=== PATIENT | male | born 1975 | race African-American/Black ===

== ENCOUNTER 2023-08-07 09:43 | Emergency (ER) | payer BC, SELFPAY ==
--- OUTSIDE RECORDS SUMMARY | 2023-08-07 10:00 | XMS REPORT | Continuity of Care Document ---
:1975 Author Organization [facility] t Address [address] [facility] [address]. [address] [place] [address] Support Name Relationship Address Phone Refused, Refused Refused [address] [facility] [address]available [address] [place] [address] UNK Unavailable Unavailable Unavailable Unavailable Unavailable Unavailable Unavailable [place] Parent Unavailable Legal Guardian O BILLING PURPOSES Healthcare Proxy O Created by the Eligibility Depa rtment Unavailable PLEASE DO NOT MODIFY Billing Purposes, Primary Caregiver O Created by the Eligibility Dep artment Unavailable PLEASE DO NOT MODIFY Billing Purposes, Jayne Ese Jonatan Unavailable Unavailable Ahmet Diez O [address] [place] [address] [address]nie Chatman [address] [id number] [place], [place] [id number] Healthcare Proxy O PLEASE DO NOT MODIFY!!!!!!! Raisa vailable DO NOT USE Billing Purposes, Primary Caregiver O PLEASE DO NOT MODIFY!!!!!!! (0 00) 000-0000 DO NOT USE Billing Purposes, Healthcare Proxy, PLEASE O PLEASE DO NOT MODIFY (0 00) 000-0000 STOP UPDATING!!!! PLEASE DO NOT MODIFY Billing Purposes, Primary Caregiver, PLEASE O PLEASE DO NOT MODIFY STOP UPDATING!!! PLEASE DO NOT MODIFY Billing Purposes, None1 O Unavailable Unavailable Donnell Chung O Unavailable Unavailable Cari Mehta [address] [facility] [id number] [address] [place] [address] Reinaldo (Legal Guardian), O [address] [facility] [place] [address] [place] Unavailable Unavailable Care Team Providers Name Role Phone DONTA MOORE Primary Care Physician Unavailable .vsnichelle Attending Clinician Unavailable STEWART CAMARA Attending Clinician Unavailable MORA LOMAS Attending Clinician Unavailable CHEYENNE GUTHRIE Attending Clinician Unavailable ROLA BERG Attending Clinician Unavailable MADELYN SLOAN Attending Clinician Unavailable Rola Wood Attending Clinician NERI WILLIS Attending Clinician Unavailable Neri Willis MD Attending Clinician Doctor Unassigned, Ackerman Attending Clinician Unavailable Mora Lomas MD Attending Clinician UNKNOWN, ATTENDING Attending Clinician Unavailable Cari Mehta MD Attending Clinician [phone] Linda Holbrook CMA Attending Clinician Unavailable Gloria Temple LVN Attending Clinician Unavailable Luis Angel Leyva Attending Clinician Leidy Landa MD Attending Clinician MINGO SENDIL K.H. Attending Clinician Unavailable Lab, Ang - Db Attending Clinician Unavailable JOSIAH HUFFMAN Attending Clinician Unavailable AZ MATHEW Attending Clinician Unavailable Gavi Abad Attending Clinician Emelia Alfonso DO Attending Clinician [phone] Clifton Sorto MD Attending Clinician THEODORE COLLINS Attending Clinician Unavailable Leidy Landa Attending Clinician Linda Holbrook Attending Clinician Unavailable Deirdre Aguirre Attending Clinician Unavailable Rob Osborne Attending Clinician GOGO HAZEL Attending Clinician Unavailable ROB BELCHER Attending Clinician Unavailable Jonathan Nieves Attending Clinician Unavailable Benita Bullock Attending Clinician Unavailable Larry Herrera Attending Clinician [phone] Kusum Spears Attending Clinician Unavailable KYLE BAER Attending Clinician Unavailable LIANG RICARDO Attending Clinician Unavailable Mingo CARNEY, Sendil K.H. Attending Clinician Pepe Moore DDS Attending Clinician [phone] Josiah Humphrey S Attending Clinician LEIDY LANDA Attending Clinician Unavailable Cheyenne Guthrie MD Attending Clinician BRANDY BEST Attending Clinician Unavailable Brandy Best MD Attending Clinician Only, [facility] Test Attending Clinician Unavailable Pob, [facility] Lab Main Attending Clinician Unavailable MEEK GRAF S Attending Clinician Unavailable Nel PAC, Meek S Attending Clinician PK GREGORIO Attending Clinician Unavailable JASON GARCIA Attending Clinician Unavailable Randall Tse DO Attending Clinician Lab, [facility] Fam Pob I Attending Clinician Unavailable Soni Almazan Attending Clinician DONTA MOORE Attending Clinician Unavailable Jason De Jesus Attending Clinician Cordelia Nance Attending Clinician [phone] Xavi MISTRY, Ba Grant Attending Clinician Unavailable Benita Bullock Attending Clinician Unavailable Lonnie Chatman Attending Clinician [phone] Rupa Spears Attending Clinician Unavailable Mya Li Attending Clinician Unavailable Corwin MISTRY, Tawana Cheung Attending Clinician Unavailable Natalee Willis LVN Attending Clinician Unavailable Kadeem Knight RN, Anjelica R Attending Clinician Unavailable MORA LOMAS Admitting Clinician Unavailable CHEYENNE GUTHRIE Admitting Clinician Unavailable Mora Lomas MD Admitting Clinician BRANDY BEST Admitting Clinician Unavailable Cheyenne Guthrie MD Admitting Clinician MEEK GRAF Admitting Clinician Unavailable Cari Mehta MD Unavailable [phone] Larry Herrera MD Unavailable [phone] Lurdes NGUYEN, Lonnie Unavailable [phone] Payers Payer Name Policy Type Policy Number Effective Date Expiration Date [id number] 2020 MEDICAL/MARKETP 00:00:00 LACE BCBS HMO S [id number] 2021 MEDICAL/MARKETP 00:00:00 [place]ACE HIM BCBS BLUE [id number] 2019 ADVANTAGE HMO 00:00:00 BCBS HMO O [id number] 2022 2023 MEDICAL/MARKETP 00:00:00 00:00:00 [place]ACE BCBS HMO S [id number] 2022 2023 MEDICAL/MARKETP 00:00:00 00:00:00 LACE BCBS HMO [id number] 2021 00:00:00 BCBS HMO 11 [id number] 2019 2019 [facility] MEDICAL/MARKETP 00:00:00 00:00:00 Community ANIA Health Problems Condition Condition Condition Status Onset Resolution Last Treating Co mments Source Name Details Category Date Date Treatment Clinician Date Onychomyco Condition Active 2023-02-19 ANGELA Mehta ses 5-17 19:40:26 Cari Adult 00:00: Medicin 00 e Encounter Encounter Disease Active Overview: Univers for for 3-15 Formattin ity of screening screening 00:00: [place] colonoscop colonoscop 00 note Me dical y y might be Branch different from the original. 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 Added automatic ally from request for surgery [id number] Internal Internal Disease Active Overview: Un rocky derangemen derangemen 2-11 Formattin ity of t of right t of right 00:00: g of this [place] knee knee 00 note Medical might be Branch different from the original. Added automatic ally from request for surgery [id number] Immunizati Condition Active 2021-10-29 ANGELA Mehta on update 10-29 16:31:01 Cari Adul t 00:00: Medicin 00 e Rheumatoid Rheumatoid Disease Active 2020-10 M ethodi factor factor 2- st positive positive 00:00: Hospit a 00 l Chronic Chronic Disease Active 2020-10 Methodi pain of pain of 2-13 st both knees both knees 00:00: Ho spita 00 l Lumbar Lumbar Disease Active 2020-10 Methodi spondylosi spondylosi 0-08 st s s 00:00: Hospita 00 l Seizure Seizure Disease Active Overview: Meth rachel 5-[address] 00:00: g of this Hospita 00 note l might be different from the original. Formattin g of this note might be different from the original. Saw a Neurologi st in [place], was not started on anticoagu lation, no further seizures Vitamin D Vitamin D Disease Active Met hodi deficiency deficiency 2-10 st 00:00: Hospita 00 l Chronic Chronic Disease Active Methodi midline midline 3-22 st low back low back 00:00: Hospit a pain with pain with 00 l right-side right-side d sciatica d sciatica HIV HIV Disease Active Univers disease disease 3-20 ity of 00:00: [address] Branch Diabetes Diabetes Disease Active Unive rs mellitus, mellitus, 3-20 ity of type 2 type 2 00:00: [place] 00 Medical Branch HIV Condition Active 2018-102019-08-30 KATHY Herrera C infection 10-30 11:43:23 Larry Wei Reynaldo lt 00:00: Medicin 00 e Encounter Condition Active 2018-102019-08-30 Javier KATHY for 10-30 11:43:23 Larry S Adult screening 00:00: Medicin for eye 00 e and ear disorders Diabetes Condition Active 2018-102019-08-30 Herrera KATHY mellitus, 10-30 11:43:23 Larry Wei Reynaldo lt type II 00:00: Medicin 00 e Open angle Condition Active 2018-102019-08-30 LurdesKATHY with 10-30 11:09:25 Lonnie Adult borderline 00:00: Medici n findings, 00 e low risk, bilateral Exotropia, Condition Active 2018-102019-08-30 Lurdes [facility] alternatin 10-30 11:09:25 Lonnie Adul t g 00:00: Medicin 00 e Presbyopia Condition Active 2018-102019-08-30 Lurdes [facility] - OU 10-30 11:09:25 Lonnie Adult 00:00: Medicin 00 e Myopia - Condition Active 2018-102019-08-30 Lurdes [facility] OU 10-30 11:09:25 Lonnie Adult 00:00: Medicin 00 e Regular Condition Active 2018-102019-08-30 Lurdes [facility] astigmatis 10-30 11:09:25 Lonnie Adul t m, 00:00: Medicin bilateral 00 e Benign Benign Disease Active Methodi essential essential 2-03 st hypertensi hypertensi 00:00: Ho spita on on 00 l Diabetes Diabetes Disease Active Metho di mellitus, mellitus, 2-03 st type 2 type 2 00:00: Hospita 00 l Dyslipidem Dyslipidem Disease Active M ethodi ia ia 8-18 st 00:00: Hospita 00 l HIV HIV Disease Active Methodi infection infection 3-20 st 00:00: Hospita 00 l Allergies, Adverse Reactions, Alerts Allergy Allergy Status Severity Reaction(s) Onset Inactive Treating Comm ents Source Name Type Date Date Clinician ASPIRIN Drug Active High [facility] allergy Criticali 8-24 Adult (disorde ty 00:00: Medicin r) 00 e No Known DA Active U [facility] Drug 5-23 Allergie 00:00: s 00 Sulfa Propensi Active Other - See Due to Uni vers (Sulfona ty to comments 3-20 G6PD ity of mide adverse 00:00: deficienc [place] Antibiot reaction 00 y Medica l ics) s Branch SULFA Drug Active Other-Cmnt Univer s (SULFONA Class 3-20 ity of MIDE 00:00: [place] ANTIBIOT 00 Medical ICS) Branch Sulfa Propensi Active Other (See Due to Meth rachel (Sulfona ty to Comments) 3-[address] mide adverse 00:00: deficienc Hospit a Antibiot reaction 00 y l ics) s to drug Tree Propensi Active Anaphylaxis Uni vers Nuts ty to 7-24 ity of adverse 00:00: [place] reaction 00 Medical s Branch Tree Propensi Active Anaphylaxis Uni vers Nuts ty to 04-28 ity of adverse 00:00: [place] reaction 00 Medical s Branch TREE Drug Active High Anaphylaxis Unive rs NUTS Class 7- ity of 00:00: [place] 00 Medical Branch TREE Food Active Anaphylaxis Unive rs NUTS 7- ity of 00:00: [place] 00 Medical Branch Tree Propensi Active Anaphylaxis Met hodi Nuts ty to 04-28 st adverse 00:00: Hospita reaction 00 l s to drug Peanut Drug Active Hives Univers Allergy - ity of 00:00: [place] 00 Medical Branch PEANUT DRUG Active High Anaphylaxis Unive rs INGREDI 7- ity of 00:00: [place] 00 Medical Branch Peanut Propensi Active Hives Methodi ty to 04-16 st adverse 00:00: Hospita reaction 00 l s to drug Aspirin Propensi Active Other - See bleedingb Univers (Bulk) ty to comments 3-20 leedingbl ity o f adverse 00:00: eeding [place] reaction 00 Medical s Branch ASPIRIN DRUG Active Med Other-Cmnt Unive rs (BULK) 3-20 ity of 00:00: [place] 00 Medical Branch Aspirin Propensi Active Other (See bleedingb Methodi (Bulk) ty to Comments) 3-[address] adverse 00:00: Hospita reaction 00 l s to drug Family History Family Member Diagnosis Comments Start Date Stop Date Source Natural mother Depression [facility] Social History Social Habit Start Date Stop Date Quantity Comments Source [facility] History of tobacco [facility]igarette [facility] Gender identity [facility] Exposure to 2023-02-17 2023-02-27 Not sure University of SARS-CoV-2 (event) 00:00:00 11:42:00 [facility]ly [facility] PHQ2 Questionairre 2023-02-19 2023-02-19 [facility] Score 19:03:06 19:03:06 Health sexual orientation 2023-02-19 2023-02-19 [facility] 19:03:06 19:03:06 Health is there any chance 2023-02-19 2023-02-19 No [facility] that you could be 19:03:06 19:03:06 Health ? drug use 2023-02-19 2023-02-19 no [facility] ty 19:03:06 19:03:06 Health social history 2023-02-19 2023-02-19 reviewed today [facility] reviewed E&M 19:03:06 19:03:06 Health if the patient is 2023-02-19 2023-02-19 No [facility] using/has used a 19:03:06 19:03:06 Health vaping item, Current, Former, Never Used, Not asked alcohol use 2023-02-19 2023-02-19 Currently [facility] 19:03:06 19:03:06 Health passive cigarette 2023-02-19 2023-02-19 LA32-8 [facility] smoke exposure 19:03:06 19:03:06 Health time of call 2023-02-17 2023-02-17 02/17/2023 10:35 [facility] 10:35:41 10:35:41 AM Health tobacco use 2022-10-05 2022-10-05 Currently [facility] (cigarettes, cigar, 09:45:23 09:45:23 Healt h chew, pipe) albumin, serum 2022-09-20 2022-09-20 3.4 g/dL [facility] 09:41:00 09:41:00 Health Cigarettes smoked 2022-06-19 2022-06-[address] current (pack per 00:00:00 00:00:00 Hospita l day) - Reported Tobacco use and 2022-06-19 2022-06-19 Smokeless tobacco [facility] exposure 00:00:00 00:00:00 non-user Hospital Alcohol intake 2022-06-19 2022-06-19 Current drinker [facility] dist 00:00:00 00:00:00 of alcohol Hospital (finding) History of Social 2022-06-19 2022-06-[address] function 00:00:00 00:00:00 Hospital Alcohol Comment 2022-05-31 2022-05-31 social [facility] 00:[facility] 00[facility]00 Hospital patient considered 2021-10-29 2021-10-29 LA32-8 [facility] to be homeless 15:42:04 15:42:04 Health 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 2021-10-29 2021-10-29 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 Clinician (SIG) Name Name atorvastati Yes [id number] 80mg Take 1 Univers n 80 mg 7-19 tablet by ity of tablet 00:00: mouth at [place] 00 bedtime. Medical Branch carvediloL Yes [id number] 6.25mg Take 1 Univers 6.25 mg 7-19 tablet by ity of tablet 00:00: mouth in [place] 00 the Medical morning Branch and 1 tablet in the evening. Take with meals. fenofibrate Yes [id number] 48mg Take 1 Univers 48 mg 7-19 tablet by ity of tablet 00:00: mouth in [place] the Medical morning. Branch atorvastati 2022-0 Yes [id number] 80mg Take 1 Univers n 80 mg 7-19 tablet by ity of tablet 00:00: mouth at [place] [address] bedtime. Medical Branch carvediloL 2022-0 Yes [id number] 6.25mg Take 1 Univers 6.25 mg 7-19 tablet by ity of tablet 00:00: mouth in [place] the Medical morning Branch and 1 tablet in the evening. Take with meals. fenofibrate 2022-0 Yes [id number] 48mg Take 1 Univers 48 mg 7-19 tablet by ity of tablet 00:00: mouth in [place] the Medical morning. Branch atorvastati 2022-0 Yes [id number] 80mg Take 1 Univers n 80 mg 7-19 tablet by ity of tablet 00:00: mouth at [place] [address] bedtime. Medical Branch carvediloL 2022-0 Yes [id number] 6.25mg Take 1 Univers 6.25 mg 7-19 tablet by ity of tablet 00:00: mouth in [place] the Medical morning Branch and 1 tablet in the evening. Take with meals. fenofibrate 2022-0 Yes [id number] 48mg Take 1 Univers 48 mg 7-19 tablet by ity of tablet 00:00: mouth in [place] the Medical morning. Branch atorvastati 2022-0 Yes [id number] 80mg Take 1 Univers n 80 mg 7-19 tablet by ity of tablet 00:00: mouth at [place] [address] bedtime. Medical Branch carvediloL 2022-0 Yes [id number] 6.25mg Take 1 Univers 6.25 mg 7-19 tablet by ity of tablet 00:00: mouth in [place] the Medical morning Branch and 1 tablet in the evening. Take with meals. fenofibrate 3-0 Yes [id number] 48mg Take 1 Univers 48 mg 7-19 tablet by ity of tablet 00:00: mouth in [place] 00 the Medical morning. Branch atorvastati 2022-0 Yes [id number] 80mg Take 1 Univers n 80 mg 7-19 tablet by ity of tablet 00:00: mouth at [place] [address] bedtime. Medical Branch carvediloL 2022-0 Yes [id number] 6.25mg Take 1 Univers 6.25 mg 7-19 tablet by ity of tablet 00:00: mouth in [place] the Medical morning Branch and 1 tablet in the evening. Take with meals. fenofibrate Yes [id number] 48mg Take 1 Univers 48 mg 7-19 tablet by ity of tablet 00:00: mouth in [place] 00 the morning. Branch atorvastati Yes [id number] 80mg Take 1 Univers n 80 mg 7-19 tablet by ity of tablet 00:00: mouth at [place] [address] bedtime. Medical Branch carvediloL Yes [id number] 6.25mg Take 1 Univers 6.25 mg 7-19 tablet by ity of tablet 00:00: mouth in [place] the morning Branch and 1 tablet in the evening. Take with meals. fenofibrate Yes [id number] 48mg Take 1 Univers 48 mg 7-19 tablet by ity of tablet 00:00: mouth in [place] the morning. Branch insulin NPH 2022- No inject Uni vers hum/reg 6-30 06-30 under the ity of insulin hm 14:15: 00:00 skin. [place] (NOVOLIN 03 :00 ADMINISTER Medic al 70-30 5 UNITS Branch FLEXPEN UNDER THE U-100 SC) SKIN THREE TIMES DAILY BEFORE A MEAL insulin NPH 2022- No inject Uni vers hum/reg 6-30 06-30 under the ity of insulin hm 14:15: 00:00 skin. [place] (NOVOLIN 03 :00 ADMINISTER Medic al 70-30 5 UNITS Branch FLEXPEN UNDER THE U-100 SC) SKIN THREE TIMES DAILY BEFORE A MEAL Insulin Yes [id number] Inject 22 U nivers Detemir 6-30 UNITS ity of (LEVEMIR 00:00: UNDER THE [facility] s FLEXTOUCH 00 SKIN TWICE Medi ammy U-100 DAILY Branch INSULN) 100 unit/mL (3 mL) injection insulin Yes [id number] 14U inject 14 U nivers regular 6-30 Units ity of human 00:00: under the [place] (NOVOLIN R 00 skin in Medica l REGULAR the Branch U-100 morning INSULN) 100 and 14 unit/mL Units at injection noon and 14 Units in the evening. inject before meals. semaglutide Yes [id number] 14mg Take 14 mg Univers (RYBELSUS) 6-30 by mouth ity o f 14 mg Tab 00:00: in the [place] 00 morning. Medical Branch dapaglifloz 2022-0 Yes [id number] 5mg Take 1 Univers in 6-30 tablet by ity of (FARXIGA) 5 00:00: mouth in [place] mg tablet 00 the morning. Branch Insulin 2022-0 Yes [id number] Inject 22 U nivers Detemir 6-30 UNITS ity of (LEVEMIR 00:00: UND[place] THE [place] FLEXTOUCH 00 SKIN TWICE Medi ammy U-100 DAILY Branch INSULN) 100 unit/mL (3 mL) injection insulin 2022-0 Yes [id number] 14U inject 14 U nivers regular 6-30 Units ity of human 00:00: under the [place] (NOVOLIN R 00 skin in Medica l REGULAR the Branch U-100 morning INSULN) 100 and 14 unit/mL Units at injection noon and 14 Units in the evening. inject before meals. semaglutide 2022-0 Yes [id number] 14mg Take 14 mg Univers (RYBELSUS) 6-30 by mouth ity o f 14 mg Tab 00:00: in the [place] morning. Medical Branch dapaglifloz 2022-0 Yes [id number] 5mg Take 1 Univers in 6-30 tablet by ity of (FARXIGA) 5 00:00: mouth in [place] mg tablet the morning. Branch Insulin 2022-0 Yes [id number] Inject 22 U nivers Detemir 6-30 UNITS ity of (LEVEMIR 00:00: UND[place] THE [place] FLEXTOUCH 00 SKIN TWICE Medi ammy U-100 DAILY Branch INSULN) 100 unit/mL (3 mL) injection insulin 2022-0 Yes [id number] 14U inject 14 U nivers regular 6-30 Units ity of human 00:00: under the [place] (NOVOLIN R 00 skin in Medica l REGULAR the Branch U-100 morning INSULN) 100 and 14 unit/mL Units at injection noon and 14 Units in the evening. inject before meals. semaglutide 2022-0 Yes [id number] 14mg Take 14 mg Univers (RYBELSUS) 6-30 by mouth ity o f 14 mg Tab 00:00: in the [place] 00 morning. Medical Branch dapaglifloz 2022-0 Yes [id number] 5mg Take 1 Univers in 6-30 tablet by ity of (FARXIGA) 5 00:00: mouth in [place] mg tablet 00 the Medical morning. Branch Insulin 2022-0 Yes [id number] Inject 22 U nivers Detemir 6-30 UNITS ity of (LEVEMIR 00:00: UND[place] THE [place] FLEXTOUCH 00 SKIN TWICE Medi ammy U-100 DAILY Branch INSULN) 100 unit/mL (3 mL) injection insulin 2022-0 Yes [id number] 14U inject 14 U nivers regular 6-30 Units ity of human 00:00: under the [place] (NOVOLIN R 00 skin in Medica l REGULAR the Branch U-100 morning INSULN) 100 and 14 unit/mL Units at injection noon and 14 Units in the evening. inject before meals. semaglutide 2022-0 Yes [id number] 14mg Take 14 mg Univers (RYBELSUS) 6-30 by mouth ity o f 14 mg Tab 00:00: in the [place] 00 morning. Medical Branch dapaglifloz 2022-0 Yes [id number] 5mg Take 1 Univers in 6-30 tablet by ity of (FARXIGA) 5 00:00: mouth in [place] mg tablet 00 the Medical morning. Branch Insulin 2022-0 Yes [id number] Inject 22 U nivers Detemir 6-30 UNITS ity of (LEVEMIR 00:00: [place] THE [place] FLEXTOUCH 00 SKIN TWICE Medi ammy U-100 DAILY Branch INSULN) 100 unit/mL (3 mL) injection insulin 2022-0 Yes [id number] 14U inject 14 U nivers regular 6-30 Units ity of human 00:00: under the [place] (NOVOLIN R 00 skin in Medica l REGULAR the Branch U-100 morning INSULN) 100 and 14 unit/mL Units at injection noon and 14 Units in the evening. inject before meals. semaglutide 2022-0 Yes [id number] 14mg Take 14 mg Univers (RYBELSUS) 6-30 by mouth ity o f 14 mg Tab 00:00: in the [place] 00 morning. Medical Branch dapaglifloz 2022-0 Yes [id number] 5mg Take 1 Univers in 6-30 tablet by ity of (FARXIGA) 5 00:00: mouth in [place] mg tablet 00 the Medical morning. Branch Insulin 0 Yes [id number] Inject 22 U nivers Detemir 6-30 UNITS ity of (LEVEMIR 00:00: UND[place] THE [place] FLEXTOUCH 00 SKIN TWICE Medi ammy U-100 DAILY Branch INSULN) 100 unit/mL (3 mL) injection insulin 0 Yes [id number] 14U inject 14 U nivers regular 6-30 Units ity of human 00:00: under the [place] (NOVOLIN R 00 skin in Medica l REGULAR the Branch U-100 morning INSULN) 100 and 14 unit/mL Units at injection noon and 14 Units in the evening. inject before meals. semaglutide 2022-0 Yes [id number] 14mg Take 14 mg Univers (RYBELSUS) 6-30 by mouth ity o f 14 mg Tab 00:00: in the [place] morning. Medical Branch dapaglifloz 2022-0 Yes [id number] 5mg Take 1 Univers in 6-30 tablet by ity of (FARXIGA) 5 00:00: mouth in [place] mg tablet 00 the morning. Branch Insulin 2022-0 Yes [id number] Inject 22 U nivers Detemir 6-30 UNITS ity of (LEVEMIR 00:00: [facility] SKIN TWICE Medi ammy U-100 DAILY Branch INSULN) 100 unit/mL (3 mL) injection insulin 0 Yes [id number] 14U inject 14 U nivers regular 6-30 Units ity of human 00:00: under the [place] (NOVOLIN R 00 skin in Medica l REGULAR the Branch U-100 morning INSULN) 100 and 14 unit/mL Units at injection noon and 14 Units in the evening. inject before meals. semaglutide 2022-0 Yes [id number] 14mg Take 14 mg Univers (RYBELSUS) 6-30 by mouth ity o f 14 mg Tab 00:00: in the [place] morning. Medical Branch dapaglifloz 2022-0 Yes [id number] 5mg Take 1 Univers in 6-30 tablet by ity of (FARXIGA) 5 00:00: mouth in [place] mg tablet 00 the Medical morning. Branch Insulin 2022-0 Yes [id number] Inject 22 U nivers Detemir 6-30 UNITS ity of (LEVEMIR 00:00: [place] THE [place] FLEXTOUCH 00 SKIN TWICE Medi ammy U-100 DAILY Branch INSULN) 100 unit/mL (3 mL) injection insulin 2022-0 Yes [id number] 14U inject 14 U nivers regular 6-30 Units ity of human 00:00: under the [place] (NOVOLIN R 00 skin in Medica l REGULAR the Branch U-100 morning INSULN) 100 and 14 unit/mL Units at injection noon and 14 Units in the evening. inject before meals. semaglutide 2022-0 Yes [id number] 14mg Take 14 mg Univers (RYBELSUS) 6-30 by mouth ity o f 14 mg Tab 00:00: in the [place] 00 morning. Medical Branch dapaglifloz 2022-0 Yes [id number] 5mg Take 1 Univers in 6-30 tablet by ity of (FARXIGA) 5 00:00: mouth in [place] mg tablet 00 the morning. Branch Insulin 2022-0 Yes [id number] Inject 22 U nivers Detemir 6-30 UNITS ity of (LEVEMIR 00:00: UNDER THE [facility] FLEXTOUCH 00 SKIN TWICE Medi ammy U-100 DAILY Branch INSULN) 100 unit/mL (3 mL) injection insulin 2022-0 Yes [id number] 14U inject 14 U nivers regular 6-30 Units ity of human 00:00: under the [place] (NOVOLIN R 00 skin in Medica l REGULAR the Branch U-100 morning INSULN) 100 and 14 unit/mL Units at injection noon and 14 Units in the evening. inject before meals. semaglutide 2022-0 Yes [id number] 14mg Take 14 mg Univers (RYBELSUS) 6-30 by mouth ity o f 14 mg Tab 00:00: in the [place] 00 morning. Medical Branch dapaglifloz 2022-0 Yes [id number] 5mg Take 1 Univers in 6-30 tablet by ity of (FARXIGA) 5 00:00: mouth in [place] mg tablet 00 the Medical morning. Branch ESCITALOPRA 3-0 Yes [id number] 5mg TAKE 1 Univers M OXALATE 5 6-28 TABLET BY ity of mg tablet 00:00: MOUTH [place] 00 EVERY Medical MORNING Branch ESCITALOPRA 3-0 Yes [id number] 5mg TAKE 1 Univers M OXALATE 5 6-28 TABLET BY ity of mg tablet 00:00: MOUTH [place] 00 EVERY Medical MORNING Branch ESCITALOPRA Yes [id number] 5mg TAKE 1 Univers M OXALATE 5 6-28 TABLET BY ity of mg tablet 00:00: MOUTH [place] 00 EVERY Medical MORNING Branch ESCITALOPRA Yes [id number] 5mg TAKE 1 Univers M OXALATE 5 6-28 TABLET BY ity of mg tablet 00:00: MOUTH [place] 00 EVERY Medical MORNING Branch ESCITALOPRA Yes [id number] 5mg TAKE 1 Univers M OXALATE 5 6-28 TABLET BY ity of mg tablet 00:00: MOUTH [place] 00 EVERY Medical MORNING Branch ESCITALOPRA Yes [id number] 5mg TAKE 1 Univers M OXALATE 5 6-28 TABLET BY ity of mg tablet 00:00: MOUTH 00 EVERY Medical MORNING Branch ESCITALOPRA Yes [id number] 5mg TAKE 1 Univers M OXALATE 5 6-28 TABLET BY ity of mg tablet 00:00: MOUTH 00 EVERY Medical MORNING Branch ESCITALOPRA 0 Yes [id number] 5mg TAKE 1 Univers M OXALATE 5 6-28 TABLET BY ity of mg tablet 00:00: MOUTH [place] 00 EVERY Medical MORNING Branch ESCITALOPRA 0 Yes [id number] 5mg TAKE 1 Univers M OXALATE 5 6-28 TABLET BY ity of mg tablet 00:00: MOUTH [place] 00 EVERY Medical MORNING Branch ESCITALOPRA 0 Yes [id number] 5mg TAKE 1 Univers M OXALATE 5 6-28 TABLET BY ity of mg tablet 00:00: MOUTH EVERY Medical MORNING Branch ESCITALOPRA 0 Yes [id number] 5mg TAKE 1 Univers M OXALATE 5 6-28 TABLET BY ity of mg tablet 00:00: MOUTH [place] 00 EVERY Medical MORNING Branch lactated 2022-0 Yes 1000mL at 100 Unive rs ringers IV 6-07 mL/hr, ity of infusion 17:30: 1,000 [place] 1,000 mL 00 IV Medical Infusion, Branch CONTINUOUS , Starting on Fri03/12/23 at 1230, Until Discontinu ed, Routine, PACU lactated 2022-0 2022- No 1000mL at 100 Univ ers ringers IV 607 06-07 mL/hr, ity of infusion 17:30: 19:53 1,000 mL, [place] 1,000 mL 00 :24 IV Medical Infusion, Branch CONTINUOUS , Starting on Fri03/12/23 at 1230, Until Fri03/12/23 at 1453, Routine, PACU ondansetron Yes 4mg 4 mg, Slow Univers (ZOFRAN 6-07 IV Push, ity of (PF)) 17:29: PRN, 1 [place] injection 4 06 dose, Medical mg Starting Branch on Fri03/12/23 at 1229, Until Discontinu ed, Routine, Nausea and Vomiting (N/V), PACU ondansetron 2022- No 4mg 4 mg, Slow Univers (ZOFRAN 03-12 06-07 IV Push, ity of (PF)) 17:29: 19:53 PRN, 1 [place] injection 4 06 :24 dose, Medical mg Starting Branch on Fri03/12/23 at 1229, Until Fri03/12/23 at 1453, Routine, Nausea and Vomiting (N/V), PACU water for 2022- No PRN, Univers irrigation 03-12 Starting ity of irrigation 16:37: 16:59 on [place] solution 00 :48 03/12/23 at Medica l 1137, Branch Until Fri03/12/23 at 1159, Routine, Intra-op simethicone 2022- No PRN, Unive rs (GAS RELIEF 03-12 Starting ity of (SIMETHICON 16:37: 16:59 on Fri [place] E)) 40 00 :48 03/12/23 at Medical mg/0.6 mL 1137, Branch drops Until Fri03/12/23 at 1159, Routine, Intra-op lactated 2022- [facility] 03[facility]12 06-07 mL/hr, ity of infusion 15:15: 15:18 1,000 mL, [place] 1,000 mL 00 :00 IV Medical Infusion, Branch ONCE, 1 dose, On Fri03/12/23 at 1015, Routine, DSU Pre-op lactated 2022- No 1000[facility] 03-12 06-07 mL/hr, ity of infusion 15:15: 15:18 1,000 mL, [place] 1,000 mL 00 :00 IV Medical Infusion, Branch ONCE, 1 dose, On Fri03/12/23 at 1015, Routine, DSU Pre-op tiZANidine 2023-0 Yes 2mg Take 1 Unive rs 2 mg tablet 6-07 tablet by ity of 12:53: mouth in [place] [address] the Medical morning. Branch HYDROcodone 3-0 Yes 1{tbl} Take 1 Un rocky -acetaminop 6-07 tablet by ity of hen 10-325 12:53: mouth in [place] mg tablet 21 the Medical morning Branch and 1 tablet at noon and 1 tablet in the evening. meloxicam 2023-0 Yes Take by Unive rs 7.5 mg TbDL 6-07 mouth ity of 12:53: daily. [address] insulin NPH 3-0 Yes inject Univ ers hum/reg 6-07 under the ity of insulin hm 12:53: skin. [place] (NOVOLIN ADMINISTER Medic al 70-30 5 UNITS Branch FLEXPEN UNDER THE U-100 SC) SKIN THREE TIMES DAILY BEFORE A MEAL tiZANidine 2023-0 Yes 2mg Take 1 Unive rs 2 mg tablet 6-07 tablet by ity of 12:53: mouth in [place] [address] the Medical morning. Branch HYDROcodone 3-0 Yes 1{tbl} Take 1 Un rocky -acetaminop 6-07 tablet by ity of hen 10-325 12:53: mouth in [place] mg tablet 21 the Medical morning Branch and 1 tablet at noon and 1 tablet in the evening. meloxicam 2023-0 Yes Take by Unive rs 7.5 mg TbDL 6-07 mouth ity of 12:53: daily. [address] insulin NPH 3-0 Yes inject Univ ers hum/reg 6-07 under the ity of insulin hm 12:53: skin. [place] (NOVOLIN 21 ADMINISTER Medic al 70-30 5 UNITS Branch FLEXPEN UNDER THE U-100 SC) SKIN THREE TIMES DAILY BEFORE A MEAL tiZANidine 2023-0 Yes 2mg Take 1 Unive rs 2 mg tablet 6-07 tablet by ity of 12:53: mouth in [place] [address] the Medical morning. Branch HYDROcodone 3-0 Yes 1{tbl} Take 1 Un rocky -acetaminop 6-07 tablet by ity of hen 10-325 12:53: mouth in [place] mg tablet 21 the Medical morning Branch and 1 tablet at noon and 1 tablet in the evening. meloxicam 3-0 Yes Take by Unive rs 7.5 mg TbDL 6-07 mouth ity of 12:53: daily. [place] [address] Medical Branch insulin NPH 2022-0 Yes inject Univ ers hum/reg 6-07 under the ity of insulin hm 12:53: skin. [place] (NOVOLIN 21 ADMINISTER Medic al 70-30 5 UNITS Branch FLEXPEN UNDER THE U-100 SC) SKIN THREE TIMES DAILY BEFORE A MEAL tiZANidine 3-0 Yes 2mg Take 1 Unive rs 2 mg tablet 6-07 tablet by ity of 12:53: mouth in [place] [address] the Medical morning. Branch HYDROcodone 2022-0 Yes 1{tbl} Take 1 Un rocky -acetaminop 6-07 tablet by ity of hen 10-325 12:53: mouth in [place] mg tablet 21 the Medical morning Branch and 1 tablet at noon and 1 tablet in the evening. meloxicam 3-0 Yes Take by Unive rs 7.5 mg TbDL 6-07 mouth ity of 12:53: daily. [place] [address] Medical Branch insulin NPH 2022-0 Yes inject Univ ers hum/reg 6-07 under the ity of insulin hm 12:53: skin. [place] (NOVOLIN 21 ADMINISTER Medic al 70-30 5 UNITS Branch FLEXPEN UNDER THE U-100 SC) SKIN THREE TIMES DAILY BEFORE A MEAL tiZANidine 3-0 Yes 2mg Take 1 Unive rs 2 mg tablet 6-07 tablet by ity of 12:53: mouth in [place] [address] the Medical morning. Branch HYDROcodone 2022-0 Yes 1{tbl} Take 1 Un rocky -acetaminop 6-07 tablet by ity of hen 10-325 12:53: mouth in [place] mg tablet 21 the Medical morning Branch and 1 tablet at noon and 1 tablet in the evening. meloxicam 3-0 Yes Take by Unive rs 7.5 mg TbDL 6-07 mouth ity of 12:53: daily. [place] [address] Medical Branch insulin NPH 2022-0 Yes inject Univ ers hum/reg 6-07 under the ity of insulin hm 12:53: skin. [place] (NOVOLIN 21 ADMINISTER Medic al 70-30 5 UNITS Branch FLEXPEN UNDER THE U-100 SC) SKIN THREE TIMES DAILY BEFORE A MEAL tiZANidine 2023-0 Yes 2mg Take 1 Unive rs 2 mg tablet 6-07 tablet by ity of 12:53: mouth in [place] [address] the Medical morning. Branch HYDROcodone 2023-0 Yes 1{tbl} Take 1 Un rocky -acetaminop 6-07 tablet by ity of hen 10-325 12:53: mouth in [place] mg tablet 21 the Medical morning Branch and 1 tablet at noon and 1 tablet in the evening. meloxicam 2023-0 Yes Take by Unive rs 7.5 mg TbDL 6-07 mouth ity of 12:53: daily. [place] [address] Medical Branch tiZANidine 2023-0 Yes 2mg Take 1 Unive rs 2 mg tablet 6-07 tablet by ity of 12:53: mouth in [place] [address] the Medical morning. Branch HYDROcodone 2023-0 Yes 1{tbl} Take 1 Un rocky -acetaminop 6-07 tablet by ity of hen 10-325 12:53: mouth in [place] mg tablet 21 the Medical morning Branch and 1 tablet at noon and 1 tablet in the evening. meloxicam 2023-0 Yes Take by Unive rs 7.5 mg TbDL 6-07 mouth ity of 12:53: daily. [place] [address] Medical Branch tiZANidine 2023-0 Yes 2mg Take 1 Unive rs 2 mg tablet 6-07 tablet by ity of 12:53: mouth in [place] [address] the Medical morning. Branch HYDROcodone 2023-0 Yes 1{tbl} Take 1 Un rocky -acetaminop 6-07 tablet by ity of hen 10-325 12:53: mouth in [place] mg tablet 21 the Medical morning Branch and 1 tablet at noon and 1 tablet in the evening. meloxicam 2023-0 Yes Take by Unive rs 7.5 mg TbDL 6-07 mouth ity of 12:53: daily. [place] [address] Medical Branch tiZANidine 2023-0 Yes 2mg Take 1 Unive rs 2 mg tablet 6-07 tablet by ity of 12:53: mouth in [place] [address] the Medical morning. Branch HYDROcodone 2023-0 Yes 1{tbl} Take 1 Un rocky -acetaminop 6-07 tablet by ity of hen 10-325 12:53: mouth in [place] mg tablet 21 the Medical morning Branch and 1 tablet at noon and 1 tablet in the evening. meloxicam 2023-0 Yes Take by Unive rs 7.5 mg TbDL 6-07 mouth ity of 12:53: daily. [place] [address] Medical Branch tiZANidine 2023-0 Yes 2mg Take 1 Unive rs 2 mg tablet 6-07 tablet by ity of 12:53: mouth in [place] [address] the Medical morning. Branch HYDROcodone 2023-0 Yes 1{tbl} Take 1 Un rocky -acetaminop 6-07 tablet by ity of hen 10-325 12:53: mouth in [place] mg tablet 21 the Medical morning Branch and 1 tablet at noon and 1 tablet in the evening. meloxicam 2023-0 Yes Take by Unive rs 7.5 mg TbDL 6-07 mouth ity of 12:53: daily. [place] [address] Medical Branch tiZANidine 2023-0 Yes 2mg Take 1 Unive rs 2 mg tablet 6-07 tablet by ity of 12:53: mouth in [place] [address] the Medical morning. Branch HYDROcodone 3-0 Yes 1{tbl} Take 1 Un rocky -acetaminop 6-07 tablet by ity of hen 10-325 12:53: mouth in [place] mg tablet 21 the Medical morning Branch and 1 tablet at noon and 1 tablet in the evening. meloxicam 2023-0 Yes Take by Unive rs 7.5 mg TbDL 6-07 mouth ity of 12:53: daily. [place] [address] Medical Branch tiZANidine 2023-0 Yes 2mg Take 1 Unive rs 2 mg tablet 6-07 tablet by ity of 12:53: mouth in [place] [address] the Medical morning. Branch HYDROcodone 2023-0 Yes 1{tbl} Take 1 Un rocky -acetaminop 6-07 tablet by ity of hen 10-325 12:53: mouth in [place] mg tablet 21 the Medical morning Branch and 1 tablet at noon and 1 tablet in the evening. meloxicam 2023-0 Yes Take by Unive rs 7.5 mg TbDL 6-07 mouth ity of 12:53: daily. [place] [address] Medical Branch tiZANidine 2023-0 Yes 2mg Take 1 Unive rs 2 mg tablet 6-07 tablet by ity of 12:53: mouth in [place] [address] the Medical morning. Branch HYDROcodone 3-0 Yes 1{tbl} Take 1 Un rocky -acetaminop 6-07 tablet by ity of hen 10-325 12:53: mouth in [place] mg tablet 21 the Medical morning Branch and 1 tablet at noon and 1 tablet in the evening. meloxicam 3-0 Yes Take by Unive rs 7.5 mg TbDL 6-07 mouth ity of 12:53: daily. [place] [address] Medical Branch tiZANidine 2023-0 Yes 2mg Take 1 Unive rs 2 mg tablet 6-07 tablet by ity of 12:53: mouth in [place] [address] the Medical morning. Branch HYDROcodone 3-0 Yes 1{tbl} Take 1 Un rocky -acetaminop 6-07 tablet by ity of hen 10-325 12:53: mouth in [place] mg tablet 21 the Medical morning Branch and 1 tablet at noon and 1 tablet in the evening. meloxicam 3-0 Yes Take by Unive rs 7.5 mg TbDL 6-07 mouth ity of 12:53: daily. [place] [address] Medical Branch tiZANidine 3-0 Yes 2mg Take 1 Unive rs 2 mg tablet 6-07 tablet by ity of 12:53: mouth in [place] [address] the Medical morning. Branch HYDROcodone 3-0 Yes 1{tbl} Take 1 Un rocky -acetaminop 6-07 tablet by ity of hen 10-325 12:53: mouth in [place] mg tablet 21 the Medical morning Branch and 1 tablet at noon and 1 tablet in the evening. meloxicam 3-0 Yes Take by Unive rs 7.5 mg TbDL 6-07 mouth ity of 12:53: daily. [place] [address] Medical Branch tiZANidine 2023-0 Yes 2mg Take 1 Unive rs 2 mg tablet 6-07 tablet by ity of 12:53: mouth in [place] [address] the Medical morning. Branch HYDROcodone 2023-0 Yes 1{tbl} Take 1 Un rocky -acetaminop 6-07 tablet by ity of hen 10-325 12:53: mouth in [place] mg tablet 21 the Medical morning Branch and 1 tablet at noon and 1 tablet in the evening. meloxicam Yes Take by Unive rs 7.5 mg TbDL 6-07 mouth ity of 12:53: daily. [place] 21 Medical Branch tiZANidine Yes 2mg Take 1 Unive rs 2 mg tablet 6-07 tablet by ity of 12:53: mouth in [place] 21 the Medical morning. Branch HYDROcodone Yes 1{tbl} Take 1 Un rocky -acetaminop 6-07 tablet by ity of hen 10-325 12:53: mouth in [facility] as mg tablet 21 the Medical morning Branch and 1 tablet at noon and 1 tablet in the evening. meloxicam Yes Take by Unive rs 7.5 mg TbDL 6-07 mouth ity of 12:53: daily. [place] [address] Medical Branch (FLUCONAZOL Yes Cari 1 Take 1 L MC E) 150 MG 5-17 Shrikanth tablet by Adult TABS 00:00: MD mouth once Medicin 00 a week e flash Yes [id number] 1{each} 1 Each Uni vers glucose 4-20 every 14 ity of sensor 00:00: (fourteen) [place] (FREESTYLE 00 days. Medical SOREN 14 ICD-10 Branch DAY SENSOR) code Kit E11.65 flash Yes [id number] 1{each} 1 Each Uni vers glucose 4-20 every 14 ity of sensor 00:00: (fourteen) [place] (FREESTYLE 00 days. Medical SOREN 14 ICD-10 Branch DAY SENSOR) code Kit E11.65 flash 2022- No [id number] 1{each} 1 Each Un rocky glucose 4-20 06-07 every 14 ity of sensor 00:00: 00:00 (fourteen) [place] (FREESTYLE 00 :00 days. Medical SOREN 14 ICD-10 Branch DAY SENSOR) code Kit E11.65 flash 0 202- No [id number] 1{each} 1 Each Un rocky glucose 4-20 06-07 every 14 ity of sensor 00:00: 00:00 (fourteen) [place] (FREESTYLE 00 :00 days. Medical SOREN 14 ICD-10 Branch DAY SENSOR) code Kit E11.65 gabapentin Yes TAKE 1 Unive rs 300 mg 3-23 CAPSULE BY ity of capsule 00:00: MOUTH [place] 00 EVERY 6 Medical HOURS Branch gabapentin 2023-0 Yes TAKE 1 Unive rs 300 mg 3-23 CAPSULE BY ity of capsule 00:00: MOUTH [place] 00 EVERY 6 Medical HOURS Branch gabapentin 2023-0 Yes TAKE 1 Unive rs 300 mg 3-23 CAPSULE BY ity of capsule 00:00: MOUTH [place] 00 EVERY 6 Medical HOURS Branch gabapentin 2023-0 Yes TAKE 1 Unive rs 300 mg 3-23 CAPSULE BY ity of capsule 00:00: MOUTH [place] 00 EVERY 6 Medical HOURS Branch gabapentin 2023-0 Yes TAKE 1 Unive rs 300 mg 3-23 CAPSULE BY ity of capsule 00:00: MOUTH [place] 00 EVERY 6 Medical HOURS Branch gabapentin 2023-0 Yes TAKE 1 Unive rs 300 mg 3-23 CAPSULE BY ity of capsule 00:00: MOUTH [place] 00 EVERY 6 Medical HOURS Branch gabapentin 2023-0 Yes TAKE 1 Unive rs 300 mg 3-23 CAPSULE BY ity of capsule 00:00: MOUTH [place] 00 EVERY 6 Medical HOURS Branch gabapentin 2023-0 Yes TAKE 1 Unive rs 300 mg 3-23 CAPSULE BY ity of capsule 00:00: MOUTH [place] 00 EVERY 6 Medical HOURS Branch gabapentin 2023-0 Yes TAKE 1 Unive rs 300 mg 3-23 CAPSULE BY ity of capsule 00:00: MOUTH [place] 00 EVERY 6 Medical HOURS Branch gabapentin 2023-0 Yes TAKE 1 Unive rs 300 mg 3-23 CAPSULE BY ity of capsule 00:00: MOUTH [place] 00 EVERY 6 Medical HOURS Branch gabapentin 2023-0 Yes TAKE 1 Unive rs 300 mg 3-23 CAPSULE BY ity of capsule 00:00: MOUTH [place] 00 EVERY 6 Medical HOURS Branch gabapentin 2023-0 Yes TAKE 1 Unive rs 300 mg 3-23 CAPSULE BY ity of capsule 00:00: MOUTH [place] 00 EVERY 6 Medical HOURS Branch gabapentin 2023-0 Yes TAKE 1 Unive rs 300 mg 3-23 CAPSULE BY ity of capsule 00:00: MOUTH [place] 00 EVERY 6 Medical HOURS Branch gabapentin 2023-0 Yes TAKE 1 Unive rs 300 mg 3-23 CAPSULE BY ity of capsule 00:00: MOUTH [place] 00 EVERY 6 Medical HOURS Branch gabapentin 2023-0 Yes TAKE 1 Unive rs 300 mg 3-23 CAPSULE BY ity of capsule 00:00: MOUTH [place] 00 EVERY 6 Medical HOURS Branch GAVILYTE-G 2023-0 Yes Univers 236-22.74-6 3-22 ity of .74 -5.86 00:00: [place] gram 00 Medical solution Branch GAVILYTE-G Yes Univers 236-22.74-6 3-22 ity of .74 -5.86 00:00: [place] gram 00 Medical solution Branch GAVILYTE-G Yes Univers 236-22.74-6 3-22 ity of .74 -5.86 00:00: [place] gram 00 Medical solution Branch peg-electro 2022- No [id number] 4000mL Take 4,000 Univers lyte soln 3-22 03-23 mL by ity of 236-22.74-6 00:00: 04:59 mouth once [place] .74 -5.86 00 :00 now for 1 Medic al gram dose. Branch solution peg-electro 2022- No 4000mL Take 4,000 Univers lyte soln 3-15 03-16 mL by ity of (GOLYTELY) 00:00: 04:59 mouth once [place] 236-22.74-6 00 :00 now for 1 Med ical .74 -5.86 dose. Branch gram solution Insulin Yes [id number] ADMINISTER Univers Detemir 3-02 35 UNITS ity of (LEVEMIR 00:00: UNDER THE [facility] FLEXTOUCH 00 SKIN TWICE Medi ammy U-100 DAILY Branch INSULN) 100 unit/mL (3 mL) injection NOVOLIN R Yes [id number] ADMINISTER Univers REGULAR 3-02 5 UNITS ity of U-100 00:00: UNDER THE [place] INSULN 100 00 SKIN THREE Med ical unit/mL TIMES Branch solution DAILY BEFORE A MEAL Insulin Yes [id number] ADMINISTER Univers Detemir 3-02 35 UNITS ity of (LEVEMIR 00:00: UNDER THE [facility] FLEXTOUCH 00 SKIN TWICE Medi ammy U-100 DAILY Branch INSULN) 100 unit/mL (3 mL) injection NOVOLIN R Yes [id number] ADMINISTER Univers REGULAR 3-02 5 UNITS ity of U-100 00:00: UNDER THE [place] INSULN 100 00 SKIN THREE Med ical unit/mL TIMES Branch solution DAILY BEFORE A MEAL Insulin Yes [id number] ADMINISTER Univers Detemir 3-02 35 UNITS ity of (LEVEMIR 00:00: UNDER THE [place] FLEXTOUCH 00 SKIN TWICE Medi ammy U-100 DAILY Branch INSULN) 100 unit/mL (3 mL) injection NOVOLIN R 2023-0 Yes [id number] ADMINISTER Univers REGULAR 3-02 5 UNITS ity of U-100 00:00: UNDER THE [place] INSULN 100 00 SKIN THREE Med ical unit/mL TIMES Branch solution DAILY BEFORE A MEAL Insulin 2022-0 Yes [id number] ADMINISTER Univers Detemir 3-02 35 UNITS ity of (LEVEMIR 00:00: UNDER THE [place] FLEXTOUCH 00 SKIN TWICE Medi ammy U-100 DAILY Branch INSULN) 100 unit/mL (3 mL) injection NOVOLIN R 2023-0 Yes [id number] ADMINISTER Univers REGULAR 3-02 5 UNITS ity of U-100 00:00: UNDER THE [place] INSULN 100 00 SKIN THREE Med ical unit/mL TIMES Branch solution DAILY BEFORE A MEAL Insulin 2022-0 Yes [id number] ADMINISTER Univers Detemir 3-02 35 UNITS ity of (LEVEMIR 00:00: UNDER THE [place] FLEXTOUCH 00 SKIN TWICE Medi ammy U-100 DAILY Branch INSULN) 100 unit/mL (3 mL) injection NOVOLIN R 2023-0 Yes [id number] ADMINISTER Univers REGULAR 3-02 5 UNITS ity of U-100 00:00: UNDER THE [place] INSULN 100 00 SKIN THREE Med ical unit/mL TIMES Branch solution DAILY BEFORE A MEAL Insulin 2022-0 Yes [id number] ADMINISTER Univers Detemir 3-02 35 UNITS ity of (LEVEMIR 00:00: UNDER THE [place] FLEXTOUCH 00 SKIN TWICE Medi ammy U-100 DAILY Branch INSULN) 100 unit/mL (3 mL) injection NOVOLIN R 2023-0 Yes [id number] ADMINISTER Univers REGULAR 3-02 5 UNITS ity of U-100 00:00: UNDER THE [place] INSULN 100 00 SKIN THREE Med ical unit/mL TIMES Branch solution DAILY BEFORE A MEAL Insulin 2022-0 Yes [id number] ADMINISTER Univers Detemir 3-02 35 UNITS ity of (LEVEMIR 00:00: UNDER THE [place] FLEXTOUCH 00 SKIN TWICE Medi ammy U-100 DAILY Branch INSULN) 100 unit/mL (3 mL) injection NOVOLIN R 2023-0 Yes [id number] ADMINISTER Univers REGULAR 3-02 5 UNITS ity of U-100 00:00: UNDER THE [place] INSULN 100 00 SKIN THREE Med ical unit/mL TIMES Branch solution DAILY BEFORE A MEAL Insulin 0 Yes [id number] ADMINISTER Univers Detemir 3-02 35 UNITS ity of (LEVEMIR 00:00: [facility] THE [facility] FLEXTOUCH 00 SKIN TWICE Medi ammy U-100 DAILY Branch INSULN) 100 unit/mL (3 mL) injection NOVOLIN R 2022-0 Yes [id number] ADMINISTER Univers REGULAR 3-02 5 UNITS ity of U-100 00:00: UNDER THE [place] INSULN 100 00 SKIN THREE Med ical unit/mL TIMES Branch solution DAILY BEFORE A MEAL Insulin 0 Yes [id number] ADMINISTER Univers Detemir 3-02 35 UNITS ity of (LEVEMIR 00:00: UNDER THE [facility] FLEXTOUCH 00 SKIN TWICE Medi ammy U-100 DAILY Branch INSULN) 100 unit/mL (3 mL) injection NOVOLIN R 2022-0 Yes [id number] ADMINISTER Univers REGULAR 3-02 5 UNITS ity of U-100 00:00: UNDER THE [place] INSULN 100 00 SKIN THREE Med ical unit/mL TIMES Branch solution DAILY BEFORE A MEAL Insulin 0 Yes [id number] ADMINISTER Univers Detemir 3-02 35 UNITS ity of (LEVEMIR 00:00: UNDER THE [facility] FLEXTOUCH 00 SKIN TWICE Medi ammy U-100 DAILY Branch INSULN) 100 unit/mL (3 mL) injection NOVOLIN R 2022-0 Yes [id number] ADMINISTER Univers REGULAR 3-02 5 UNITS ity of U-100 00:00: UNDER THE [place] INSULN 100 00 SKIN THREE Med ical unit/mL TIMES Branch solution DAILY BEFORE A MEAL Insulin 0 Yes [id number] ADMINISTER Univers Detemir 3-02 35 UNITS ity of (LEVEMIR 00:00: UNDER THE [facility] FLEXTOUCH 00 SKIN TWICE Medi ammy U-100 DAILY Branch INSULN) 100 unit/mL (3 mL) injection NOVOLIN R 2022-0 Yes [id number] ADMINISTER Univers REGULAR 3-02 5 UNITS ity of U-100 00:00: UNDER THE [place] INSULN 100 00 SKIN THREE Med ical unit/mL TIMES Branch solution DAILY BEFORE A MEAL Insulin 0 Yes [id number] ADMINISTER Univers Detemir 3-02 35 UNITS ity of (LEVEMIR 00:00: UNDER THE [facility] FLEXTOUCH 00 SKIN TWICE Medi ammy U-100 DAILY Branch INSULN) 100 unit/mL (3 mL) injection NOVOLIN R 2022-0 Yes [id number] ADMINISTER Univers REGULAR 3-02 5 UNITS ity of U-100 00:00: UNDER THE [place] INSULN 100 00 SKIN THREE Med ical unit/mL TIMES Branch solution DAILY BEFORE A MEAL Insulin 0 Yes [id number] ADMINISTER Univers Detemir 3-02 35 UNITS ity of (LEVEMIR 00:00: UNDER THE [facility] FLEXTOUCH 00 SKIN TWICE Medi ammy U-100 DAILY Branch INSULN) 100 unit/mL (3 mL) injection NOVOLIN R 2022-0 Yes [id number] ADMINISTER Univers REGULAR 3-02 5 UNITS ity of U-100 00:00: UNDER THE [place] INSULN 100 00 SKIN THREE Med ical unit/mL TIMES Branch solution DAILY BEFORE A MEAL Insulin 0 Yes [id number] ADMINISTER Univers Detemir 3-02 35 UNITS ity of (LEVEMIR 00:00: UNDER THE [facility] FLEXTOUCH 00 SKIN TWICE Medi ammy U-100 DAILY Branch INSULN) 100 unit/mL (3 mL) injection NOVOLIN R 2022-0 Yes [id number] ADMINISTER Univers REGULAR 3-02 5 UNITS ity of U-100 00:00: UNDER THE [place] INSULN 100 00 SKIN THREE Med ical unit/mL TIMES Branch solution DAILY BEFORE A MEAL Insulin 2022-0 2023- No [id number] ADMINISTER Univers Detemir 3-02 06-30 35 UNITS ity of (LEVEMIR 00:00: 00:00 UNDER THE [place] FLEXTOUCH 00 :00 SKIN TWICE Medi ammy U-100 DAILY Branch INSULN) 100 unit/mL (3 mL) injection NOVOLIN R 2022-0 2023- No [id number] ADMINISTER Univers REGULAR 3-02 06-30 5 UNITS ity of U-100 00:00: 00:00 UNDER THE [place] INSULN 100 00 :00 SKIN THREE Med ical unit/mL TIMES Branch solution DAILY BEFORE A MEAL Insulin 2022-0 2023- No [id number] ADMINISTER Univers Detemir 3-02 06-30 35 UNITS ity of (LEVEMIR 00:00: 00:00 UNDER THE [place] FLEXTOUCH 00 :00 SKIN TWICE Medi ammy U-100 DAILY Branch INSULN) 100 unit/mL (3 mL) injection NOVOLIN R 202-0 3- No [id number] ADMINISTER Univers REGULAR 3-02 06-30 5 UNITS ity of U-100 00:00: 00:00 UNDER THE [place] INSULN 100 00 :00 SKIN THREE Med ical unit/mL TIMES Branch solution DAILY BEFORE A MEAL NOVOLIN R 2023-0 Yes [id number] ADMINISTER Univers REGULAR 2-24 5 UNITS ity of U-100 00:00: UNDER THE [place] INSULN 100 00 SKIN THREE Med ical unit/mL TIMES Branch solution DAILY BEFORE A MEAL NOVOLIN R 2023-0 Yes [id number] ADMINISTER Univers REGULAR 2-24 5 UNITS ity of U-100 00:00: UNDER THE [place] INSULN 100 00 SKIN THREE Med ical unit/mL TIMES Branch solution DAILY BEFORE A MEAL NOVOLIN R 2023-0 Yes [id number] ADMINISTER Univers REGULAR 2-24 5 UNITS ity of U-100 00:00: UNDER THE [place] INSULN 100 00 SKIN THREE Med ical unit/mL TIMES Branch solution DAILY BEFORE A MEAL NOVOLIN R 2023-0 Yes [id number] ADMINISTER Univers REGULAR 2-24 5 UNITS ity of U-100 00:00: UNDER THE [place] INSULN 100 00 SKIN THREE Med ical unit/mL TIMES Branch solution DAILY BEFORE A MEAL NOVOLIN R 2023-0 Yes [id number] ADMINISTER [facility] REGULAR 2-24 5 UNITS ity of U-100 00:00: UNDER THE [place] INSULN 100 00 SKIN THREE Med ical unit/mL TIMES Branch solution DAILY BEFORE A MEAL NOVOLIN R 2023-0 Yes [id number] ADMINISTER [facility] REGULAR 2-24 5 UNITS ity of U-100 00:00: UNDER THE [place] INSULN 100 00 SKIN THREE Med ical unit/mL TIMES Branch solution DAILY BEFORE A MEAL NOVOLIN R 2023-0 Yes [id number] ADMINISTER [facility] REGULAR 2-24 5 UNITS ity of U-100 00:00: UNDER THE [place] INSULN 100 00 SKIN THREE Med ical unit/mL TIMES Branch solution DAILY BEFORE A MEAL NOVOLIN R 2023-0 Yes [id number] ADMINISTER [facility] REGULAR 2-24 5 UNITS ity of U-100 00:00: UNDER THE [place] INSULN 100 00 SKIN THREE Med ical unit/mL TIMES Branch solution DAILY BEFORE A MEAL NOVOLIN R 2023-0 Yes [id number] ADMINISTER [facility] REGULAR 2-24 5 UNITS ity of U-100 00:00: UNDER THE [place] INSULN 100 00 SKIN THREE Med ical unit/mL TIMES Branch solution DAILY BEFORE A MEAL NOVOLIN R 2023-0 Yes [id number] ADMINISTER [facility] REGULAR 2-24 5 UNITS ity of U-100 00:00: UNDER THE [place] INSULN 100 00 SKIN THREE Med ical unit/mL TIMES Branch solution DAILY BEFORE A MEAL NOVOLIN R 3-0 Yes [id number] ADMINISTER [facility] REGULAR 2-24 5 UNITS ity of U-100 00:00: UNDER THE [place] INSULN 100 00 SKIN THREE Med ical unit/mL TIMES Branch solution DAILY BEFORE A MEAL NOVOLIN R 3-0 Yes [id number] ADMINISTER [facility] REGULAR 2-24 5 UNITS ity of U-100 00:00: UNDER THE [place] INSULN 100 00 SKIN THREE Med ical unit/mL TIMES Branch solution DAILY BEFORE A MEAL NOVOLIN R 3-0 Yes [id number] ADMINISTER [facility] REGULAR 2-24 5 UNITS ity of U-100 00:00: UNDER THE [place] INSULN 100 00 SKIN THREE Med ical unit/mL TIMES Branch solution DAILY BEFORE A MEAL NOVOLIN R 3-0 Yes [id number] ADMINISTER [facility] REGULAR 2-24 5 UNITS ity of U-100 00:00: UNDER THE [place] INSULN 100 00 SKIN THREE Med ical unit/mL TIMES Branch solution DAILY BEFORE A MEAL NOVOLIN R 3-0 2023- No [id number] ADMINISTER [facility] REGULAR 2-24 06-30 5 UNITS ity of U-100 00:00: 00:00 UNDER THE [place] INSULN 100 00 :00 SKIN THREE Med ical unit/mL TIMES Branch solution DAILY BEFORE A MEAL NOVOLIN R 2023-0 2023- No [id number] ADMINISTER [facility] REGULAR 2-24 06-30 5 UNITS ity of U-100 00:00: 00:00 UNDER THE [place] INSULN 100 00 :00 SKIN THREE Med ical unit/mL TIMES Branch solution DAILY BEFORE A MEAL Blood-Gluco 2022-0 Yes [id number] Use as Univers se Sensor 1-26 directed ity of (DEXCOM G6 00:00: for [place] SENSOR) 00 glucose Medical Nataly monitoring Branch Blood-Gluco 2022-0 Yes [id number] Use as Univers se 1-26 directed ity of Transmitter 00:00: for [place] (DEXCOM G6 00 glucose Medica l TRANSMITTER monitoring Br anch ) Nataly Blood-Gluco 2022-0 Yes [id number] Use as Univers se Sensor 1-26 directed ity of (DEXCOM G6 00:00: for [place] SENSOR) 00 glucose Medical Nataly monitoring Branch Blood-Gluco 2022-0 Yes [id number] Use as Univers se 1-26 directed ity of Transmitter 00:00: for [place] (DEXCOM G6 00 glucose Medica l TRANSMITTER monitoring Br anch ) Nataly Blood-Gluco 2022-0 Yes [id number] Use as Univers se Sensor 1-26 directed ity of (DEXCOM G6 00:00: for [place] SENSOR) 00 glucose Medical Nataly monitoring Branch Blood-Gluco 2022-0 Yes [id number] Use as Univers se 1-26 directed ity of Transmitter 00:00: for [place] (DEXCOM G6 00 glucose Medica l TRANSMITTER monitoring Br anch ) Nataly Blood-Gluco 2022-0 Yes [id number] Use as Univers se Sensor 1-26 directed ity of (DEXCOM G6 00:00: for [place] SENSOR) 00 glucose Medical Nataly monitoring Branch Blood-Gluco 2022-0 Yes [id number] Use as Univers se 1-26 directed ity of Transmitter 00:00: for [place] (DEXCOM G6 00 glucose Medica l TRANSMITTER monitoring Br anch ) Nataly Blood-Gluco 2022-0 Yes [id number] Use as Univers se Sensor 1-26 directed ity of (DEXCOM G6 00:00: for [place] SENSOR) 00 glucose Medical Nataly monitoring Branch Blood-Gluco 3-0 Yes [id number] Use as Univers se 1-26 directed ity of Transmitter 00:00: for [place] (DEXCOM G6 00 glucose Medica l TRANSMITTER monitoring Br anch ) Nataly Blood-Gluco 2022-0 Yes [id number] Use as Univers se Sensor 1-26 directed ity of (DEXCOM G6 00:00: for [place] SENSOR) 00 glucose Medical Nataly monitoring Branch Blood-Gluco 3-0 Yes [id number] Use as Univers se 1-26 directed ity of Transmitter 00:00: for [place] (DEXCOM G6 00 glucose Medica l TRANSMITTER monitoring Br anch ) Nataly Blood-Gluco 202-0 Yes [id number] Use as Univers se Sensor 1-26 directed ity of (DEXCOM G6 00:00: for [place] SENSOR) 00 glucose Medical Nataly monitoring Branch Blood-Gluco 3-0 Yes [id number] Use as Univers se 1-26 directed ity of Transmitter 00:00: for [place] (DEXCOM G6 00 glucose Medica l TRANSMITTER monitoring Br anch ) Nataly Blood-Gluco 2022-0 Yes [id number] Use as Univers se Sensor 1-26 directed ity of (DEXCOM G6 00:00: for [place] SENSOR) 00 glucose Medical Nataly monitoring Branch Blood-Gluco 2022-0 Yes [id number] Use as Univers se 1-26 directed ity of Transmitter 00:00: for [place] (DEXCOM G6 00 glucose Medica l TRANSMITTER monitoring Br anch ) Nataly Blood-Gluco 2022-0 Yes [id number] Use as Univers se Sensor 1-26 directed ity of (DEXCOM G6 00:00: for [place] SENSOR) 00 glucose Medical Nataly monitoring Branch Blood-Gluco 2022-0 Yes [id number] Use as Univers se 1-26 directed ity of Transmitter 00:00: for [place] (DEXCOM G6 00 glucose Medica l TRANSMITTER monitoring Br anch ) Nataly Blood-Gluco 2022-0 Yes [id number] Use as Univers se Sensor 1-26 directed ity of (DEXCOM G6 00:00: for [place] SENSOR) 00 glucose Medical Nataly monitoring Branch Blood-Gluco 2022-0 Yes [id number] Use as Univers se 1-26 directed ity of Transmitter 00:00: for [place] (DEXCOM G6 00 glucose Medica l TRANSMITTER monitoring Br anch ) Nataly Blood-Gluco 2022-0 Yes [id number] Use as Univers se Sensor 1-26 directed ity of (DEXCOM G6 00:00: for [place] SENSOR) 00 glucose Medical Nataly monitoring Branch Blood-Gluco 2022-0 Yes [id number] Use as Univers se 1-26 directed ity of Transmitter 00:00: for [place] (DEXCOM G6 00 glucose Medica l TRANSMITTER monitoring Br anch ) Nataly Blood-Gluco 2022-0 Yes [id number] Use as Univers se Sensor 1-26 directed ity of (DEXCOM G6 00:00: for [place] SENSOR) 00 glucose Medical Nataly monitoring Branch Blood-Gluco 2022-0 Yes [id number] Use as Univers se 1-26 directed ity of Transmitter 00:00: for [place] (DEXCOM G6 00 glucose Medica l TRANSMITTER monitoring Br anch ) Nataly Blood-Gluco 2022-0 Yes [id number] Use as Univers se Sensor 1-26 directed ity of (DEXCOM G6 00:00: for [place] SENSOR) 00 glucose Medical Nataly monitoring Branch Blood-Gluco 2022-0 Yes [id number] Use as Univers se 1-26 directed ity of Transmitter 00:00: for [place] (DEXCOM G6 00 glucose Medica l TRANSMITTER monitoring Br anch ) Nataly Blood-Gluco 2022-0 Yes [id number] Use as Univers se Sensor 1-26 directed ity of (DEXCOM G6 00:00: for [place] SENSOR) 00 glucose Medical Nataly monitoring Branch Blood-Gluco 2022-0 Yes [id number] Use as Univers se 1-26 directed ity of Transmitter 00:00: for [place] (DEXCOM G6 00 glucose Medica l TRANSMITTER monitoring Br anch ) Nataly Blood-Gluco 2022-0 Yes [id number] Use as Univers se Sensor 1-26 directed ity of (DEXCOM G6 00:00: for [place] SENSOR) 00 glucose Medical Nataly monitoring Branch Blood-Gluco 2022-0 Yes [id number] Use as Univers se 1-26 directed ity of Transmitter 00:00: for [place] (DEXCOM G6 00 glucose Medica l TRANSMITTER monitoring Br anch ) Nataly Blood-Gluco 2022-0 Yes [id number] Use as Univers se Sensor 1-26 directed ity of (DEXCOM G6 00:00: for [place] SENSOR) 00 glucose Medical Nataly monitoring Branch Blood-Gluco 2022-0 Yes [id number] Use as Univers se 1-26 directed ity of Transmitter 00:00: for [place] (DEXCOM G6 00 glucose Medica l TRANSMITTER monitoring Br anch ) Nataly Blood-Gluco 2022-0 Yes [id number] Use as Univers se Sensor 1-26 directed ity of (DEXCOM G6 00:00: for [place] SENSOR) 00 glucose Medical Nataly monitoring Branch Blood-Gluco 2022-0 Yes [id number] Use as Univers se 1-26 directed ity of Transmitter 00:00: for [place] (DEXCOM G6 00 glucose Medica l TRANSMITTER monitoring Br anch ) Nataly Blood-Gluco 2022-0 Yes [id number] Use as Univers se Sensor 1-26 directed ity of (DEXCOM G6 00:00: for [place] SENSOR) 00 glucose Medical Nataly monitoring Branch Blood-Gluco 2023-0 Yes [id number] Use as Univers se 1-26 directed ity of Transmitter 00:00: for [place] (DEXCOM G6 00 glucose Medica l TRANSMITTER monitoring Br anch ) Nataly Blood-Gluco 2022-0 Yes [id number] Use as Univers se Sensor 1-26 directed ity of (DEXCOM G6 00:00: for [place] SENSOR) 00 glucose Medical Nataly monitoring Branch Blood-Gluco 2022-0 Yes [id number] Use as [facility] se 1-26 directed ity of Transmitter 00:00: for [place] (DEXCOM G6 00 glucose Medica l TRANSMITTER monitoring Br anch ) Nataly Blood-Gluco 2022-0 Yes [id number] Use as Univers se Sensor 1-26 directed ity of (DEXCOM G6 00:00: for [place] SENSOR) 00 glucose Medical Nataly monitoring Branch Blood-Gluco 2022-0 Yes [id number] Use as Univers se 1-26 directed ity of Transmitter 00:00: for [place] (DEXCOM G6 00 glucose Medica l TRANSMITTER monitoring Br anch ) Nataly Blood-Gluco 2022-0 Yes [id number] Use as Univers se Sensor 1-26 directed ity of (DEXCOM G6 00:00: for [place] SENSOR) 00 glucose Medical Nataly monitoring Branch Blood-Gluco 2022-0 Yes [id number] Use as Univers se 1-26 directed ity of Transmitter 00:00: for [place] (DEXCOM G6 00 glucose Medica l TRANSMITTER monitoring Br anch ) Nataly Blood-Gluco 2022-0 Yes [id number] Use as Univers se Sensor 1-26 directed ity of (DEXCOM G6 00:00: for [place] SENSOR) 00 glucose Medical Nataly monitoring Branch Blood-Gluco 3-0 Yes [id number] Use as Univers se 1-26 directed ity of Transmitter 00:00: for [place] (DEXCOM G6 00 glucose Medica l TRANSMITTER monitoring Br anch ) Nataly Blood-Gluco 2022-0 Yes [id number] Use as Univers se Sensor 1-26 directed ity of (DEXCOM G6 00:00: for [place] SENSOR) 00 glucose Medical Nataly monitoring Branch Blood-Gluco 3-0 Yes [id number] Use as Univers se 1-26 directed ity of Transmitter 00:00: for [place] (DEXCOM G6 00 glucose Medica l TRANSMITTER monitoring Br anch ) Nataly Blood-Gluco 2022-0 Yes [id number] Use as Univers se Sensor 1-26 directed ity of (DEXCOM G6 00:00: for [place] SENSOR) 00 glucose Medical Nataly monitoring Branch Blood-Gluco 2023-0 Yes [id number] Use as Univers se 1-26 directed ity of Transmitter 00:00: for [place] (DEXCOM G6 00 glucose Medica l TRANSMITTER monitoring Br anch ) Nataly Blood-Gluco 2022-0 Yes [id number] Use as Univers se Sensor 1-26 directed ity of (DEXCOM G6 00:00: for [place] SENSOR) 00 glucose Medical Nataly monitoring Branch Blood-Gluco 2022-0 Yes [id number] Use as Univers se 1-26 directed ity of Transmitter 00:00: for [place] (DEXCOM G6 00 glucose Medica l TRANSMITTER monitoring Br anch ) Nataly Blood-Gluco 2022-0 Yes [id number] Use as Univers se Sensor 1-26 directed ity of (DEXCOM G6 00:00: for [place] SENSOR) 00 glucose Medical Nataly monitoring Branch Blood-Gluco 2022-0 Yes [id number] Use as Univers se 1-26 directed ity of Transmitter 00:00: for [place] (DEXCOM G6 00 glucose Medica l TRANSMITTER monitoring Br anch ) Nataly Blood-Gluco 2022-0 Yes [id number] Use as Univers se Sensor 1-26 directed ity of (DEXCOM G6 00:00: for [place] SENSOR) 00 glucose Medical Nataly monitoring Branch Blood-Gluco 2022-0 Yes [id number] Use as Univers se 1-26 directed ity of Transmitter 00:00: for [place] (DEXCOM G6 00 glucose Medica l TRANSMITTER monitoring Br anch ) Nataly Blood-Gluco 2022-0 Yes [id number] Use as Univers se Sensor 1-26 directed ity of (DEXCOM G6 00:00: for [place] SENSOR) 00 glucose Medical Nataly monitoring Branch Blood-Gluco 3-0 Yes [id number] Use as Univers se 1-26 directed ity of Transmitter 00:00: for [place] (DEXCOM G6 00 glucose Medica l TRANSMITTER monitoring Br anch ) Nataly Blood-Gluco 2022-0 Yes [id number] Use as Univers se Sensor 1-26 directed ity of (DEXCOM G6 00:00: for [place] SENSOR) 00 glucose Medical Nataly monitoring Branch Blood-Gluco 3-0 Yes [id number] Use as Univers se 1-26 directed ity of Transmitter 00:00: for [place] (DEXCOM G6 00 glucose Medica l TRANSMITTER monitoring Br anch ) Nataly Blood-Gluco 2022-0 Yes [id number] Use as Univers se Sensor 1-26 directed ity of (DEXCOM G6 00:00: for [place] SENSOR) 00 glucose Medical Nataly monitoring Branch Blood-Gluco 2022-0 Yes [id number] Use as [facility] se 1-26 directed ity of Transmitter 00:00: for [place] (DEXCOM G6 00 glucose Medica l TRANSMITTER monitoring Br anch ) Nataly Blood-Gluco Yes [id number] Use as [facility] se Sensor - directed ity of (DEXCOM G6 00:00: for [place] SENSOR) 00 glucose Medical Nataly monitoring Branch Blood-Gluco Yes [id number] Use as Univers se - directed ity of Transmitter 00:00: for [place] (DEXCOM G6 00 glucose Medica l TRANSMITTER monitoring Br anch ) Nataly carvediloL 2021-10 Yes [id number] 6.25mg Take 1 [facility] 6.25 mg 2-22 tablet by ity of tablet 00:00: mouth in [place] 00 the Medical morning Branch and 1 tablet in the evening. Take with meals. dapaglifloz 2021-10 Yes [id number] 5mg Take 1 [facility] in 2-22 tablet by ity of (FARXIGA) 5 00:00: mouth in [place] mg tablet 00 the Medical morning. Branch escitalopra 2021-10 Yes [id number] 5mg Take 1 [facility] m oxalate 5 2-22 tablet by ity of mg tablet 00:00: mouth [place] 00 every Medical morning. Branch ergocalcife 2021-10 Yes [id number] Take 1 [facility] rol, 2-22 capsule by ity of vitamin d2, 00:00: mouth [place] 1,250 mcg 00 weekly. Medical (50,000 Branch unit) capsule fenofibrate 2021-10 Yes [id number] 48mg Take 1 [facility] 48 mg 2-22 tablet by ity of tablet 00:00: mouth in [place] 00 the Medical morning. Branch semaglutide 2021-10 Yes [id number] 1{tbl} Take 1 Univers (RYBELSUS) 2-22 tablet by ity of 7 mg Tab 00:00: mouth [place] 00 daily. Medical Branch insulin 2021-10 Yes [id number] ADMINISTER [facility] regular 2-22 5 UNITS ity of human 00:00: UNDER THE [place] (NOVOLIN R 00 SKIN THREE Med ical REGULAR TIMES Branch U-100 DAILY INSULN) 100 BEFORE A unit/mL MEAL injection Insulin 2021-10 Yes [id number] 35 units Un rocky Detemir 2-22 inj SC BID ity of (LEVEMIR 00:00: [place] FLEXTOUCH 00 Medical U-100 Branch INSULN) 100 unit/mL (3 mL) injection flash 2021-10 Yes [id number] 1{each} 1 Each Uni vers glucose 2-22 every 14 ity of sensor 00:00: (fourteen) [place] (FREESTYLE 00 days. Medical SOREN 14 ICD-10 Branch DAY SENSOR) code Kit E11.65 Insulin 2021-10 Yes USE [facility] [place], 2-22 DIRECTED ity of Disposable, 00:00: TWICE [place] (BD INSULIN 00 DAILY Medical PEN NEEDLE Branch UF) 31 gauge x 02/18" Ndle Insulin 2021-10 Yes USE 1 [facility] Syringe-Nee 2-22 SYRINGE ity o f dle U-100 1 00:00: FOR [place] TO [place] mL 31 gauge 00 5 TIMES A Med ical x 02/18 Syrg DAY Branch atorvastati 2021-10 Yes [id number] 80mg Take 1 [facility] n 80 mg 2-22 tablet by ity of tablet 00:00: mouth at [place] 00 bedtime. Medical Branch carvediloL 2021-10 Yes [id number] 6.25mg Take 1 [facility] 6.25 mg 2-22 tablet by ity of tablet 00:00: mouth in [place] 00 the Medical morning Branch and 1 tablet in the evening. Take with meals. dapaglifloz 2021-10 Yes [id number] 5mg Take 1 [facility] in 2-22 tablet by ity of (FARXIGA) 5 00:00: mouth in [place] mg tablet 00 the Medical morning. Branch escitalopra 2021-10 Yes [id number] 5mg Take 1 [facility] m oxalate 5 2-22 tablet by ity of mg tablet 00:00: mouth [place] 00 every Medical morning. Branch ergocalcife 2021-10 Yes [id number] Take 1 [facility] rol, 2-22 capsule by ity of vitamin d2, 00:00: mouth [place] 1,250 mcg 00 weekly. Medical (50,000 Branch unit) capsule fenofibrate 2021-10 Yes [id number] 48mg Take 1 [facility] 48 mg 2-22 tablet by ity of tablet 00:00: mouth in [place] 00 the Medical morning. Branch semaglutide 2021-10 Yes [id number] 1{tbl} Take 1 Univers (RYBELSUS) 2-22 tablet by ity of 7 mg Tab 00:00: mouth [place] 00 daily. Medical Branch insulin 2021-10 Yes [id number] ADMINISTER [facility] regular 2-22 5 UNITS ity of human 00:00: UNDER THE [place] (NOVOLIN R 00 SKIN THREE Med ical REGULAR TIMES Branch U-100 DAILY INSULN) 100 BEFORE A unit/mL MEAL injection Insulin 2021-10 Yes [id number] 35 units Un [place] Detemir 2-22 inj SC BID ity of (LEVEMIR 00:00: [place] FLEXTOUCH 00 Medical U-100 Branch INSULN) 100 unit/mL (3 mL) injection flash 2021-10 Yes [id number] 1{each} 1 Each Uni vers glucose 2-22 every 14 ity of sensor 00:00: (fourteen) [place] (FREESTYLE 00 days. Medical SOREN 14 ICD-10 Branch DAY SENSOR) code Kit E11.65 Insulin 2021-10 Yes USE [facility] [place], 2-22 DIRECTED ity of Disposable, 00:00: TWICE [place] (BD INSULIN 00 DAILY Medical PEN NEEDLE Branch UF) 31 gauge x /16" Ndle Insulin 2021-10 Yes USE 1 [facility] Syringe-Nee 2-22 SYRINGE ity o f dle U-100 1 00:00: FOR UP TO [place] mL 31 gauge 00 5 TIMES A Med ical x 5/16 Syrg DAY Branch atorvastati 2021-10 Yes [id number] 80mg Take 1 [facility] n 80 mg 2-22 tablet by ity of tablet 00:00: mouth at [place] 00 bedtime. Medical Branch carvediloL 2021-10 Yes [id number] 6.25mg Take 1 [facility] 6.25 mg 2-22 tablet by ity of tablet 00:00: mouth in [place] 00 the Medical morning Branch and 1 tablet in the evening. Take with meals. dapaglifloz 2021-10 Yes [id number] 5mg Take 1 [facility] in 2-22 tablet by ity of (FARXIGA) 5 00:00: mouth in [place] mg tablet 00 the Medical morning. Branch escitalopra 2021-10 Yes [id number] 5mg Take 1 [facility] m oxalate 5 2-22 tablet by ity of mg tablet 00:00: mouth [place] 00 every Medical morning. Branch ergocalcife 2021-10 Yes [id number] Take 1 [facility] rol, 2-22 capsule by ity of vitamin d2, 00:00: mouth [place] 1,250 mcg 00 weekly. Medical (50,000 Branch unit) capsule fenofibrate 2021-10 Yes [id number] 48mg Take 1 [facility] 48 mg 2-22 tablet by ity of tablet 00:00: mouth in [place] 00 the Medical morning. Branch semaglutide 2021-10 Yes [id number] 1{tbl} Take 1 [facility] (RYBELSUS) 2-22 tablet by ity of 7 mg Tab 00:00: mouth [place] 00 daily. Medical Branch insulin 2021-10 Yes [id number] ADMINISTER [facility] regular 2-22 5 UNITS ity of human 00:00: UNDER THE [place] (NOVOLIN R 00 SKIN THREE Med ical REGULAR TIMES Branch U-100 DAILY INSULN) 100 BEFORE A unit/mL MEAL injection Insulin 2021-10 Yes [id number] 35 units Un rocky Detemir 2-22 inj SC BID ity of (LEVEMIR 00:00: [place] FLEXTOUCH 00 Medical U-100 Branch INSULN) 100 unit/mL (3 mL) injection flash 2021-10 Yes [id number] 1{each} 1 Each Uni vers glucose 2-22 every 14 ity of sensor 00:00: (fourteen) [place] (FREESTYLE 00 days. Medical SOREN 14 ICD-10 Branch DAY SENSOR) code Kit E11.65 Insulin 2021-10 Yes USE [facility] [place], 2-22 DIRECTED ity of Disposable, 00:00: TWICE [place] (BD INSULIN 00 DAILY Medical PEN NEEDLE Branch UF) 31 gauge x 16" Ndle Insulin 2021-10 Yes USE 1 [facility] Syringe-Nee 2-22 SYRINGE ity o f dle U-100 1 00:00: FOR UP TO [place] mL 31 gauge 00 5 TIMES A Med ical x 5/16 Syrg DAY Branch atorvastati 2021-10 Yes [id number] 80mg Take 1 [facility] n 80 mg 2-22 tablet by ity of tablet 00:00: mouth at [place] 00 bedtime. Medical Branch carvediloL 2021-10 Yes [id number] 6.25mg Take 1 [facility] 6.25 mg 2-22 tablet by ity of tablet 00:00: mouth in [place] 00 the Medical morning Branch and 1 tablet in the evening. Take with meals. dapaglifloz 2021-10 Yes [id number] 5mg Take 1 [facility] in 2-22 tablet by ity of (FARXIGA) 5 00:00: mouth in [place] mg tablet 00 the Medical morning. Branch escitalopra 2021-10 Yes [id number] 5mg Take 1 [facility] m oxalate 5 2-22 tablet by ity of mg tablet 00:00: mouth [place] 00 every Medical morning. Branch ergocalcife 2021-10 Yes [id number] Take 1 [facility] rol, 2-22 capsule by ity of vitamin d2, 00:00: mouth [place] 1,250 mcg 00 weekly. Medical (50,000 Branch unit) capsule fenofibrate 2021-10 Yes [id number] 48mg Take 1 [facility] 48 mg 2-22 tablet by ity of tablet 00:00: mouth in [place] 00 the Medical morning. Branch semaglutide 2021-10 Yes [id number] 1{tbl} Take 1 [facility] (RYBELSUS) 2-22 tablet by ity of 7 mg Tab 00:00: mouth [place] 00 daily. Medical Branch insulin 2021-10 Yes [id number] ADMINISTER [facility] regular 2-22 5 UNITS ity of human 00:00: UNDER THE [place] (NOVOLIN R 00 SKIN THREE Med ical REGULAR TIMES Branch U-100 DAILY INSULN) 100 BEFORE A unit/mL MEAL injection Insulin 2021-10 Yes [id number] 35 units Un [place] Detemir 2-22 inj SC BID ity of (LEVEMIR 00:00: [place] FLEXTOUCH 00 Medical U-100 Branch INSULN) 100 unit/mL (3 mL) injection flash 2021-10 Yes [id number] 1{each} 1 Each Uni vers glucose 2-22 every 14 ity of sensor 00:00: (fourteen) [place] (FREESTYLE 00 days. Medical SOREN 14 ICD-10 Branch DAY SENSOR) code Kit E11.65 Insulin 2021-10 Yes USE [facility] [place], 2-22 DIRECTED ity of Disposable, 00:00: TWICE [place] (BD INSULIN 00 DAILY Medical PEN NEEDLE Branch UF) 31 gauge x 5/16" Ndle Insulin 2021-10 Yes USE 1 [facility] Syringe-Nee 2-22 SYRINGE ity o f dle U-100 1 00:00: FOR UP TO [place] mL 31 gauge 00 5 TIMES A Med ical x 5/16 Syrg DAY Branch atorvastati 2021-10 Yes [id number] 80mg Take 1 [facility] n 80 mg 2-22 tablet by ity of tablet 00:00: mouth at [place] 00 bedtime. Medical Branch carvediloL 2021-10 Yes [id number] 6.25mg Take 1 [facility] 6.25 mg 2-22 tablet by ity of tablet 00:00: mouth in [place] 00 the Medical morning Branch and 1 tablet in the evening. Take with meals. dapaglifloz 2021-10 Yes [id number] 5mg Take 1 [facility] in 2-22 tablet by ity of (FARXIGA) 5 00:00: mouth in [place] mg tablet 00 the Medical morning. Branch escitalopra 2021-10 Yes [id number] 5mg Take 1 [facility] m oxalate 5 2-22 tablet by ity of mg tablet 00:00: mouth [place] 00 every Medical morning. Branch ergocalcife 2021-10 Yes [id number] Take 1 [facility] rol, 2-22 capsule by ity of vitamin d2, 00:00: mouth [place] 1,250 mcg 00 weekly. Medical (50,000 Branch unit) capsule fenofibrate 2021-10 Yes [id number] 48mg Take 1 [facility] 48 mg 2-22 tablet by ity of tablet 00:00: mouth in [place] 00 the Medical morning. Branch semaglutide 2021-10 Yes [id number] 1{tbl} Take 1 [facility] (RYBELSUS) 2-22 tablet by ity of 7 mg Tab 00:00: mouth [place] 00 daily. Medical Branch insulin 2021-10 Yes [id number] ADMINISTER [facility] regular 2-22 5 UNITS ity of human 00:00: UNDER THE [place] (NOVOLIN R 00 SKIN THREE Med ical REGULAR TIMES Branch U-100 DAILY INSULN) 100 BEFORE A unit/mL MEAL injection Insulin 2021-10 Yes [id number] 35 units Un [place] Detemir 2-22 inj SC BID ity of (LEVEMIR 00:00: [place] FLEXTOUCH 00 Medical U-100 Branch INSULN) 100 unit/mL (3 mL) injection flash 2021-10 Yes [id number] 1{each} 1 Each Uni vers glucose 2-22 every 14 ity of sensor 00:00: (fourteen) [place] (FREESTYLE 00 days. Medical SOREN 14 ICD-10 Branch DAY SENSOR) code Kit E11.65 Insulin 2021-10 Yes USE [facility] [place], 2-22 DIRECTED ity of Disposable, 00:00: TWICE [place] (BD INSULIN 00 DAILY Medical PEN NEEDLE Branch UF) 31 gauge x 02/18" Ndle Insulin 2021-10 Yes USE 1 [facility] Syringe-Nee 2-22 SYRINGE ity o f dle U-100 1 00:00: FOR UP TO [place] mL 31 gauge 00 5 TIMES A Med ical x 02/18 Syrg DAY Branch atorvastati 2021-10 Yes [id number] 80mg Take 1 [facility] n 80 mg 2-22 tablet by ity of tablet 00:00: mouth at [place] 00 bedtime. Medical Branch carvediloL 2021-10 Yes [id number] 6.25mg Take 1 [facility] 6.25 mg 2-22 tablet by ity of tablet 00:00: mouth in [place] 00 the Medical morning Branch and 1 tablet in the evening. Take with meals. dapaglifloz 2021-10 Yes [id number] 5mg Take 1 [facility] in 2-22 tablet by ity of (FARXIGA) 5 00:00: mouth in [place] mg tablet 00 the Medical morning. Branch escitalopra 2021-10 Yes [id number] 5mg Take 1 [facility] m oxalate 5 2-22 tablet by ity of mg tablet 00:00: mouth [place] 00 every Medical morning. Branch ergocalcife 2021-10 Yes [id number] Take 1 [facility] rol, 2-22 capsule by ity of vitamin d2, 00:00: mouth [place] 1,250 mcg 00 weekly. Medical (50,000 Branch unit) capsule fenofibrate 2021-10 Yes [id number] 48mg Take 1 [facility] 48 mg 2-22 tablet by ity of tablet 00:00: mouth in [place] 00 the Medical morning. Branch semaglutide 2021-10 Yes [id number] 1{tbl} Take 1 [facility] (RYBELSUS) 2-22 tablet by ity of 7 mg Tab 00:00: mouth [place] 00 daily. Medical Branch insulin 2021-10 Yes [id number] ADMINISTER [facility] regular 2-22 5 UNITS ity of human 00:00: UNDER THE [place] (NOVOLIN R 00 SKIN THREE Med ical REGULAR TIMES Branch U-100 DAILY INSULN) 100 BEFORE A unit/mL MEAL injection Insulin 2021-10 Yes [id number] 35 units Un [place] Detemir 2-22 inj SC BID ity of (LEVEMIR 00:00: [place] FLEXTOUCH 00 Medical U-100 Branch INSULN) 100 unit/mL (3 mL) injection flash 2021-10 Yes [id number] 1{each} 1 Each Uni vers glucose 2-22 every 14 ity of sensor 00:00: (fourteen) [place] (FREESTYLE 00 days. Medical SOREN 14 ICD-10 Branch DAY SENSOR) code Kit E11.65 Insulin 2021-10 Yes USE [facility] [place], 2-22 DIRECTED ity of Disposable, 00:00: TWICE [place] (BD INSULIN 00 DAILY Medical PEN NEEDLE Branch UF) 31 gauge x 02/18" Ndle Insulin 2021-10 Yes USE 1 [facility] Syringe-Nee 2-22 SYRINGE ity o f dle U-100 1 00:00: FOR UP TO [place] mL 31 gauge 00 5 TIMES A Med ical x 02/18 Syrg DAY Branch atorvastati 2021-10 Yes [id number] 80mg Take 1 [facility] n 80 mg 2-22 tablet by ity of tablet 00:00: mouth at [place] 00 bedtime. Medical Branch carvediloL 2021-10 Yes [id number] 6.25mg Take 1 [facility] 6.25 mg 2-22 tablet by ity of tablet 00:00: mouth in [place] 00 the Medical morning Branch and 1 tablet in the evening. Take with meals. dapaglifloz 2021-10 Yes [id number] 5mg Take 1 [facility] in 2-22 tablet by ity of (FARXIGA) 5 00:00: mouth in [place] mg tablet 00 the Medical morning. Branch escitalopra 2021-10 Yes [id number] 5mg Take 1 [facility] m oxalate 5 2-22 tablet by ity of mg tablet 00:00: mouth [place] 00 every Medical morning. Branch ergocalcife 2021-10 Yes [id number] Take 1 [facility] rol, 2-22 capsule by ity of vitamin d2, 00:00: mouth [place] 1,250 mcg 00 weekly. Medical (50,000 Branch unit) capsule fenofibrate 2021-10 Yes [id number] 48mg Take 1 [facility] 48 mg 2-22 tablet by ity of tablet 00:00: mouth in [place] 00 the Medical morning. Branch semaglutide 2021-10 Yes [id number] 1{tbl} Take 1 [facility] (RYBELSUS) 2-22 tablet by ity of 7 mg Tab 00:00: mouth [place] 00 daily. Medical Branch insulin 2021-10 Yes [id number] ADMINISTER [facility] regular 2-22 5 UNITS ity of human 00:00: UNDER THE [place] (NOVOLIN R 00 SKIN THREE Med ical REGULAR TIMES Branch U-100 DAILY INSULN) 100 BEFORE A unit/mL MEAL injection Insulin 2021-10 Yes [id number] 35 units Un rocky Detemir 2-22 inj SC BID ity of (LEVEMIR 00:00: [place] FLEXTOUCH 00 Medical U-100 Branch INSULN) 100 unit/mL (3 mL) injection flash 2021-10 Yes [id number] 1{each} 1 Each [facility] vers glucose 2-22 every 14 ity of sensor 00:00: (fourteen) [place] (FREESTYLE 00 days. Medical SOREN 14 ICD-10 Branch DAY SENSOR) code Kit E11.65 Insulin 2021-10 Yes USE [facility] [place], 2-22 DIRECTED ity of Disposable, 00:00: TWICE [place] (BD INSULIN 00 DAILY Medical PEN NEEDLE Branch UF) 31 gauge x /16" Ndle Insulin 2021-10 Yes USE 1 [facility] Syringe-Nee 2-22 SYRINGE ity o f dle U-100 1 00:00: FOR UP TO [place] mL 31 gauge 00 5 TIMES A Med ical x 5/16 Syrg DAY Branch atorvastati 2021-10 Yes [id number] 80mg Take 1 [facility] n 80 mg 2-22 tablet by ity of tablet 00:00: mouth at [place] 00 bedtime. Medical Branch carvediloL 2021-10 Yes [id number] 6.25mg Take 1 [facility] 6.25 mg 2-22 tablet by ity of tablet 00:00: mouth in [place] 00 the Medical morning Branch and 1 tablet in the evening. Take with meals. dapaglifloz 2021-10 Yes [id number] 5mg Take 1 [facility] in 2-22 tablet by ity of (FARXIGA) 5 00:00: mouth in [place] mg tablet 00 the Medical morning. Branch escitalopra 2021-10 Yes [id number] 5mg Take 1 [facility] m oxalate 5 2-22 tablet by ity of mg tablet 00:00: mouth [place] 00 every Medical morning. Branch ergocalcife 2021-10 Yes [id number] Take 1 [facility] rol, 2-22 capsule by ity of vitamin d2, 00:00: mouth [place] 1,250 mcg 00 weekly. Medical (50,000 Branch unit) capsule fenofibrate 2021-10 Yes [id number] 48mg Take 1 [facility] 48 mg 2-22 tablet by ity of tablet 00:00: mouth in [place] 00 the Medical morning. Branch semaglutide 2021-10 Yes [id number] 1{tbl} Take 1 [facility] (RYBELSUS) 2-22 tablet by ity of 7 mg Tab 00:00: mouth [place] 00 daily. Medical Branch Insulin 2021-10 Yes [id number] 35 units Un rocky Detemir 2-22 inj SC BID ity of (LEVEMIR 00:00: [place] FLEXTOUCH 00 Medical U-100 Branch INSULN) 100 unit/mL (3 mL) injection flash 2021-10 Yes [id number] 1{each} 1 Each [facility] vers glucose 2-22 every 14 ity of sensor 00:00: (fourteen) [place] (FREESTYLE 00 days. Medical SOREN 14 ICD-10 Branch DAY SENSOR) code Kit E11.65 Insulin 2021-10 Yes USE [facility] [place], 2-22 DIRECTED ity of Disposable, 00:00: TWICE [place] (BD INSULIN 00 DAILY Medical PEN NEEDLE Branch UF) 31 gauge x 16" Ndle Insulin 2021-10 Yes USE 1 [facility] Syringe-Nee 2-22 SYRINGE ity o f dle U-100 1 00:00: FOR UP TO [place] mL 31 gauge 00 5 TIMES A Med ical x 5/16 Syrg DAY Branch atorvastati 2021-10 Yes [id number] 80mg Take 1 [facility] n 80 mg 2-22 tablet by ity of tablet 00:00: mouth at [place] 00 bedtime. Medical Branch carvediloL 2021-10 Yes [id number] 6.25mg Take 1 [facility] 6.25 mg 2-22 tablet by ity of tablet 00:00: mouth in [place] 00 the Medical morning Branch and 1 tablet in the evening. Take with meals. dapaglifloz 2021-10 Yes [id number] 5mg Take 1 [facility] in 2-22 tablet by ity of (FARXIGA) 5 00:00: mouth in [place] mg tablet 00 the Medical morning. Branch escitalopra 2021-10 Yes [id number] 5mg Take 1 [facility] m oxalate 5 2-22 tablet by ity of mg tablet 00:00: mouth [place] 00 every Medical morning. Branch ergocalcife 2021-10 Yes [id number] Take 1 [facility] rol, 2-22 capsule by ity of vitamin d2, 00:00: mouth [place] 1,250 mcg 00 weekly. Medical (50,000 Branch unit) capsule fenofibrate 2021-10 Yes [id number] 48mg Take 1 [facility] 48 mg 2-22 tablet by ity of tablet 00:00: mouth in [place] 00 the Medical morning. Branch semaglutide 2021-10 Yes [id number] 1{tbl} Take 1 [facility] (RYBELSUS) 2-22 tablet by ity of 7 mg Tab 00:00: mouth [place] 00 daily. Medical Branch flash 2021-10 Yes [id number] 1{each} 1 Each [facility] vers glucose 2-22 every 14 ity of sensor 00:00: (fourteen) [place] (FREESTYLE 00 days. Medical SOREN 14 ICD-10 Branch DAY SENSOR) code Kit E11.65 Insulin 2021-10 Yes USE [facility] [place], 2-22 DIRECTED ity of Disposable, 00:00: TWICE [place] (BD INSULIN 00 DAILY Medical PEN NEEDLE Branch UF) 31 gauge x 16" Ndle Insulin 2021-10 Yes USE 1 [facility] Syringe-Nee 2-22 SYRINGE ity o f dle U-100 1 00:00: FOR UP TO [place] mL 31 gauge 00 5 TIMES A Med ical x 5/16 Syrg DAY Branch atorvastati 2021-10 Yes [id number] 80mg Take 1 [facility] n 80 mg 2-22 tablet by ity of tablet 00:00: mouth at [place] 00 bedtime. Medical Branch carvediloL 2021-10 Yes [id number] 6.25mg Take 1 [facility] 6.25 mg 2-22 tablet by ity of tablet 00:00: mouth in [place] 00 the Medical morning Branch and 1 tablet in the evening. Take with meals. dapaglifloz 2021-10 Yes [id number] 5mg Take 1 [facility] in 2-22 tablet by ity of (FARXIGA) 5 00:00: mouth in [place] mg tablet 00 the Medical morning. Branch escitalopra 2021-10 Yes [id number] 5mg Take 1 [facility] m oxalate 5 2-22 tablet by ity of mg tablet 00:00: mouth [place] 00 every Medical morning. Branch ergocalcife 2021-10 Yes [id number] Take 1 [facility] rol, 2-22 capsule by ity of vitamin d2, 00:00: mouth [place] 1,250 mcg 00 weekly. Medical (50,000 Branch unit) capsule fenofibrate 2021-10 Yes [id number] 48mg Take 1 [facility] 48 mg 2-22 tablet by ity of tablet 00:00: mouth in [place] 00 the Medical morning. Branch semaglutide 2021-10 Yes [id number] 1{tbl} Take 1 [facility] (RYBELSUS) 2-22 tablet by ity of 7 mg Tab 00:00: mouth [place] 00 daily. Medical Branch flash 2021-10 Yes [id number] 1{each} 1 Each [facility] vers glucose 2-22 every 14 ity of sensor 00:00: (fourteen) [place] (FREESTYLE 00 days. Medical SOREN 14 ICD-10 Branch SENSOR) code Kit E11.65 Insulin 2021-10 Yes USE [facility] [place], 2-22 DIRECTED ity of Disposable, 00:00: TWICE [place] (BD INSULIN 00 DAILY Medical PEN NEEDLE Branch UF) 31 gauge x 16" Ndle Insulin 2021-10 Yes USE 1 [facility] Syringe-Nee 2-22 SYRINGE ity o f dle U-100 1 00:00: FOR UP TO [place] mL 31 gauge 00 5 TIMES A Med ical x 516 Syrg DAY Branch atorvastati 2021-10 Yes [id number] 80mg Take 1 [facility] n 80 mg 2-22 tablet by ity of tablet 00:00: mouth at [place] 00 bedtime. Medical Branch carvediloL 2021-10 Yes [id number] 6.25mg Take 1 [facility] 6.25 mg 2-22 tablet by ity of tablet 00:00: mouth in [place] 00 the Medical morning Branch and 1 tablet in the evening. Take with meals. dapaglifloz 2021-10 Yes [id number] 5mg Take 1 [facility] in 2-22 tablet by ity of (FARXIGA) 5 00:00: mouth in [place] mg tablet 00 the Medical morning. Branch escitalopra 2021-10 Yes [id number] 5mg Take 1 [facility] m oxalate 5 2-22 tablet by ity of mg tablet 00:00: mouth [place] 00 every Medical morning. Branch ergocalcife 2021-10 Yes [id number] Take 1 [facility] rol, 2-22 capsule by ity of vitamin d2, 00:00: mouth [place] 1,250 mcg 00 weekly. Medical (50,000 Branch unit) capsule fenofibrate 2021-10 Yes [id number] 48mg Take 1 [facility] 48 mg 2-22 tablet by ity of tablet 00:00: mouth in [place] 00 the Medical morning. Branch semaglutide 2021-10 Yes [id number] 1{tbl} Take 1 [facility] (RYBELSUS) 2-22 tablet by ity of 7 mg Tab 00:00: mouth [place] 00 daily. Medical Branch flash 2021-10 Yes [id number] 1{each} 1 Each [facility] vers glucose 2-22 every 14 ity of sensor 00:00: (fourteen) [place] (FREESTYLE 00 days. Medical SOREN 14 ICD-10 Branch DAY SENSOR) code Kit E11.65 Insulin 2021-10 Yes USE [facility] [place], 2-22 DIRECTED ity of Disposable, 00:00: TWICE [place] (BD INSULIN 00 DAILY Medical PEN NEEDLE Branch UF) 31 gauge x 5/16" Ndle Insulin 2021-10 Yes USE 1 [facility] Syringe-Nee 2-22 SYRINGE ity o f dle U-100 1 00:00: FOR UP TO [place] mL 31 gauge 00 5 TIMES A Med ical x 5/16 Syrg DAY Branch atorvastati 2021-10 Yes [id number] 80mg Take 1 [facility] n 80 mg 2-22 tablet by ity of tablet 00:00: mouth at [place] 00 bedtime. Medical Branch carvediloL 2021-10 Yes [id number] 6.25mg Take 1 [facility] 6.25 mg 2-22 tablet by ity of tablet 00:00: mouth in [place] 00 the Medical morning Branch and 1 tablet in the evening. Take with meals. dapaglifloz 2021-10 Yes [id number] 5mg Take 1 [facility] in 2-22 tablet by ity of (FARXIGA) 5 00:00: mouth in [place] mg tablet 00 the Medical morning. Branch escitalopra 2021-10 Yes [id number] 5mg Take 1 [facility] m oxalate 5 2-22 tablet by ity of mg tablet 00:00: mouth [place] 00 every Medical morning. Branch ergocalcife 2021-10 Yes [id number] Take 1 [facility] rol, 2-22 capsule by ity of vitamin d2, 00:00: mouth [place] 1,250 mcg 00 weekly. Medical (50,000 Branch unit) capsule fenofibrate 2021-10 Yes [id number] 48mg Take 1 [facility] 48 mg 2-22 tablet by ity of tablet 00:00: mouth in [place] 00 the Medical morning. Branch semaglutide 2021-10 Yes [id number] 1{tbl} Take 1 [facility] (RYBELSUS) 2-22 tablet by ity of 7 mg Tab 00:00: mouth [place] 00 daily. Medical Branch flash 2021-10 Yes [id number] 1{each} 1 Each [facility] vers glucose 2-22 every 14 ity of sensor 00:00: (fourteen) [place] (FREESTYLE 00 days. Medical SOREN 14 ICD-10 Branch DAY SENSOR) code Kit E11.65 Insulin 2021-10 Yes USE [facility] [place], 2-22 DIRECTED ity of Disposable, 00:00: TWICE [place] (BD INSULIN 00 DAILY Medical PEN NEEDLE Branch UF) 31 gauge x 5/16" Ndle Insulin 2021-10 Yes USE 1 [facility] Syringe-Nee 2-22 SYRINGE ity o f dle U-100 1 00:00: FOR UP TO [place] mL 31 gauge 00 5 TIMES A Med ical x 5/16 Syrg DAY Branch atorvastati 2021-10 Yes [id number] 80mg Take 1 [facility] n 80 mg 2-22 tablet by ity of tablet 00:00: mouth at [place] 00 bedtime. Medical Branch carvediloL 2021-10 Yes [id number] 6.25mg Take 1 [facility] 6.25 mg 2-22 tablet by ity of tablet 00:00: mouth in [place] 00 the Medical morning Branch and 1 tablet in the evening. Take with meals. dapaglifloz 2021-10 Yes [id number] 5mg Take 1 [facility] in 2-22 tablet by ity of (FARXIGA) 5 00:00: mouth in [place] mg tablet 00 the Medical morning. Branch escitalopra 2021-10 Yes [id number] 5mg Take 1 [facility] m oxalate 5 2-22 tablet by ity of mg tablet 00:00: mouth [place] 00 every Medical morning. Branch ergocalcife 2021-10 Yes [id number] Take 1 [facility] rol, 2-22 capsule by ity of vitamin d2, 00:00: mouth [place] 1,250 mcg 00 weekly. Medical (50,000 Branch unit) capsule fenofibrate 2021-10 Yes [id number] 48mg Take 1 [facility] 48 mg 2-22 tablet by ity of tablet 00:00: mouth in [place] 00 the Medical morning. Branch semaglutide 2021-10 Yes [id number] 1{tbl} Take 1 [facility] (RYBELSUS) 2-22 tablet by ity of 7 mg Tab 00:00: mouth [place] 00 daily. Medical Branch flash 2021-10 Yes [id number] 1{each} 1 Each [facility] vers glucose 2-22 every 14 ity of sensor 00:00: (fourteen) [place] (FREESTYLE 00 days. Medical SOREN 14 ICD-10 Branch DAY SENSOR) code Kit E11.65 Insulin 2021-10 Yes USE [facility] [place], 2-22 DIRECTED ity of Disposable, 00:00: TWICE [place] (BD INSULIN 00 DAILY Medical PEN NEEDLE Branch UF) 31 gauge x 5/16" Ndle Insulin 2021-10 Yes USE 1 [facility] Syringe-Nee 2-22 SYRINGE ity o f dle U-100 1 00:00: FOR UP TO [place] mL 31 gauge 00 5 TIMES A Med ical x 5/16 Syrg DAY Branch atorvastati 2021-10 Yes [id number] 80mg Take 1 [facility] n 80 mg 2-22 tablet by ity of tablet 00:00: mouth at [place] 00 bedtime. Medical Branch carvediloL 2021-10 Yes [id number] 6.25mg Take 1 [facility] 6.25 mg 2-22 tablet by ity of tablet 00:00: mouth in [place] 00 the Medical morning Branch and 1 tablet in the evening. Take with meals. dapaglifloz 2021-10 Yes [id number] 5mg Take 1 [facility] in 2-22 tablet by ity of (FARXIGA) 5 00:00: mouth in [place] mg tablet 00 the Medical morning. Branch escitalopra 2021-10 Yes [id number] 5mg Take 1 [facility] m oxalate 5 2-22 tablet by ity of mg tablet 00:00: mouth [place] 00 every Medical morning. Branch ergocalcife 2021-10 Yes [id number] Take 1 [facility] rol, 2-22 capsule by ity of vitamin d2, 00:00: mouth [place] 1,250 mcg 00 weekly. Medical (50,000 Branch unit) capsule fenofibrate 2021-10 Yes [id number] 48mg Take 1 [facility] 48 mg 2-22 tablet by ity of tablet 00:00: mouth in [place] 00 the Medical morning. Branch semaglutide 2021-10 Yes [id number] 1{tbl} Take 1 [facility] (RYBELSUS) 2-22 tablet by ity of 7 mg Tab 00:00: mouth [place] 00 daily. Medical Branch flash 2021-10 Yes [id number] 1{each} 1 Each [facility] vers glucose 2-22 every 14 ity of sensor 00:00: (fourteen) [place] (FREESTYLE 00 days. Medical SOREN 14 ICD-10 Branch DAY SENSOR) code Kit E11.65 Insulin 2021-10 Yes USE [facility] [place], 2-22 DIRECTED ity of Disposable, 00:00: TWICE [place] (BD INSULIN 00 DAILY Medical PEN NEEDLE Branch UF) 31 gauge x 02/18" Ndle Insulin 2021-10 Yes USE 1 [facility] Syringe-Nee 2-22 SYRINGE ity o f dle U-100 1 00:00: FOR UP TO [place] mL 31 gauge 00 5 TIMES A Med ical x 02/18 Syrg DAY Branch atorvastati 2021-10 Yes [id number] 80mg Take 1 [facility] n 80 mg 2-22 tablet by ity of tablet 00:00: mouth at [place] 00 bedtime. Medical Branch carvediloL 2021-10 Yes [id number] 6.25mg Take 1 [facility] 6.25 mg 2-22 tablet by ity of tablet 00:00: mouth in [place] 00 the Medical morning Branch and 1 tablet in the evening. Take with meals. dapaglifloz 2021-10 Yes [id number] 5mg Take 1 [facility] in 2-22 tablet by ity of (FARXIGA) 5 00:00: mouth in [place] mg tablet 00 the Medical morning. Branch escitalopra 2021-10 Yes [id number] 5mg Take 1 [facility] m oxalate 5 2-22 tablet by ity of mg tablet 00:00: mouth [place] 00 every Medical morning. Branch ergocalcife 2021-10 Yes [id number] Take 1 [facility] rol, 2-22 capsule by ity of vitamin d2, 00:00: mouth [place] 1,250 mcg 00 weekly. Medical (50,000 Branch unit) capsule fenofibrate 2021-10 Yes [id number] 48mg Take 1 [facility] 48 mg 2-22 tablet by ity of tablet 00:00: mouth in [place] 00 the Medical morning. Branch semaglutide 2021-10 Yes [id number] 1{tbl} Take 1 [facility] (RYBELSUS) 2-22 tablet by ity of 7 mg Tab 00:00: mouth [place] 00 daily. Medical Branch flash 2021-10 Yes [id number] 1{each} 1 Each [facility] vers glucose 2-22 every 14 ity of sensor 00:00: (fourteen) [place] (FREESTYLE 00 days. Medical SOREN 14 ICD-10 Branch DAY SENSOR) code Kit E11.65 Insulin 2021-10 Yes USE [facility] [place], 2-22 DIRECTED ity of Disposable, 00:00: TWICE [place] (BD INSULIN 00 DAILY Medical PEN NEEDLE Branch UF) 31 gauge x 02/18" Ndle Insulin 2021-10 Yes USE 1 [facility] Syringe-Nee 2-22 SYRINGE ity o f dle U-100 1 00:00: FOR UP TO [place] mL 31 gauge 00 5 TIMES A Med ical x 02/18 Syrg DAY Branch atorvastati 2021-10 Yes [id number] 80mg Take 1 [facility] n 80 mg 2-22 tablet by ity of tablet 00:00: mouth at [place] 00 bedtime. Medical Branch carvediloL 2021-10 Yes [id number] 6.25mg Take 1 [facility] 6.25 mg 2-22 tablet by ity of tablet 00:00: mouth in [place] 00 the Medical morning Branch and 1 tablet in the evening. Take with meals. dapaglifloz 2021-10 Yes [id number] 5mg Take 1 [facility] in 2-22 tablet by ity of (FARXIGA) 5 00:00: mouth in [place] mg tablet 00 the Medical morning. Branch escitalopra 2021-10 Yes [id number] 5mg Take 1 [facility] m oxalate 5 2-22 tablet by ity of mg tablet 00:00: mouth [place] 00 every Medical morning. Branch ergocalcife 2021-10 Yes [id number] Take 1 [facility] rol, 2-22 capsule by ity of vitamin d2, 00:00: mouth [place] 1,250 mcg 00 weekly. Medical (50,000 Branch unit) capsule fenofibrate 2021-10 Yes [id number] 48mg Take 1 [facility] 48 mg 2-22 tablet by ity of tablet 00:00: mouth in [place] 00 the Medical morning. Branch semaglutide 2021-10 Yes [id number] 1{tbl} Take 1 [facility] (RYBELSUS) 2-22 tablet by ity of 7 mg Tab 00:00: mouth [place] 00 daily. Medical Branch flash 2021-10 Yes [id number] 1{each} 1 Each [facility] vers glucose 2-22 every 14 ity of sensor 00:00: (fourteen) [place] (FREESTYLE 00 days. Medical SOREN 14 ICD-10 Branch DAY SENSOR) code Kit E11.65 Insulin 2021-10 Yes USE [facility] [place], 2-22 DIRECTED ity of Disposable, 00:00: TWICE [place] (BD INSULIN 00 DAILY Medical PEN NEEDLE Branch UF) 31 gauge x /16" Ndle Insulin 2021-10 Yes USE 1 [facility] Syringe-Nee 2-22 SYRINGE ity o f dle U-100 1 00:00: FOR UP TO [place] mL 31 gauge 00 5 TIMES A Med ical x 5/ Syrg DAY Branch atorvastati 2021-10 Yes [id number] 80mg Take 1 [facility] n 80 mg 2-22 tablet by ity of tablet 00:00: mouth at [place] 00 bedtime. Medical Branch carvediloL 2021-10 Yes [id number] 6.25mg Take 1 [facility] 6.25 mg 2-22 tablet by ity of tablet 00:00: mouth in [place] 00 the Medical morning Branch and 1 tablet in the evening. Take with meals. dapaglifloz 2021-10 Yes [id number] 5mg Take 1 [facility] in 2-22 tablet by ity of (FARXIGA) 5 00:00: mouth in [place] mg tablet 00 the Medical morning. Branch escitalopra 2021-10 Yes [id number] 5mg Take 1 [facility] m oxalate 5 2-22 tablet by ity of mg tablet 00:00: mouth [place] 00 every Medical morning. Branch ergocalcife 2021-10 Yes [id number] Take 1 [facility] rol, 2-22 capsule by ity of vitamin d2, 00:00: mouth [place] 1,250 mcg 00 weekly. Medical (50,000 Branch unit) capsule fenofibrate 2021-10 Yes [id number] 48mg Take 1 [facility] 48 mg 2-22 tablet by ity of tablet 00:00: mouth in [place] 00 the Medical morning. Branch semaglutide 2021-10 Yes [id number] 1{tbl} Take 1 [facility] (RYBELSUS) 2-22 tablet by ity of 7 mg Tab 00:00: mouth [place] 00 daily. Medical Branch Insulin 2021-10 Yes USE [facility] [place], 2-22 DIRECTED ity of Disposable, 00:00: TWICE [place] (BD INSULIN 00 DAILY Medical PEN NEEDLE Branch UF) 31 gauge x 02/18" Ndle Insulin 2021-10 Yes USE 1 [facility] Syringe-Nee 2-22 SYRINGE ity o f dle U-100 1 00:00: FOR UP TO [place] mL 31 gauge 00 5 TIMES A Med ical x 02/18 Syrg DAY Branch atorvastati 2021-10 Yes [id number] 80mg Take 1 [facility] n 80 mg 2-22 tablet by ity of tablet 00:00: mouth at [place] 00 bedtime. Medical Branch carvediloL 2021-10 Yes [id number] 6.25mg Take 1 [facility] 6.25 mg 2-22 tablet by ity of tablet 00:00: mouth in [place] 00 the Medical morning Branch and 1 tablet in the evening. Take with meals. dapaglifloz 2021-10 Yes [id number] 5mg Take 1 [facility] in 2-22 tablet by ity of (FARXIGA) 5 00:00: mouth in [place] mg tablet 00 the Medical morning. Branch escitalopra 2021-10 Yes [id number] 5mg Take 1 [facility] m oxalate 5 2-22 tablet by ity of mg tablet 00:00: mouth [place] 00 every Medical morning. Branch ergocalcife 2021-10 Yes [id number] Take 1 [facility] rol, 2-22 capsule by ity of vitamin d2, 00:00: mouth [place] 1,250 mcg 00 weekly. Medical (50,000 Branch unit) capsule fenofibrate 2021-10 Yes [id number] 48mg Take 1 [facility] 48 mg 2-22 tablet by ity of tablet 00:00: mouth in [place] 00 the Medical morning. Branch semaglutide 2021-10 Yes [id number] 1{tbl} Take 1 [facility] (RYBELSUS) 2-22 tablet by ity of 7 mg Tab 00:00: mouth [place] 00 daily. Medical Branch Insulin 2021-10 Yes USE [facility] [place], 2-22 DIRECTED ity of Disposable, 00:00: TWICE [place] (BD INSULIN 00 DAILY Medical PEN NEEDLE Branch UF) 31 gauge x 5/16" Ndle Insulin 2021-10 Yes USE 1 [facility] Syringe-Nee 2-22 SYRINGE ity o f dle U-100 1 00:00: FOR UP TO [place] mL 31 gauge 00 5 TIMES A Med ical x 02/18 Syrg DAY Branch atorvastati 2021-10 Yes [id number] 80mg Take 1 [facility] n 80 mg 2-22 tablet by ity of tablet 00:00: mouth at [place] 00 bedtime. Medical Branch carvediloL 2021-10 Yes [id number] 6.25mg Take 1 [facility] 6.25 mg 2-22 tablet by ity of tablet 00:00: mouth in [place] 00 the Medical morning Branch and 1 tablet in the evening. Take with meals. dapaglifloz 2021-10 Yes [id number] 5mg Take 1 [facility] in 2-22 tablet by ity of (FARXIGA) 5 00:00: mouth in [place] mg tablet 00 the Medical morning. Branch escitalopra 2021-10 Yes [id number] 5mg Take 1 [facility] m oxalate 5 2-22 tablet by ity of mg tablet 00:00: mouth [place] 00 every Medical morning. Branch ergocalcife 2021-10 Yes [id number] Take 1 [facility] rol, 2-22 capsule by ity of vitamin d2, 00:00: mouth [place] 1,250 mcg 00 weekly. Medical (50,000 Branch unit) capsule fenofibrate 2021-10 Yes [id number] 48mg Take 1 [facility] 48 mg 2-22 tablet by ity of tablet 00:00: mouth in [place] 00 the Medical morning. Branch semaglutide 2021-10 Yes [id number] 1{tbl} Take 1 [facility] (RYBELSUS) 2-22 tablet by ity of 7 mg Tab 00:00: mouth [place] 00 daily. Medical Branch Insulin 2021-10 Yes USE [facility] [place], 2-22 DIRECTED ity of Disposable, 00:00: TWICE [place] (BD INSULIN 00 DAILY Medical PEN NEEDLE Branch UF) 31 gauge x 5/16" Ndle Insulin 2021-10 Yes USE 1 [facility] Syringe-Nee 2-22 SYRINGE ity o f dle U-100 1 00:00: FOR UP TO [place] mL 31 gauge 00 5 TIMES A Med ical x 02/18 Syrg DAY Branch atorvastati 2021-10 Yes [id number] 80mg Take 1 [facility] n 80 mg 2-22 tablet by ity of tablet 00:00: mouth at [place] 00 bedtime. Medical Branch carvediloL 2021-10 Yes [id number] 6.25mg Take 1 [facility] 6.25 mg 2-22 tablet by ity of tablet 00:00: mouth in [place] 00 the Medical morning Branch and 1 tablet in the evening. Take with meals. dapaglifloz 2021-10 Yes [id number] 5mg Take 1 [facility] in 2-22 tablet by ity of (FARXIGA) 5 00:00: mouth in [place] mg tablet 00 the Medical morning. Branch escitalopra 2021-10 Yes [id number] 5mg Take 1 [facility] m oxalate 5 2-22 tablet by ity of mg tablet 00:00: mouth [place] 00 every Medical morning. Branch ergocalcife 2021-10 Yes [id number] Take 1 [facility] rol, 2-22 capsule by ity of vitamin d2, 00:00: mouth [place] 1,250 mcg 00 weekly. Medical (50,000 Branch unit) capsule fenofibrate 2021-10 Yes [id number] 48mg Take 1 [facility] 48 mg 2-22 tablet by ity of tablet 00:00: mouth in [place] 00 the Medical morning. Branch semaglutide 2021-10 Yes [id number] 1{tbl} Take 1 [facility] (RYBELSUS) 2-22 tablet by ity of 7 mg Tab 00:00: mouth [place] 00 daily. Medical Branch Insulin 2021-10 Yes USE [facility] [place], 2-22 DIRECTED ity of Disposable, 00:00: TWICE [place] (BD INSULIN 00 DAILY Medical PEN NEEDLE Branch UF) 31 gauge x 02/18" Ndle Insulin 2021-10 Yes USE 1 [facility] Syringe-Nee 2-22 SYRINGE ity o f dle U-100 1 00:00: FOR UP TO [place] mL 31 gauge 00 5 TIMES A Med ical x 02/18 Syrg DAY Branch atorvastati 2021-10 Yes [id number] 80mg Take 1 [facility] n 80 mg 2-22 tablet by ity of tablet 00:00: mouth at [place] 00 bedtime. Medical Branch carvediloL 2021-10 Yes [id number] 6.25mg Take 1 [facility] 6.25 mg 2-22 tablet by ity of tablet 00:00: mouth in [place] 00 the Medical morning Branch and 1 tablet in the evening. Take with meals. dapaglifloz 2021-10 Yes [id number] 5mg Take 1 [facility] in 2-22 tablet by ity of (FARXIGA) 5 00:00: mouth in [place] mg tablet 00 the Medical morning. Branch escitalopra 2021-10 Yes [id number] 5mg Take 1 [facility] m oxalate 5 2-22 tablet by ity of mg tablet 00:00: mouth [place] 00 every Medical morning. Branch ergocalcife 2021-10 Yes [id number] Take 1 [facility] rol, 2-22 capsule by ity of vitamin d2, 00:00: mouth [place] 1,250 mcg 00 weekly. Medical (50,000 Branch unit) capsule fenofibrate 2021-10 Yes [id number] 48mg Take 1 [facility] 48 mg 2-22 tablet by ity of tablet 00:00: mouth in [place] 00 the Medical morning. Branch semaglutide 2021-10 Yes [id number] 1{tbl} Take 1 [facility] (RYBELSUS) 2-22 tablet by ity of 7 mg Tab 00:00: mouth [place] 00 daily. Medical Branch Insulin 2021-10 Yes USE [facility] [place], 2-22 DIRECTED ity of Disposable, 00:00: TWICE [place] (BD INSULIN 00 DAILY Medical PEN NEEDLE Branch UF) 31 gauge x 02/18" Ndle Insulin 2021-10 Yes USE 1 [facility] Syringe-Nee 2-22 SYRINGE ity o f dle U-100 1 00:00: FOR UP TO [place] mL 31 gauge 00 5 TIMES A Med ical x 02/18 Syrg DAY Branch atorvastati 2021-10 Yes [id number] 80mg Take 1 [facility] n 80 mg 2-22 tablet by ity of tablet 00:00: mouth at [place] 00 bedtime. Medical Branch carvediloL 2021-10 Yes [id number] 6.25mg Take 1 [facility] 6.25 mg 2-22 tablet by ity of tablet 00:00: mouth in [place] 00 the Medical morning Branch and 1 tablet in the evening. Take with meals. dapaglifloz 2021-10 Yes [id number] 5mg Take 1 [facility] in 2-22 tablet by ity of (FARXIGA) 5 00:00: mouth in [place] mg tablet 00 the Medical morning. Branch ergocalcife 2021-10 Yes [id number] Take 1 [facility] rol, 2-22 capsule by ity of vitamin d2, 00:00: mouth [place] 1,250 mcg 00 weekly. Medical (50,000 Branch unit) capsule fenofibrate 2021-10 Yes [id number] 48mg Take 1 [facility] 48 mg 2-22 tablet by ity of tablet 00:00: mouth in [place] 00 the Medical morning. Branch semaglutide 2021-10 Yes [id number] 1{tbl} Take 1 [facility] (RYBELSUS) 2-22 tablet by ity of 7 mg Tab 00:00: mouth [place] 00 daily. Medical Branch Insulin 2021-10 Yes USE [facility] [place], 2-22 DIRECTED ity of Disposable, 00:00: TWICE [place] (BD INSULIN 00 DAILY Medical PEN NEEDLE Branch UF) 31 gauge x 5/16" Ndle Insulin 2021-10 Yes USE 1 [facility] Syringe-Nee 2-22 SYRINGE ity o f dle U-100 1 00:00: [place] TO [place] mL 31 gauge 00 5 TIMES A Med ical x 5/16 Syrg DAY Branch atorvastati 2021-10 Yes [id number] 80mg Take 1 [facility] n 80 mg 2-22 tablet by ity of tablet 00:00: mouth at [place] 00 bedtime. Medical Branch carvediloL 2021-10 Yes [id number] 6.25mg Take 1 [facility] 6.25 mg 2-22 tablet by ity of tablet 00:00: mouth in [place] 00 the Medical morning Branch and 1 tablet in the evening. Take with meals. dapaglifloz 2021-10 Yes [id number] 5mg Take 1 [facility] in 2-22 tablet by ity of (FARXIGA) 5 00:00: mouth in [place] mg tablet 00 the Medical morning. Branch ergocalcife 2021-10 Yes [id number] Take 1 [facility] rol, 2-22 capsule by ity of vitamin d2, 00:00: mouth [place] 1,250 mcg 00 weekly. Medical (50,000 Branch unit) capsule fenofibrate 2021-10 Yes [id number] 48mg Take 1 [facility] 48 mg 2-22 tablet by ity of tablet 00:00: mouth in [place] 00 the Medical morning. Branch semaglutide 2021-10 Yes [id number] 1{tbl} Take 1 [facility] (RYBELSUS) 2-22 tablet by ity of 7 mg Tab 00:00: mouth [place] 00 daily. Medical Branch Insulin 2021-10 Yes USE [facility] [place], 2-22 DIRECTED ity of Disposable, 00:00: TWICE [place] (BD INSULIN 00 DAILY Medical PEN NEEDLE Branch UF) 31 gauge x 5/16" Ndle Insulin 2021-10 Yes USE 1 [facility] Syringe-Nee 2-22 SYRINGE ity o f dle U-100 1 00:00: FOR UP TO [place] mL 31 gauge 00 5 TIMES A Med ical x 5/16 Syrg DAY Branch atorvastati 2021-10 Yes [id number] 80mg Take 1 [facility] n 80 mg 2-22 tablet by ity of tablet 00:00: mouth at [place] 00 bedtime. Medical Branch ergocalcife 2021-10 Yes [id number] Take 1 [facility] rol, 2-22 capsule by ity of vitamin d2, 00:00: mouth [place] 1,250 mcg 00 weekly. Medical (50,000 Branch unit) capsule Insulin 2021-10 Yes USE [facility] [place], 2-22 DIRECTED ity of Disposable, 00:00: TWICE [place] (BD INSULIN 00 DAILY Medical PEN NEEDLE Branch UF) 31 gauge x 5/16" Ndle Insulin 2021-10 Yes USE 1 [facility] Syringe-Nee 2-22 SYRINGE ity o f dle U-100 1 00:00: FOR UP TO [place] mL 31 gauge 00 5 TIMES A Med ical x 5/16 Syrg DAY Branch ergocalcife 2021-10 Yes [id number] Take 1 [facility] rol, 2-22 capsule by ity of vitamin d2, 00:00: mouth [place] 1,250 mcg 00 weekly. Medical (50,000 Branch unit) capsule Insulin 2021-10 Yes USE [facility] [place], 2-22 DIRECTED ity of Disposable, 00:00: TWICE [place] (BD INSULIN 00 DAILY Medical PEN NEEDLE Branch UF) 31 gauge x 5/16" Ndle Insulin 2021-10 Yes USE 1 [facility] Syringe-Nee 2-22 SYRINGE ity o f dle U-100 1 00:00: FOR UP TO [place] mL 31 gauge 00 5 TIMES A Med ical x 5/16 Syrg DAY Branch ergocalcife 2021-10 Yes [id number] Take 1 [facility] rol, 2-22 capsule by ity of vitamin d2, 00:00: mouth [place] 1,250 mcg 00 weekly. Medical (50,000 Branch unit) capsule Insulin 2021-10 Yes USE [facility] [place], 2-22 DIRECTED ity of Disposable, 00:00: TWICE [place] (BD INSULIN 00 DAILY Medical PEN NEEDLE Branch UF) 31 gauge x 5/16" Ndle Insulin 2021-10 Yes USE 1 [facility] Syringe-Nee 2-22 SYRINGE ity o f dle U-100 1 00:00: FOR UP TO [place] mL 31 gauge 00 5 TIMES A Med ical x 5/16 Syrg DAY Branch ergocalcife 2021-10 Yes [id number] Take 1 [facility] rol, 2-22 capsule by ity of vitamin d2, 00:00: mouth [place] 1,250 mcg 00 weekly. Medical (50,000 Branch unit) capsule Insulin 2021-10 Yes USE [facility] [place], 2-22 DIRECTED ity of Disposable, 00:00: TWICE [place] (BD INSULIN 00 DAILY Medical PEN NEEDLE Branch UF) 31 gauge x 5/16" Ndle Insulin 2021-10 Yes USE 1 [facility] Syringe-Nee 2-22 SYRINGE ity o f dle U-100 1 00:00: FOR UP TO [place] mL 31 gauge 00 5 TIMES A Med ical x 5/16 Syrg DAY Branch ergocalcife 2021-10 Yes [id number] Take 1 [facility] rol, 2-22 capsule by ity of vitamin d2, 00:00: mouth [place] 1,250 mcg 00 weekly. Medical (50,000 Branch unit) capsule Insulin 2021-10 Yes USE [facility] [place], 2-22 DIRECTED ity of Disposable, 00:00: TWICE [place] (BD INSULIN 00 DAILY Medical PEN NEEDLE Branch UF) 31 gauge x 5/16" Ndle Insulin 2021-10 Yes USE 1 [facility] Syringe-Nee 2-22 SYRINGE ity o f dle U-100 1 00:00: FOR UP TO [place] mL 31 gauge 00 5 TIMES A Med ical x 5/16 Syrg DAY Branch ergocalcife 2021-10 Yes [id number] Take 1 [facility] rol, 2-22 capsule by ity of vitamin d2, 00:00: mouth [place] 1,250 mcg 00 weekly. Medical (50,000 Branch unit) capsule Insulin 2021-10 Yes USE [facility] [place], 2-22 DIRECTED ity of Disposable, 00:00: TWICE [place] (BD INSULIN 00 DAILY Medical PEN NEEDLE Branch UF) 31 gauge x 5/16" Ndle Insulin 2021-10 Yes USE 1 [facility] Syringe-Nee 2-22 SYRINGE ity o f dle U-100 1 00:00: FOR UP TO [place] mL 31 gauge 00 5 TIMES A Med ical x 5/16 Syrg DAY Branch ergocalcife 2021-10 Yes [id number] Take 1 [facility] rol, 2-22 capsule by ity of vitamin d2, 00:00: mouth [place] 1,250 mcg 00 weekly. Medical (50,000 Branch unit) capsule Insulin 2021-10 Yes USE [facility] [place], 2-22 DIRECTED ity of Disposable, 00:00: TWICE [place] (BD INSULIN 00 DAILY Medical PEN NEEDLE Branch UF) 31 gauge x 5/16" Ndle Insulin 2021-10 Yes USE 1 [facility] Syringe-Nee 2-22 SYRINGE ity o f dle U-100 1 00:00: FOR UP TO [place] mL 31 gauge 00 5 TIMES A Med ical x 5/16 Syrg DAY Branch ergocalcife 2021-10 Yes [id number] Take 1 [facility] rol, 2-22 capsule by ity of vitamin d2, 00:00: mouth [place] 1,250 mcg 00 weekly. Medical (50,000 Branch unit) capsule Insulin 2021-10 Yes USE [facility] [place], 2-22 DIRECTED ity of Disposable, 00:00: TWICE [place] (BD INSULIN 00 DAILY Medical PEN NEEDLE Branch UF) 31 gauge x 5/16" Ndle Insulin 2021-10 Yes USE 1 [facility] Syringe-Nee 2-22 SYRINGE ity o f dle U-100 1 00:00: FOR UP TO [place] mL 31 gauge 00 5 TIMES A Med ical x 5/16 Syrg DAY Branch ergocalcife 2021-10 Yes [id number] Take 1 [facility] rol, 2-22 capsule by ity of vitamin d2, 00:00: mouth [place] 1,250 mcg 00 weekly. Medical (50,000 Branch unit) capsule Insulin 2021-10 Yes USE [facility] [place], 2-22 DIRECTED ity of Disposable, 00:00: TWICE [place] (BD INSULIN 00 DAILY Medical PEN NEEDLE Branch UF) 31 gauge x 5/16" Ndle Insulin 2021-10 Yes USE 1 [facility] Syringe-Nee 2-22 SYRINGE ity o f dle U-100 1 00:00: FOR UP TO [place] mL 31 gauge 00 5 TIMES A Med ical x 5/16 Syrg DAY Branch ergocalcife 2021-10 Yes [id number] Take 1 [facility] rol, 2-22 capsule by ity of vitamin d2, 00:00: mouth [place] 1,250 mcg 00 weekly. Medical (50,000 Branch unit) capsule Insulin 2021-10 Yes USE [facility] [place], 2-22 DIRECTED ity of Disposable, 00:00: TWICE [place] (BD INSULIN 00 DAILY Medical PEN NEEDLE Branch UF) 31 gauge x 5/16" Ndle Insulin 2021-10 Yes USE 1 [facility] Syringe-Nee 2-22 SYRINGE ity o f dle U-100 1 00:00: FOR UP TO [place] mL 31 gauge 00 5 TIMES A Med ical x 5/16 Syrg DAY Branch ergocalcife 2021-10 Yes [id number] Take 1 [facility] rol, 2-22 capsule by ity of vitamin d2, 00:00: mouth [place] 1,250 mcg 00 weekly. Medical (50,000 Branch unit) capsule Insulin 2021-10 Yes USE [facility] [place], 2-22 DIRECTED ity of Disposable, 00:00: TWICE [place] (BD INSULIN 00 DAILY Medical PEN NEEDLE Branch UF) 31 gauge x 5/16" Ndle Insulin 2021-10 Yes USE 1 [facility] Syringe-Nee 2-22 SYRINGE ity o f dle U-100 1 00:00: FOR UP TO [place] mL 31 gauge 00 5 TIMES A Med ical x 5/16 Syrg DAY Branch ergocalcife 2021-10 Yes [id number] Take 1 [facility] rol, 2-22 capsule by ity of vitamin d2, 00:00: mouth [place] 1,250 mcg 00 weekly. Medical (50,000 Branch unit) capsule Insulin 2021-10 Yes USE [facility] [place], 2-22 DIRECTED ity of Disposable, 00:00: TWICE [place] (BD INSULIN 00 DAILY Medical PEN NEEDLE Branch UF) 31 gauge x 5/16" Ndle Insulin 2021-10 Yes USE 1 [facility] Syringe-Nee 2-22 SYRINGE ity o f dle U-100 1 00:00: FOR UP TO [place] mL 31 gauge 00 5 TIMES A Med ical x 02/18 Syrg DAY [place] carvediloL 2021-10- No [id number] 6.25mg Take 1 [facility] 6.25 mg 2-26 04-19 tablet by ity of tablet 00:00: 00:00 mouth in [place] 00 :00 the Medical morning Branch and 1 tablet in the evening. Take with meals. fenofibrate 2021-10- No [id number] 48mg Take 1 [facility] 48 mg 2-26 04-19 tablet by ity of tablet 00:00: 00:00 mouth in [place] 00 :00 the Medical morning. [place] atorvastati 2021-10- No [id number] 80mg Take 1 [facility] n 80 mg 2-26 04- tablet by ity of tablet 00:00: 00:00 mouth at [place] 00 :00 bedtime. [facility] carvediloL 2021-10- No [id number] 6.25mg Take 1 [facility] 6.25 mg 2-26 04- tablet by ity of tablet 00:00: 00:00 mouth in [place] 00 :00 the Medical morning Branch and 1 tablet in the evening. Take with meals. fenofibrate 2021-10- No [id number] 48mg Take 1 [facility] 48 mg 2-26 04-19 tablet by ity of tablet 00:00: 00:00 mouth in [place] 00 :00 the Medical morning. [place] atorvastati 2021-10- No [id number] 80mg Take 1 [facility] n 80 mg 2-26 04- tablet by ity of tablet 00:00: 00:00 mouth at [place] 00 :00 bedtime. [facility] carvediloL 2021-10- No [id number] 6.25mg Take 1 [facility] 6.25 mg 2-26 04-19 tablet by ity of tablet 00:00: 00:00 mouth in [place] 00 :00 the Medical morning Branch and 1 tablet in the evening. Take with meals. fenofibrate 2021-10- No [id number] 48mg Take 1 [facility] 48 mg 2-22 -19 tablet by ity of tablet 00:00: 00:00 mouth in [place] 00 :00 the Medical morning. [place] atorvastati 2021-10- No [id number] 80mg Take 1 [facility] n 80 mg 11-27 tablet by ity of tablet 00:00: 00:00 mouth at [place] 00 :00 bedtime. Medical Branch carvediloL 2021-10- No [id number] 6.25mg Take 1 [facility] 6.25 mg 11-27 tablet by ity of tablet 00:00: 00:00 mouth in [place] 00 :00 the Medical morning Branch and 1 tablet in the evening. Take with meals. fenofibrate 2021-10- No [id number] 48mg Take 1 [facility] 48 mg 11-27 tablet by ity of tablet 00:00: 00:00 mouth in [place] 00 :00 the Medical morning. Branch atorvastati 2021-10- No [id number] 80mg Take 1 [facility] n 80 mg 11-27 tablet by ity of tablet 00:00: 00:00 mouth at [place] 00 :00 bedtime. Medical Branch dapaglifloz 2021-10- No [id number] 5mg Take 1 [facility] in 11-27 tablet by ity of (FARXIGA) 5 00:00: 00:00 mouth in [place] mg tablet 00 :00 the Medical morning. Branch semaglutide 2021-10- No [id number] 1{tbl} Take 1 [facility] (RYBELSUS) 11-27 tablet by ity of 7 mg Tab 00:00: 00:00 mouth [place] 00 :00 daily. Medical Branch dapaglifloz 2021-10- No [id number] 5mg Take 1 [facility] in 11-27 tablet by ity of (FARXIGA) 5 00:00: 00:00 mouth in [place] mg tablet 00 :00 the Medical morning. Branch semaglutide 2021-10- No [id number] 1{tbl} Take 1 [facility] (RYBELSUS) 11-27 tablet by ity of 7 mg Tab 00:00: 00:00 mouth [place] 00 :00 daily. Medical Branch escitalopra 2021-10- No [id number] 5mg Take 1 [facility] m oxalate 5 11-27 tablet by it y of mg tablet 00:00: 00:00 mouth [place] 00 :00 every Medical morning. Branch flash 2021-10- No [id number] 1{each} 1 Each [facility] glucose 11-27-19 every 14 ity of sensor 00:00: 00:00 (fourteen) Royce wei (FREESTYLE 00 :00 days. Medical SOREN 14 ICD-10 Branch DAY SENSOR) code Kit E11.65 Insulin 2021-10- No [id number] 35 units U nivers Detemir 11-27 inj SC BID ity o f (LEVEMIR 00:00: 00:00 [place] FLEXTOUCH 00 :00 Medical U-100 Branch INSULN) 100 unit/mL (3 mL) injection Insulin 2021-10- No [id number] 35 units U nivers Detemir 11-27 inj SC BID ity o f (LEVEMIR 00:00: 00:00 [place] FLEXTOUCH 00 :00 Medical U-100 Branch INSULN) 100 unit/mL (3 mL) injection insulin 2021-10- No [id number] ADMINISTER [facility] regular 11-27 5 UNITS ity of human 00:00: 00:00 UNDER THE [place] (NOVOLIN R 00 :00 SKIN THREE Med ical REGULAR TIMES Branch U-100 DAILY INSULN) 100 BEFORE A unit/mL MEAL injection insulin 2021-10- No [id number] ADMINISTER [facility] regular 11-27 5 UNITS ity of human 00:00: 00:00 UNDER THE [place] (NOVOLIN R 00 :00 SKIN THREE Med ical REGULAR TIMES Branch U-100 DAILY INSULN) 100 BEFORE A unit/mL MEAL injection Levemir 2021-10- No [facility] FlexTouch - 12-19 Adult U-100 11:35: 00:00 Medicin Insuln 100 43 :00 e unit/mL (3 mL) insulin pen LEVEMIR 2021-10 Yes Cari 25 Inject 25 LM C FLEXTOUCH 2-19 Shrikanth unit Adult (INSULIN 00:00: MD rooney Med icin DETEMIR) 00 usly twice e 100 UNIT/ML a day No SOPN additional refills until seen with completed labs and appointmen t. Levemir 2021-10 Yes Cari 25 Inject 25 LM C FlexTouch 2-19 Shrikanth unit Adult U-100 00:00: subcutaneo Medici n Insuln 100 00 usly twice e unit/mL (3 a day No mL) insulin additional pen refills until seen with completed labs and appointmen t. benzonatate Yes 100mg Q.[id number] Take 1 [facility] (TESSALON) 06-[id number] 100 MG 00:00: 3D (100 mg Hospita capsule 00 total) by l mouth 3 (three) times a day as needed for cough. benzonatate 0 Yes 100mg Q.[id number] Take 1 [facility] ([place]ESSALON) - [id number] capsule st 100 MG 00:00: 3D (100 mg Hospita capsule 00 total) by l mouth 3 (three) times a day as needed for cough. benzonatate Yes 100mg Q.[id number] Take 1 [facility] (TESSALON) 06-[id number] 100 MG 00:00: 3D (100 mg Hospita capsule 00 total) by l mouth 3 (three) times a day as needed for cough. insulin 2021- No [id number] 5U Q.[id number] Inject [facility] regular 06-18 [id number] 0.05-0.1 s t human 00:00: 04:59 3D mL (5-10 Hospita (NovoLIN R 00 :00 Units l Flexpen) total) 100 unit/mL under the (3 mL) skin 3 insulin pen (three) times a day before meals for 30 days. Levemir 2021- No [id number] 35U Q.5D Inject Met [facility]odi FlexTouch 06-[address] U-100 00:00: 04:59 (35 Units Hospit a Insuln 100 00 :00 total) l unit/mL (3 under the mL) insulin skin 2 pen (two) times a day for 30 days. insulin 2021- No [id number] 5U Q.[id number] Inject [facility] regular 06-18 [id number] 0.05-0.1 s t human 00:00: 04:59 3D mL (5-10 Hospita (NovoLIN R 00 :00 Units l Flexpen) total) 100 unit/mL under the (3 mL) skin 3 insulin pen (three) times a day before meals for 30 days. Levemir 2021- No [id number] 35U Q.5D Inject Met [facility]odi FlexTouch [address] U-100 00:00: 04:59 (35 Units Hospit a Insuln 100 00 :00 total) l unit/mL (3 under the mL) insulin skin 2 pen (two) times a day for 30 days. flash Yes [id number] 1{kit} Q14D Place 1 [facility] glucose 8-[address] sensor 00:00: skin every Hospi ta (FreeStyle 00 14 l Soren 14 (fourteen) Day Sensor) days. Dx: kit E11.8 flash Yes [id number] 1{each} 1 each as [facility] glucose 8-[address] scanning 00:00: (when Hospita reader 00 checking l (FreeStyle glucose). Soren 14 Disp one Day [place]) for [facility] patient use as directed by MD - Dx: E11.8 BD Yes [id number] Use as [facility] Ultra-Fine 8-[address] Short Pen 00:00: x a day to Ho spita Needle inject l gauge x insulin; 02/18" ICD-10 needle E11.8 carvediloL Yes [id number] 6.25mg Q.5D Take 1 [facility] (COREG) 8-[address] 6.25 MG 00:00: (6.25 mg Hospit a tablet 00 total) by l mouth 2 (two) times a day with meals. atorvastati Yes [id number] 80mg QD Take 1 [facility]i n (LIPITOR) 8-26 tablet (80 st 80 MG 00:00: mg total) Hospita tablet 00 by mouth l daily. lisinopriL Yes [id number] 2.5mg QD Take 1 M ethodi (PRINIVIL) 8-[address] 2.5 mg 00:00: (2.5 mg Hospita tablet 00 total) by l mouth daily. Rybelsus 7 Yes [id number] 1{tbl} QD Take 1 [facility] mg tablet 8-[address] 00:00: mouth Hospita 00 daily. l fenofibrate Yes [id number] 48mg QD Take 1 [facility] (TRICOR) 48 8-26 tablet (48 st MG tablet 00:00: mg total) Hos maria alejandra 00 by mouth l daily. escitalopra Yes [id number] 5mg QD Take 1 [facility]i m (LEXAPRO) 8-26 tablet (5 st 5 MG tablet 00:00: mg total) H ospita 00 by mouth l every morning. ergocalcife Yes [id number] Q7D Take 1 [facility] rol 8-[address] (VITAMIN 00:00: (50,000 Hospit a D2) 50,000 00 Units l unit total) by capsule mouth once a week. Farxiga 5 Yes [id number] 5mg QD Take 1 [facility] mg tablet 8- tablet (5 st 00:00: mg total) Hospita 00 by mouth l daily. flash Yes [id number] 1{kit} Q14D Place 1 [facility] glucose 8-[address] sensor 00:00: skin every Hospi ta (FreeStyle 00 14 l Soren 14 (fourteen) Day Sensor) days. Dx: kit E11.8 flash Yes [id number] 1{each} 1 each as [facility] glucose 8-[address] scanning 00:00: (when Hospita reader 00 checking l (FreeStyle glucose). Soren 14 Disp one Day [place]) for [facility] patient use as directed by MD - Dx: E11.8 BD Yes [id number] Use as [facility] Ultra-Fine 8-26 directed 5 Short Pen 00:00: x a day to Ho spita Needle inject l gauge x insulin; 02/18" ICD-10 needle E11.8 carvediloL Yes [id number] 6.25mg Q.5D Take 1 [facility] (COREG) 8-[address] 6.25 MG 00:00: (6.25 mg Hospit a tablet 00 total) by l mouth 2 (two) times a day with meals. atorvastati Yes [id number] 80mg QD Take 1 Methodi n (LIPITOR) 8-26 tablet (80 st 80 MG 00:00: mg total) Hospita tablet 00 by mouth l daily. lisinopriL Yes [id number] 2.5mg QD Take 1 M ethodi (PRINIVIL) 8-[address] 2.5 mg 00:00: (2.5 mg Hospita tablet 00 total) by l mouth daily. Rybelsus 7 Yes [id number] 1{tbl} QD Take 1 [facility] mg tablet 8-[address] 00:00: mouth Hospita 00 daily. l fenofibrate Yes [id number] 48mg QD Take 1 [facility] (TRICOR) 48 8-26 tablet (48 st MG tablet 00:00: mg total) Hos maria alejandra 00 by mouth l daily. escitalopra Yes [id number] 5mg QD Take 1 Methodi m (LEXAPRO) 8-26 tablet (5 st 5 MG tablet 00:00: mg total) H ospita 00 by mouth l every morning. flash Yes [id number] 1{kit} Q14D Place 1 [facility] glucose - kit on the st sensor 00:00: skin every Hospi ta (FreeStyle 00 14 l S[place] 14 (fourteen) Day Sensor) days. Dx: kit E11.8 flash Yes [id number] 1{each} 1 each as [facility] glucose - needed st scanning 00:00: (when Hospita reader 00 checking l (FreeStyle glucose). Soren 14 Disp one Day [place]) for [facility] patient use as directed by MD - Dx: E11.8 BD Yes [id number] Use as [facility] Ultra-Fine - directed 5 Short Pen 00:00: x a day to Ho spita Needle inject l gauge x insulin; 02/18" ICD-10 needle E11.8 carvediloL Yes [id number] 6.25mg Q.5D Take 1 [facility] (COREG) 8-[address] 6.25 MG 00:00: (6.25 mg Hospit a tablet 00 total) by l mouth 2 (two) times a day with meals. atorvastati Yes [id number] 80mg QD Take 1 [facility] n (LIPITOR) 8-26 tablet (80 st 80 MG 00:00: mg total) Hospita tablet 00 by mouth l daily. lisinopriL Yes [id number] 2.5mg QD Take 1 M ethodi (PRINIVIL) 8-[address] 2.5 mg 00:00: (2.5 mg Hospita tablet 00 total) by l mouth daily. Rybelsus 7 Yes [id number] 1{tbl} QD Take 1 [facility] mg tablet 8-[address] 00:00: mouth Hospita 00 daily. l fenofibrate Yes [id number] 48mg QD Take 1 [facility] (TRICOR) 48 8-26 tablet (48 st MG tablet 00:00: mg total) Hos maria alejandra 00 by mouth l daily. escitalopra Yes [id number] 5mg QD Take 1 [facility] m (LEXAPRO) 8-26 tablet (5 st 5 MG tablet 00:00: mg total) H ospita 00 by mouth l every morning. ergocalcife Yes [id number] Q7D Take 1 [facility] rol 8-[address] (VITAMIN 00:00: (50,000 Hospit a D2) 50,000 00 Units l unit total) by capsule mouth once a week. Farxiga Yes [id number] 5mg QD Take 1 [facility] mg tablet 8-26 tablet (5 st 00:00: mg total) Hospita 00 by mouth l daily. ergocalcife Yes [id number] Q7D Take 1 [facility] rol 8-[address] (VITAMIN 00:00: (50,000 Hospit a D2) 50,000 00 Units l unit total) by capsule mouth once a week. Farxiga Yes [id number] 5mg QD Take 1 [facility] mg tablet 8-26 tablet (5 st 00:00: mg total) Hospita 00 by mouth l daily. Levemir 2021- No [id number] 35U Q.5D Inject [facility] FlexTouch 05-[address] U-100 00:00: 00:00 (35 Units Hospit a Insuln 100 00 :00 total) l unit/mL (3 under the mL) insulin skin 2 pen (two) times a day. insulin 2021- No [id number] 5U Q.[id number] Inject [facility] regular 05-31 [id number] 0.05-0.1 s t human 00:00: 00:00 3D mL (5-10 Hospita (NovoLIN R 00 :00 Units l Flexpen) total) 100 unit/mL under the (3 mL) skin 3 insulin pen (three) times a day before meals. Levemir 2021- No [id number] 35U Q.5D Inject [facility] FlexTouch 05-[address] U-100 00:00: 00:00 (35 Units Hospit a Insuln 100 00 :00 total) l unit/mL (3 under the mL) insulin skin 2 pen (two) times a day. insulin 2021- No [id number] 5U Q.[id number] Inject [facility] regular 05-31 [id number] 0.05-0.1 s t human 00:00: 00:00 3D mL (5-10 Hospita (NovoLIN R 00 :00 Units l Flexpen) total) 100 unit/mL under the (3 mL) skin 3 insulin pen (three) times a day before meals. Insulin Yes [id number] USE 1 Univ ers Syringe-Nee 7-14 SYRINGE ity o f dle U-100 1 00:00: FOR [place] TO [place] mL 31 gauge 00 5 TIMES A Med ical x 5/16 Syrg DAY Branch Insulin Yes [id number] USE 1 Univ ers Syringe-Nee 7-14 SYRINGE ity o f dle U-100 1 00:00: FOR UP TO [place] mL 31 gauge 00 5 TIMES A Med ical x 5/16 Syrg DAY Branch Insulin 2021- Yes [id number] USE 1 Univ ers Syringe-Nee 7-14 SYRINGE ity o f dle U-100 1 00:00: FOR UP TO [place] mL 31 gauge 00 5 TIMES A Med ical x 5/16 Syrg DAY Branch Insulin Yes [id number] USE 1 Univ ers Syringe-Nee 7-14 SYRINGE ity o f dle U-100 1 00:00: FOR UP TO [place] mL 31 gauge 00 5 TIMES A Med ical x 5/16 Syrg DAY Branch Insulin Yes [id number] USE 1 Univ ers Syringe-Nee 7-14 SYRINGE ity o f dle U-100 1 00:00: FOR UP TO [place] mL 31 gauge 00 5 TIMES A Med ical x 5/16 Syrg DAY Branch Insulin Yes [id number] USE 1 Univ ers Syringe-Nee 7-14 SYRINGE ity o f dle U-100 1 00:00: FOR UP TO [place] mL 31 gauge 00 5 TIMES A Med ical x 5/16 Syrg DAY Branch Insulin Yes [id number] USE 1 Univ ers Syringe-Nee 7-14 SYRINGE ity o f dle U-100 1 00:00: FOR UP TO [place] mL 31 gauge 00 5 TIMES A Med ical x 5/16 Syrg DAY Branch Insulin Yes [id number] USE 1 Univ ers Syringe-Nee 7-14 SYRINGE ity o f dle U-100 1 00:00: FOR UP TO [place] mL 31 gauge 00 5 TIMES A Med ical x 5/16 Syrg DAY Branch Insulin 0 2021- No [id number] USE 1 Uni vers Syringe-Nee 7-14 12-22 SYRINGE ity of dle U-100 1 00:00: 00:00 FOR UP TO [place] mL 31 gauge 00 :00 5 TIMES A Med ical x 5/16 Syrg DAY Branch Insulin 0 2021- No [id number] USE 1 Uni vers Syringe-Nee 7-14 12-22 SYRINGE ity of dle U-100 1 00:00: 00:00 FOR UP TO [place] mL 31 gauge 00 :00 5 TIMES A Med ical x 5/16 Syrg DAY Branch RYBELSUS Yes [facility] (SEMAGLUTID 7-13 Adult E) 7 MG 10:30: Medicin TABS 52 e FARXIGA Yes [facility] (DAPAGLIFLO 7-13 Adult ZIN 10:30: Medicin PROPANEDIOL 52 e ) 5 MG TABS (FENOFIBRAT Yes [facility] E) 48 MG 7-13 Adult TABS 10:30: Medicin 52 e (ESCITALOPR Yes [facility] AM OXALATE) 7-13 Adult 5 MG TABS 10:30: Medicin 52 e (MELOXICAM) Yes [facility] 7.5 MG TABS -13 Adult 10:30: Medicin 52 e (FLUTICASON Yes [facility] E -13 Adult PROPIONATE) 10:30: Medici n 50 MCG/ACT 52 e SUSP (GABAPENTIN Yes [facility] ) 300 MG 04-17 Adult CAPS 10:30: Medicin 52 e (HYDROCODON Yes [facility] E-ACETAMINO - Adult PHEN) 10:30: Medicin 10-325 MG 52 e TABS LEVEMIR 0 202- No [facility] FLEXTOUCH 04-17 12-19 Adult (INSULIN 10:30: 00:00 Medicin DETEMIR) 52 :00 e 100 UNIT/ML SOPN (TIZANIDINE Yes [facility] HCL) 2 MG 04-17 Adult TABS 10:30: Medicin 51 e (CARVEDILOL Yes [facility] ) 6.25 MG 04-17 Adult TABS 10:30: Medicin 51 e (ATORVASTAT Yes [facility] IN CALCIUM) 04-17 Adult 80 MG TABS 10:30: Medicin 51 e Insulin Yes [id number] USE [facility] [place], 02-05 DIRECTED ity of Disposable, 00:00: TWICE [place] (BD INSULIN DAILY Medical PEN NEEDLE [facility]) 31 gauge x 5/16" Ndle Insulin Yes [id number] USE [facility] [place], - DIRECTED ity of Disposable, 00:00: TWICE [place] (BD INSULIN DAILY Medical PEN NEEDLE Branch UF) 31 gauge x 5/16" Ndle Insulin 0 Yes [id number] USE [facility] [place], - DIRECTED ity of Disposable, 00:00: TWICE [place] (BD INSULIN DAILY Medical PEN NEEDLE [facility]) 31 gauge x 5/16" Ndle Insulin 2021-0 Yes [id number] USE [facility] [place], 02-05 DIRECTED ity of Disposable, 00:00: TWICE [place] (BD INSULIN 00 DAILY Medical PEN NEEDLE Branch UF) 31 gauge x 5/16" Ndle Insulin 2021-0 Yes [id number] USE Uni vers [place], 02-05 DIRECTED ity of Disposable, 00:00: TWICE [place] (BD INSULIN 00 DAILY Medical PEN NEEDLE Branch UF) 31 gauge x 5/16" Ndle Insulin 0 Yes [id number] USE Uni vers [place], 02-05 DIRECTED ity of Disposable, 00:00: TWICE [place] (BD INSULIN 00 DAILY Medical PEN NEEDLE Branch UF) 31 gauge x 5/16" Ndle Insulin 0 Yes [id number] USE Uni vers [place], 02-05 DIRECTED ity of Disposable, 00:00: TWICE [place] (BD INSULIN 00 DAILY Medical PEN NEEDLE Branch UF) 31 gauge x 5/16" Ndle Insulin 0 Yes [id number] USE Uni vers [place], 02-05 DIRECTED ity of Disposable, 00:00: TWICE [place] (BD INSULIN 00 DAILY Medical PEN NEEDLE Branch UF) 31 gauge x 5/16" Ndle Insulin 0 2021- No [id number] USE Un rocky [place], 02-05 DIRECTED ity of Disposable, 00:00: 00:[place] ([place] 00 :00 DAILY Medical PEN NEEDLE Branch UF) 31 gauge x 5/16" Ndle Insulin 2021- No [id number] USE Un rocky [place], 02-05 DIRECTED ity of Disposable, 00:00: 00:[place] ([place]ULIN 00 :00 DAILY Medical PEN NEEDLE Branch UF) 31 gauge x 5/16" Ndle ATORVASTATI Yes [id number] TAKE 1 Univers N 80 mg 4-29 TABLET BY ity of tablet 00:00: MOUTH AT [place] [facility] AT[facility] Yes [id number] TAKE 1 Univers N 80 mg 4-29 TABLET BY ity of tablet 00:00: [facility]OUTH AT [place] [facility] ATORVASTATI Yes [id number] TAKE 1 Univers N 80 mg 4-29 TABLET BY ity of tablet 00:00: MOUTH AT [place] [facility] ATORVASTATI Yes [id number] TAKE 1 Univers N 80 mg 4-29 TABLET BY ity of tablet 00:00: [facility]OUTH AT [place] [facility] ATORVASTATI Yes [id number] TAKE 1 Univers N 80 mg 4-29 TABLET BY ity of tablet 00:00: MOUTH AT [address] [facility] Yes [id number] TAKE 1 Univers N 80 mg 4-29 TABLET BY ity of tablet 00:00: MOUTH AT [address] [facility] [id number] TAKE 1 Univers N 80 mg 4-29 TABLET BY ity of tablet 00:00: MOUTH AT [address] [facility] Yes [id number] TAKE 1 Univers N 80 mg 4-29 TABLET BY ity of tablet 00:00: MOUTH AT [address] [facility] 2021- No [id number] TAKE 1 Univers N 80 mg 4-29 12-22 TABLET BY ity of tablet 00:00: 00:00 MOUTH AT [place] 00 :00 [facility] 2021- No [id number] TAKE 1 Univers N 80 mg 4-29 12-22 TABLET BY ity of tablet 00:00: 00:00 MOUTH AT [place] 00 :00 [facility] econazole 0 Yes Methodi nitrate 1 % 4-18 st cream 00:00: Hospita 00 l econazole 0 Yes [facility]i nitrate 1 % 4-18 [facility] cream 00:00: Hospita 00 l econazole 2021-0 Yes [facility]i nitrate 1 % 4-18 st cream 00:00: Hospita 00 l NovoLIN R 2021-0 2021- No [facility] Regular 4-18 08-26 st U-100 00:00: 00:00 Hospita Insuln 100 00 :00 l unit/mL injection NovoLIN R 2021-0 2021- No [facility] Regular 4-18 08-26 st U-100 00:00: 00:00 Hospita Insuln 100 00 :00 l unit/mL injection Biktarvy 2021-0 Yes Methodi 50-200-25 4-13 st mg tablet 00:00: Hospita per tablet 00 l HYDROcodone 0 Yes 1{tbl} Q.[id number] Take 1 [facility]i -acetaminop 4-[id number] hen (NORCO) 00:00: 3D mouth 3 Hos amria alejandra 10-325 mg 00 (three) l per tablet times a day. meloxicam 0 Yes 7.5mg QD Take 7.5 Met hodi (MOBIC) 7.5 4-[address] mg tablet 00:00: mouth Hospita 00 daily. l tiZANidine 2021-0 Yes 2mg Q24H Take 2 mg [facility] (ZANAFLEX) 4-[address] 2 MG tablet 00:00: daily as Ho spita 00 needed. l Biktarvy 2021-0 Yes [facility]i 50-200-25 4-13 st mg tablet 00:00: Hospita per tablet 00 l HYDROcodone 2021-0 Yes 1{tbl} Q.[id number] Take 1 Methodi -acetaminop 4-[id number] hen (achvr) 00:00: 3D mouth 3 Hos maria alejandra 10-325 mg 00 (three) l per tablet times a day. meloxicam 0 Yes 7.5mg QD Take 7.5 Met [facility] (MOBIC) 7.5 4-[address] mg tablet 00:00: mouth Hospita 00 daily. l tiZANidine 2021-0 Yes 2mg Q24H Take 2 mg [facility] (ZANAFLEX) 4-[address] 2 MG tablet 00:00: daily as Ho spita 00 needed. l Biktarvy 2021-0 Yes [facility]i 50-200-25 4-13 [facility] mg tablet 00:00: Hospita per tablet 00 l HYDROcodone 2021-0 Yes 1{tbl} Q.[id number] Take 1 Methodi -acetaminop 4-[id number] hen (achvr) 00:00: 3D mouth 3 Hos maria alejandra 10-325 mg 00 (three) l per tablet times a day. meloxicam 2021-0 Yes 7.5mg QD Take 7.5 Met [facility]odi (MOBIC) 7.5 4-[address] mg tablet 00:00: mouth Hospita 00 daily. l tiZANidine 2021-0 Yes 2mg Q24H Take 2 mg [facility] (ZANAFLEX) 4-[address] 2 MG tablet 00:00: daily as Ho spita 00 needed. l Levemir 2021-0 2021- No Methodi FlexTouch -05-31 st U-100 00:00: 00:00 Hospita Insuln 100 00 :00 l unit/mL (3 mL) insulin pen Levemir 2021- No Methodi FlexTouch 4-13 08- st U-100 00:00: 00:00 Hospita Insuln 100 00 :00 l unit/mL (3 mL) insulin pen gabapentin Yes Methodi (NEURONTIN) 4-10 st 300 mg 00:00: Hospita capsule 00 l gabapentin 0 Yes [facility]i (NEURONTIN) 4-10 st 300 mg 00:00: Hospita capsule 00 l gabapentin 0 Yes [facility]i (NEURONTIN) 4-10 st 300 mg 00:00: Hospita capsule 00 l tiZANidine Yes 2mg Take 2 mg Un rocky 2 mg tablet 3-31 by mouth ity of 14:41: daily. [address] HYDROcodone Yes 1{tbl} Take 1 Un rocky -acetaminop 3-31 tablet by ity of hen 10-325 14:41: mouth [place] tablet 51 (three) Medical times Branch daily. meloxicam Yes Take by Unive rs 7.5 mg TbDL 3-31 mouth ity of 14:41: daily. [address] tiZANidine Yes 2mg Take 2 mg Un rocky 2 mg tablet 3-31 by mouth ity of 14:41: daily. [address] HYDROcodone Yes 1{tbl} Take 1 Un rocky -acetaminop 3-31 tablet by ity of hen 10-325 14:41: mouth 3 [place] mg tablet 51 (three) Medical times Branch daily. meloxicam Yes Take by Unive rs 7.5 mg TbDL 3-31 mouth ity of 14:41: daily. [address] tiZANidine Yes 2mg Take 2 mg Un rocky 2 mg tablet 3-31 by mouth ity of 14:41: daily. [address] HYDROcodone Yes 1{tbl} Take 1 Un rocky -acetaminop 3-31 tablet by ity of hen 10-325 14:41: mouth 3 [place] mg tablet 51 (three) Medical times Branch daily. meloxicam 2022-0 Yes Take by Unive rs 7.5 mg TbDL 3-31 mouth ity of 14:41: daily. [address] tiZANidine 0 Yes 2mg Take 2 mg Un rocky 2 mg tablet 3-31 by mouth ity of 14:41: daily. [address] HYDROcodone Yes 1{tbl} Take 1 Un rocky -acetaminop 3-31 tablet by ity of hen 10-325 14:41: mouth 3 [place] mg tablet 51 (three) Medical times Branch daily. meloxicam 0 Yes Take by Unive rs 7.5 mg TbDL 3-31 mouth ity of 14:41: daily. [address] tiZANidine Yes 2mg Take 2 mg Un rocky 2 mg tablet 3-31 by mouth ity of 14:41: daily. [address] HYDROcodone Yes 1{tbl} Take 1 Un rocky -acetaminop 3-31 tablet by ity of hen 10-325 14:41: mouth 3 [place] mg tablet 51 (three) Medical times Branch daily. meloxicam Yes Take by Unive rs 7.5 mg TbDL 3-31 mouth ity of 14:41: daily. [address] tiZANidine Yes 2mg Take 2 mg Un rocky 2 mg tablet 3-31 by mouth ity of 14:41: daily. [address] HYDROcodone Yes 1{tbl} Take 1 Un rocky -acetaminop 3-31 tablet by ity of hen 10-325 14:41: mouth 3 [place] mg tablet 51 (three) Medical times Branch daily. meloxicam 0 Yes Take by Unive rs 7.5 mg TbDL 3-31 mouth ity of 14:41: daily. [address] tiZANidine 0 Yes 2mg Take 2 mg Un rocky 2 mg tablet 3-31 by mouth ity of 14:41: daily. [address] HYDROcodone 0 Yes 1{tbl} Take 1 Un rocky -acetaminop 3-31 tablet by ity of hen 10-325 14:41: mouth 3 [place] mg tablet 51 (three) Medical times Branch daily. meloxicam 0 Yes Take by Unive rs 7.5 mg TbDL 3-31 mouth ity of 14:41: daily. [address] tiZANidine 0 Yes 2mg Take 2 mg Un rocky 2 mg tablet 3-31 by mouth ity of 14:41: daily. [address] HYDROcodone 0 Yes 1{tbl} Take 1 Un rocky -acetaminop 3-31 tablet by ity of hen 10-325 14:41: mouth 3 [place] mg tablet 51 (three) Medical times Branch daily. meloxicam 0 Yes Take by Unive rs 7.5 mg TbDL 3-31 mouth ity of 14:41: daily. [address] tiZANidine 0 Yes 2mg Take 2 mg Un rocky 2 mg tablet 3-31 by mouth ity of 14:41: daily. [address] HYDROcodone 0 Yes 1{tbl} Take 1 Un rocky -acetaminop 3-31 tablet by ity of hen 10-325 14:41: mouth 3 [place] mg tablet 51 (three) Medical times Branch daily. meloxicam 0 Yes Take by Unive rs 7.5 mg TbDL 3-31 mouth ity of 14:41: daily. [address] tiZANidine 0 Yes 2mg Take 2 mg Un rocky 2 mg tablet 3-31 by mouth ity of 14:41: daily. [address] HYDROcodone 0 Yes 1{tbl} Take 1 Un rocky -acetaminop 3-31 tablet by ity of hen 10-325 14:41: mouth 3 [place] mg tablet 51 (three) Medical times Branch daily. meloxicam 0 Yes Take by Unive rs 7.5 mg TbDL 3-31 mouth ity of 14:41: daily. [address] tiZANidine 0 Yes 2mg Take 2 mg Un rocky 2 mg tablet 3-31 by mouth ity of 14:41: daily. [address] HYDROcodone 0 Yes 1{tbl} Take 1 Un rocky -acetaminop 3-31 tablet by ity of hen 10-325 14:41: mouth 3 [place] mg tablet 51 (three) Medical times Branch daily. meloxicam 0 Yes Take by Unive rs 7.5 mg TbDL 3-31 mouth ity of 14:41: daily. [address] Branch tiZANidine 0 Yes 2mg Take 2 mg Un rocky 2 mg tablet 3-31 by mouth ity of 14:41: daily. [address] Branch HYDROcodone 0 Yes 1{tbl} Take 1 Un rocky -acetaminop 3-31 tablet by ity of hen 10-325 14:41: mouth 3 [place] mg tablet 51 (three) Medical times Branch daily. meloxicam 0 Yes Take by Unive rs 7.5 mg TbDL 3-31 mouth ity of 14:41: daily. [address] tiZANidine 0 Yes 2mg Take 2 mg Un rocky 2 mg tablet 3-31 by mouth ity of 14:41: daily. [address] HYDROcodone 0 Yes 1{tbl} Take 1 Un rocky -acetaminop 3-31 tablet by ity of hen 10-325 14:41: mouth 3 [place] mg tablet 51 (three) Medical times Branch daily. meloxicam 0 Yes Take by Unive rs 7.5 mg TbDL 3-31 mouth ity of 14:41: daily. [address] tiZANidine 0 Yes 2mg Take 2 mg Un rokcy 2 mg tablet 3-31 by mouth ity of 14:41: daily. [address] HYDROcodone 0 Yes 1{tbl} Take 1 Un rocky -acetaminop 3-31 tablet by ity of hen 10-325 14:41: mouth 3 [place] mg tablet 51 (three) Medical times Branch daily. meloxicam 0 Yes Take by Unive rs 7.5 mg TbDL 3-31 mouth ity of 14:41: daily. [address] tiZANidine 0 Yes 2mg Take 2 mg Un rocky 2 mg tablet 3-31 by mouth ity of 14:41: daily. [address] HYDROcodone 2021-0 Yes 1{tbl} Take 1 Un rocky -acetaminop 3-31 tablet by ity of hen 10-325 14:41: mouth 3 [place] mg tablet 51 (three) Medical times Branch daily. meloxicam 0 Yes Take by Unive rs 7.5 mg TbDL 3-31 mouth ity of 14:41: daily. [place] [id number] Medical Branch tiZANidine 0 Yes 2mg Take 2 mg Un rocky 2 mg tablet 3-31 by mouth ity of 14:41: daily. [address] Branch HYDROcodone 0 Yes 1{tbl} Take 1 Un rocky -acetaminop 3-31 tablet by ity of hen 10-325 14:41: mouth 3 [place] mg tablet 51 (three) Medical times Branch daily. meloxicam 0 Yes Take by Unive rs 7.5 mg TbDL 3-31 mouth ity of 14:41: daily. [address] tiZANidine 0 Yes 2mg Take 2 mg Un rocky 2 mg tablet 3-31 by mouth ity of 14:41: daily. [address] HYDROcodone 0 Yes 1{tbl} Take 1 Un rocky -acetaminop 3-31 tablet by ity of hen 10-325 14:41: mouth 3 [place] mg tablet 51 (three) Medical times Branch daily. meloxicam 0 Yes Take by Unive rs 7.5 mg TbDL 3-31 mouth ity of 14:41: daily. [address] tiZANidine 0 Yes 2mg Take 2 mg Un rocky 2 mg tablet 3-31 by mouth ity of 14:41: daily. [address] HYDROcodone 0 Yes 1{tbl} Take 1 Un rocky -acetaminop 3-31 tablet by ity of hen 10-325 14:41: mouth 3 [place] mg tablet 51 (three) Medical times Branch daily. meloxicam 0 Yes Take by Unive rs 7.5 mg TbDL 3-31 mouth ity of 14:41: daily. [address] tiZANidine 0 Yes 2mg Take 2 mg Un rocky 2 mg tablet 3-31 by mouth ity of 14:41: daily. [address] HYDROcodone 0 Yes 1{tbl} Take 1 Un rocky -acetaminop 3-31 tablet by ity of hen 10-325 14:41: mouth 3 [place] mg tablet 51 (three) Medical times Branch daily. meloxicam 0 Yes Take by Unive rs 7.5 mg TbDL 3-31 mouth ity of 14:41: daily. [address] tiZANidine Yes 2mg Take 2 mg Un rocky 2 mg tablet 3-31 by mouth ity of 14:41: daily. [address] HYDROcodone Yes 1{tbl} Take 1 Un rocky -acetaminop 3-31 tablet by ity of hen 10-325 14:41: mouth 3 [place] mg tablet 51 (three) Medical times Branch daily. meloxicam Yes Take by Unive rs 7.5 mg TbDL 3-31 mouth ity of 14:41: daily. [address] tiZANidine Yes 2mg Take 2 mg Un rocky 2 mg tablet 3-31 by mouth ity of 14:41: daily. [address] HYDROcodone Yes 1{tbl} Take 1 Un rocky -acetaminop 3-31 tablet by ity of hen 10-325 14:41: mouth 3 [place] mg tablet 51 (three) Medical times Branch daily. meloxicam Yes Take by Unive rs 7.5 mg TbDL 3-31 mouth ity of 14:41: daily. [address] tiZANidine Yes 2mg Take 2 mg Un rocky 2 mg tablet 3-31 by mouth ity of 14:41: daily. [address] HYDROcodone Yes 1{tbl} Take 1 Un rocky -acetaminop 3-31 tablet by ity of hen 10-325 14:41: mouth 3 [place] mg tablet 51 (three) Medical times Branch daily. meloxicam 0 Yes Take by Unive rs 7.5 mg TbDL 3-31 mouth ity of 14:41: daily. [address] tiZANidine 0 Yes 2mg Take 2 mg Un rocky 2 mg tablet 3-31 by mouth ity of 14:41: daily. [address] HYDROcodone 0 Yes 1{tbl} Take 1 Un rocky -acetaminop 3-31 tablet by ity of hen 10-325 14:41: mouth 3 [place] mg tablet 51 (three) Medical times Branch daily. meloxicam 0 Yes Take by Unive rs 7.5 mg TbDL 3-31 mouth ity of 14:41: daily. [address] tiZANidine Yes 2mg Take 2 mg Un rocky 2 mg tablet 3-31 by mouth ity of 14:41: daily. [address] Branch HYDROcodone Yes 1{tbl} Take 1 Un rocky -acetaminop 3-31 tablet by ity of hen 10-325 14:41: mouth 3 [place] mg tablet 51 (three) Medical times Branch daily. meloxicam Yes Take by Unive rs 7.5 mg TbDL 3-31 mouth ity of 14:41: daily. [address] tiZANidine Yes 2mg Take 2 mg Un rocky 2 mg tablet 3-31 by mouth ity of 14:41: daily. [address] HYDROcodone Yes 1{tbl} Take 1 Un rocky -acetaminop 3-31 tablet by ity of hen 10-325 14:41: mouth 3 [place] mg tablet 51 (three) Medical times Branch daily. meloxicam Yes Take by Unive rs 7.5 mg TbDL 3-31 mouth ity of 14:41: daily. [address] tiZANidine Yes 2mg Take 2 mg Un rocky 2 mg tablet 3-31 by mouth ity of 14:41: daily. [address] HYDROcodone Yes 1{tbl} Take 1 Un rocky -acetaminop 3-31 tablet by ity of hen 10-325 14:41: mouth 3 [place] mg tablet 51 (three) Medical times Branch daily. meloxicam 0 Yes Take by Unive rs 7.5 mg TbDL 3-31 mouth ity of 14:41: daily. [address] lisinopriL Yes [id number] 2.5mg Take 1 Univers 2.5 mg 3-31 tablet by ity of tablet 00:00: mouth [place] 00 daily. Medical Branch lisinopriL 2022-0 Yes [id number] 2.5mg Take 1 Univers 2.5 mg 3-31 tablet by ity of tablet 00:00: mouth [place] 00 daily. Medical Branch lisinopriL 2-0 Yes [id number] 2.5mg Take 1 Univers 2.5 mg 3-31 tablet by ity of tablet 00:00: mouth [place] 00 daily. Medical Branch lisinopriL 2-0 Yes [id number] 2.5mg Take 1 Univers 2.5 mg 3-31 tablet by ity of tablet 00:00: mouth [place] 00 daily. Medical Branch lisinopriL 2-0 Yes [id number] 2.5mg Take 1 Univers 2.5 mg 3-31 tablet by ity of tablet 00:00: mouth [place] 00 daily. Medical Branch lisinopriL 2-0 Yes [id number] 2.5mg Take 1 Univers 2.5 mg 3-31 tablet by ity of tablet 00:00: mouth [place] 00 daily. Medical Branch lisinopriL 2021-0 Yes [id number] 2.5mg Take 1 Univers 2.5 mg 3-31 tablet by ity of tablet 00:00: mouth [place] 00 daily. Medical Branch lisinopriL 2021-0 Yes [id number] 2.5mg Take 1 Univers 2.5 mg 3-31 tablet by ity of tablet 00:00: mouth [place] 00 daily. Medical Branch lisinopriL 2-0 Yes [id number] 2.5mg Take 1 Univers 2.5 mg 3-31 tablet by ity of tablet 00:00: mouth [place] 00 daily. Medical Branch lisinopriL 2-0 Yes [id number] 2.5mg Take 1 Univers 2.5 mg 3-31 tablet by ity of tablet 00:00: mouth [place] 00 daily. Medical Branch lisinopriL 2-0 Yes [id number] 2.5mg Take 1 Univers 2.5 mg 3-31 tablet by ity of tablet 00:00: mouth [place] 00 daily. Medical Branch lisinopriL 2022-0 Yes [id number] 2.5mg Take 1 Univers 2.5 mg 3-31 tablet by ity of tablet 00:00: mouth [place] 00 daily. Medical Branch lisinopriL 2-0 Yes [id number] 2.5mg Take 1 Univers 2.5 mg 3-31 tablet by ity of tablet 00:00: mouth [place] 00 daily. Medical Branch lisinopriL 2-0 Yes [id number] 2.5mg Take 1 Univers 2.5 mg 3-31 tablet by ity of tablet 00:00: mouth [place] 00 daily. Medical Branch lisinopriL 2021-0 Yes [id number] 2.5mg Take 1 Univers 2.5 mg 3-31 tablet by ity of tablet 00:00: mouth [place] 00 daily. Medical Branch lisinopriL 2021-0 Yes [id number] 2.5mg Take 1 Univers 2.5 mg 3-31 tablet by ity of tablet 00:00: mouth [place] 00 daily. Medical Branch lisinopriL 2021-0 Yes [id number] 2.5mg Take 1 Univers 2.5 mg 3-31 tablet by ity of tablet 00:00: mouth [place] 00 daily. Medical Branch lisinopriL 2021-0 Yes [id number] 2.5mg Take 1 Univers 2.5 mg 3-31 tablet by ity of tablet 00:00: mouth [place] 00 daily. Medical Branch lisinopriL 2021-0 Yes [id number] 2.5mg Take 1 Univers 2.5 mg 3-31 tablet by ity of tablet 00:00: mouth [place] 00 daily. Medical Branch lisinopriL 2021-0 Yes [id number] 2.5mg Take 1 Univers 2.5 mg 3-31 tablet by ity of tablet 00:00: mouth [place] 00 daily. Medical Branch lisinopriL 2021-0 Yes [id number] 2.5mg Take 1 Univers 2.5 mg 3-31 tablet by ity of tablet 00:00: mouth [place] 00 daily. Medical Branch lisinopriL 2-0 Yes [id number] 2.5mg Take 1 Univers 2.5 mg 3-31 tablet by ity of tablet 00:00: mouth [place] 00 daily. Medical Branch lisinopriL 2-0 Yes [id number] 2.5mg Take 1 Univers 2.5 mg 3-31 tablet by ity of tablet 00:00: mouth [place] 00 daily. Medical Branch lisinopriL 2-0 Yes [id number] 2.5mg Take 1 Univers 2.5 mg 3-31 tablet by ity of tablet 00:00: mouth [place] 00 daily. Medical Branch lisinopriL 2-0 Yes [id number] 2.5mg Take 1 Univers 2.5 mg 3-31 tablet by ity of tablet 00:00: mouth [place] 00 daily. Medical Branch lisinopriL 2-0 Yes [id number] 2.5mg Take 1 Univers 2.5 mg 3-31 tablet by ity of tablet 00:00: mouth [place] 00 daily. Medical Branch lisinopriL 2-0 Yes [id number] 2.5mg Take 1 Univers 2.5 mg 3-31 tablet by ity of tablet 00:00: mouth [place] 00 daily. Medical Branch lisinopriL 2-0 Yes [id number] 2.5mg Take 1 Univers 2.5 mg 3-31 tablet by ity of tablet 00:00: mouth [place] 00 daily. Medical Branch lisinopriL 2-0 Yes [id number] 2.5mg Take 1 Univers 2.5 mg 3-31 tablet by ity of tablet 00:00: mouth [place] 00 daily. Medical Branch lisinopriL 2021-0 Yes [id number] 2.5mg Take 1 Univers 2.5 mg 3-31 tablet by ity of tablet 00:00: mouth [place] 00 daily. Medical Branch lisinopriL 2-0 Yes [id number] 2.5mg Take 1 Univers 2.5 mg 3-31 tablet by ity of tablet 00:00: mouth [place] 00 daily. Medical Branch lisinopriL 2-0 Yes [id number] 2.5mg Take 1 Univers 2.5 mg 3-31 tablet by ity of tablet 00:00: mouth [place] 00 daily. Medical Branch lisinopriL 2-0 Yes [id number] 2.5mg Take 1 Univers 2.5 mg 3-31 tablet by ity of tablet 00:00: mouth [place] 00 daily. Medical Branch lisinopriL 2-0 Yes [id number] 2.5mg Take 1 Univers 2.5 mg 3-31 tablet by ity of tablet 00:00: mouth [place] 00 daily. Medical Branch lisinopriL 2022-0 Yes [id number] 2.5mg Take 1 Univers 2.5 mg 3-31 tablet by ity of tablet 00:00: mouth [place] 00 daily. Medical Branch lisinopriL 2022-0 Yes [id number] 2.5mg Take 1 Univers 2.5 mg 3-31 tablet by ity of tablet 00:00: mouth [place] 00 daily. Medical Branch lisinopriL 2022-0 Yes [id number] 2.5mg Take 1 Univers 2.5 mg 3-31 tablet by ity of tablet 00:00: mouth [place] 00 daily. Medical Branch lisinopriL 2021-0 Yes [id number] 2.5mg Take 1 Univers 2.5 mg 3-31 tablet by ity of tablet 00:00: mouth [place] 00 daily. Medical Branch lisinopriL 2021-0 Yes [id number] 2.5mg Take 1 Univers 2.5 mg 3-31 tablet by ity of tablet 00:00: mouth [place] 00 daily. Medical Branch lisinopriL 2021-0 Yes [id number] 2.5mg Take 1 Univers 2.5 mg 3-31 tablet by ity of tablet 00:00: mouth [place] 00 daily. Medical Branch lisinopriL 2021-0 Yes [id number] 2.5mg Take 1 Univers 2.5 mg 3-31 tablet by ity of tablet 00:00: mouth [place] 00 daily. [facility] Branch lisinopriL 2021-0 Yes [id number] 2.5mg Take 1 Univers 2.5 mg 3-31 tablet by ity of tablet 00:00: mouth [place] 00 daily. [facility] Branch lisinopriL 2021-0 Yes [id number] 2.5mg Take 1 Univers 2.5 mg 3-31 tablet by ity of tablet 00:00: mouth [place] 00 daily. Medical Branch Farxiga 5 2021- No 5mg QD Take 5 mg [facility] mg tablet 12-[address] 00:00: 00:00 daily. Hospita 00 :00 l Rybelsus 7 2021- No TAKE 1 Meth rachel mg tablet 12-[address] 00:00: 00:00 MOUTH Hospita 00 :00 DAILY. l START AFTER 30 DAYS OF 3 MG DOSE Farxiga 5 2021- No 5mg QD Take 5 mg [facility] mg tablet 12-[address] 00:00: 00:00 daily. Hospita 00 :00 l Rybelsus 7 2021-2021- No TAKE 1 Meth rachel mg tablet 12-[address] 00:00: 00:00 MOUTH Hospita 00 :00 DAILY. l START AFTER 30 DAYS OF 3 MG DOSE carvediloL Yes [id number] 6.25mg Take 1 Univers 6.25 mg 3-21 tablet by ity of tablet 00:00: mouth 2 00 (two) Medical times Branch daily with meals. dapaglifloz Yes [id number] 5mg Take 1 Univers in 3-21 tablet by ity of (FARXIGA) 5 00:00: mouth [place] mg tablet 00 daily. Medical Branch ergocalcife Yes [id number] [id number] Take 1 Univers rol, 3-21 capsule by ity of vitamin d2, 00:00: mouth [place] 1,250 mcg 00 weekly. Medical (50,000 Branch unit) capsule escitalopra Yes [id number] 5mg Take 1 Univers m oxalate 5 3-21 tablet by ity of mg tablet 00:00: mouth [place] 00 every Medical morning. Branch fenofibrate Yes [id number] 48mg Take 1 Univers 48 mg 3-21 tablet by ity of tablet 00:00: mouth [place] 00 daily. Medical Branch flash Yes [id number] 1{each} 1 Each Un rocky glucose 3-21 every 14 ity of sensor 00:00: (fourteen) [place] (FREESTYLE 00 days. Medical SOREN 14 ICD-10 Branch DAY SENSOR) code Kit E11.65 Insulin Yes [id number] 35 units U nivers Detemir 3-21 inj SC BID ity of (LEVEMIR 00:00: [place] FLEXTOUCH 00 Medical U-100 Branch INSULN) 100 unit/mL (3 mL) injection insulin Yes [id number] ADMINISTER Univers regular 3-21 5 UNITS ity of human 00:00: UNDER THE [place] (NOVOLIN R 00 SKIN THREE Med ical REGULAR TIMES Branch U-100 DAILY INSULN) 100 BEFORE A unit/mL MEAL injection semaglutide Yes [id number] 1{tbl} Take 1 Univers (RYBELSUS) 3-21 tablet by ity of 7 mg Tab 00:00: mouth [place] 00 daily. Medical Branch econazole Yes [id number] Apply to U nivers nitrate 1 % 3-21 area(s) ity o f cream 00:00: daily. 00 Medical Branch carvediloL Yes [id number] 6.25mg Take 1 Univers 6.25 mg 3-21 tablet by ity of tablet 00:00: mouth 2 00 (two) Medical times Branch daily with meals. dapaglifloz Yes [id number] 5mg Take 1 Univers in 3-21 tablet by ity of (FARXIGA) 5 00:00: mouth [place] mg tablet 00 daily. Medical Branch ergocalcife Yes [id number] 01751O Take 1 Univers rol, 3-21 capsule by ity of vitamin d2, 00:00: mouth [place] 1,250 mcg 00 weekly. Medical (50,000 Branch unit) capsule escitalopra Yes [id number] 5mg Take 1 Univers m oxalate 5 3-21 tablet by ity of mg tablet 00:00: mouth [place] 00 every Medical morning. Branch fenofibrate Yes [id number] 48mg Take 1 Univers 48 mg 3-21 tablet by ity of tablet 00:00: mouth [place] 00 daily. Medical Branch flash Yes [id number] 1{each} 1 Each Un rocky glucose 3-21 every 14 ity of sensor 00:00: (fourteen) [place] (FREESTYLE 00 days. Medical SOREN 14 ICD-10 Branch DAY SENSOR) code Kit E11.65 Insulin Yes [id number] 35 units U nivers Detemir 3-21 inj SC BID ity of (LEVEMIR 00:00: [place] FLEXTOUCH 00 Medical U-100 Branch INSULN) 100 unit/mL (3 mL) injection insulin Yes [id number] ADMINISTER Univers regular 3-21 5 UNITS ity of human 00:00: UNDER THE [place] (NOVOLIN R 00 SKIN THREE Med ical REGULAR TIMES Branch U-100 DAILY INSULN) 100 BEFORE A unit/mL MEAL injection semaglutide Yes [id number] 1{tbl} Take 1 Univers (RYBELSUS) 3-21 tablet by ity of 7 mg Tab 00:00: mouth [place] 00 daily. Medical Branch econazole Yes [id number] Apply to U nivers nitrate 1 % 3-21 area(s) ity o f cream 00:00: daily. 00 Medical Branch carvediloL Yes [id number] 6.25mg Take 1 Univers 6.25 mg 3-21 tablet by ity of tablet 00:00: mouth 2 [place] 00 (two) Medical times Branch daily with meals. dapaglifloz Yes [id number] 5mg Take 1 Univers in 3-21 tablet by ity of (FARXIGA) 5 00:00: mouth [place] mg tablet 00 daily. Medical Branch ergocalcife Yes [id number] Take 1 Univers rol, 3-21 capsule by ity of vitamin d2, 00:00: mouth [place] 1,250 mcg 00 weekly. Medical (50,000 Branch unit) capsule escitalopra Yes [id number] 5mg Take 1 Univers m oxalate 5 3-21 tablet by ity of mg tablet 00:00: mouth [place] 00 every Medical morning. Branch fenofibrate Yes [id number] 48mg Take 1 [facility] 48 mg 3-21 tablet by ity of tablet 00:00: mouth [place] 00 daily. Medical Branch flash Yes [id number] 1{each} 1 Each Un rocky glucose 3-21 every 14 ity of sensor 00:00: (fourteen) [place] (FREESTYLE 00 days. Medical SOREN 14 ICD-10 Branch DAY SENSOR) code Kit E11.65 Insulin Yes [id number] 35 units U nivers Detemir 3-21 inj SC BID ity of (LEVEMIR 00:00: [place] FLEXTOUCH 00 Medical U-100 Branch INSULN) 100 unit/mL (3 mL) injection insulin Yes [id number] ADMINISTER [facility] regular 3-21 5 UNITS ity of human 00:00: UNDER THE [place] (NOVOLIN R 00 SKIN THREE Med ical REGULAR TIMES Branch U-100 DAILY INSULN) 100 BEFORE A unit/mL MEAL injection semaglutide Yes [id number] 1{tbl} Take 1 [facility] (RYBELSUS) 3-21 tablet by ity of 7 mg Tab 00:00: mouth [place] 00 daily. Medical Branch econazole Yes [id number] Apply to U nivers nitrate 1 % 3-21 area(s) ity o f cream 00:00: daily. 00 Medical Branch carvediloL Yes [id number] 6.25mg Take 1 [facility] 6.25 mg 3-21 tablet by ity of tablet 00:00: mouth 2 [place] 00 (two) Medical times Branch daily with meals. dapaglifloz Yes [id number] 5mg Take 1 [facility] in 3-21 tablet by ity of (FARXIGA) 5 00:00: mouth [place] mg tablet 00 daily. Medical Branch ergocalcife Yes [id number] Take 1 [facility] rol, 3-21 capsule by ity of vitamin d2, 00:00: mouth [place] 1,250 mcg 00 weekly. Medical (50,000 Branch unit) capsule escitalopra Yes [id number] 5mg Take 1 [facility] m oxalate 5 3-21 tablet by ity of mg tablet 00:00: mouth [place] 00 every Medical morning. Branch fenofibrate Yes [id number] 48mg Take 1 [facility] 48 mg 3-21 tablet by ity of tablet 00:00: mouth [place] 00 daily. Medical Branch flash Yes [id number] 1{each} 1 Each Un rocky glucose 3-21 every 14 ity of sensor 00:00: (fourteen) [place] (FREESTYLE 00 days. Medical SOREN 14 ICD-10 Branch DAY SENSOR) code Kit E11.65 Insulin Yes [id number] 35 units U nivers Detemir 3-21 inj SC BID ity of (LEVEMIR 00:00: [place] FLEXTOUCH 00 Medical U-100 Branch INSULN) 100 unit/mL (3 mL) injection insulin Yes [id number] ADMINISTER [facility] regular 3-21 5 UNITS ity of human 00:00: UNDER THE [place] (NOVOLIN R 00 SKIN THREE Med ical REGULAR TIMES Branch U-100 DAILY INSULN) 100 BEFORE A unit/mL MEAL injection semaglutide Yes [id number] 1{tbl} Take 1 [facility] (RYBELSUS) 3-21 tablet by ity of 7 mg Tab 00:00: mouth [place] 00 daily. Medical Branch econazole Yes [id number] Apply to U nivers nitrate 1 % 3-21 area(s) ity o f cream 00:00: daily. 00 Medical Branch carvediloL Yes [id number] 6.25mg Take 1 [facility] 6.25 mg 3-21 tablet by ity of tablet 00:00: mouth 2 [place] 00 (two) Medical times Branch daily with meals. dapaglifloz Yes [id number] 5mg Take 1 [facility] in 3-21 tablet by ity of (FARXIGA) 5 00:00: mouth [place] mg tablet 00 daily. Medical Branch ergocalcife Yes [id number] Take 1 [facility] rol, 3-21 capsule by ity of vitamin d2, 00:00: mouth [place] 1,250 mcg 00 weekly. Medical (50,000 Branch unit) capsule escitalopra Yes [id number] 5mg Take 1 [facility] m oxalate 5 3-21 tablet by ity of mg tablet 00:00: mouth [place] 00 every Medical morning. Branch fenofibrate Yes [id number] 48mg Take 1 [facility] 48 mg 3-21 tablet by ity of tablet 00:00: mouth [place] 00 daily. Medical Branch flash Yes [id number] 1{each} 1 Each Un rocky glucose 3-21 every 14 ity of sensor 00:00: (fourteen) [place] (FREESTYLE 00 days. Medical SOREN 14 ICD-10 Branch DAY SENSOR) code Kit E11.65 Insulin Yes [id number] 35 units U nivers Detemir 3-21 inj SC BID ity of (LEVEMIR 00:00: [place] FLEXTOUCH 00 Medical U-100 Branch INSULN) 100 unit/mL (3 mL) injection insulin Yes [id number] ADMINISTER [facility] regular 3-21 5 UNITS ity of human 00:00: UNDER THE [place] (NOVOLIN R 00 SKIN THREE Med ical REGULAR TIMES Branch U-100 DAILY INSULN) 100 BEFORE A unit/mL MEAL injection semaglutide Yes [id number] 1{tbl} Take 1 [facility] (RYBELSUS) 3-21 tablet by ity of 7 mg Tab 00:00: mouth [place] 00 daily. Medical Branch econazole Yes [id number] Apply to U nivers nitrate 1 % 3-21 area(s) ity o f cream 00:00: daily. Medical Branch carvediloL Yes [id number] 6.25mg Take 1 [facility] 6.25 mg 3-21 tablet by ity of tablet 00:00: mouth 2 (two) Medical times Branch daily with meals. dapaglifloz Yes [id number] 5mg Take 1 [facility] in 3-21 tablet by ity of (FARXIGA) 5 00:00: mouth [place] mg tablet 00 daily. Medical Branch ergocalcife Yes [id number] Take 1 [facility] rol, 3-21 capsule by ity of vitamin d2, 00:00: mouth [place] 1,250 mcg 00 weekly. Medical (50,000 Branch unit) capsule escitalopra Yes [id number] 5mg Take 1 [facility] m oxalate 5 3-21 tablet by ity of mg tablet 00:00: mouth [place] 00 every Medical morning. Branch fenofibrate Yes [id number] 48mg Take 1 [facility] 48 mg 3-21 tablet by ity of tablet 00:00: mouth [place] 00 daily. Medical Branch flash Yes [id number] 1{each} 1 Each Un rocky glucose 3-21 every 14 ity of sensor 00:00: (fourteen) [place] (FREESTYLE 00 days. Medical SOREN 14 ICD-10 Branch DAY SENSOR) code Kit E11.65 Insulin Yes [id number] 35 units U nivers Detemir 3-21 inj SC BID ity of (LEVEMIR 00:00: [place] FLEXTOUCH 00 Medical U-100 Branch INSULN) 100 unit/mL (3 mL) injection insulin Yes [id number] ADMINISTER [facility] regular 3-21 5 UNITS ity of human 00:00: UNDER THE [place] (NOVOLIN R 00 SKIN THREE Med ical REGULAR TIMES Branch U-100 DAILY INSULN) 100 BEFORE A unit/mL MEAL injection semaglutide Yes [id number] 1{tbl} Take 1 [facility] (RYBELSUS) 3-21 tablet by ity of 7 mg Tab 00:00: mouth [place] 00 daily. Medical Branch econazole Yes [id number] Apply to U nivers nitrate 1 % 3-21 area(s) ity o f cream 00:00: daily. Medical Branch carvediloL Yes [id number] 6.25mg Take 1 [facility] 6.25 mg 3-21 tablet by ity of tablet 00:00: mouth 2 (two) Medical times Branch daily with meals. dapaglifloz Yes [id number] 5mg Take 1 [facility] in 3-21 tablet by ity of (FARXIGA) 5 00:00: mouth [place] mg tablet 00 daily. Medical Branch ergocalcife Yes [id number] Take 1 [facility] rol, 3-21 capsule by ity of vitamin d2, 00:00: mouth [place] 1,250 mcg 00 weekly. Medical (50,000 Branch unit) capsule escitalopra Yes [id number] 5mg Take 1 [facility] m oxalate 5 3-21 tablet by ity of mg tablet 00:00: mouth [place] 00 every Medical morning. Branch fenofibrate Yes [id number] 48mg Take 1 [facility] 48 mg 3-21 tablet by ity of tablet 00:00: mouth [place] 00 daily. Medical Branch flash Yes [id number] 1{each} 1 Each Un rocky glucose 3-21 every 14 ity of sensor 00:00: (fourteen) [place] (FREESTYLE 00 days. Medical SOREN 14 ICD-10 Branch DAY SENSOR) code Kit E11.65 Insulin Yes [id number] 35 units U nivers Detemir 3-21 inj SC BID ity of (LEVEMIR 00:00: [place] FLEXTOUCH 00 Medical U-100 Branch INSULN) 100 unit/mL (3 mL) injection insulin Yes [id number] ADMINISTER [facility] regular 3-21 5 UNITS ity of human 00:00: UNDER THE [place] (NOVOLIN R 00 SKIN THREE Med ical REGULAR TIMES Branch U-100 DAILY INSULN) 100 BEFORE A unit/mL MEAL injection semaglutide Yes [id number] 1{tbl} Take 1 Univers (RYBELSUS) 3-21 tablet by ity of 7 mg Tab 00:00: mouth [place] 00 daily. Medical Branch econazole Yes [id number] Apply to U nivers nitrate 1 % 3-21 area(s) ity o f cream 00:00: daily. 00 Medical Branch carvediloL Yes [id number] 6.25mg Take 1 [facility] 6.25 mg 3-21 tablet by ity of tablet 00:00: mouth 2 [place] 00 (two) Medical times Branch daily with meals. dapaglifloz Yes [id number] 5mg Take 1 [facility] in 3-21 tablet by ity of (FARXIGA) 5 00:00: mouth [place] mg tablet 00 daily. Medical Branch ergocalcife Yes [id number] Take 1 [facility] rol, 3-21 capsule by ity of vitamin d2, 00:00: mouth [place] 1,250 mcg 00 weekly. Medical (50,000 Branch unit) capsule escitalopra Yes [id number] 5mg Take 1 [facility] m oxalate 5 3-21 tablet by ity of mg tablet 00:00: mouth [place] 00 every Medical morning. Branch fenofibrate Yes [id number] 48mg Take 1 [facility] 48 mg 3-21 tablet by ity of tablet 00:00: mouth [place] 00 daily. Medical Branch flash Yes [id number] 1{each} 1 Each Un rocky glucose 3-21 every 14 ity of sensor 00:00: (fourteen) [place] (FREESTYLE 00 days. Medical SOREN 14 ICD-10 Branch DAY SENSOR) code Kit E11.65 Insulin Yes [id number] 35 units U nivers Detemir 3-21 inj SC BID ity of (LEVEMIR 00:00: [place] FLEXTOUCH 00 Medical U-100 Branch INSULN) 100 unit/mL (3 mL) injection insulin Yes [id number] ADMINISTER [facility] regular 3-21 5 UNITS ity of human 00:00: UNDER THE [place] (NOVOLIN R 00 SKIN THREE Med ical REGULAR TIMES Branch U-100 DAILY INSULN) 100 BEFORE A unit/mL MEAL injection semaglutide Yes [id number] 1{tbl} Take 1 Univers (RYBELSUS) 3-21 tablet by ity of 7 mg Tab 00:00: mouth [place] 00 daily. Medical Branch econazole Yes [id number] Apply to U nivers nitrate 1 % 3-21 area(s) ity o f cream 00:00: daily. Medical Branch econazole 0 Yes [id number] Apply to U nivers nitrate 1 % 3-21 area(s) ity o f cream 00:00: daily. Medical Branch econazole 0 Yes [id number] Apply to U nivers nitrate 1 % 3-21 area(s) ity o f cream 00:00: daily. [place] [facility] econazole 2-0 Yes [id number] Apply to U nivers nitrate 1 % 3-21 area(s) ity o f cream 00:00: daily. [place] [facility] econazole 2-0 Yes [id number] Apply to U nivers nitrate 1 % 3-21 area(s) ity o f cream 00:00: daily. [place] [facility] econazole 2-0 Yes [id number] Apply to U nivers nitrate 1 % 3-21 area(s) ity o f cream 00:00: daily. [place] [facility] econazole 2-0 Yes [id number] Apply to U nivers nitrate 1 % 3-21 area(s) ity o f cream 00:00: daily. [place] [facility] econazole 2-0 Yes [id number] Apply to U nivers nitrate 1 % 3-21 area(s) ity o f cream 00:00: daily. [place] [facility] econazole 2-0 Yes [id number] Apply to U nivers nitrate 1 % 3-21 area(s) ity o f cream 00:00: daily. [place] [facility] econazole 2-0 Yes [id number] Apply to U nivers nitrate 1 % 3-21 area(s) ity o f cream 00:00: daily. [place] [facility] econazole 2-0 Yes [id number] Apply to U nivers nitrate 1 % 3-21 area(s) ity o f cream 00:00: daily. [place] [facility] econazole 2-0 Yes [id number] Apply to U nivers nitrate 1 % 3-21 area(s) ity o f cream 00:00: daily. [place] [facility] econazole 2-0 Yes [id number] Apply to U nivers nitrate 1 % 3-21 area(s) ity o f cream 00:00: daily. [place] [facility] econazole 2-0 Yes [id number] Apply to U nivers nitrate 1 % 3-21 area(s) ity o f cream 00:00: daily. [place] [facility] econazole 2-0 Yes [id number] Apply to U nivers nitrate 1 % 3-21 area(s) ity o f cream 00:00: daily. [place] [facility] econazole 2-0 Yes [id number] Apply to U nivers nitrate 1 % 3-21 area(s) ity o f cream 00:00: daily. [place] Medical Branch econazole Yes [id number] Apply to U nivers nitrate 1 % 3-21 area(s) ity o f cream 00:00: daily. [place] [facility] Branch econazole Yes [id number] Apply to U nivers nitrate 1 % 3-21 area(s) ity o f cream 00:00: daily. [place] [facility] Branch econazole Yes [id number] Apply to U nivers nitrate 1 % 3-21 area(s) ity o f cream 00:00: daily. [place] [facility] econazole 2022- No [id number] Apply to Univers nitrate 1 % 3-21 -07 area(s) ity of cream 00:00: 00:00 daily. [place] 00 : Medical Branch econazole 2022- No [id number] Apply to Univers nitrate 1 % 3-26 03-07 area(s) ity of cream 00:00: 00:00 daily. [place] 00 :00 Medical Branch carvediloL 2021- No [id number] 6.25mg Take 1 [facility] 6.25 mg 12-24- tablet by ity of tablet 00:00: 00:00 mouth 2 [place] 00 :00 (two) Medical times Branch daily with meals. dapaglifloz 2021- No [id number] 5mg Take 1 [facility] in 12-24- tablet by ity of (FARXIGA) 5 00:00: 00:00 [place] mg tablet 00 :00 daily. Medical Branch ergocalcife 2021- No [id number] Take 1 [facility] rol, 12-24-22 capsule by ity of vitamin d2, 00:00: 00:00 [place] 1,250 mcg 00 :00 weekly. Medical (50,000 Branch unit) capsule escitalopra 2021- No [id number] 5mg Take 1 [facility] m oxalate 5 12-24- tablet by it y of mg tablet 00:00: 00:00 mouth [place] 00 :00 every Medical morning. Branch fenofibrate 2021- No [id number] 48mg Take 1 [facility] 48 mg 12-24 tablet by ity of tablet 00:00: 00:00 mouth [place] 00 :00 daily. Medical Branch flash 2021- No [id number] 1{each} 1 Each U nivers glucose 12-24 every 14 ity of sensor 00:00: 00:00 (fourteen) [place] (FREESTYLE 00 :00 days. Medical SOREN 14 ICD-10 Branch DAY SENSOR) code Kit E11.65 Insulin 2021- No [id number] 35 units Univers Detemir 12-24 inj SC BID ity o f (LEVEMIR 00:00: 00:00 [place] FLEXTOUCH 00 :00 Medical U-100 Branch INSULN) 100 unit/mL (3 mL) injection insulin 2021- No [id number] ADMINISTER Univers regular 12-24 5 UNITS ity of human 00:00: 00:00 UNDER THE [place] (NOVOLIN R 00 :00 SKIN THREE Med ical REGULAR TIMES Branch U-100 DAILY INSULN) 100 BEFORE A unit/mL MEAL injection semaglutide 2021- No [id number] 1{tbl} Take 1 [facility] (RYBELSUS) 12-24 tablet by ity of 7 mg Tab 00:00: 00:00 mouth [place] 00 :00 daily. Medical Branch carvediloL 2021- No [id number] 6.25mg Take 1 [facility] 6.25 mg 12-24 tablet by ity of tablet 00:00: 00:00 mouth 2 [place] 00 :00 (two) Medical times Branch daily with meals. dapaglifloz No [id number] 5mg Take 1 [facility] in 12-24 tablet by ity of (FARXIGA) 5 00:00: 00:00 mouth [place] mg tablet 00 :00 daily. Medical Branch ergocalcife 2021- No [id number] Take 1 [facility] rol, 12-24 capsule by ity of vitamin d2, 00:00: 00:00 [place] 1,250 mcg 00 :00 weekly. Medical (50,000 Branch unit) capsule escitalopra 2021- No [id number] 5mg Take 1 [facility] m oxalate 5 12-24 tablet by it y of mg tablet 00:00: 00:00 mouth [place] 00 :00 every Medical morning. Branch fenofibrate 2021- No [id number] 48mg Take 1 [facility] 48 mg 12-24 tablet by ity of tablet 00:00: 00:00 mouth [place] 00 :00 daily. Medical Branch flash 2021- No [id number] 1{each} 1 Each U nivers glucose 12-24 every 14 ity of sensor 00:00: 00:00 (fourteen) [place] (FREESTYLE 00 :00 days. Medical SOREN 14 ICD-10 Branch DAY SENSOR) code Kit E11.65 Insulin 2021- No [id number] 35 units Univers Detemir 12-24 inj SC BID ity o f (LEVEMIR 00:00: 00:00 [place] FLEXTOUCH 00 :00 Medical U-100 Branch INSULN) 100 unit/mL (3 mL) injection insulin 2021- No [id number] ADMINISTER [facility] regular 12-24 5 UNITS ity of human 00:00: 00:00 UNDER THE [place] (NOVOLIN R 00 :00 SKIN THREE Med ical REGULAR TIMES Branch U-100 DAILY INSULN) 100 BEFORE A unit/mL MEAL injection semaglutide 2021- No [id number] 1{tbl} Take 1 [facility] (RYBELSUS) 12-24 tablet by ity of 7 mg Tab 00:00: 00:00 mouth [place] 00 :00 daily. Medical Branch escitalopra 2021- No 5mg QD Take 5 mg [facility] (LEXAPRO) 12-[address] 5 MG tablet 00:00: 00:00 every [facility] 00 :00 morning. l escitalopra 2021- No 5mg QD Take 5 mg [facility] (LEXAPRO) 12-[address] 5 MG tablet 00:00: 00:00 every [facility] 00 :00 morning. l ergocalcife 2021- No [id number] Q7D Take [facility] rol 12-22 [facility],[address] (VITAMIN 00:00: 00:00 Units by [facility] D2) 50,000 00 :00 mouth once l unit a week. capsule ergocalcife 2021- No [id number] Q7D Take Met [facility]odi rol 12-22 50,[address] (VITAMIN 00:00: 00:00 Units by [facility] D2) 50,000 00 :00 mouth once l unit a week. capsule BD 2021- No Q.5D 2 (two) [facility] Ultra-Fine 3-21 05- times a st Short Pen 00:00: 00:00 day. [facility]osp[facility] Needle 31 00 :00 l gauge x 5/16" needle BD 2021-2021- No Q.5D 2 (two) [facility] Ultra-Fine 3-16 - times a st Short Pen 00:00: 00:00 day. [facility]osp[facility] Needle 31 00 :00 l gauge x 5/16" needle acetaminoph 2021- No 1{tbl} Q8H Take 1 M ethodi en-codeine 12-[address] (TYLENOL 00:00: 00:00 mouth [facility] WITH 00 :00 every 8 l CODEINE #4) (eight) 300-60 mg hours as per tablet needed. acetaminoph 2021- No 1{tbl} Q8H Take 1 M ethodi en-codeine 12-[address] (TYLENOL 00:00: 00:00 [facility] WITH 00 :00 every 8 l CODEINE #4) (eight) 300-60 mg hours as per tablet needed. aspirin Yes TAKE 1 [facility] (ECOTRIN) 2-[address] 325 MG 00:00: MOUTH [facility] enteric 00 TWICE l coated DAILY WTH tablet MEALS aspirin Yes TAKE 1 [facility] (ECOTRIN) 2-[address] 325 MG 00:00: MOUTH [facility] enteric 00 TWICE l coated DAILY W[facility] tablet MEALS aspirin Yes TAKE 1 [facility] (ECOTRIN) 2-[address] 325 MG 00:00: MOUTH [facility] enter[facility] 00 TWICE l coated DAILY WTH tablet MEALS carvediloL 2021- No 6.25mg Q.5D Take 6.25 [facility] (COREG) 2-09 08-[address] 6.25 MG 00:00: 00:00 mouth 2 [facility] a tablet 00 :00 (two) l times a day with meals. carvediloL 6.25mg Q.5D Take 6.25 [facility] (COREG) 2 08-[address] 6.25 MG 00:00: 00:00 mouth 2 [facility] a tablet 00 :00 (two) l times a day with meals. BIKTARVY Yes Cari 1 Take 1 [facility] (BICTEGRAVI 1-24 Shrikanth tablet by Adult R-EMTRICITA 00:00: MD mouth once Medicin B-TENOFOV) 00 a day e 50-200-25 MG TABS [facility] 2020-10 Yes [id number] 1{tbl} TAKE 1 U nivers 50-200-25 1-30 TABLET BY ity o f mg tablet 00:00: [facility] DAILY Medical Branch KTARVY 2020-10 Yes [id number] 1{tbl} TAKE 1 U nivers 50-200-25 1-30 TABLET BY ity o f mg tablet 00:00: MOUTH [place] DAILY Medical Branch BIKTARVY 2020-10 Yes [id number] 1{tbl} TAKE 1 U nivers 50-200-25 1-30 TABLET BY ity o f mg tablet 00:00: MOUTH [place] DAILY Medical Branch BIKTARVY 2020-10 Yes [id number] 1{tbl} TAKE 1 U nivers 50-200-25 1-30 TABLET BY ity o f mg tablet 00:00: [facility] DAILY Medical Branch BIKTARVY 2020-10 Yes [id number] 1{tbl} TAKE 1 U nivers 50-200-25 1-30 TABLET BY ity o f mg tablet 00:00: MOUTH [place] DAILY Medical Branch BIKTARVY 2020-10 Yes [id number] 1{tbl} TAKE 1 U nivers 50-200-25 1-30 TABLET BY ity o f mg tablet 00:00: [facility] DAILY Medical Branch BIKTARVY 2020-10 Yes [id number] 1{tbl} TAKE 1 U nivers 50-200-25 1-30 TABLET BY ity o f mg tablet 00:00: MOUTH [place] DAILY Medical Branch BIKTARVY 2020-10 Yes [id number] 1{tbl} TAKE 1 U nivers 50-200-25 1-30 TABLET BY ity o f mg tablet 00:00: [facility] DAILY Medical Branch BIKTARVY 2020-10 Yes [id number] 1{tbl} TAKE 1 U nivers 50-200-25 1-30 TABLET BY ity o f mg tablet 00:00: [facility] DAILY Medical Branch BIKTARVY 2020-10 Yes [id number] 1{tbl} TAKE 1 U nivers 50-200-25 1-30 TABLET BY ity o f mg tablet 00:00: [facility] DAILY Medical Branch BIKTARVY 2020-10 Yes [id number] 1{tbl} TAKE 1 U nivers 50-200-25 1-30 TABLET BY ity o f mg tablet 00:00: [facility] DAILY Medical Branch BIKTARVY 2020-10 Yes [id number] 1{tbl} TAKE 1 U nivers 50-200-25 1-30 TABLET BY ity o f mg tablet 00:00: [facility] DAILY Medical Branch BIKTARVY 2020-10 Yes [id number] 1{tbl} TAKE 1 U nivers 50-200-25 1-30 TABLET BY ity o f mg tablet 00:00: [facility] DAILY Medical Branch BIKTARVY 2020-10 Yes [id number] 1{tbl} TAKE 1 U nivers 50-200-25 1-30 TABLET BY ity o f mg tablet 00:00: [facility] DAILY Medical Branch BIKTARVY 2020-10 Yes [id number] 1{tbl} TAKE 1 U nivers 50-200-25 1-30 TABLET BY ity o f mg tablet 00:00: [facility] DAILY Medical Branch BIKTARVY 2020-10 Yes [id number] 1{tbl} TAKE 1 U nivers 50-200-25 1-30 TABLET BY ity o f mg tablet 00:00: [facility] DAILY Medical Branch BIKTARVY 2020-10 Yes [id number] 1{tbl} TAKE 1 U nivers 50-200-25 1-30 TABLET BY ity o f mg tablet 00:00: [facility] DAILY Medical Branch BIKTARVY 2020-10 Yes [id number] 1{tbl} TAKE 1 U nivers 50-200-25 1-30 TABLET BY ity o f mg tablet 00:00: [facility] DAILY Medical Branch BIKTARVY 2020-10 Yes [id number] 1{tbl} TAKE 1 U nivers 50-200-25 1-30 TABLET BY ity o f mg tablet 00:00: [facility] DAILY Medical Branch BIKTARVY 2020-10 Yes [id number] 1{tbl} TAKE 1 U nivers 50-200-25 1-30 TABLET BY ity o f mg tablet 00:00: [facility] DAILY Medical Branch BIKTARVY 2020-10 Yes [id number] 1{tbl} TAKE 1 U nivers 50-200-25 1-30 TABLET BY ity o f mg tablet 00:00: [facility] DAILY Medical Branch BIKTARVY 2020-10 Yes [id number] 1{tbl} TAKE 1 U nivers 50-200-25 1-30 TABLET BY ity o f mg tablet 00:00: [facility] DAILY Medical Branch KTARVY 2020-10 Yes [id number] 1{tbl} TAKE 1 U nivers 50-200-25 1-30 TABLET BY ity o f mg tablet 00:00: [facility] DAILY Medical Branch BIKTARVY 2020-10 Yes [id number] 1{tbl} TAKE 1 U nivers 50-200-25 1-30 TABLET BY ity o f mg tablet 00:00: [facility] DAILY Medical Branch BIKTARVY 2020-10 Yes [id number] 1{tbl} TAKE 1 U nivers 50-200-25 1-30 TABLET BY ity o f mg tablet 00:00: [facility] DAILY Medical Branch BIKTARVY 2020-10 Yes [id number] 1{tbl} TAKE 1 U nivers 50-200-25 1-30 TABLET BY ity o f mg tablet 00:00: [facility] DAILY Medical Branch BIKTARVY 2020-10 Yes [id number] 1{tbl} TAKE 1 U nivers 50-200-25 1-30 TABLET BY ity o f mg tablet 00:00: [facility] DAILY Medical Branch BIKTARVY 2020-10 Yes [id number] 1{tbl} TAKE 1 U nivers 50-200-25 1-30 TABLET BY ity o f mg tablet 00:00: [facility] DAILY Medical Branch KTARY 2020-10 Yes [id number] 1{tbl} TAKE 1 U nivers 50-200-25 1-30 TABLET BY ity o f mg tablet 00:00: [facility] DAILY Medical Branch KTARVY 2020-10 Yes [id number] 1{tbl} TAKE 1 U nivers 50-200-25 1-30 TABLET BY ity o f mg tablet 00:00: [facility] DAILY Medical Branch KTARY 2020-10 Yes [id number] 1{tbl} TAKE 1 U nivers 50-200-25 1-30 TABLET BY ity o f mg tablet 00:00: [facility] DAILY [facility] Branch [facility]10 Yes [id number] 1{tbl} TAKE 1 U nivers 50-200-25 1-30 TABLET BY ity o f mg tablet 00:00: [facility] DAILY [facility] Yes [id number] 1{tbl} TAKE 1 U nivers 50-200-25 1-30 TABLET BY ity o f mg tablet 00:00: [facility] DAILY Medical Branch [facility]-10 Yes [id number] 1{tbl} TAKE 1 U nivers 50-200-25 1-30 TABLET BY ity o f mg tablet 00:00: [facility] DAILY Medical Branch [facility] 2020-10 Yes [id number] 1{tbl} TAKE 1 U nivers 50-200-25 1-30 TABLET BY ity o f mg tablet 00:00: [facility] DAILY Medical Branch KTARY 2020-10 Yes [id number] 1{tbl} TAKE 1 U nivers 50-200-25 1-30 TABLET BY ity o f mg tablet 00:00: [facility] DAILY Medical Branch KTARY 2020-10 Yes [id number] 1{tbl} TAKE 1 U nivers 50-200-25 1-30 TABLET BY ity o f mg tablet 00:00: [facility] DAILY Medical Branch [facility] 2020-10 Yes [id number] 1{tbl} TAKE 1 U nivers 50-200-25 1-30 TABLET BY ity o f mg tablet 00:00: MOUTH [place] 00 DAILY Medical Branch [facility] 2020-10 Yes [id number] 1{tbl} TAKE 1 U nivers 50-200-25 1-30 TABLET BY ity o f mg tablet 00:00: MOUTH [place] DAILY Medical Branch [facility] 2020-10 Yes [id number] 1{tbl} TAKE 1 U nivers 50-200-25 1-30 TABLET BY ity o f mg tablet 00:00: MOUTH [place] DAILY Medical Branch [facility] 2020-10 Yes [id number] 1{tbl} TAKE 1 U nivers 50-200-25 1-30 TABLET BY ity o f mg tablet 00:00: MOUTH [place] DAILY Medical Branch [facility] 2020-10 Yes [id number] 1{tbl} TAKE 1 U nivers 50-200-25 1-30 TABLET BY ity o f mg tablet 00:00: MOUTH [place] DAILY Medical Branch [facility] 2020-10 Yes [id number] 1{tbl} TAKE 1 U nivers 50-200-25 1-30 TABLET BY ity o f mg tablet 00:00: MOUTH [place] DAILY Medical Branch [facility] 2020-10 Yes [id number] 1{tbl} TAKE 1 U nivers 50-200-25 1-30 TABLET BY ity o f mg tablet 00:00: MOUTH [place] DAILY Medical Branch [facility] 2020-10 Yes [id number] 1{tbl} TAKE 1 U nivers 50-200-25 1-30 TABLET BY ity o f mg tablet 00:00: MOUTH [place] DAILY Medical [facility] 2020-10 Yes [id number] 1{tbl} TAKE 1 U nivers 50-200-25 1-30 TABLET BY ity o f mg tablet 00:00: MOUTH [place] 00 DAILY Medical Branch atorvastati 2021- No [id number] 80mg Take 1 [facility] n 80 mg 06-18 tablet by ity of tablet 00:00: 00:00 mouth [place] 00 :00 daily. Medical Branch semaglutide 2021- No [id number] 1{tbl} Take 1 [facility] (RYBELSUS) 06-18 tablet by ity of 7 mg Tab 00:00: 00:00 mouth [place] 00 :00 daily. Medical START Branch AFTER 30 DAYS OF 3MG DOSE. dapaglifloz 2021- No [id number] 5mg Take 1 [facility] in 06-18 tablet by ity of (FARXIGA) 5 00:00: 00:00 [place] mg tablet 00 :00 daily. Medical Branch semaglutide 2020- No [id number] 1{tbl} Take 1 [facility] (RYBELSUS) 06-18 tablet by ity of 3 mg Tab 00:00: 04:59 mouth [place] 00 :00 daily for Medical 30 days. Branch THEN START 7MG DOSE. insulin No [id number] ADMINISTER [facility] regular 03-26 11- 5 UNITS ity of human 00:00: 00:00 UNDER THE [place] (NOVOLIN R 00 :00 SKIN THREE Med ical REGULAR TIMES Branch U-100 DAILY INSULN) 100 BEFORE A unit/mL MEAL injection ERGOCALCIFE 2021- No [id number] TAKE 1 Univers ROL, 02-19 CAPSULE BY ity of VITAMIN D2, 00:00: 00:00 M[place]TH [place] 1,250 mcg 00 :00 WEEKLY Medical (50,000 Branch unit) capsule Insulin 2021- No [id number] USE 1 Uni vers Syringe-Nee 01-15 SYRINGE UP i ty of dle U-100 1 00:00: 00:00 TO 5 TIMER [place] mL 31 gauge 00 :00 PER DAY Medic al x /16 Syrg Branch Insulin 2021- No [id number] USE Un rocky [place], 01-15 DIRECTED ity of Disposable, 00:00: 00:00 FOR [place] (BD INSULIN 00 :00 INSULIN Medic al PEN NEEDLE TWICE Branch UF) 31 DAILY. gauge x 5/16" Ndle fenofibrate 2021- No [id number] 48mg Take 1 Univers 48 mg 11-06 tablet by ity of tablet 00:00: 00:00 mouth [place] 00 :00 daily. Medical Branch lisinopriL 2020- No [id number] 2.5mg Take 1 Univers 2.5 mg 11-06 tablet by ity of tablet 00:00: 00:00 mouth [place] 00 :00 daily. Medical DOSE Branch DECREASE. escitalopra 2020- No [id number] 5mg Take 1 Univers m oxalate 5 11-06 tablet by it y of mg tablet 00:00: 00:00 mouth [place] 00 :00 every Medical morning. Branch Insulin 2019-0 Yes [id number] USE 1 Univ ers Syringe-Nee 8-07 SYRINGE SC it y of dle U-100 00:00: UP TO 5 [place] 1/2 mL 30 00 TIMES PER Medic al gauge Syrg DAY Branch flash Yes [id number] 1{each} 1 Each as Univers glucose 8-07 needed (to ity of scanning 00:00: read [place] reader 00 glucose). Medical (FREESTYLE ICD-10 Branch SOREN 14 code DAY READER) E11.65 [facility] [place] Insulin 2020-0 Yes [id number] USE 1 Univ ers Syringe-Nee 8-07 SYRINGE SC it y of dle U-100 00:00: UP TO 5 [place] 1/2 mL 30 00 TIMES PER Medic al gauge Syrg DAY Branch flash Yes [id number] 1{each} 1 Each as Univers glucose 8-07 needed (to ity of scanning 00:00: read [place] reader 00 glucose). Medical (FREESTYLE ICD-10 Branch SOREN 14 code DAY READER) E11.65 [facility] [place] Insulin 2019-0 Yes [id number] USE 1 Univ ers Syringe-Nee 8-07 SYRINGE SC it y of dle U-100 00:00: UP TO 5 [place] 1/2 mL 30 00 TIMES PER Medic al gauge Syrg DAY Branch flash 0 Yes [id number] 1{each} 1 Each as Univers glucose 8-07 needed (to ity of scanning 00:00: read [place] reader 00 glucose). Medical (FREESTYLE ICD-10 Branch SOREN 14 code DAY READER) E11.65 [facility] Insulin 2020-0 Yes [id number] USE 1 Univ ers Syringe-Nee 8-07 SYRINGE SC it y of dle U-100 00:00: UP TO 5 [place] 1/2 mL 30 00 TIMES PER Medic al gauge Syrg DAY Branch flash Yes [id number] 1{each} 1 Each as Univers glucose 8-07 needed (to ity of scanning 00:00: read [place] reader 00 glucose). Medical (FREESTYLE ICD-10 Branch SOREN 14 code DAY READER) E11.65 Misc Insulin 2020-0 Yes [id number] USE 1 Univ ers Syringe-Nee 8-07 SYRINGE SC it y of dle U-100 00:00: UP TO 5 [place] 1/2 mL 30 00 TIMES PER Medic al gauge Syrg DAY Branch flash 2020-0 Yes [id number] 1{each} 1 Each as Univers glucose 8-07 needed (to ity of scanning 00:00: read [place] reader 00 glucose). Medical (FREESTYLE ICD-10 Branch SOREN 14 code DAY READER) E11.65 Misc Insulin 2020-0 Yes [id number] USE 1 Univ ers Syringe-Nee 8-07 SYRINGE SC it y of dle U-100 00:00: UP TO 5 [place] 1/2 mL 30 00 TIMES PER Medic al gauge Syrg DAY Branch flash 2020-0 Yes [id number] 1{each} 1 Each as Univers glucose 8-07 needed (to ity of scanning 00:00: read [place] reader 00 glucose). Medical (FREESTYLE ICD-10 Branch SOREN 14 code DAY READER) E11.65 Misc Insulin 2020-0 Yes [id number] USE 1 Univ ers Syringe-Nee 8-07 SYRINGE SC it y of dle U-100 00:00: UP TO 5 [place] 1/2 mL 30 00 TIMES PER Medic al gauge Syrg DAY Branch flash 2020-0 Yes [id number] 1{each} 1 Each as Univers glucose 8-07 needed (to ity of scanning 00:00: read [place] reader 00 glucose). Medical (FREESTYLE ICD-10 Branch SOREN 14 code DAY READER) E11.65 Misc Insulin 2020-0 Yes [id number] USE 1 Univ ers Syringe-Nee 8-07 SYRINGE SC it y of dle U-100 00:00: UP TO 5 [place] 1/2 mL 30 00 TIMES PER Medic al gauge Syrg DAY Branch flash 2020-0 Yes [id number] 1{each} 1 Each as Univers glucose 8-07 needed (to ity of scanning 00:00: read [place] reader 00 glucose). Medical (FREESTYLE ICD-10 Branch SOREN 14 code DAY READER) E11.65 Misc Insulin 2020-0 Yes [id number] USE 1 Univ ers Syringe-Nee 8-07 SYRINGE SC it y of dle U-100 00:00: UP TO 5 [place] 1/2 mL 30 00 TIMES PER Medic al gauge Syrg DAY Branch flash 20200 Yes [id number] 1{each} 1 Each as Univers glucose 8-07 needed (to ity of scanning 00:00: read [place] reader 00 glucose). Medical (FREESTYLE ICD-10 Branch SOREN 14 code DAY READER) E11.65 Misc Insulin 2020-0 Yes [id number] USE 1 Univ ers Syringe-Nee 8-07 SYRINGE SC it y of dle U-100 00:00: UP TO 5 [place] 1/2 mL 30 00 TIMES PER Medic al gauge Syrg DAY Branch flash 0 Yes [id number] 1{each} 1 Each as Univers glucose 8-07 needed (to ity of scanning 00:00: read [place] reader 00 glucose). Medical (FREESTYLE ICD-10 Branch SOREN 14 code DAY READER) E11.65 Misc Insulin 2020-0 Yes [id number] USE 1 Univ ers Syringe-Nee 8-07 SYRINGE SC it y of dle U-100 00:00: UP TO 5 [place] 1/2 mL 30 00 TIMES PER Medic al gauge Syrg DAY Branch flash 0 Yes [id number] 1{each} 1 Each as Univers glucose 8-07 needed (to ity of scanning 00:00: read [place] reader 00 glucose). Medical (FREESTYLE ICD-10 Branch SOREN 14 code DAY READER) E11.65 Misc Insulin 2020-0 Yes [id number] USE 1 Univ ers Syringe-Nee 8-07 SYRINGE SC it y of dle U-100 00:00: UP TO 5 [place] 1/2 mL 30 00 TIMES PER Medic al gauge Syrg DAY Branch flash 20200 Yes [id number] 1{each} 1 Each as Univers glucose 8-07 needed (to ity of scanning 00:00: read [place] reader 00 glucose). Medical (FREESTYLE ICD-10 Branch SOREN 14 code DAY READER) E11.65 Misc Insulin 2020-0 Yes [id number] USE 1 Univ ers Syringe-Nee 8-07 SYRINGE SC it y of dle U-100 00:00: UP TO 5 [place] 1/2 mL 30 00 TIMES PER Medic al gauge Syrg DAY Branch flash 0 Yes [id number] 1{each} 1 Each as Univers glucose 8-07 needed (to ity of scanning 00:00: read [place] reader 00 glucose). Medical (FREESTYLE ICD-10 Branch SOREN 14 code DAY READER) E11.65 [facility] [place] Insulin 2020-0 Yes [id number] USE 1 Univ ers Syringe-Nee 8-07 SYRINGE SC it y of dle U-100 00:00: UP TO 5 [place] 1/2 mL 30 00 TIMES PER Medic al gauge Syrg DAY Branch flash 2020-0 Yes [id number] 1{each} 1 Each as Univers glucose 8-07 needed (to ity of scanning 00:00: read [place] reader 00 glucose). Medical (FREESTYLE ICD-10 Branch SOREN 14 code DAY READER) E11.65 [facility] [place] Insulin 2020-0 Yes [id number] USE 1 Univ ers Syringe-Nee 8-07 SYRINGE SC it y of dle U-100 00:00: UP TO 5 [place] 1/2 mL 30 00 TIMES PER Medic al gauge Syrg DAY Branch flash 0 Yes [id number] 1{each} 1 Each as Univers glucose 8-07 needed (to ity of scanning 00:00: read [place] reader 00 glucose). Medical (FREESTYLE ICD-10 Branch SOREN 14 code DAY READER) E11.65 [facility] [place] Insulin 2020-0 Yes [id number] USE 1 Univ ers Syringe-Nee 8-07 SYRINGE SC it y of dle U-100 00:00: UP TO 5 [place] 1/2 mL 30 00 TIMES PER Medic al gauge Syrg DAY Branch flash 2020-0 Yes [id number] 1{each} 1 Each as Univers glucose 8-07 needed (to ity of scanning 00:00: read [place] reader 00 glucose). Medical (FREESTYLE ICD-10 Branch SOREN 14 code DAY READER) E11.65 [facility] [place] Insulin 2020-0 Yes [id number] USE 1 Univ ers Syringe-Nee 8-07 SYRINGE SC it y of dle U-100 00:00: UP TO 5 [place] 1/2 mL 30 00 TIMES PER Medic al gauge Syrg DAY Branch flash 2020-0 Yes [id number] 1{each} 1 Each as Univers glucose 8-07 needed (to ity of scanning 00:00: read [place] reader 00 glucose). Medical (FREESTYLE ICD-10 Branch SOREN 14 code DAY READER) E11.65 Misc Insulin 2020-0 Yes [id number] USE 1 Univ ers Syringe-Nee 8-07 SYRINGE SC it y of dle U-100 00:00: UP TO 5 [place] 1/2 mL 30 00 TIMES PER Medic al gauge Syrg DAY Branch flash 2020-0 Yes [id number] 1{each} 1 Each as Univers glucose 8-07 needed (to ity of scanning 00:00: read [place] reader 00 glucose). Medical (FREESTYLE ICD-10 Branch SOREN 14 code DAY READER) E11.65 Misc Insulin 2020-0 Yes [id number] USE 1 Univ ers Syringe-Nee 8-07 SYRINGE SC it y of dle U-100 00:00: UP TO 5 [place] 1/2 mL 30 00 TIMES PER Medic al gauge Syrg DAY Branch flash 2020-0 Yes [id number] 1{each} 1 Each as Univers glucose 8-07 needed (to ity of scanning 00:00: read [place] reader 00 glucose). Medical (FREESTYLE ICD-10 Branch SOREN 14 code DAY READER) E11.65 Misc Insulin 2020-0 Yes [id number] USE 1 Univ ers Syringe-Nee 8-07 SYRINGE SC it y of dle U-100 00:00: UP TO 5 [place] 1/2 mL 30 00 TIMES PER Medic al gauge Syrg DAY Branch flash 2020-0 Yes [id number] 1{each} 1 Each as Univers glucose 8-07 needed (to ity of scanning 00:00: read [place] reader 00 glucose). Medical (FREESTYLE ICD-10 Branch SOREN 14 code DAY READER) E11.65 Misc Insulin 2020-0 Yes [id number] USE 1 Univ ers Syringe-Nee 8-07 SYRINGE SC it y of dle U-100 00:00: UP TO 5 [place] 1/2 mL 30 00 TIMES PER Medic al gauge Syrg DAY Branch flash 2020-0 Yes [id number] 1{each} 1 Each as Univers glucose 8-07 needed (to ity of scanning 00:00: read [place] reader 00 glucose). Medical (FREESTYLE ICD-10 Branch SOREN 14 code DAY READER) E11.65 Misc Insulin 2020-0 Yes [id number] USE 1 Univ ers Syringe-Nee 8-07 SYRINGE SC it y of dle U-100 00:00: UP TO 5 [place] 1/2 mL 30 00 TIMES PER Medic al gauge Syrg DAY Branch flash 2020-0 Yes [id number] 1{each} 1 Each as Univers glucose 8-07 needed (to ity of scanning 00:00: read [place] reader 00 glucose). Medical (FREESTYLE ICD-10 Branch SOREN 14 code DAY READER) E11.65 [facility] [place] Insulin 2020-0 Yes [id number] USE 1 Univ ers Syringe-Nee 8-07 SYRINGE SC it y of dle U-100 00:00: UP TO 5 [place] 1/2 mL 30 00 TIMES PER Medic al gauge Syrg DAY Branch flash 2020-0 Yes [id number] 1{each} 1 Each as Univers glucose 8-07 needed (to ity of scanning 00:00: read [place] reader 00 glucose). Medical (FREESTYLE ICD-10 Branch SOREN 14 code DAY READER) E11.65 [facility] [place] Insulin 2020-0 Yes [id number] USE 1 Univ ers Syringe-Nee 8-07 SYRINGE SC it y of dle U-100 00:00: UP TO 5 [place] 1/2 mL 30 00 TIMES PER Medic al gauge Syrg DAY Branch flash 2020-0 Yes [id number] 1{each} 1 Each as Univers glucose 8-07 needed (to ity of scanning 00:00: read [place] reader 00 glucose). Medical (FREESTYLE ICD-10 Branch SOREN 14 code DAY READER) E11.65 [facility] [place] Insulin 2020-0 Yes [id number] USE 1 Univ ers Syringe-Nee 8-07 SYRINGE SC it y of dle U-100 00:00: UP TO 5 [place] 1/2 mL 30 00 TIMES PER Medic al gauge Syrg DAY Branch flash 2020-0 Yes [id number] 1{each} 1 Each as Univers glucose 8-07 needed (to ity of scanning 00:00: read [place] reader 00 glucose). Medical (FREESTYLE ICD-10 Branch SOREN 14 code DAY READER) E11.65 [facility] [place] Insulin 2020-0 Yes [id number] USE 1 Univ ers Syringe-Nee 8-07 SYRINGE SC it y of dle U-100 00:00: UP TO 5 [place] 1/2 mL 30 00 TIMES PER Medic al gauge Syrg DAY Branch flash 2020-0 Yes [id number] 1{each} 1 Each as Univers glucose 8-07 needed (to ity of scanning 00:00: read [place] reader 00 glucose). Medical (FREESTYLE ICD-10 Branch SOREN 14 code DAY READER) E11.65 Misc Insulin 2020-0 Yes [id number] USE 1 Univ ers Syringe-Nee 8-07 SYRINGE SC it y of dle U-100 00:00: UP TO 5 [place] 1/2 mL 30 00 TIMES PER Medic al gauge Syrg DAY Branch Insulin 2020-0 Yes [id number] USE 1 Univ ers Syringe-Nee 8-07 SYRINGE SC it y of dle U-100 00:00: UP TO 5 [place] 1/2 mL 30 00 TIMES PER Medic al gauge Syrg DAY Branch Insulin 2020-0 Yes [id number] USE 1 Univ ers Syringe-Nee 8-07 SYRINGE SC it y of dle U-100 00:00: UP TO 5 [place] 1/2 mL 30 00 TIMES PER Medic al gauge Syrg DAY Branch Insulin 2020-0 Yes [id number] USE 1 Univ ers Syringe-Nee 8-07 SYRINGE SC it y of dle U-100 00:00: UP TO 5 [place] 1/2 mL 30 00 TIMES PER Medic al gauge Syrg DAY Branch Insulin 2020-0 Yes [id number] USE 1 Univ ers Syringe-Nee 8-07 SYRINGE SC it y of dle U-100 00:00: UP TO 5 [place] 1/2 mL 30 00 TIMES PER Medic al gauge Syrg DAY Branch Insulin 2020-0 Yes [id number] USE 1 Univ ers Syringe-Nee 8-07 SYRINGE SC it y of dle U-100 00:00: UP TO 5 [place] 1/2 mL 30 00 TIMES PER Medic al gauge Syrg DAY Branch Insulin 2020-0 Yes [id number] USE 1 Univ ers Syringe-Nee 8-07 SYRINGE SC it y of dle U-100 00:00: UP TO 5 [place] 1/2 mL 30 00 TIMES PER Medic al gauge Syrg DAY Branch Insulin 2020-0 Yes [id number] USE 1 Univ ers Syringe-Nee 8-07 SYRINGE SC it y of dle U-100 00:00: UP TO 5 [place] 1/2 mL 30 00 TIMES PER Medic al gauge Syrg DAY Branch Insulin 2020-0 Yes [id number] USE 1 Univ ers Syringe-Nee 8-07 SYRINGE SC it y of dle U-100 00:00: UP TO 5 [place] 1/2 mL 30 00 TIMES PER Medic al gauge Syrg DAY Branch Insulin 2020-0 Yes [id number] USE 1 Univ ers Syringe-Nee 8-07 SYRINGE SC it y of dle U-100 00:00: UP TO 5 [place] 1/2 mL 30 00 TIMES PER Medic al gauge Syrg DAY Branch Insulin 2020-0 Yes [id number] USE 1 Univ ers Syringe-Nee 8-07 SYRINGE SC it y of dle U-100 00:00: UP TO 5 [place] 1/2 mL 30 00 TIMES PER Medic al gauge Syrg DAY Branch Insulin 2020-0 Yes [id number] USE 1 Univ ers Syringe-Nee 8-07 SYRINGE SC it y of dle U-100 00:00: UP TO 5 [place] 1/2 mL 30 00 TIMES PER Medic al gauge Syrg DAY Branch Insulin 2020-0 Yes [id number] USE 1 Univ ers Syringe-Nee 8-07 SYRINGE SC it y of dle U-100 00:00: UP TO 5 [place] 1/2 mL 30 00 TIMES PER Medic al gauge Syrg DAY Branch Insulin 2020-0 Yes [id number] USE 1 Univ ers Syringe-Nee 8-07 SYRINGE SC it y of dle U-100 00:00: UP TO 5 [place] 1/2 mL 30 00 TIMES PER Medic al gauge Syrg DAY Branch Insulin 2020-0 Yes [id number] USE 1 Univ ers Syringe-Nee 8-07 SYRINGE SC it y of dle U-100 00:00: UP TO 5 [place] 1/2 mL 30 00 TIMES PER Medic al gauge Syrg DAY Branch Insulin 2020-0 Yes [id number] USE 1 Univ ers Syringe-Nee 8-07 SYRINGE SC it y of dle U-100 00:00: UP TO 5 [place] 1/2 mL 30 00 TIMES PER Medic al gauge Syrg DAY Branch Insulin 2020-0 Yes [id number] USE 1 Univ ers Syringe-Nee 8-07 SYRINGE SC it y of dle U-100 00:00: UP TO 5 [place] 1/2 mL 30 00 TIMES PER Medic al gauge Syrg DAY Branch Insulin 2020-0 Yes [id number] USE 1 Univ ers Syringe-Nee 8-07 SYRINGE SC it y of dle U-100 00:00: UP TO 5 [place] 1/2 mL 30 00 TIMES PER Medic al gauge Syrg DAY Branch Insulin 2020-0 Yes [id number] USE 1 Univ ers Syringe-Nee 8-07 SYRINGE SC it y of dle U-100 00:00: UP TO 5 [place] 1/2 mL 30 00 TIMES PER Medic al gauge Syrg DAY Branch Insulin Yes [id number] USE 1 Univ ers Syringe-Nee 8-07 SYRINGE SC it y of dle U-100 00:00: UP TO 5 [place] 1/2 mL 30 00 TIMES PER Medic al gauge Syrg DAY Branch Insulin Yes [id number] USE 1 Univ ers Syringe-Nee 8-07 SYRINGE SC it y of dle U-100 00:00: UP TO 5 [place] 1/2 mL 30 00 TIMES PER Medic al gauge Syrg DAY Branch flash 2022- No [id number] 1{each} 1 Each as Univers glucose 8 06-07 needed (to ity o f scanning 00:00: 00:00 read [place] reader 00 :00 glucose). Medical (FREESTYLE ICD-10 Branch SOREN 14 code DAY READER) E11.65 [facility] flash 2022- No [id number] 1{each} 1 Each as Univers glucose 05-12- needed (to ity o f scanning 00:00: 00:00 read [place] reader 00 :00 glucose). Medical (FREESTYLE ICD-10 Branch SOREN 14 code DAY READER) E11.65 [facility] flash 2022- No [id number] 1{each} 1 Each as Univers glucose 05-12 06-07 needed (to ity o f scanning 00:00: 00:00 read [place] reader 00 :00 glucose). Medical (FREESTYLE ICD-10 Branch SOREN 14 code DAY READER) E11.65 [facility] [place] Insulin 2020- No [id number] 35 units Univers Detemir 05-12 12-13 inj SC BID ity o f (LEVEMIR 00:00: 00:00 [place] FLEXTOUCH 00 :00 Medical U-100 Branch INSULN) 100 unit/mL (3 mL) injection bictegrav-e 2020- No [id number] 1{tbl} Take 1 Univers mtricit-ten 7-10 10-01 tablet by it y of ofov ala 00:00: 00:00 mouth [place] (BIKTARVY) 00 :00 daily. Medical 50-200-25 Branch mg tablet FREESTYLE 2020- No [id number] 1{each} 1 Each Univers SOREN 14 4-03 12-13 every 14 ity of DAY SENSOR 00:00: 00:00 (fourteen) [place] Kit 00 :00 days. Medical ICD-10 Branch code E11.65 (GABAPENTIN 2018-10 [facility] ) 100 MG 1-25 Adult CAPS 00:00: Medicin 00 e (LISINOPRIL 2018-10 Yes [facility] ) 40 MG 1-25 Adult TABS 00:00: Medicin 00 e (METFORMIN 2018-10 Yes [facility] HCL) 500 MG 1-25 Adult TABS 00:00: Medicin 00 e LEVEMIR 2018-10 Yes [facility] SOLUTION -25 Adult 00:00: Medicin 00 e CRESTOR 2018-10- No [facility] (ROSUVASTAT 10-30 04-25 Adult IN CALCIUM) 00:00: 00:00 Medic in 5 MG TABS 00 :00 e BIKTARVY 2018-10- No [facility] (BICTEGRAVI 10-30-24 Adult R-EMTRICITA 00:00: 00:00 Medic in B-TENOFOV) 00 :00 e 50-200-25 MG TABS Immunizations Ordered Immunization Filled Date Status Comments Sour ce Name Immunization Name TDAP 2023-04-23 Completed University 00:00:00 [facility] TDAP 2023-04-23 Completed University of 00:00:00 [facility] TDAP 2023-04-23 Completed University 00:00:00 [facility] Influenza Virus 2022-09-26 Completed Universit y of Vaccine [facility], 00:00:00 [place] [facility] Preserv and ABX Free Bran ch 6 MO-64 YRS Influenza Virus 2022-09-26 Completed Universit y of Vaccine [place] [facility], 00:00:00 [place] [facility]ical Preserv and ABX Free Bran ch 6 MO-64 YRS Influenza Virus 2022-09-26 Completed Universit y of Vaccine [place] [facility], 00:00:00 [place] Me dical Preserv and ABX Free Bran ch 6 MO-64 YRS Influenza Virus 2022-09-26 Completed Universit y of Vaccine [place] [facility], 00:00:00 [place] Me dical Preserv and ABX Free Bran ch 6 MO-64 YRS Influenza Virus 2022-09-26 Completed Universit y of Vaccine [place] [facility], 00:00:00 [place] Me dical Preserv and ABX Free Bran ch 6 MO-64 YRS Influenza Virus 2022-09-26 Completed Universit y of Vaccine [place] [facility], 00:00:00 [place] Me dical Preserv and ABX Free Bran ch 6 MO-64 YRS Influenza Virus 2022-09-26 Completed Universit y of Vaccine [place] [facility], 00:00:00 [place] Me dical Preserv and ABX Free Bran ch 6 MO-64 YRS Influenza Virus 2022-09-26 Completed Universit y of Vaccine [place] [facility], 00:00:00 [place] Me dical Preserv and ABX Free Bran ch 6 MO-64 YRS Influenza Virus 2022-09-26 Completed Universit y of Vaccine [place] [facility], 00:00:00 [place] Me dical Preserv and ABX Free Bran ch 6 MO-64 YRS Influenza Virus 2022-09-26 Completed Universit y of Vaccine [place] [facility], 00:00:00 [place] Me dical Preserv and ABX Free Bran ch 6 MO-64 YRS Influenza Virus 2022-09-26 Completed Universit y of Vaccine [place] [facility], 00:00:00 [place] Me dical Preserv and ABX Free Bran ch 6 MO-64 YRS Influenza Virus 2022-09-26 Completed Universit y of Vaccine [place] [facility], 00:00:00 [place] Me dical Preserv and ABX Free Bran ch 6 MO-64 YRS Influenza Virus 2022-09-26 Completed Universit y of Vaccine [facility], 00:00:00 [place] Me dical Preserv and ABX Free Bran ch 6 MO-64 YRS Influenza Virus 2022-09-26 Completed Universit y of Vaccine [facility], 00:00:00 [place] Me dical Preserv and ABX Free Bran ch 6 MO-64 YRS Influenza Virus 2022-09-26 Completed Universit y of Vaccine [facility], 00:00:00 [place] Me dical Preserv and ABX Free Bran ch 6 MO-64 YRS Influenza Virus 2022-09-26 Completed Universit y of Vaccine [facility], 00:00:00 [place] Me dical Preserv and ABX Free Bran ch 6 MO-64 YRS Influenza Virus 2022-09-26 Completed Universit y of Vaccine [facility] IM, 00:00:00 [place] Me dical Preserv and ABX Free Bran ch 6 MO-64 YRS Influenza Virus 2022-09-26 Completed Universit y of Vaccine [facility] IM, 00:00:00 [place] Me dical Preserv and ABX Free Bran ch 6 MO-64 YRS Influenza Virus 2022-09-26 Completed Universit y of Vaccine [facility] IM, 00:00:00 [place] Me dical Preserv and ABX Free Bran ch 6 MO-64 YRS Influenza Virus 2022-09-26 Completed Universit y of Vaccine [facility], 00:00:00 [place] Me dical Preserv and ABX Free Bran ch 6 MO-64 YRS Influenza Virus 2022-09-26 Completed Universit y of Vaccine [facility] IM, 00:00:00 [place] Me dical Preserv and ABX Free Bran ch 6 MO-64 YRS Influenza Virus 2022-09-26 Completed Universit y of Vaccine [facility] IM, 00:00:00 [place] Me dical Preserv and ABX Free Bran ch 6 MO-64 YRS Influenza Virus 2022-09-26 Completed Universit y of Vaccine [facility] IM, 00:00:00 [place] Me dical Preserv and ABX Free Bran ch 6 MO-64 YRS Influenza Virus 2022-09-26 Completed Universit y of Vaccine [facility] IM, 00:00:00 [place] Me dical Preserv and ABX Free Bran ch 6 MO-64 YRS Influenza Virus 2022-09-26 Completed Universit y of Vaccine [facility] IM, 00:00:00 [place] Me dical Preserv and ABX Free Bran ch 6 MO-64 YRS Influenza Virus 2022-09-26 Completed Universit y of Vaccine [facility] IM, 00:00:00 [place] Me dical Preserv and ABX Free Bran ch 6 MO-64 YRS Influenza Virus 2022-09-26 Completed Universit y of Vaccine [facility] IM, 00:00:00 [place] Me dical Preserv and ABX Free Bran ch 6 MO-64 YRS Influenza Virus 2022-09-26 Completed Universit y of Vaccine Quad IM, 00:00:00 [place] Me dical Preserv and ABX Free Bran ch 6 MO-64 YRS SARS-COV-2 COVID-19 2021-09-17 Completed Unive rsity of MODERNA 12+ YRS 00:00:00 [facility] VACCINE Branch SARS-COV-2 COVID-19 2021-09-17 Completed Unive rsity of MODERNA 12+ YRS 00:00:00 [facility] VACCINE Branch SARS-COV-2 COVID-19 2021-09-17 Completed Unive rsity of MODERNA 12+ YRS 00:00:00 [place] Med ical VACCINE Branch SARS-COV-2 COVID-19 2021-09-17 Completed Unive rsity of MODERNA 12+ YRS 00:00:00 [place] Med ical VACCINE Branch SARS-COV-2 COVID-19 2021-09-17 Completed Unive rsity of MODERNA 12+ YRS 00:00:00 [place] Med ical VACCINE Branch SARS-COV-2 COVID-19 2021-09-17 Completed Unive rsity of MODERNA 12+ YRS 00:00:00 [place] Med ical VACCINE Branch SARS-COV-2 COVID-19 2021-09-17 Completed Unive rsity of MODERNA 12+ YRS 00:00:00 [place] Med ical VACCINE Branch SARS-COV-2 COVID-19 2021-09-17 Completed Unive rsity of MODERNA 12+ YRS 00:00:00 [place] Med ical VACCINE Branch SARS-COV-2 COVID-19 2021-09-17 Completed Unive rsity of MODERNA 12+ YRS 00:00:00 [place] Med ical VACCINE Branch SARS-COV-2 COVID-19 2021-09-17 Completed Unive rsity of MODERNA 12+ YRS 00:00:00 [place] Med ical VACCINE Branch SARS-COV-2 COVID-19 2021-09-17 Completed Unive rsity of MODERNA 12+ YRS 00:00:00 [place] Med ical VACCINE Branch SARS-COV-2 COVID-19 2021-09-17 Completed Unive rsity of MODERNA 12+ YRS 00:00:00 [place] Med ical VACCINE Branch SARS-COV-2 COVID-19 2021-09-17 Completed Unive rsity of MODERNA 12+ YRS 00:00:00 [place] Med ical VACCINE Branch SARS-COV-2 COVID-19 2021-09-17 Completed Unive rsity of MODERNA 12+ YRS 00:00:00 [place] Med ical VACCINE Branch SARS-COV-2 COVID-19 2021-09-17 Completed Unive rsity of MODERNA 12+ YRS 00:00:00 [place] Med ical VACCINE Branch SARS-COV-2 COVID-19 2021-09-17 Completed Unive rsity of MODERNA 12+ YRS 00:00:00 [place] Med ical VACCINE Branch SARS-COV-2 COVID-19 2021-09-17 Completed Unive rsity of MODERNA 12+ YRS 00:00:00 [place] Med ical VACCINE Branch SARS-COV-2 COVID-19 2021-09-17 Completed Unive rsity of MODERNA 12+ YRS 00:00:00 [place] Med ical VACCINE Branch SARS-COV-2 COVID-19 2021-09-17 Completed Unive rsity of MODERNA 12+ YRS 00:00:00 [place] Med ical VACCINE Branch SARS-COV-2 COVID-19 2021-09-17 Completed Unive rsity of MODERNA 12+ YRS 00:00:00 [place] Med ical VACCINE Branch SARS-COV-2 COVID-19 2021-09-17 Completed Unive rsity of MODERNA 12+ YRS 00:00:00 [place] Med ical VACCINE Branch SARS-COV-2 COVID-19 2021-09-17 Completed Unive rsity of MODERNA 12+ YRS 00:00:00 [place] Med ical VACCINE Branch SARS-COV-2 COVID-19 2021-09-17 Completed Unive rsity of MODERNA 12+ YRS 00:00:00 [place] Med ical VACCINE Branch SARS-COV-2 COVID-19 2021-09-17 Completed Unive rsity of MODERNA 12+ YRS 00:00:00 [place] Med ical VACCINE Branch SARS-COV-2 COVID-19 2021-09-17 Completed Unive rsity of MODERNA 12+ YRS 00:00:00 [place] Med ical VACCINE Branch SARS-COV-2 COVID-19 2021-09-17 Completed Unive rsity of MODERNA 12+ YRS 00:00:00 [place] Med ical VACCINE Branch SARS-COV-2 COVID-19 2021-09-17 Completed Unive rsity of MODERNA 12+ YRS 00:00:00 [place] Med ical VACCINE Branch SARS-COV-2 COVID-19 2021-09-17 Completed Unive rsity of MODERNA 12+ YRS 00:00:00 [place] Med ical VACCINE Branch SARS-COV-2 COVID-19 2021-09-17 Completed Unive rsity of MODERNA 12+ YRS 00:00:00 [place] Med ical VACCINE Branch SARS-COV-2 COVID-19 2021-09-17 Completed Unive rsity of MODERNA 12+ YRS 00:00:00 [place] Med ical VACCINE Branch SARS-COV-2 COVID-19 2021-09-17 Completed Unive rsity of MODERNA 12+ YRS 00:00:00 [place] Med ical VACCINE Branch SARS-COV-2 COVID-19 2021-09-17 Completed Unive rsity of MODERNA 12+ YRS 00:00:00 [place] Med ical VACCINE Branch SARS-COV-2 COVID-19 2021-09-17 Completed Unive rsity of MODERNA 12+ YRS 00:00:00 [place] Med ical VACCINE Branch SARS-COV-2 COVID-19 2021-09-17 Completed Unive rsity of MODERNA 12+ YRS 00:00:00 [place] [facility] SARS-COV-2 COVID-19 2021-09-17 Completed [facility]ERNA 12+ YRS 00:00:00 [place] [facility] SARS-COV-2 COVID-19 2021-09-17 Completed [facility]ERNA 12+ YRS 00:00:00 [place] [facility] MODERNA COVID-19 2021-09-17 Completed [facility]00 [facility]NA COVID-19 2021-09-17 Completed [facility] VACCINATION 00:00:00 [facility] MODERNA COVID-19 2021-06-06 Completed [facility] VACCINATION 00:00:00 [facility]NA COVID-19 2021-06-06 Completed [facility] VACCINATION 00:00:00 [facility] MOD[facility]NA COVID-19 2021-01-20 Completed [facility]RNA VACCINATION 00:00:00 [facility] MODERNA COVID-19 2021-01-20 Completed [facility] VACCINATION 00:00:00 [facility] SARS-COV-2 COVID-19 2021-01-17 Completed [facility] MODERNA 12+ YRS 00:00:00 [place] [facility] SARS-COV-2 COVID-19 2021-01-17 Completed [facility] of MODERNA 12+ YRS 00:00:00 [place] [facility] SARS-COV-2 COVID-19 2021-01-17 Completed [facility] of MODERNA 12+ YRS 00:00:00 [place] [facility] SARS-COV-2 COVID-19 2021-01-17 Completed [facility] MODERNA 12+ YRS 00:00:00 [place] [facility] SARS-COV-2 COVID-19 2021-01-17 Completed [facility] MODERNA 12+ YRS 00:00:00 [place] [facility] SARS-COV-2 COVID-19 2021-01-17 Completed [facility] MODERNA 12+ YRS 00:00:00 [place] [facility] SARS-COV-2 COVID-19 2021-01-17 Completed [facility] MODERNA 12+ YRS 00:00:00 [place] [facility] SARS-COV-2 COVID-19 2021-01-17 Completed [facility] of MODERNA 12+ YRS 00:00:00 [place] [facility] SARS-COV-2 COVID-19 2021-01-17 Completed [facility] of MODERNA 12+ YRS 00:00:00 [place] [facility] SARS-COV-2 COVID-19 2021-01-17 Completed [facility] MODERNA 12+ YRS 00:00:00 [place] [facility] SARS-COV-2 COVID-19 2021-01-17 Completed [facility] MODERNA 12+ YRS 00:00:00 [place] [facility] SARS-COV-2 COVID-19 2021-01-17 Completed [facility] MODERNA 12+ YRS 00:00:00 [place] [facility] SARS-COV-2 COVID-19 2021-01-17 Completed [facility] MODERNA 12+ YRS 00:00:00 [place] [facility] SARS-COV-2 COVID-19 2021-01-17 Completed [facility] MODERNA 12+ YRS 00:00:00 [place] [facility] SARS-COV-2 COVID-19 2021-01-17 Completed [facility] MODERNA 12+ YRS 00:00:00 [place] [facility] SARS-COV-2 COVID-19 2021-01-17 Completed [facility] MODERNA 12+ YRS 00:00:00 [place] [facility] SARS-COV-2 COVID-19 2021-01-17 Completed [facility] MODERNA 12+ YRS 00:00:00 [place] [facility] SARS-COV-2 COVID-19 2021-01-17 Completed [facility] MODERNA 12+ YRS 00:00:00 [place] [facility] SARS-COV-2 COVID-19 2021-01-17 Completed [facility] MODERNA 12+ YRS 00:00:00 [place] [facility] SARS-COV-2 COVID-19 2021-01-17 Completed [facility] MODERNA 12+ YRS 00:00:00 [place] [facility] SARS-COV-2 COVID-19 2021-01-17 Completed [facility] MODERNA 12+ YRS 00:00:00 [place] [facility] SARS-COV-2 COVID-19 2021-01-17 Completed [facility] MODERNA 12+ YRS 00:00:00 [place] [facility] SARS-COV-2 COVID-19 2021-01-17 Completed [facility] MODERNA 12+ YRS 00:00:00 [place] [facility] SARS-COV-2 COVID-19 2021-01-17 Completed [facility] MODERNA 12+ YRS 00:00:00 [place] [facility] SARS-COV-2 COVID-19 2021-01-17 Completed [facility] MODERNA 12+ YRS 00:00:00 [place] [facility] SARS-COV-2 COVID-19 2021-01-17 Completed [facility] MODERNA 12+ YRS 00:00:00 [place] [facility] SARS-COV-2 COVID-19 2021-01-17 Completed [facility] MODERNA 12+ YRS 00:00:00 [place] [facility] SARS-COV-2 COVID-19 2021-01-17 Completed [facility] MODERNA 12+ YRS 00:00:00 [place] [facility] SARS-COV-2 COVID-19 2021-01-17 Completed [facility] MODERNA 12+ YRS 00:00:00 [place] [facility] SARS-COV-2 COVID-19 2021-01-17 Completed [facility] MODERNA 12+ YRS 00:00:00 [place] [facility] SARS-COV-2 COVID-19 2021-01-17 Completed [facility] MODERNA 12+ YRS 00:00:00 [place] [facility] SARS-COV-2 COVID-19 2021-01-17 Completed [facility] MODERNA 12+ YRS 00:00:00 [place] [facility] SARS-COV-2 COVID-19 2021-01-17 Completed [facility] MODERNA 12+ YRS 00:00:00 [place] [facility] SARS-COV-2 COVID-19 2021-01-17 Completed [facility] MODERNA 12+ YRS 00:00:00 [place] [facility] SARS-COV-2 COVID-19 2021-01-17 Completed [facility] MODERNA 12+ YRS 00:00:00 [place] [facility] SARS-COV-2 COVID-19 2021-01-17 Completed [facility] MODERNA 12+ YRS 00:00:00 [place] [facility] MODERNA COVID-19 2021-01-17 Completed [facility]00 [facility] COVID-19 2021-01-17 Completed [facility] VACCINATION 00:00:00 [facility] SARS-COV-2 COVID-19 2020-12-20 Completed [facility] MODERNA 12+ YRS 00:00:00 [place] [facility] SARS-COV-2 COVID-19 2020-12-20 Completed [facility] of MODERNA 12+ YRS 00:00:00 [place] [facility] SARS-COV-2 COVID-19 2020-12-20 Completed [facility] MODERNA 12+ YRS 00:00:00 [place] [facility] SARS-COV-2 COVID-19 2020-12-20 Completed [facility] MODERNA 12+ YRS 00:00:00 [place] [facility] SARS-COV-2 COVID-19 2020-12-20 Completed [facility] MODERNA 12+ YRS 00:00:00 [place] [facility] SARS-COV-2 COVID-19 2020-12-20 Completed [facility] MODERNA 12+ YRS 00:00:00 [place] [facility] SARS-COV-2 COVID-19 2020-12-20 Completed [facility] MODERNA 12+ YRS 00:00:00 [place] [facility] SARS-COV-2 COVID-19 2020-12-20 Completed [facility] of MODERNA 12+ YRS 00:00:00 [place] [facility] SARS-COV-2 COVID-19 2020-12-20 Completed [facility] MODERNA 12+ YRS 00:00:00 [place] [facility] SARS-COV-2 COVID-19 2020-12-20 Completed [facility] MODERNA 12+ YRS 00:00:00 [place] [facility] SARS-COV-2 COVID-19 2020-12-20 Completed [facility] of MODERNA 12+ YRS 00:00:00 [place] [facility] SARS-COV-2 COVID-19 2020-12-20 Completed [facility] of MODERNA 12+ YRS 00:00:00 [place] [facility] SARS-COV-2 COVID-19 2020-12-20 Completed [facility] MODERNA 12+ YRS 00:00:00 [place] [facility] SARS-COV-2 COVID-19 2020-12-20 Completed [facility] MODERNA 12+ YRS 00:00:00 [place] [facility] SARS-COV-2 COVID-19 2020-12-20 Completed [facility] of MODERNA 12+ YRS 00:00:00 [place] [facility] SARS-COV-2 COVID-19 2020-12-20 Completed [facility] of MODERNA 12+ YRS 00:00:00 [place] [facility] SARS-COV-2 COVID-19 2020-12-20 Completed [facility] of MODERNA 12+ YRS 00:00:00 [place] [facility] SARS-COV-2 COVID-19 2020-12-20 Completed [facility] of MODERNA 12+ YRS 00:00:00 [place] [facility] SARS-COV-2 COVID-19 2020-12-20 Completed [facility] of MODERNA 12+ YRS 00:00:00 [place] [facility] SARS-COV-2 COVID-19 2020-12-20 Completed [facility] of MODERNA 12+ YRS 00:00:00 [place] [facility] SARS-COV-2 COVID-19 2020-12-20 Completed [facility] of MODERNA 12+ YRS 00:00:00 [place] [facility] SARS-COV-2 COVID-19 2020-12-20 Completed [facility] of MODERNA 12+ YRS 00:00:00 [place] [facility] SARS-COV-2 COVID-19 2020-12-20 Completed [facility] of MODERNA 12+ YRS 00:00:00 [place] [facility] SARS-COV-2 COVID-19 2020-12-20 Completed [facility] of MODERNA 12+ YRS 00:00:00 [place] [facility] SARS-COV-2 COVID-19 2020-12-20 Completed [facility] of MODERNA 12+ YRS 00:00:00 [place] [facility] SARS-COV-2 COVID-19 2020-12-20 Completed [facility] of MODERNA 12+ YRS 00:00:00 [place] [facility] SARS-COV-2 COVID-19 2020-12-20 Completed [facility] of MODERNA 12+ YRS 00:00:00 [place] [facility] SARS-COV-2 COVID-19 2020-12-20 Completed [facility] of MODERNA 12+ YRS 00:00:00 [place] [facility] SARS-COV-2 COVID-19 2020-12-20 Completed [facility] of MODERNA 12+ YRS 00:00:00 [place] [facility] SARS-COV-2 COVID-19 2020-12-20 Completed [facility] of MODERNA 12+ YRS 00:00:00 [place] [facility] SARS-COV-2 COVID-19 2020-12-20 Completed [facility] of MODERNA 12+ YRS 00:00:00 [place] [facility] SARS-COV-2 COVID-19 2020-12-20 Completed [facility] of MODERNA 12+ YRS 00:00:00 [place] [facility] SARS-COV-2 COVID-19 2020-12-20 Completed [facility] of MODERNA 12+ YRS 00:00:00 [place] [facility] SARS-COV-2 COVID-19 2020-12-20 Completed [facility] of MODERNA 12+ YRS 00:00:00 [facility] ical VACCINE Branch SARS-COV-2 COVID-19 2020-12-20 Completed [facility] rs[facility] of MODERNA 12+ YRS 00:00:00 [facility] ical VACCINE Branch SARS-COV-2 COVID-19 2020-12-20 Completed [facility] rs[facility] of MODERNA 12+ YRS 00:00:00 [facility] ical VACCINE Branch MODERNA COVID-19 2020-12-20 Completed [facility] VACC[facility]ATION [facility]:00:00 [facility] MODERNA COVID-19 2020-12-20 Completed [facility] MRNA VACCINATION 00:00:00 [facility] Influenza Virus 2020-11-06 Completed [facility] Vaccine [facility] .5 mL 00:00[facility] Pneumococcal 2020-11-06 Completed [facility] o f Polysaccharide, 00:00:00 [facility] ical PPSV23 (PNEUMOVAX) Branch Influenza Virus 2020-11-06 Completed [facility]it y of Vaccine 00:00:00 [facility] Influenza Virus 2020-11-06 Completed [facility] Vaccine Quad .5 mL 00:00:00 [facility] 6[facility] MO [facility] Pneumococcal 2020-11-06 Completed [facility] o f Polysaccharide, 00:00:00 [facility] ical PPSV23 (PNEUMOVAX) Branch Influenza Virus 2020-11-06 Completed [facility]it y of Vaccine 00:00:00 [facility] Influenza Virus 2020-11-06 Completed [facility] Vaccine Quad .5 mL 00:00:00 [facility] 6[facility] MO [facility] Pneumococcal 2020-11-06 Completed [facility] o f Polysaccharide, 00:00:00 [facility] ical PPSV23 (PNEUMOVAX) Branch Influenza Virus 2020-11-06 Completed [facility] of Vaccine 00:00:00 [facility] Influenza Virus 2020-11-06 Completed [facility] Vaccine Quad .5 mL 00:00:00 [facility] 6[facility] MO [facility] Pneumococcal 2020-11-06 Completed [facility] o f Polysaccharide, 00:00:00 [facility] ical PPSV23 (PNEUMOVAX) Branch Influenza Virus 2020-11-06 Completed [facility] of Vaccine 00:00:00 [facility] Influenza Virus 2020-11-06 Completed [facility] of Vaccine Quad .5 mL 00:00:00 [facility] 6+ MO Branch Pneumococcal 2020-11-06 Completed [facility] o f Polysaccharide, 00:00:00 [place] [facility] PPSV23 (PNEUMOVAX) Branch Influenza Virus 2020-11-06 Completed [facility] of Vaccine 00:00:00 [facility] Influenza Virus 2020-11-06 Completed [facility] of Vaccine Quad .5 mL 00:00:00 [facility] 6+ MO Branch Pneumococcal 2020-11-06 Completed [facility] o f Polysaccharide, 00:00:00 [place] [facility] PPSV23 (PNEUMOVAX) Branch Influenza Virus 2020-11-06 Completed [facility] y of Vaccine 00:00:00 [facility] Influenza Virus 2020-11-06 Completed [facility] of Vaccine Quad .5 mL 00:00:00 [facility] 6+ MO Branch Pneumococcal 2020-11-06 Completed [facility] o f Polysaccharide, 00:00:00 [place] [facility] PPSV23 (PNEUMOVAX) Branch Influenza Virus 2020-11-06 Completed [facility] of Vaccine 00:00:00 [facility] Influenza Virus 2020-11-06 Completed [facility] of Vaccine Quad .5 mL 00:00:00 [facility] 6+ MO Branch Pneumococcal 2020-11-06 Completed [facility] o f Polysaccharide, 00:00:00 [place] [facility] PPSV23 (PNEUMOVAX) Branch Influenza Virus 2020-11-06 Completed [facility] of Vaccine 00:00:00 [facility] Influenza Virus 2020-11-06 Completed [facility] of Vaccine Quad .5 mL 00:00:00 [facility] 6+ MO Branch Pneumococcal 2020-11-06 Completed [facility] o f Polysaccharide, 00:00:00 [place] [facility] PPSV23 (PNEUMOVAX) Branch Influenza Virus 2020-11-06 Completed [facility] of Vaccine 00:00:00 [facility] Influenza Virus 2020-11-06 Completed [facility] of Vaccine Quad .5 mL 00:00:00 [facility] 6+ MO Branch Pneumococcal 2020-11-06 Completed [facility] o f Polysaccharide, 00:00:00 [place] [facility] PPSV23 (PNEUMOVAX) [place] Influenza Virus 2020-11-06 Completed [facility] of Vaccine 00:00:00 [facility] Influenza Virus 2020-11-06 Completed [facility] Vaccine Quad .5 mL 00:00:00 [facility] Pneumococcal 2020-11-06 Completed [facility] o f Polysaccharide, 00:00:00 [place] [facility] PPSV23 (PNEUMOVAX) Branch Influenza Virus 2020-11-06 Completed [facility] of Vaccine 00:00:00 [facility] Influenza Virus 2020-11-06 Completed [facility] of Vaccine Quad .5 mL 00:00:00 [facility] 6+ MO Branch Pneumococcal 2020-11-06 Completed [facility] o f Polysaccharide, 00:00:00 [place] [facility] PPSV23 (PNEUMOVAX) Branch Influenza Virus 2020-11-06 Completed [facility] of Vaccine 00:00:00 [facility] Influenza Virus 2020-11-06 Completed [facility] of Vaccine Quad .5 mL 00:00:00 [facility] 6+ MO Branch Pneumococcal 2020-11-06 Completed [facility] o f Polysaccharide, 00:00:00 [place] [facility] PPSV23 (PNEUMOVAX) Branch Influenza Virus 2020-11-06 Completed [facility] of Vaccine 00:00:00 [facility] Influenza Virus 2020-11-06 Completed [facility] of Vaccine Quad .5 mL 00:00:00 [facility] 6+ MO Branch Pneumococcal 2020-11-06 Completed [facility] o f Polysaccharide, 00:00:00 [place] [facility] PPSV23 (PNEUMOVAX) Branch Influenza Virus 2020-11-06 Completed [facility] of Vaccine 00:00:00 [facility] Influenza Virus 2020-11-06 Completed [facility] of Vaccine Quad .5 mL 00:00:00 [facility] 6+ MO Branch Pneumococcal 2020-11-06 Completed [facility] o f Polysaccharide, 00:00:00 [place] [facility] PPSV23 (PNEUMOVAX) Branch Influenza Virus 2020-11-06 Completed [facility] of Vaccine 00:00:00 [facility] Influenza Virus 2020-11-06 Completed [facility] of Vaccine Quad .5 mL 00:00:00 [facility] 6+ MO Branch Pneumococcal 2020-11-06 Completed [facility] o f Polysaccharide, 00:00:00 [place] [facility] PPSV23 (PNEUMOVAX) Branch Influenza Virus 2020-11-06 Completed [facility] of Vaccine 00:00:00 [facility] Influenza Virus 2020-11-06 Completed [facility] Vaccine Quad .5 mL 00:00:00 [facility] 6[facility] Pneumococcal 2020-11-06 Completed [facility] o f Polysaccharide, 00:00:00 [place] [facility] PPSV23 (PNEUMOVAX) Branch Influenza Virus 2020-11-06 Completed [facility] of Vaccine 00:00:00 [facility] Influenza Virus 2020-11-06 Completed [facility] of Vaccine Quad .5 mL 00:00:00 [facility] 6+ MO Branch Pneumococcal 2020-11-06 Completed [facility] o f Polysaccharide, 00:00:00 [place] [facility] PPSV23 (PNEUMOVAX) Branch Influenza Virus 2020-11-06 Completed [facility] of Vaccine 00:00:00 [facility] Influenza Virus 2020-11-06 Completed [facility] of Vaccine Quad .5 mL 00:00:00 [facility] 6+ MO Branch Pneumococcal 2020-11-06 Completed [facility] o f Polysaccharide, 00:00:00 [place] [facility] PPSV23 (PNEUMOVAX) Branch Influenza Virus 2020-11-06 Completed [facility] of Vaccine 00:00:00 [facility] Influenza Virus 2020-11-06 Completed [facility] of Vaccine Quad .5 mL 00:00:00 [facility] 6+ MO Branch Pneumococcal 2020-11-06 Completed [facility] o f Polysaccharide, 00:00:00 [place] [facility] PPSV23 (PNEUMOVAX) Branch Influenza Virus 2020-11-06 Completed [facility] of Vaccine 00:00:00 [facility] Influenza Virus 2020-11-06 Completed [facility] of Vaccine Quad .5 mL 00:00:00 [facility] 6+ MO Branch Pneumococcal 2020-11-06 Completed [facility] o f Polysaccharide, 00:00:00 [place] [facility] PPSV23 (PNEUMOVAX) Branch Influenza Virus 2020-11-06 Completed [facility] of Vaccine 00:00:00 [facility] Influenza Virus 2020-11-06 Completed [facility] of Vaccine Quad .5 mL 00:00:00 [facility] 6+ MO Branch Pneumococcal 2020-11-06 Completed [facility] o f Polysaccharide, 00:00:00 [place] [facility] PPSV23 (PNEUMOVAX) Branch Influenza Virus 2020-11-06 Completed [facility] of Vaccine 00:00:00 [facility] Influenza Virus 2020-11-06 Completed [facility] Vaccine Quad .5 mL 00:00:00 [facility] Pneumococcal 2020-11-06 Completed [facility] o f Polysaccharide, 00:00:00 [place] [facility] PPSV23 (PNEUMOVAX) Branch Influenza Virus 2020-11-06 Completed [facility] of Vaccine 00:00:00 [facility] Influenza Virus 2020-11-06 Completed [facility] Vaccine Quad .5 mL 00:00:00 [facility] 6[facility] Pneumococcal 2020-11-06 Completed [facility] o f Polysaccharide, 00:00:00 [place] [facility] PPSV23 (PNEUMOVAX) Branch Influenza Virus 2020-11-06 Completed [facility] of Vaccine 00:00:00 [facility] Influenza Virus 2020-11-06 Completed [facility] of Vaccine Quad .5 mL 00:00:00 [facility] 6+ MO Branch Pneumococcal 2020-11-06 Completed [facility] o f Polysaccharide, 00:00:00 [place] [facility] PPSV23 (PNEUMOVAX) Branch Influenza Virus 2020-11-06 Completed [facility] of Vaccine 00:00:00 [facility] Influenza Virus 2020-11-06 Completed [facility] of Vaccine Quad .5 mL 00:00:00 [facility] 6+ MO Branch Pneumococcal 2020-11-06 Completed [facility] o f Polysaccharide, 00:00:00 [place] [facility] PPSV23 (PNEUMOVAX) Branch Influenza Virus 2020-11-06 Completed [facility] of Vaccine 00:00:00 [facility] Influenza Virus 2020-11-06 Completed [facility] of Vaccine Quad .5 mL 00:00:00 [facility] 6+ MO Branch Pneumococcal 2020-11-06 Completed [facility] o f Polysaccharide, 00:00:00 [place] [facility] PPSV23 (PNEUMOVAX) Branch Influenza Virus 2020-11-06 Completed [facility] of Vaccine 00:00:00 [facility] Influenza Virus 2020-11-06 Completed [facility] of Vaccine Quad .5 mL 00:00:00 [facility] 6+ MO Branch Pneumococcal 2020-11-06 Completed [facility] o f Polysaccharide, 00:00:00 [place] [facility] PPSV23 (PNEUMOVAX) Branch Influenza Virus 2020-11-06 Completed [facility] of Vaccine 00:00:00 [facility] Influenza Virus 2020-11-06 Completed [facility] of Vaccine Quad .5 mL 00:00:00 [facility] 6+ MO Branch Pneumococcal 2020-11-06 Completed [facility] o f Polysaccharide, 00:00:00 [place] [facility] PPSV23 (PNEUMOVAX) Branch Influenza Virus 2020-11-06 Completed [facility] of Vaccine 00:00:00 [facility] Influenza Virus 2020-11-06 Completed [facility] of Vaccine Quad .5 mL 00:00:00 [facility] 6+ MO Branch Pneumococcal 2020-11-06 Completed [facility] o f Polysaccharide, 00:00:00 [place] [facility] PPSV23 (PNEUMOVAX) Branch Influenza Virus 2020-11-06 Completed [facility] of Vaccine 00:00:00 [facility] Influenza Virus 2020-11-06 Completed [facility] of Vaccine Quad .5 mL 00:00:00 [facility] 6+ MO Branch Pneumococcal 2020-11-06 Completed [facility] o f Polysaccharide, 00:00:00 [place] [facility] PPSV23 (PNEUMOVAX) Branch Influenza Virus 2020-11-06 Completed [facility] of Vaccine 00:00:00 [facility] Influenza Virus 2020-11-06 Completed [facility] of Vaccine Quad .5 mL 00:00:00 [facility] 6+ MO Branch Pneumococcal 2020-11-06 Completed [facility] o f Polysaccharide, 00:00:00 [place] [facility] PPSV23 (PNEUMOVAX) Branch Influenza Virus 2020-11-06 Completed [facility] of Vaccine 00:00:00 [facility] Influenza Virus 2020-11-06 Completed [facility] of Vaccine Quad .5 mL 00:00:00 [facility] 6+ MO Branch Pneumococcal 2020-11-06 Completed [facility] o f Polysaccharide, 00:00:00 [place] [facility] PPSV23 (PNEUMOVAX) Branch Influenza Virus 2020-11-06 Completed [facility] of Vaccine 00:00:00 [facility] Influenza Virus 2020-11-06 Completed [facility] of Vaccine Quad .5 mL 00:00:00 [facility] 6+ MO Branch Pneumococcal 2020-11-06 Completed [facility] o f Polysaccharide, 00:00:00 [place] [facility] PPSV23 (PNEUMOVAX) Branch Influenza Virus 2020-11-06 Completed [facility] of Vaccine 00:00:00 [facility] Influenza Virus 2020-11-06 Completed [facility] of Vaccine Quad .5 mL 00:00:00 [facility] 6+ MO Branch Pneumococcal 2020-11-06 Completed [facility] o f Polysaccharide, 00:00:00 [place] [facility] PPSV23 (PNEUMOVAX) Branch Influenza Virus 2020-11-06 Completed [facility] of Vaccine 00:00:00 [facility] Influenza Virus 2020-11-06 Completed [facility] of Vaccine Quad .5 mL 00:00:00 [facility] 6+ MO Branch Pneumococcal 2020-11-06 Completed [facility] o f Polysaccharide, 00:00:00 [facility] ical PPSV23 (PNEUMOVAX) Branch Influenza Virus 2020-11-06 Completed [facility]it y of Vaccine 00:00:00 [facility] Influenza, 2020-11-06 Completed [facility] Unspecified 00:00:00 [facility] Pneumococcal 2020-11-06 Completed [facility] Polysaccharide 00:00:00 [facility] Influenza, 2020-11-06 Completed [facility] Unspecified 00:00:00 [facility] Pneumococcal 2020-11-06 Completed [facility] Polysaccharide 00:00:00 [facility] Influenza Virus 2019-09-05 Completed [facility] y of Vaccine 00:00:00 [facility] Influenza Virus 2019-09-05 Completed [facility] y of Vaccine 00:00:00 [facility] Influenza Virus 2019-09-05 Completed [facility] of Vaccine 00:00:00 [facility] Influenza Virus 2019-09-05 Completed [facility] of Vaccine 00:00:00 [facility] Influenza Virus 2019-09-05 Completed [facility] of Vaccine 00:00:00 [facility] Influenza Virus 2019-09-05 Completed [facility] of Vaccine 00:00:00 [facility] Influenza Virus 2019-09-05 Completed [facility] of Vaccine 00:00:00 [facility] Influenza Virus 2019-09-05 Completed [facility] of Vaccine 00:00:00 [facility] Influenza Virus 2019-09-05 Completed [facility] of Vaccine 00:00:00 [facility] Influenza Virus 2019-09-05 Completed [facility] of Vaccine 00:00:00 [facility] Influenza Virus 2019-09-05 Completed [facility] of Vaccine 00:00:00 [facility] Influenza Virus 2019-09-05 Completed [facility] of Vaccine 00:00:00 [facility] Influenza Virus 2019-09-05 Completed [facility] of Vaccine 00:00:00 [facility] Influenza Virus 2019-09-05 Completed [facility] of Vaccine 00:00:00 [facility] Influenza Virus 2019-09-05 Completed [facility] of Vaccine 00:00:00 [facility] [facility] Influenza Virus 2019-09-05 Completed [facility] Vaccine 00:00:00 [facility] Influenza Virus 2019-09-05 Completed [facility] Vaccine 00:00:00 [facility] Influenza Virus 2019-09-05 Completed [facility] Vaccine 00:00:00 [facility] Influenza Virus 2019-09-05 Completed [facility] Influenza Virus 2019-09-05 Completed [facility] Vaccine 00:00:00 [facility] Influenza Virus 2019-09-05 Completed [facility] Influenza Virus 2019-09-05 Completed [facility] Influenza Virus 2019-09-05 Completed [facility] Vaccine 00:00:00 [facility] Influenza Virus 2019-09-05 Completed [facility] Influenza Virus 2019-09-05 Completed [facility] Influenza Virus 2019-09-05 Completed [facility] Vaccine 00:00:00 [facility] Influenza Virus 2019-09-05 Completed [facility] Influenza Virus 2019-09-05 Completed [facility] Vaccine 00:00:00 [facility] Influenza Virus 2019-09-05 Completed [facility] Vaccine 00:00:00 [facility] Influenza Virus 2019-09-05 Completed [facility] Influenza Virus 2019-09-05 Completed [facility] Vaccine 00:00:00 [facility] Influenza Virus 2019-09-05 Completed [facility] Vaccine 00:00:00 [facility] Influenza Virus 2019-09-05 Completed [facility] Vaccine 00:00:00 [facility] Influenza Virus 2019-09-05 Completed [facility] Vaccine 00:00:00 [facility] Influenza Virus 2019-09-05 Completed [facility] Vaccine 00:00:00 [facility] Influenza Virus 2019-09-05 Completed [facility] Vaccine 00:00:00 [facility] Influenza, 2019-09-05 Completed [facility] Unspecified 00:00:00 [facility] Influenza, 2019-09-05 Completed [facility] Unspecified 00:00:00 Hospital Pneumococcal 13 2019-08-09 Completed [facility] Conjugate, PCV13 00:00:00 [place] [facility] (Prevnar 13) [facility] Pneumococcal 13 2019-08-09 Completed [facility] Conjugate, PCV13 00:00:00 [place] [facility] (Prevnar 13) [facility] Pneumococcal 13 2019-08-09 Completed [facility] Conjugate, PCV13 00:00:00 [place] [facility] (Prevnar 13) [facility] Pneumococcal 13 2019-08-09 Completed [facility] Conjugate, PCV13 00:00:00 [place] [facility] (Prevnar 13) [facility] Pneumococcal 13 2019-08-09 Completed [facility] Conjugate, PCV13 00:00:00 [place] [facility] (Prevnar 13) [facility] Pneumococcal 13 2019-08-09 Completed [facility] Conjugate, PCV13 00:00:00 [place] [facility] (Prevnar 13) [facility] Pneumococcal 13 2019-08-09 Completed [facility] Conjugate, PCV13 00:00:00 [place] [facility] (Prevnar 13) [facility] Pneumococcal 13 2019-08-09 Completed [facility] Conjugate, PCV13 00:00:00 [place] [facility] (Prevnar 13) [facility] Pneumococcal 13 2019-08-09 Completed [facility] Conjugate, PCV13 00:00:00 [place] [facility] (Prevnar 13) [facility] Pneumococcal 13 2019-08-09 Completed [facility] Conjugate, PCV13 00:00:00 [place] [facility] (Prevnar 13) [facility] Pneumococcal 13 2019-08-09 Completed [facility] Conjugate, PCV13 00:00:00 [place] [facility] (Prevnar 13) [facility] Pneumococcal 13 2019-08-09 Completed [facility] Conjugate, PCV13 00:00:00 [place] [facility] (Prevnar 13) Branch Pneumococcal 13 2019-08-09 Completed [facility] Conjugate, PCV13 00:00:00 [place] [facility] (Prevnar 13) [facility] Pneumococcal 13 2019-08-09 Completed [facility] Conjugate, PCV13 00:00:00 [place] [facility] (Prevnar 13) Branch Pneumococcal 13 2019-08-09 Completed [facility] Conjugate, PCV13 00:00:00 [place] [facility] (Prevnar 13) Branch Pneumococcal 13 2019-08-09 Completed [facility] Conjugate, PCV13 00:00:00 [place] [facility] (Prevnar 13) [facility] Pneumococcal 13 2019-08-09 Completed [facility] Conjugate, PCV13 00:00:00 [place] [facility] (Prevnar 13) Branch Pneumococcal 13 2019-08-09 Completed [facility] Conjugate, PCV13 00:00:00 [place] [facility] (Prevnar 13) Branch Pneumococcal 13 2019-08-09 Completed [facility] Conjugate, PCV13 00:00:00 [place] [facility] (Prevnar 13) Branch Pneumococcal 13 2019-08-09 Completed [facility] Conjugate, PCV13 00:00:00 [place] [facility] (Prevnar 13) Branch Pneumococcal 13 2019-08-09 Completed [facility] Conjugate, PCV13 00:00:00 [place] [facility] (Prevnar 13) Branch Pneumococcal 13 2019-08-09 Completed [facility] Conjugate, PCV13 00:00:00 [place] [facility] (Prevnar 13) [facility] Pneumococcal 13 2019-08-09 Completed [facility] Conjugate, PCV13 00:00:00 [place] [facility] (Prevnar 13) Branch Pneumococcal 13 2019-08-09 Completed [facility] Conjugate, PCV13 00:00:00 [place] [facility] (Prevnar 13) Branch Pneumococcal 13 2019-08-09 Completed [facility] Conjugate, PCV13 00:00:00 [place] [facility] (Prevnar 13) Branch Pneumococcal 13 2019-08-09 Completed [facility] Conjugate, PCV13 00:00:00 [place] [facility] (Prevnar 13) Branch Pneumococcal 13 2019-08-09 Completed [facility] Conjugate, PCV13 00:00:00 [place] [facility] (Prevnar 13) Branch Pneumococcal 13 2019-08-09 Completed [facility] Conjugate, PCV13 00:00:00 [place] [facility] (Prevnar 13) Branch Pneumococcal 13 2019-08-09 Completed [facility] Conjugate, PCV13 00:00:00 [place] [facility] (Prevnar 13) Branch Pneumococcal 13 2019-08-09 Completed [facility] Conjugate, PCV13 00:00:00 [place] [facility] (Prevnar 13) Branch Pneumococcal 13 2019-08-09 Completed [facility] Conjugate, PCV13 00:00:00 [place] [facility] (Prevnar 13) Branch Pneumococcal 13 2019-08-09 Completed [facility] Conjugate, PCV13 00:00:00 [place] [facility] (Prevnar 13) Branch Pneumococcal 13 2019-08-09 Completed [facility] Conjugate, PCV13 00:00:00 [place] [facility] (Prevnar 13) Branch Pneumococcal 13 2019-08-09 Completed [facility] Conjugate, PCV13 00:00:00 [place] [facility] (Prevnar 13) Branch Pneumococcal 13 2019-08-09 Completed [facility] Conjugate, PCV13 00:00:00 [place] [facility] (Prevnar 13) Branch Pneumococcal 13 2019-08-09 Completed [facility] Conjugate, PCV13 00:00:00 [place] [facility] (Prevnar 13) Branch Pneumococcal 2019-08-09 Completed [facility] Conjugate 13-Valent 00:00:00 [facility] Pneumococcal 2019-08-09 Completed [facility] Conjugate 13-Valent 00:00:00 [facility] Pneumococcal 13 2017-03-27 Completed [facility] Conjugate, PCV13 00:00:00 [place] [facility] (Prevnar 13) [facility] Pneumococcal 13 2017-03-27 Completed [facility] Conjugate, PCV13 00:00:00 [place] [facility] (Prevnar 13) Branch Pneumococcal 13 2017-03-27 Completed [facility] Conjugate, PCV13 00:00:00 [place] [facility] (Prevnar 13) Branch Pneumococcal 13 2017-03-27 Completed [facility] Conjugate, PCV13 00:00:00 [place] [facility] (Prevnar 13) Branch Pneumococcal 13 2017-03-27 Completed [facility] Conjugate, PCV13 00:00:00 [place] [facility] (Prevnar 13) Branch Pneumococcal 13 2017-03-27 Completed [facility] Conjugate, PCV13 00:00:00 [place] [facility] (Prevnar 13) Branch Pneumococcal 13 2017-03-27 Completed [facility] Conjugate, PCV13 00:00:00 [place] [facility] (Prevnar 13) Branch Pneumococcal 13 2017-03-27 Completed [facility] Conjugate, PCV13 00:00:00 [place] [facility] (Prevnar 13) Branch Pneumococcal 13 2017-03-27 Completed [facility] Conjugate, PCV13 00:00:00 [place] [facility] (Prevnar 13) Branch Pneumococcal 13 2017-03-27 Completed [facility] Conjugate, PCV13 00:00:00 [place] [facility] (Prevnar 13) Branch Pneumococcal 13 2017-03-27 Completed [facility] Conjugate, PCV13 00:00:00 [place] [facility] (Prevnar 13) Branch Pneumococcal 13 2017-03-27 Completed [facility] Conjugate, PCV13 00:00:00 [place] [facility] (Prevnar 13) Branch Pneumococcal 13 2017-03-27 Completed [facility] Conjugate, PCV13 00:00:00 [place] [facility] (Prevnar 13) Branch Pneumococcal 13 2017-03-27 Completed [facility] Conjugate, PCV13 00:00:00 [place] [facility] (Prevnar 13) Branch Pneumococcal 13 2017-03-27 Completed [facility] Conjugate, PCV13 00:00:00 [place] [facility] (Prevnar 13) Branch Pneumococcal 13 2017-03-27 Completed [facility] Conjugate, PCV13 00:00:00 [place] [facility] (Prevnar 13) Branch Pneumococcal 13 2017-03-27 Completed [facility] Conjugate, PCV13 00:00:00 [place] [facility] (Prevnar 13) Branch Pneumococcal 13 2017-03-27 Completed [facility] Conjugate, PCV13 00:00:00 [place] [facility] (Prevnar 13) Branch Pneumococcal 13 2017-03-27 Completed [facility] Conjugate, PCV13 00:00:00 [place] [facility] (Prevnar 13) Branch Pneumococcal 13 2017-03-27 Completed [facility] Conjugate, PCV13 00:00:00 [place] [facility] (Prevnar 13) Branch Pneumococcal 13 2017-03-27 Completed [facility] Conjugate, PCV13 00:00:00 [place] [facility] (Prevnar 13) Branch Pneumococcal 13 2017-03-27 Completed [facility] Conjugate, PCV13 00:00:00 [place] [facility] (Prevnar 13) Branch Pneumococcal 13 2017-03-27 Completed [facility] Conjugate, PCV13 00:00:00 [place] [facility] (Prevnar 13) Branch Pneumococcal 13 2017-03-27 Completed [facility] Conjugate, PCV13 00:00:00 [place] [facility] (Prevnar 13) Branch Pneumococcal 13 2017-03-27 Completed [facility] Conjugate, PCV13 00:00:00 [place] [facility] (Prevnar 13) Branch Pneumococcal 13 2017-03-27 Completed [facility] Conjugate, PCV13 00:00:00 [place] [facility] (Prevnar 13) Branch Pneumococcal 13 2017-03-27 Completed [facility] Conjugate, PCV13 00:00:00 [place] [facility] (Prevnar 13) Branch Pneumococcal 13 2017-03-27 Completed [facility] Conjugate, PCV13 00:00:00 [place] [facility] (Prevnar 13) Branch Pneumococcal 13 2017-03-27 Completed [facility] Conjugate, PCV13 00:00:00 [place] [facility] (Prevnar 13) Branch Pneumococcal 13 2017-03-27 Completed [facility] Conjugate, PCV13 00:00:00 [place] [facility] (Prevnar 13) Branch Pneumococcal 13 2017-03-27 Completed [facility] Conjugate, PCV13 00:00:00 [place] [facility] (Prevnar 13) Branch Pneumococcal 13 2017-03-27 Completed [facility] Conjugate, PCV13 00:00:00 [place] [facility] (Prevnar 13) Branch Pneumococcal 13 2017-03-27 Completed [facility] Conjugate, PCV13 00:00:00 [place] [facility] (Prevnar 13) Branch Pneumococcal 13 2017-03-27 Completed [facility] Conjugate, PCV13 00:00:00 [place] [facility] (Prevnar 13) Branch Pneumococcal 13 2017-03-27 Completed [facility] Conjugate, PCV13 00:00:00 [place] [facility] (Prevnar 13) Branch Pneumococcal 13 2017-03-27 Completed [facility] Conjugate, PCV13 00:00:00 [place] [facility] (Prevnar 13) Branch Pneumococcal 2017-03-27 Completed [facility] Conjugate 13-Valent 00:00:00 [facility] Pneumococcal 2017-03-27 Completed [facility] Conjugate 13-Valent 00:00:00 [facility] Pneumococcal 2017-03-27 Completed [facility] Conjugate 13-Valent 00:00:00 [facility] Pneumococcal 2017-03-27 Completed [facility] Conjugate 13-Valent 00:00:00 [facility] TDAP 2013-02-16 Completed [facility] 00:00:00 [facility] TDAP 2013-02-16 Completed [facility] 00:00:00 [facility] TDAP 2013-02-16 Completed [facility] 00:00:00 [facility] TDAP 2013-02-16 Completed [facility] 00:00:00 [facility] TDAP 2013-02-16 Completed [facility] 00:00:00 [facility] TDAP 2013-02-16 Completed [facility] 00:00:00 [facility] TDAP 2013-02-16 Completed [facility] 00:00:00 [facility] TDAP 2013-02-16 Completed [facility] 00:00:00 [facility] TDAP 2013-02-16 Completed [facility] 00:00:00 [facility] TDAP 2013-02-16 Completed [facility] 00:00:00 [facility] TDAP 2013-02-16 Completed [facility] 00:00:00 [facility] TDAP 2013-02-16 Completed [facility] 00:00:00 [facility] TDAP 2013-02-16 Completed [facility] 00:00:00 [facility] TDAP 2013-02-16 Completed [facility] 00:00:00 [facility] TDAP 2013-02-16 Completed [facility] 00:00:00 [facility] TDAP 2013-02-16 Completed [facility] 00:00:00 [facility] TDAP 2013-02-16 Completed [facility] 00:00:00 [facility] TDAP 2013-02-16 Completed [facility] 00:00:00 [facility] TDAP 2013-02-16 Completed [facility] 00:00:00 [facility] TDAP 2013-02-16 Completed [facility] 00:00:00 [facility] TDAP 2013-02-16 Completed [facility] 00:00:00 [facility] TDAP 2013-02-16 Completed [facility] 00:00:00 [facility] TDAP 2013-02-16 Completed [facility] 00:00:00 [facility] TDAP 2013-02-16 Completed [facility] 00:00:00 [facility] TDAP 2013-02-16 Completed [facility] 00:00:00 [facility] TDAP 2013-02-16 Completed [facility] 00:00:00 [facility] TDAP 2013-02-16 Completed [facility] 00:00:00 [facility] TDAP 2013-02-16 Completed [facility] 00:00:00 [facility] TDAP 2013-02-16 Completed [facility] 00:00:00 [facility] TDAP 2013-02-16 Completed [facility] 00:00:00 [facility] TDAP 2013-02-16 Completed [facility] 00:00:00 [facility] TDAP 2013-02-16 Completed [facility] 00:00:00 [facility] TDAP 2013-02-16 Completed [facility] 00:00:00 [facility] TDAP 2013-02-16 Completed [facility] 00:00:00 [facility] TDAP 2013-02-16 Completed [facility] 00:00:00 [facility] TDAP 2013-02-16 Completed [facility] 00:00:00 [facility] Tdap 2013-02-16 Completed [facility] 00:00:00 [facility] Tdap 2013-02-16 Completed [facility] 00:00:00 [facility] Tdap 2013-02-16 Completed [facility] 00:00:00 [facility] Tdap 2013-02-16 Completed [facility] 00:00:00 [facility] Influenza Virus 2011-11-08 Completed [facility] Vaccine 00:00:00 [facility] Influenza Virus 2011-11-08 Completed [facility] Vaccine 00:00:00 [facility] Influenza Virus 2011-11-08 Completed [facility] Vaccine 00:00:00 [facility] Influenza Virus 2011-11-08 Completed [facility] Vaccine 00:00:00 [facility] Influenza Virus 2011-11-08 Completed [facility] Vaccine 00:00:00 [facility] Influenza Virus 2011-11-08 Completed [facility] Vaccine 00:00:00 [facility] Influenza Virus 2011-11-08 Completed [facility] Vaccine 00:00:00 [facility] Influenza Virus 2011-11-08 Completed [facility] Vaccine 00:00:00 [facility] Influenza Virus 2011-11-08 Completed [facility] Vaccine 00:00:00 [facility] Influenza Virus 2011-11-08 Completed [facility] Vaccine 00:00:00 [facility] Influenza Virus 2011-11-08 Completed [facility] Vaccine 00:00:00 [facility] Influenza Virus 2011-11-08 Completed [facility] Vaccine 00:00:00 [facility] Influenza Virus 2011-11-08 Completed [facility] Vaccine 00:00:00 [facility] Influenza Virus 2011-11-08 Completed [facility] Vaccine 00:00:00 [facility] Influenza Virus 2011-11-08 Completed [facility] Vaccine 00:00:00 [facility] Influenza Virus 2011-11-08 Completed [facility] Vaccine 00:00:00 [facility] Influenza Virus 2011-11-08 Completed [facility] Vaccine 00:00:00 [facility] Influenza Virus 2011-11-08 Completed [facility] Vaccine 00:00:00 [facility] Influenza Virus 2011-11-08 Completed [facility] Vaccine 00:00:00 [facility] Influenza Virus 2011-11-08 Completed [facility] Vaccine 00:00:00 [facility] Influenza Virus 2011-11-08 Completed [facility] Vaccine 00:00:00 [facility] Influenza Virus 2011-11-08 Completed [facility] Vaccine 00:00:00 [facility] Influenza Virus 2011-11-08 Completed [facility] Vaccine 00:00:00 [facility] Influenza Virus 2011-11-08 Completed [facility] Vaccine 00:00:00 [facility] Influenza Virus 2011-11-08 Completed [facility] Vaccine 00:00:00 [facility] Influenza Virus 2011-11-08 Completed [facility] Vaccine 00:00:00 [facility] Influenza Virus 2011-11-08 Completed [facility] Vaccine 00:00:00 [facility] Influenza Virus 2011-11-08 Completed [facility] Vaccine 00:00:00 [facility] Influenza Virus 2011-11-08 Completed [facility] Vaccine 00:00:00 [facility] Influenza Virus 2011-11-08 Completed [facility] Vaccine 00:00:00 [facility] Influenza Virus 2011-11-08 Completed [facility] Vaccine 00:00:00 [facility] Influenza Virus 2011-11-08 Completed [facility] Vaccine 00:00:00 [facility] Influenza Virus 2011-11-08 Completed [facility] Vaccine 00:00:00 [facility] Influenza Virus 2011-11-08 Completed [facility] Vaccine 00:00:00 [facility] Influenza Virus 2011-11-08 Completed [facility] Vaccine 00:00:00 [facility] Influenza Virus 2011-11-08 Completed [facility] Vaccine 00:00:00 [facility] Influenza, 2011-11-08 Completed [facility] Unspecified 00:00:00 Hospital Influenza, 2011-11-08 Completed [facility] Unspecified 00:00:00 Hospital Influenza, 2011-11-08 Completed [facility] Unspecified 00:00:00 Hospital Influenza, 2011-11-08 Completed [facility] Unspecified 00:00:00 Hospital Pneumococcal 2010-08-10 Completed [facility] Polysaccharide, 00:00:00 [place] [facility] PPSV23 (PNEUMOVAX) Branch Pneumococcal 2010-08-10 Completed [facility] o f Unspecified 00:00:00 [facility] Pneumococcal 2010-08-10 Completed [facility] f Polysaccharide, 00:00:00 [place] [facility] PPSV23 (PNEUMOVAX) Branch Pneumococcal 2010-08-10 Completed [facility] o f Unspecified 00:00:00 [facility] Pneumococcal 2010-08-10 Completed [facility] Polysaccharide, 00:00:00 [place] [facility] PPSV23 (PNEUMOVAX) Branch Pneumococcal 2010-08-10 Completed [facility] o f Unspecified 00:00:00 [facility] Pneumococcal 2010-08-10 Completed [facility] f Polysaccharide, 00:00:00 [place] [facility] PPSV23 (PNEUMOVAX) Branch Pneumococcal 2010-08-10 Completed [facility] o f Unspecified 00:00:00 [facility] Pneumococcal 2010-08-10 Completed [facility] f Polysaccharide, 00:00:00 [place] [facility] PPSV23 (PNEUMOVAX) Branch Pneumococcal 2010-08-10 Completed [facility] o f Unspecified 00:00:00 [facility] Pneumococcal 2010-08-10 Completed [facility] f Polysaccharide, 00:00:00 [place] [facility] PPSV23 (PNEUMOVAX) Branch Pneumococcal 2010-08-10 Completed [facility] o f Unspecified 00:00:00 [facility] Pneumococcal 2010-08-10 Completed [facility] f Polysaccharide, 00:00:00 [place] [facility] PPSV23 (PNEUMOVAX) Branch Pneumococcal 2010-08-10 Completed [facility] o f Unspecified 00:00:00 [facility] Pneumococcal 2010-08-10 Completed [facility] f Polysaccharide, 00:00:00 [place] [facility] PPSV23 (PNEUMOVAX) Branch Pneumococcal 2010-08-10 Completed [facility] f Unspecified 00:00:00 [facility] Pneumococcal 2010-08-10 Completed [facility] f Polysaccharide, 00:00:00 [place] [facility] PPSV23 (PNEUMOVAX) Branch Pneumococcal 2010-08-10 Completed [facility] o f Unspecified 00:00:00 [facility] Pneumococcal 2010-08-10 Completed [facility] f Polysaccharide, 00:00:00 [place] [facility] PPSV23 (PNEUMOVAX) Branch Pneumococcal 2010-08-10 Completed [facility] o f Unspecified 00:00:00 [facility] Pneumococcal 2010-08-10 Completed [facility] f Polysaccharide, 00:00:00 [place] [facility] PPSV23 (PNEUMOVAX) Branch Pneumococcal 2010-08-10 Completed [facility] o f Unspecified 00:00:00 [facility] Pneumococcal 2010-08-10 Completed [facility] f Polysaccharide, 00:00:00 [place] [facility] PPSV23 (PNEUMOVAX) Branch Pneumococcal 2010-08-10 Completed [facility] o f Unspecified 00:00:00 [facility] Pneumococcal 2010-08-10 Completed [facility] f Polysaccharide, 00:00:00 [place] [facility] PPSV23 (PNEUMOVAX) Branch Pneumococcal 2010-08-10 Completed [facility] o f Unspecified 00:00:00 [facility] Pneumococcal 2010-08-10 Completed [facility] f Polysaccharide, 00:00:00 [place] [facility] PPSV23 (PNEUMOVAX) Branch Pneumococcal 2010-08-10 Completed [facility] o f Unspecified 00:00:00 [facility] Pneumococcal 2010-08-10 Completed [facility] f Polysaccharide, 00:00:00 [place] [facility] PPSV23 (PNEUMOVAX) Branch Pneumococcal 2010-08-10 Completed [facility] o f Unspecified 00:00:00 [facility] Pneumococcal 2010-08-10 Completed [facility] o f Polysaccharide, 00:00:00 [place] [facility] PPSV23 (PNEUMOVAX) Branch Pneumococcal 2010-08-10 Completed [facility] o f Unspecified 00:00:00 [facility] Pneumococcal 2010-08-10 Completed [facility] f Polysaccharide, 00:00:00 [place] [facility] PPSV23 (PNEUMOVAX) Branch Pneumococcal 2010-08-10 Completed [facility] o f Unspecified 00:00:00 [facility] Pneumococcal 2010-08-10 Completed [facility] o f Polysaccharide, 00:00:00 [place] [facility] PPSV23 (PNEUMOVAX) Branch Pneumococcal 2010-08-10 Completed [facility] o f Unspecified 00:00:00 [facility] Pneumococcal 2010-08-10 Completed [facility] o f Polysaccharide, 00:00:00 [place] [facility] PPSV23 (PNEUMOVAX) Branch Pneumococcal 2010-08-10 Completed [facility] o f Unspecified 00:00:00 [facility] Pneumococcal 2010-08-10 Completed [facility] o f Polysaccharide, 00:00:00 [place] [facility] PPSV23 (PNEUMOVAX) Branch Pneumococcal 2010-08-10 Completed [facility] o f Unspecified 00:00:00 [facility] Pneumococcal 2010-08-10 Completed [facility] o f Polysaccharide, 00:00:00 [place] [facility] PPSV23 (PNEUMOVAX) Branch Pneumococcal 2010-08-10 Completed [facility] o f Unspecified 00:00:00 [facility] Pneumococcal 2010-08-10 Completed [facility] o f Polysaccharide, 00:00:00 [place] [facility] PPSV23 (PNEUMOVAX) Branch Pneumococcal 2010-08-10 Completed [facility] o f Unspecified 00:00:00 [facility] Pneumococcal 2010-08-10 Completed [facility] o f Polysaccharide, 00:00:00 [place] [facility] PPSV23 (PNEUMOVAX) Branch Pneumococcal 2010-08-10 Completed [facility] o f Unspecified 00:00:00 [facility] Pneumococcal 2010-08-10 Completed [facility] o f Polysaccharide, 00:00:00 [place] [facility] PPSV23 (PNEUMOVAX) Branch Pneumococcal 2010-08-10 Completed [facility] o f Unspecified 00:00:00 [facility] Pneumococcal 2010-08-10 Completed [facility] o f Polysaccharide, 00:00:00 [place] [facility] PPSV23 (PNEUMOVAX) Branch Pneumococcal 2010-08-10 Completed [facility] o f Unspecified 00:00:00 [facility] Pneumococcal 2010-08-10 Completed [facility] o f Polysaccharide, 00:00:00 [place] [facility] PPSV23 (PNEUMOVAX) Branch Pneumococcal 2010-08-10 Completed [facility] o f Unspecified 00:00:00 [facility] Pneumococcal 2010-08-10 Completed [facility] o f Polysaccharide, 00:00:00 [place] [facility] PPSV23 (PNEUMOVAX) Branch Pneumococcal 2010-08-10 Completed University o f Unspecified 00:00:00 [facility] Pneumococcal 2010-08-10 Completed [facility] o f Polysaccharide, 00:00:00 [place] [facility] PPSV23 (PNEUMOVAX) Branch Pneumococcal 2010-08-10 Completed University o f Unspecified 00:00:00 [facility] Pneumococcal 2010-08-10 Completed [facility] o f Polysaccharide, 00:00:00 [place] [facility] PPSV23 (PNEUMOVAX) Branch Pneumococcal 2010-08-10 Completed University o f Unspecified 00:00:00 [facility] Pneumococcal 2010-08-10 Completed [facility] o f Polysaccharide, 00:00:00 [place] [facility] PPSV23 (PNEUMOVAX) Branch Pneumococcal 2010-08-10 Completed University o f Unspecified 00:00:00 [facility] Pneumococcal 2010-08-10 Completed [facility] o f Polysaccharide, 00:00:00 [place] [facility] PPSV23 (PNEUMOVAX) Branch Pneumococcal 2010-08-10 Completed University o f Unspecified 00:00:00 [facility] Pneumococcal 2010-08-10 Completed [facility] o f Polysaccharide, 00:00:00 [place] [facility] PPSV23 (PNEUMOVAX) Branch Pneumococcal 2010-08-10 Completed [facility] o f Unspecified 00:00:00 [facility] Pneumococcal 2010-08-10 Completed [facility] o f Polysaccharide, 00:00:00 [place] [facility] PPSV23 (PNEUMOVAX) Branch Pneumococcal 2010-08-10 Completed [facility] o f Unspecified 00:00:00 [facility] Pneumococcal 2010-08-10 Completed [facility] o f Polysaccharide, 00:00:00 [place] [facility] PPSV23 (PNEUMOVAX) Branch Pneumococcal 2010-08-10 Completed [facility] o f Unspecified 00:00:00 [facility] Pneumococcal 2010-08-10 Completed [facility] o f Polysaccharide, 00:00:00 [place] [facility] PPSV23 (PNEUMOVAX) Branch Pneumococcal 2010-08-10 Completed [facility] o f Unspecified 00:00:00 [facility] Pneumococcal 2010-08-10 Completed [facility] o f Polysaccharide, 00:00:00 [place] [facility] PPSV23 (PNEUMOVAX) Branch Pneumococcal 2010-08-10 Completed [facility] o f Unspecified 00:00:00 [facility] Pneumococcal, 2010-08-10 Completed [facility] Un[facility] 00:00:00 Hospital Pneumococcal 2010-08-10 Completed [facility] Polysaccharide 00:00:00 Hospital Pneumococcal, 2010-08-10 Completed [facility] Unspecified 00:00:00 Hospital Pneumococcal 2010-08-10 Completed [facility] Polysaccharide 00:00:00 [facility] HEPATITIS A 2010-08-03 Completed University of 00:00:00 [facility] Influenza Virus 2010-08-03 Completed Universit y of Vaccine 00:00:00 [facility] HEPATITIS A 2010-08-03 Completed [facility] of 00:00:00 [facility] Influenza Virus 2010-08-03 Completed Universit y of Vaccine 00:00:00 [facility] HEPATITIS A 2010-08-03 Completed [facility] of 00:00:00 [facility] Influenza Virus 2010-08-03 Completed [facility]it y of Vaccine 00:00:00 [facility] HEPATITIS A 2010-08-03 Completed [facility] of 00:00:00 [facility] Influenza Virus 2010-08-03 Completed Universit y of Vaccine 00:00:00 [facility] HEPATITIS A 2010-08-03 Completed [facility] of 00:00:00 [facility] Influenza Virus 2010-08-03 Completed Universit y of Vaccine 00:00:00 [facility] HEPATITIS A 2010-08-03 Completed [facility] of 00:00:00 [facility] Influenza Virus 2010-08-03 Completed Universit y of Vaccine 00:00:00 [facility] HEPATITIS A 2010-08-03 Completed [facility] of 00:00:00 [facility] Influenza Virus 2010-08-03 Completed [facility]it y of Vaccine 00:00:00 [facility] HEPATITIS A 2010-08-03 Completed [facility] of 00:00:00 [facility] Influenza Virus 2010-08-03 Completed [facility]it y of Vaccine 00:00:00 [facility] HEPATITIS A 2010-08-03 Completed [facility] of 00:00:00 [facility] Influenza Virus 2010-08-03 Completed [facility]it y of Vaccine 00:00:00 [facility] HEPATITIS A 2010-08-03 Completed [facility] of 00:00:00 [facility] Influenza Virus 2010-08-03 Completed [facility]it y of Vaccine 00:00:00 [facility] HEPATITIS A 2010-08-03 Completed [facility] of 00:00:00 [facility] Influenza Virus 2010-08-03 Completed [facility]it y of Vaccine 00:00:00 [facility] HEPATITIS A 2010-08-03 Completed [facility] of 00:00:00 [facility] Influenza Virus 2010-08-03 Completed [facility]it y of Vaccine 00:00:00 [facility] HEPATITIS A 2010-08-03 Completed [facility] of 00:00:00 [facility] Influenza Virus 2010-08-03 Completed [facility]it y of Vaccine 00:00:00 [facility] HEPATITIS A 2010-08-03 Completed [facility] of 00:00:00 [facility] Influenza Virus 2010-08-03 Completed [facility]it y of Vaccine 00:00:00 [facility] HEPATITIS A 2010-08-03 Completed [facility] of 00:00:00 [facility] Influenza Virus 2010-08-03 Completed [facility]it y of Vaccine 00:00:00 [facility] HEPATITIS A 2010-08-03 Completed [facility] of 00:00:00 [facility] Influenza Virus 2010-08-03 Completed [facility]it y of Vaccine 00:00:00 [facility] HEPATITIS A 2010-08-03 Completed [facility] of 00:00:00 [facility] Influenza Virus 2010-08-03 Completed [facility]it y of Vaccine 00:00:00 [facility] HEPATITIS A 2010-08-03 Completed [facility] of 00:00:00 [facility] Influenza Virus 2010-08-03 Completed [facility]it y of Vaccine 00:00:00 [facility] HEPATITIS A 2010-08-03 Completed [facility] of 00:00:00 [facility] Influenza Virus 2010-08-03 Completed [facility]it y of Vaccine 00:00:00 [facility] HEPATITIS A 2010-08-03 Completed [facility] of 00:00:00 [facility] Influenza Virus 2010-08-03 Completed [facility]it y of Vaccine 00:00:00 [facility] HEPATITIS A 2010-08-03 Completed [facility] of 00:00:00 [facility] Influenza Virus 2010-08-03 Completed [facility]it y of Vaccine 00:00:00 [facility] HEPATITIS A 2010-08-03 Completed [facility] of 00:00:00 [facility] Influenza Virus 2010-08-03 Completed [facility]it y of Vaccine 00:00:00 [facility] HEPATITIS A 2010-08-03 Completed [facility] of 00:00:00 [facility] Influenza Virus 2010-08-03 Completed [facility]it y of Vaccine 00:00:00 [facility] HEPATITIS A 2010-08-03 Completed [facility] of 00:00:00 [facility] Influenza Virus 2010-08-03 Completed [facility]it y of Vaccine 00:00:00 [facility] HEPATITIS A 2010-08-03 Completed [facility] of 00:00:00 [facility] Influenza Virus 2010-08-03 Completed [facility]it y of Vaccine 00:00:00 [facility] HEPATITIS A 2010-08-03 Completed [facility] of 00:00:00 [facility] Influenza Virus 2010-08-03 Completed [facility]it y of Vaccine 00:00:00 [facility] HEPATITIS A 2010-08-03 Completed [facility] of 00:00:00 [facility] Influenza Virus 2010-08-03 Completed [facility]it y of Vaccine 00:00:00 [facility] HEPATITIS A 2010-08-03 Completed [facility] of 00:00:00 [facility] Influenza Virus 2010-08-03 Completed [facility] y of Vaccine 00:00:00 [facility] HEPATITIS A 2010-08-03 Completed [facility] of 00:00:00 [facility] Influenza Virus 2010-08-03 Completed [facility]it y of Vaccine 00:00:00 [facility] HEPATITIS A 2010-08-03 Completed [facility] of 00:00:00 [facility] Influenza Virus 2010-08-03 Completed [facility]it y of Vaccine 00:00:00 [facility] HEPATITIS A 2010-08-03 Completed [facility] of 00:00:00 [facility] Influenza Virus 2010-08-03 Completed [facility]it y of Vaccine 00:00:00 [facility] HEPATITIS A 2010-08-03 Completed [facility] of 00:00:00 [facility] Influenza Virus 2010-08-03 Completed [facility]it y of Vaccine 00:00:00 [facility] HEPATITIS A 2010-08-03 Completed [facility] of 00:00:00 [facility] Influenza Virus 2010-08-03 Completed [facility] of Vaccine 00:00:00 [facility] HEPATITIS A 2010-08-03 Completed [facility] of 00:00:00 [facility] Influenza Virus 2010-08-03 Completed [facility]it [facility] of Vaccine 00:00:00 [facility] HEPATITIS A 2010-08-03 Completed [facility] of 00:00:00 [facility] Influenza Virus 2010-08-03 Completed [facility] of Vaccine 00:00:00 [facility] HEPATITIS A 2010-08-03 Completed [facility] of 00:00:00 [facility] Influenza Virus 2010-08-03 Completed [facility] Vaccine 00:00:00 [facility] Hep A, Unspecified 2010-08-03 Completed [facility] 00:00:00 Hospital Influenza, 2010-08-03 Completed [facility] Unspecified 00:00:00 Hospital Hep A, 2 Dose 2010-08-03 Completed [facility] 00:00:00 [facility] Influenza, 2010-08-03 Completed [facility] Unspecified 00:00:00 Hospital Hep A, Unspecified 2010-08-03 Completed [facility] 00:00:00 Hospital Influenza, 2010-08-03 Completed [facility] Unspecified 00:00:00 Hospital Hep A, 2 Dose 2010-08-03 Completed [facility] 00:00:00 Hospital Influenza, 2010-08-03 Completed [facility] Unspecified 00:00:00 [facility] HEPATITIS A 2009-11-03 Completed [facility] 00:00:00 [facility] HEPATITIS A 2009-11-03 Completed [facility] 00:00:00 [facility] HEPATITIS A 2009-11-03 Completed [facility] 00:00:00 [facility] HEPATITIS A 2009-11-03 Completed [facility] 00:00:00 [facility] HEPATITIS A 2009-11-03 Completed [facility] 00:00:00 [facility] HEPATITIS A 2009-11-03 Completed [facility] 00:00:00 [facility] HEPATITIS A 2009-11-03 Completed [facility] of 00:00:00 [facility] HEPATITIS A 2009-11-03 Completed [facility] 00:00:00 [facility] HEPATITIS A 2009-11-03 Completed [facility] 00:00:00 [facility] HEPATITIS A 2009-11-03 Completed [facility] 00:00:00 [facility] HEPATITIS A 2009-11-03 Completed [facility] 00:00:00 [facility] HEPATITIS A 2009-11-03 Completed [facility] 00:00:00 [facility] HEPATITIS A 2009-11-03 Completed [facility] 00:[facility]00 [facility] HEPATITIS A 2009-11-03 Completed [facility] 00:00:00 [facility] HEPATITIS A 2009-11-03 Completed [facility] 00:00:00 [facility] HEPATITIS A 2009-11-03 Completed [facility] 00:00:00 [facility] HEPATITIS A 2009-11-03 Completed [facility] 00:00:00 [facility] HEPATITIS A 2009-11-03 Completed [facility] 00:00:00 [facility] HEPATITIS A 2009-11-03 Completed [facility] 00:00:00 [facility] HEPATITIS A 2009-11-03 Completed [facility] of 00:00:00 [facility] HEPATITIS A 2009-11-03 Completed [facility] 00:00:00 [facility] HEPATITIS A 2009-11-03 Completed [facility] of 00:00:00 [facility] HEPATITIS A 2009-11-03 Completed [facility] 00:00:00 [facility] HEPATITIS A 2009-11-03 Completed [facility] 00:00:00 [facility] HEPATITIS A 2009-11-03 Completed [facility] 00:00:00 [facility] HEPATITIS A 2009-11-03 Completed [facility] 00[facility]00:00 [facility] HEPATITIS A 2009-11-03 Completed [facility] 00:00:00 [facility] HEPATITIS A 2009-11-03 Completed [facility] 00:00:00 [facility] HEPATITIS A 2009-11-03 Completed [facility] 00:00:00 [facility] HEPATITIS A 2009-11-03 Completed [facility] 00:00:00 [facility] HEPATITIS A 2009-11-03 Completed [facility] 00:00:00 [facility] HEPATITIS A 2009-11-03 Completed [facility] 00:00:00 [facility] HEPATITIS A 2009-11-03 Completed [facility] 00:00:00 [facility] HEPATITIS A 2009-11-03 Completed [facility] 00:00:00 [facility] HEPATITIS A 2009-11-03 Completed [facility] 00:00:00 [facility] HEPATITIS A 2009-11-03 Completed [facility] 00:00:00 [facility] Hep A, Unspecified 2009-11-03 Completed [facility] 00:00:00 Hospital Hep A, 2 Dose 2009-11-03 Completed [facility] 00:00:00 [facility] Hep A, Unspecified 2009-11-03 Completed [facility] 00:00:00 Hospital Hep A, 2 Dose 2009-11-03 Completed [facility] 00:00:00 [facility] PPD (TB) 1985-10-06 Completed [facility] 00:00:00 [facility] PPD (TB) 1985-10-06 Completed [facility] 00:00:00 [facility] PPD (TB) 1985-10-06 Completed [facility] 00:00:00 [facility] PPD (TB) 1985-10-06 Completed [facility] 00:00:00 [facility] PPD (TB) 1985-10-06 Completed [facility] 00:00:00 [facility] PPD (TB) 1985-10-06 Completed [facility] 00:00:00 [facility] PPD (TB) 1985-10-06 Completed [facility] 00:00:00 [facility] PPD (TB) 1985-10-06 Completed [facility] 00:00:00 [facility] PPD (TB) 1985-10-06 Completed [facility] 00:00:00 [facility] PPD (TB) 1985-10-06 Completed [facility] 00:00:00 [facility] PPD (TB) 1985-10-06 Completed [facility] 00:00:00 [facility] PPD (TB) 1985-10-06 Completed [facility] 00:00:00 [facility] PPD (TB) 1985-10-06 Completed [facility] 00:00:00 [facility] PPD (TB) 1985-10-06 Completed [facility] 00:00:00 [facility] PPD (TB) 1985-10-06 Completed [facility] 00:00:00 [facility] PPD (TB) 1985-10-06 Completed [facility] 00:00:00 [facility] PPD (TB) 1985-10-06 Completed [facility] 00:00:00 [facility] PPD (TB) 1985-10-06 Completed [facility] 00:00:00 [facility] PPD (TB) 1985-10-06 Completed [facility] 00:00:00 [facility] PPD (TB) 1985-10-06 Completed [facility] 00:00:00 [facility] PPD (TB) 1985-10-06 Completed [facility] 00:00:00 [facility] PPD (TB) 1985-10-06 Completed [facility] 00:00:00 [facility] PPD (TB) 1985-10-06 Completed [facility] 00:00:00 [facility] PPD (TB) 1985-10-06 Completed [facility] 00:00:00 [facility] PPD (TB) 1985-10-06 Completed [facility] 00:00:00 [facility] PPD (TB) 1985-10-06 Completed [facility] 00:00:00 [facility] PPD (TB) 1985-10-06 Completed [facility] 00:00:00 [facility] PPD (TB) 1985-10-06 Completed [facility] 00:00:00 [facility] PPD (TB) 1985-10-06 Completed [facility] 00:00:00 [facility] PPD (TB) 1985-10-06 Completed [facility] 00:00:00 [facility] PPD (TB) 1985-10-06 Completed [facility] 00:00:00 [facility] PPD (TB) 1985-10-06 Completed [facility] 00:00:00 [facility] PPD (TB) 1985-10-06 Completed [facility] 00:00:00 [facility] PPD (TB) 1985-10-06 Completed [facility] 00:00:00 [facility] PPD (TB) 1985-10-06 Completed [facility] 00:00:00 [facility] PPD (TB) 1985-10-06 Completed [facility] 00:00:00 [facility] PPD Test 1985-10-06 Completed [facility] 00:00:00 [facility] PPD Test 1985-10-06 Completed [facility] 00:00:00 Hospital Pneumococcal 13 Unknown Completed Universit y of Conjugate, PCV13 [facility] dical (Prevnar 13) Branch Influenza Virus Unknown Completed [facility]it y of Vaccine [facility] Influenza Virus Unknown Completed Universit y of Vaccine Quad .5 mL [facility] 6+ MO Branch (FLUZONE/FLULAVAL/FL UARIX) Pneumococcal Unknown Completed University o f Polysaccharide, [place] [facility] PPSV23 (PNEUMOVAX) Branch HEPATITIS A Unknown Completed [facility] HEPATITIS A Unknown Completed [facility] Influenza Virus Unknown Completed [facility] y of Vaccine [facility] Influenza Virus Unknown Completed [facility] of Vaccine [facility] Pneumococcal 13 Unknown Completed Universit y of Conjugate, PCV13 [facility] dical (Prevnar 13) Branch PPD (TB) Unknown Completed [facility] Pneumococcal Unknown Completed University o f Polysaccharide, [place] [facility] PPSV23 (PNEUMOVAX) Branch TDAP Unknown Completed [facility] SARS-COV-2 COVID-19 Unknown Completed Unive rsity of MODERNA 12+ YRS [facility] ica VACCINE Branch SARS-COV-2 COVID-19 Unknown Completed Unive rsity of MODERNA 12+ YRS [facility] ica VACCINE Branch SARS-COV-2 COVID-19 Unknown Completed Unive rsity of MODERNA 12+ YRS [facility] VACCINE Branch Pneumococcal Unknown Completed University o f Unspecified [facility] Influenza Virus Unknown Completed [facility]it y of Vaccine [facility] Influenza Virus Unknown Completed Universit y of Vaccine Quad IM, [facility] dical Preserv and ABX Free Bran ch 6 MO-64 YRS (FLUCELVAX) Pneumococcal 13 Unknown Completed Universit y of Conjugate, PCV13 [facility] dical (Prevnar 13) Branch Influenza Virus Unknown Completed [facility] y of Vaccine [facility] Influenza Virus Unknown Completed Universit y of Vaccine Quad .5 mL [facility] 6+ MO Branch (FLUZONE/FLULAVAL/FL UARIX) Pneumococcal Unknown Completed University o f Polysaccharide, [facility] PPSV23 (PNEUMOVAX) Branch HEPATITIS A Unknown Completed [facility] HEPATITIS A Unknown Completed [facility] Influenza Virus Unknown Completed [facility]it y of Vaccine [facility] Influenza Virus Unknown Completed [facility]it y of Vaccine [facility] Pneumococcal 13 Unknown Completed Universit y of Conjugate, PCV13 [facility] dical (Prevnar 13) Branch PPD (TB) Unknown Completed [facility] Pneumococcal Unknown Completed University o f Polysaccharide, [facility] PPSV23 (PNEUMOVAX) Branch TDAP Unknown Completed [facility] SARS-COV-2 COVID-19 Unknown Completed Unive rsity of MODERNA 12+ YRS [facility] ica VACCINE Branch SARS-COV-2 COVID-19 Unknown Completed Unive rsity of MODERNA 12+ YRS [facility] ica VACCINE Branch SARS-COV-2 COVID-19 Unknown Completed Unive rsity of MODERNA 12+ YRS [facility] ica VACCINE Branch Pneumococcal Unknown Completed University o f Unspecified [facility] Influenza Virus Unknown Completed [facility]it y of Vaccine [facility] Influenza Virus Unknown Completed Universit y of Vaccine Quad IM, [facility] dical Preserv and ABX Free Bran ch 6 MO-64 YRS (FLUCELVAX) Pneumococcal 13 Unknown Completed Universit y of Conjugate, PCV13 [facility] dical (Prevnar 13) Branch Influenza Virus Unknown Completed [facility] y of Vaccine [facility] Influenza Virus Unknown Completed [facility] Vaccine Quad .[facility] 6+ MO Branch (FLUZONE/FLULAVAL/FL UARIX) Pneumococcal Unknown Completed University o f Polysaccharide, [facility] ical PPSV23 (PNEUMOVAX) Branch HEPATITIS A Unknown Completed [facility] HEPATITIS A Unknown Completed [facility] Influenza Virus Unknown Completed [facility]it y of Vaccine [facility] Influenza Virus Unknown Completed [facility] y of Vaccine [facility] Pneumococcal 13 Unknown Completed Universit y of Conjugate, PCV13 [facility] dical (Prevnar 13) Branch PPD (TB) Unknown Completed [facility] Pneumococcal Unknown Completed University o f Polysaccharide, [facility] ica PPSV23 (PNEUMOVAX) Branch TDAP Unknown Completed [facility] SARS-COV-2 COVID-19 Unknown Completed Unive rsity of MODERNA 12+ YRS [facility] VACCINE Branch SARS-COV-2 COVID-19 Unknown Completed Unive rsity of MODERNA 12+ YRS [facility] VACCINE Branch SARS-COV-2 COVID-19 Unknown Completed Unive rsity of MODERNA 12+ YRS [facility] VACCINE Branch Pneumococcal Unknown Completed University o f Unspecified [facility] Influenza Virus Unknown Completed [facility] y of Vaccine [facility] Influenza Virus Unknown Completed Universit y of Vaccine Quad IM, [facility] dical Preserv and ABX Free Bran ch 6 MO-64 YRS (FLUCELVAX) Pneumococcal 13 Unknown Completed Universit y of Conjugate, PCV13 [facility] dical (Prevnar 13) Branch Influenza Virus Unknown Completed [facility]it y of Vaccine [facility] Influenza Virus Unknown Completed [facility] of Vaccine Quad .[facility] mL [facility] IM 6+ MO Branch (FLUZONE/FLULAVAL/FL UARIX) Pneumococcal Unknown Completed University o f Polysaccharide, [facility] ical PPSV23 (PNEUMOVAX) Branch HEPATITIS A Unknown Completed [facility] HEPATITIS A Unknown Completed [facility] Influenza Virus Unknown Completed [facility]it y of Vaccine [facility] Influenza Virus Unknown Completed [facility] y of Vaccine [facility] Pneumococcal 13 Unknown Completed Universit y of Conjugate, PCV13 [facility] dical (Prevnar 13) Branch PPD (TB) Unknown Completed [facility] Pneumococcal Unknown Completed University o f Polysaccharide, [facility] ical PPSV23 (PNEUMOVAX) Branch TDAP Unknown Completed [facility] SARS-COV-2 COVID-19 Unknown Completed Unive rsity of MODERNA 12+ YRS [place] [facility] VACCINE [facility] SARS-COV-2 COVID-19 Unknown Completed Unive rsity of MODERNA 12+ YRS [facility] ical VACCINE Branch SARS-COV-2 COVID-19 Unknown Completed Unive rsity of MODERNA 12+ YRS [facility] ical VACCINE Branch Pneumococcal Unknown Completed University o f Unspecified [facility] Influenza Virus Unknown Completed Universit y of Vaccine [facility] Influenza Virus Unknown Completed Universit y of Vaccine Quad IM, [facility] dical Preserv and ABX Free Bran ch 6 MO-64 YRS (FLUCELVAX) Pneumococcal 13 Unknown Completed Universit y of Conjugate, PCV13 [facility] dical (Prevnar 13) Branch Influenza Virus Unknown Completed Universit y of Vaccine [facility] Influenza Virus Unknown Completed Universit y of Vaccine Quad .5 mL [facility] 6+ MO Branch (FLUZONE/FLULAVAL/FL UARIX) Pneumococcal Unknown Completed University o f Polysaccharide, [facility] ical PPSV23 (PNEUMOVAX) Branch HEPATITIS A Unknown Completed [facility] HEPATITIS A Unknown Completed [facility] Influenza Virus Unknown Completed Universit y of Vaccine [facility] Influenza Virus Unknown Completed Universit y of Vaccine [facility] Pneumococcal 13 Unknown Completed Universit y of Conjugate, PCV13 [facility] dical (Prevnar 13) Branch PPD (TB) Unknown Completed [facility] Pneumococcal Unknown Completed University o f Polysaccharide, [facility] PPSV23 (PNEUMOVAX) Branch TDAP Unknown Completed [facility] SARS-COV-2 COVID-19 Unknown Completed Unive rsity of MODERNA 12+ YRS [facility] ical VACCINE Branch SARS-COV-2 COVID-19 Unknown Completed Unive rsity of MODERNA 12+ YRS [facility] ical VACCINE Branch SARS-COV-2 COVID-19 Unknown Completed Unive rsity of MODERNA 12+ YRS [facility] ical VACCINE Branch Pneumococcal Unknown Completed University o f Unspecified [facility] Influenza Virus Unknown Completed Universit y of Vaccine [facility] Pneumococcal 13 Unknown Completed Universit y of Conjugate, PCV13 [facility] dical (Prevnar 13) Branch Influenza Virus Unknown Completed Universit y of Vaccine [facility] Influenza Virus Unknown Completed Universit y of Vaccine Quad .[facility] 6+ MO Branch (FLUZONE/FLULAVAL/FL UARIX) Pneumococcal Unknown Completed University o f Polysaccharide, [place] [facility] PPSV23 (PNEUMOVAX) Branch HEPATITIS A Unknown Completed [facility] HEPATITIS A Unknown Completed [facility] Influenza Virus Unknown Completed Universit y of Vaccine [facility] Influenza Virus Unknown Completed Universit y of Vaccine [facility] Pneumococcal 13 Unknown Completed Universit y of Conjugate, PCV13 [place] [facility] (Prevnar 13) Branch PPD (TB) Unknown Completed [facility] Pneumococcal Unknown Completed University o f Polysaccharide, [place] [facility] PPSV23 (PNEUMOVAX) Branch TDAP Unknown Completed [facility] SARS-COV-2 COVID-19 Unknown Completed Unive rsity of MODERNA 12+ YRS [place] [facility] VACCINE [facility] SARS-COV-2 COVID-19 Unknown Completed Unive rsity of MODERNA 12+ YRS [place] [facility] VACCINE [facility] SARS-COV-2 COVID-19 Unknown Completed Unive rsity of MODERNA 12+ YRS [place] [facility] VACCINE [facility] Pneumococcal Unknown Completed University o f Unspecified [facility] Influenza Virus Unknown Completed Universit y of Vaccine [facility] Pneumococcal 13 Unknown Completed Universit y of Conjugate, PCV13 [facility] dical (Prevnar 13) Branch Influenza Virus Unknown Completed Universit y of Vaccine [facility] Influenza Virus Unknown Completed Universit y of Vaccine Quad .5 mL [facility] 6+ MO Branch (FLUZONE/FLULAVAL/FL UARIX) Pneumococcal Unknown Completed University o f Polysaccharide, [facility] ical PPSV23 (PNEUMOVAX) Branch HEPATITIS A Unknown Completed [facility] HEPATITIS A Unknown Completed [facility] Influenza Virus Unknown Completed Universit y of Vaccine [facility] Influenza Virus Unknown Completed [facility]it y of Vaccine [facility] Pneumococcal 13 Unknown Completed [facility]it y of Conjugate, PCV13 [place] [facility] (Prevnar 13) Branch PPD (TB) Unknown Completed [facility] Pneumococcal Unknown Completed University o f Polysaccharide, [place] [facility] PPSV23 (PNEUMOVAX) Branch TDAP Unknown Completed [facility] SARS-COV-2 COVID-19 Unknown Completed Unive rsity of MODERNA 12+ YRS [place] [facility] VACCINE [facility] SARS-COV-2 COVID-19 Unknown Completed Unive rsity of MODERNA 12+ YRS [place] [facility] VACCINE [facility] Pneumococcal Unknown Completed University o f Unspecified [facility] Influenza Virus Unknown Completed Universit y of Vaccine [facility] Pneumococcal 13 Unknown Completed Universit y of Conjugate, PCV13 [facility] dical (Prevnar 13) Branch Influenza Virus Unknown Completed Universit y of Vaccine [facility] Influenza Virus Unknown Completed Universit y of Vaccine Quad .5 mL [facility] IM 6+ MO Branch (FLUZONE/FLULAVAL/FL UARIX) Pneumococcal Unknown Completed University o f Polysaccharide, [facility] ical PPSV23 (PNEUMOVAX) Branch HEPATITIS A Unknown Completed [facility] HEPATITIS A Unknown Completed [facility] Influenza Virus Unknown Completed Universit y of Vaccine [facility] Influenza Virus Unknown Completed Universit y of Vaccine [facility] Pneumococcal 13 Unknown Completed Universit y of Conjugate, PCV13 [facility] dical (Prevnar 13) Branch PPD (TB) Unknown Completed [facility] Pneumococcal Unknown Completed University o f Polysaccharide, [facility] ical PPSV23 (PNEUMOVAX) Branch TDAP Unknown Completed [facility] SARS-COV-2 COVID-19 Unknown Completed Unive rsity of MODERNA 12+ YRS [facility] ica VACCINE Branch SARS-COV-2 COVID-19 Unknown Completed Unive rsity of MODERNA 12+ YRS [facility] ica VACCINE Branch Pneumococcal Unknown Completed University o f Unspecified [facility] Influenza Virus Unknown Completed Universit y of Vaccine [facility] Pneumococcal 13 Unknown Completed Universit y of Conjugate, PCV13 [facility] dical (Prevnar 13) Branch Influenza Virus Unknown Completed Universit y of Vaccine [facility] Influenza Virus Unknown Completed Universit y of Vaccine Quad .5 mL [facility] 6+ MO Branch (FLUZONE/FLULAVAL/FL UARIX) Pneumococcal Unknown Completed University o f Polysaccharide, [facility] ical PPSV23 (PNEUMOVAX) Branch HEPATITIS A Unknown Completed [facility] HEPATITIS A Unknown Completed [facility] Influenza Virus Unknown Completed Universit y of Vaccine [facility] Influenza Virus Unknown Completed Universit y of Vaccine [facility] Pneumococcal 13 Unknown Completed Universit y of Conjugate, PCV13 [facility] dical (Prevnar 13) Branch PPD (TB) Unknown Completed [facility] Pneumococcal Unknown Completed University o f Polysaccharide, [facility] ical PPSV23 (PNEUMOVAX) Branch TDAP Unknown Completed [facility] SARS-COV-2 COVID-19 Unknown Completed Unive rsity of MODERNA 12+ YRS [place] [facility] VACCINE [facility] SARS-COV-2 COVID-19 Unknown Completed Unive rsity of MODERNA 12+ YRS [facility] VACCINE Branch SARS-COV-2 COVID-19 Unknown Completed Unive rsity of MODERNA 12+ YRS [facility] VACCINE Branch Pneumococcal Unknown Completed [facility] o f Unspecified [facility] Influenza Virus Unknown Completed Universit y of Vaccine [facility] Influenza Virus Unknown Completed Universit y of Vaccine Quad IM, [facility] dical Preserv and ABX Free Bran ch 6 MO-64 YRS (FLUCELVAX) TDAP Unknown Completed [facility] Pneumococcal 13 Unknown Completed Universit y of Conjugate, PCV13 [facility] dical (Prevnar 13) Branch Influenza Virus Unknown Completed Universit y of Vaccine [facility] Influenza Virus Unknown Completed Universit y of Vaccine Quad .5 mL [facility] 6+ MO Branch (FLUZONE/FLULAVAL/FL UARIX) Pneumococcal Unknown Completed University o f Polysaccharide, [facility] PPSV23 (PNEUMOVAX) Branch HEPATITIS A Unknown Completed [facility] HEPATITIS A Unknown Completed [facility] Influenza Virus Unknown Completed Universit y of Vaccine [facility] Influenza Virus Unknown Completed [facility]it y of Vaccine [facility] Pneumococcal 13 Unknown Completed Universit y of Conjugate, PCV13 [facility] dical (Prevnar 13) Branch PPD (TB) Unknown Completed [facility] Pneumococcal Unknown Completed University o f Polysaccharide, [facility] PPSV23 (PNEUMOVAX) Branch TDAP Unknown Completed [facility] SARS-COV-2 COVID-19 Unknown Completed Unive rsity of MODERNA 12+ YRS [facility] VACCINE Branch SARS-COV-2 COVID-19 Unknown Completed Unive rsity of MODERNA 12+ YRS [facility] VACCINE Branch SARS-COV-2 COVID-19 Unknown Completed Unive rsity of MODERNA 12+ YRS [facility] VACCINE Branch Pneumococcal Unknown Completed [facility] o f Unspecified [facility] Influenza Virus Unknown Completed Universit y of Vaccine [facility] Influenza Virus Unknown Completed Universit y of Vaccine Quad IM, [facility] dical Preserv and ABX Free Bran ch 6 MO-64 YRS (FLUCELVAX) TDAP Unknown Completed [facility] Pneumococcal 13 Unknown Completed Universit y of Conjugate, PCV13 [facility] dical (Prevnar 13) Branch Influenza Virus Unknown Completed Universit y of Vaccine [facility] Influenza Virus Unknown Completed Universit y of Vaccine Quad .5 mL [facility] IM 6+ MO Branch (FLUZONE/FLULAVAL/FL UARIX) Pneumococcal Unknown Completed University o f Polysaccharide, [facility] ica PPSV23 (PNEUMOVAX) Branch HEPATITIS A Unknown Completed [facility] HEPATITIS A Unknown Completed [facility] Influenza Virus Unknown Completed Universit y of Vaccine [facility] Influenza Virus Unknown Completed Universit y of Vaccine [facility] Pneumococcal 13 Unknown Completed Universit y of Conjugate, PCV13 [facility] dical (Prevnar 13) Branch PPD (TB) Unknown Completed [facility] Pneumococcal Unknown Completed University o f Polysaccharide, [facility] PPSV23 (PNEUMOVAX) Branch TDAP Unknown Completed [facility] SARS-COV-2 COVID-19 Unknown Completed Unive rsity of MODERNA 12+ YRS [facility] VACCINE Branch SARS-COV-2 COVID-19 Unknown Completed Unive rsity of MODERNA 12+ YRS [facility] VACCINE Branch SARS-COV-2 COVID-19 Unknown Completed Unive rsity of MODERNA 12+ YRS [facility] VACCINE Branch Pneumococcal Unknown Completed University o f Unspecified [facility] Influenza Virus Unknown Completed Universit y of Vaccine [facility] Influenza Virus Unknown Completed Universit y of Vaccine Quad IM, [facility] dical Preserv and ABX Free Bran ch 6 MO-64 YRS (FLUCELVAX) TDAP Unknown Completed [facility] Hep A, Unspecified [facility], [facility] Influenza, Unknown [facility], [facility] Influenza, Unknown [facility] Pneumococcal Unknown Completed [facility] Unknown [facility] Pneumococcal, Unknown Com[facility] Tdap Unknown [facility], 2 Dose Unknown Com[facility] Hep A, 2 Dose Unknown Com[facility] Influenza, Unknown Com[facility] Influenza, Unknown Com[facility] Influenza, Unknown Com[facility] Pneumococcal Unknown Completed [facility] Pneumococcal Unknown Com[facility] Pneumococcal Unknown Com[facility] Pneumococcal Unknown Com[facility] COVID-19 Unknown [facility] COVID-19 Unknown [facility] [place] [address] Unknown Completed [facility] Tdap Unknown [place] [address] [place] Com[facility] [place] [address] Unknown Completed [facility] Vital Signs Vital Name Observation Time Observation Value Comments Source Systolic blood 2023-04-23 14:23:00 134 mm[Hg] Univer [facility]ity of pressure [facility] Diastolic blood 2023-04-23 14:23:00 87 mm[Hg] Unive rsity of pressure [facility] Heart rate 2023-04-23 14:22:00 90 /min [facility] Body temperature 2023-04-23 14:22:00 36.67 Sarah [facility] ers[facility] Body height 2023-04-23 14:22:00 185.4 cm [facility] Body weight 2023-04-23 14:22:00 122.018 kg [facility] BMI 2023-04-23 14:22:00 35.49 kg/m2 [facility] Oxygen saturation in 2023-04-23 14:22:00 99 /min [facility] of Arterial blood by [place] [facility] Pulse oximetry Branch Systolic blood 2023-04-04 18:19:00 145 mm[Hg] Univer sity of pressure [facility] Diastolic blood 2023-04-04 18:19:00 81 mm[Hg] Unive rsity of pressure [facility] Heart rate 2023-04-04 18:09:00 92 /min [facility] Respiratory rate 2023-04-04 18:09:00 18 /min [facility] Body height 2023-04-04 18:09:00 185.4 cm [facility] Body weight 2023-04-04 18:09:00 118.842 kg [facility] BMI 2023-04-04 18:09:00 34.57 kg/m2 [facility] Oxygen saturation in 2023-04-04 18:09:00 98 /min [facility] of Arterial blood by [place] [facility] Pulse oximetry Branch Body temperature 2023-03-12 17:30:00 36.56 Sarah [facility] Respiratory rate 2023-03-12 17:30:00 16 /min [facility] Oxygen saturation in 2023-03-12 17:30:00 97 /min University of Arterial blood by [facility] Pulse oximetry Branch Systolic blood 2023-03-12 17:25:00 173 mm[Hg] Univer sity of pressure [facility] Diastolic blood 2023-03-12 17:25:00 113 mm[Hg] Unive rsity of pressure [facility] Heart rate 2023-03-12 17:15:00 88 /min [facility] Body height 2023-02-20 15:58:00 185.4 cm [facility] Body weight 2023-02-20 15:58:00 116.6 kg [facility] BMI 2023-02-20 15:58:00 33.92 kg/m2 [facility] Systolic blood 2023-03-12 17:00:00 153 mm[Hg] Univer sity of pressure [facility] Diastolic blood 2023-03-12 17:00:00 86 mm[Hg] Unive rsity of pressure [facility] Respiratory rate 2023-03-12 17:00:00 15 /min [facility] Oxygen saturation in 2023-03-12 17:00:00 99 /min University of Arterial blood by [facility] Pulse oximetry Branch Heart rate 2023-03-12 16:55:00 87 /min [facility] Body temperature 2023-03-12 16:55:00 36.56 Sarah [facility] Body height 2023-02-20 15:58:00 185.4 cm [facility] Body weight 2023-02-20 15:58:00 116.6 kg [facility] BMI 2023-02-20 15:58:00 33.92 kg/m2 [facility] Systolic blood 2022-09-26 15:22:00 138 mm[Hg] Univer sity of pressure [facility] Diastolic blood 2022-09-26 15:22:00 78 mm[Hg] Unive rsity of pressure [facility] Heart rate 2022-09-26 15:22:00 88 /min [facility] Body temperature 2022-09-26 15:22:00 36.78 Sarah Univ ersity of [facility] Body height 2022-09-26 15:22:00 185.4 cm [facility] Body weight 2022-09-26 15:22:00 116.574 kg [facility] BMI 2022-09-26 15:22:00 33.91 kg/m2 Universi ty of [facility] Oxygen saturation in 2022-09-26 15:22:00 98 /min University of Arterial blood by [facility] Pulse oximetry Branch Systolic blood 2022-06-06 12:27:00 149 mm[Hg] Univer sity of pressure [facility] Diastolic blood 2022-06-06 12:27:00 96 mm[Hg] Unive rsity of pressure [facility] Heart rate 2022-06-06 12:26:00 85 /min Universi ty of [facility] Body height 2022-06-06 12:26:00 185.4 cm [facility] [place] [facility] Body weight 2022-06-06 12:26:00 116.847 kg [facility] BMI 2022-06-06 12:26:00 33.99 kg/m2 [facility] [place] [facility] Oxygen saturation in 2022-06-06 12:26:00 96 /min [facility] of Arterial blood by [facility] Pulse oximetry Branch height in 2023-02-19 19:03:06 185.42 cm [facility] centimeters [facility] Systolic blood 2022-06-19 09:38:00 149 mm[Hg] [facility] pressure Diastolic blood 2022-06-19 09:38:00 87 mm[Hg] [facility] pressure Heart rate 2022-06-19 09:38:00 94 /min [facility] Respiratory rate 2022-06-19 09:38:00 18 /min [facility] Oxygen saturation in 2022-06-19 09:38:00 99 /min [facility] Arterial blood by Pulse oximetry Body height 2022-06-19 06:37:00 185.4 cm [facility] Body weight 2022-06-19 06:37:00 113 kg [facility] BMI 2022-06-19 06:37:00 32.87 kg/m2 [facility] Body temperature 2022-06-19 06:36:43 36.72 [facility] 2022-05-29 10:19:52 185.42 cm [facility] blood pressure, 2022-04-17 11:13:53 82 mm[Hg] Leg[facility] diastolic Health blood pressure, 2022-04-17 11:13:53 113 mm[Hg] Legac y [facility] systolic Health pulse rate 2022-04-17 11:13:53 102 /min [facility] Health blood pressure, 2022-04-17 10:25:19 82 mm[Hg] Legac y [facility] diastolic Health blood pressure, 2022-04-17 10:25:19 113 mm[Hg] Legac y [facility] systolic Health pulse rate 2022-04-17 10:25:19 102 /min [facility] height in 2022-01-28 08:26:55 185.42 cm [facility] centimeters [facility] pulse rate 2021-12-26 10:25:17 99 /min [facility] Health blood pressure, 2021-12-26 10:25:17 89 mm[Hg] Legac [facility] diastolic Health blood pressure, 2021-12-26 10:25:17 141 mm[Hg] Legac [facility] systolic Health blood pressure, 2021-10-29 15:42:04 113 mm[Hg] Legac [facility] diastolic Health blood pressure, 2021-10-29 15:42:04 168 mm[Hg] Legac y [facility] systolic Health oxygen saturation, 2021-10-29 15:42:04 55 /min [facility] oximetry Health pulse rate 2021-10-29 15:42:04 109 /min [facility] Health temperature E&M 2021-10-29 15:42:04 96.6 [degF] [facility] in 2021-10-29 15:42:04 185.42 cm [facility] centimeters [facility] weight [facility] 2021-10-29 15:42:04 262.50 [facility] 2021-10-29 15:42:04 119.32 kg L [facility] temperature site 2021-10-29 15:42:04 oral [facility] BMI (body mass 2021-10-29 15:42:04 n/a [facility] index) [facility] Body Mass Index 2021-10-29 15:42:04 34.76 kg/m2 [facility] temperature site 2021-10-29 15:42:04 oral Lega [facility] 02 Sat by Pulse 2021-03-12 09:07:15 95 /min Oximetry Body Mass Index 2021-03-12 09:07:15 34.3 Height 2021-03-12 09:07:15 185.42\\S\\73 Pulse Rate 2021-03-12 09:07:15 71 /min Pulse Strength 2021-03-12 09:07:15 Normal /min Respiratory Rate 2021-03-12 09:07:15 16 /min Respiratory Depth 2021-03-12 09:07:15 Normal /min Respiratory Effort 2021-03-12 09:07:15 Spontaneous /min Respiratory Pattern 2021-03-12 09:07:15 Normal /min Temperature 2021-03-12 09:07:15 36.6\\S\\97.9 Weight 2021-03-12 09:07:15 [id number]\\S\\4160 Weight Measurement 2021-03-12 09:07:15 Estimated by Method Patient 02 Sat by Pulse 2021-02-27 07:52:02 95 /min Oximetry Body Mass Index 2021-02-27 07:52:02 34.3 Height 2021-02-27 07:52:02 185.42\\S\\73 Pulse Rate 2021-02-27 07:52:02 71 /min Pulse Strength 2021-02-27 07:52:02 Normal /min Respiratory Rate 2021-02-27 07:52:02 16 /min Respiratory Depth 2021-02-27 07:52:02 Normal /min Respiratory Effort 2021-02-27 07:52:02 Spontaneous /min Respiratory Pattern 2021-02-27 07:52:02 Normal /min Temperature 2021-02-27 07:52:02 36.6\\S\\97.9 Weight 2021-02-27 07:52:02 [id number]\\S\\4160 Weight Measurement 2021-02-27 07:52:02 Estimated by Method Patient 02 Sat by Pulse 2021-02-25 21:55:45 95 /min Oximetry Body Mass Index 2021-02-25 21:55:45 34.3 Height 2021-02-25 21:55:45 185.42\\S\\73 Pulse Rate 2021-02-25 21:55:45 71 /min Pulse Strength 2021-02-25 21:55:45 Normal /min Respiratory Rate 2021-02-25 21:55:45 16 /min Respiratory Depth 2021-02-25 21:55:45 Normal /min Respiratory Effort 2021-02-25 21:55:45 Spontaneous /min Respiratory Pattern 2021-02-25 21:55:45 Normal /min Temperature 2021-02-25 21:55:45 36.6\\S\\97.9 Weight 2021-02-25 21:55:45 [id number]\\S\\4160 Weight Measurement 2021-02-25 21:55:45 Estimated by Method Patient 02 Sat by Pulse 2021-02-25 21:45:35 95 /min Oximetry Body Mass Index 2021-02-25 21:45:35 34.3 Height 2021-02-25 21:45:35 185.42\\S\\73 Pulse Rate 2021-02-25 21:45:35 71 /min Pulse Strength 2021-02-25 21:45:35 Normal /min Respiratory Rate 2021-02-25 21:45:35 16 /min Respiratory Depth 2021-02-25 21:45:35 Normal /min Respiratory Effort 2021-02-25 21:45:35 Spontaneous /min Respiratory Pattern 2021-02-25 21:45:35 Normal /min Temperature 2021-02-25 21:45:35 36.6\\S\\97.9 Weight 2021-02-25 21:45:35 747786.016\\S\\4160 Weight Measurement 2021-02-25 21:45:35 Estimated by Method Patient 02 Sat by Pulse 2021-02-25 13:49:33 98 /min Oximetry Body Mass Index 2021-02-25 13:49:33 34.3 Height 2021-02-25 13:49:33 185.42\\S\\73 Pulse Rate 2021-02-25 13:49:33 104 /min Pulse Strength 2021-02-25 13:49:33 Normal /min Respiratory Rate 2021-02-25 13:49:33 18 /min Respiratory Depth 2021-02-25 13:49:33 Normal /min Respiratory Effort 2021-02-25 13:49:33 Spontaneous /min Respiratory Pattern 2021-02-25 13:49:33 Normal /min Temperature 2021-02-25 13:49:33 36.6\\S\\97.9 Weight 2021-02-25 13:49:33 293282.016\\S\\4160 Weight Measurement 2021-02-25 13:49:33 Estimated by Method Patient Respiratory Rate 2021-02-25 13:35:16 18 /min Temperature 2021-02-25 13:35:16 36.6\\S\\97.9 Weight 2021-02-25 13:35:16 137065.016\\S\\4160 Weight Measurement 2021-02-25 13:35:16 Estimated by Method Patient 02 Sat by Pulse 2021-02-25 13:35:16 98 /min Oximetry Body Mass Index 2021-02-25 13:35:16 34.3 Height 2021-02-25 13:35:16 185.42\\S\\73 Pulse Rate 2021-02-25 13:35:16 104 /min 02 Sat by Pulse 2021-02-25 13:25:04 98 /min Oximetry Body Mass Index 2021-02-25 13:25:04 34.3 Height 2021-02-25 13:25:04 185.42\\S\\73 Pulse Rate 2021-02-25 13:25:04 104 /min Respiratory Rate 2021-02-25 13:25:04 18 /min Temperature 2021-02-25 13:25:04 36.6\\S\\97.9 Weight 2021-02-25 13:25:04 683484.016\\S\\4160 Weight Measurement 2021-02-25 13:25:04 Estimated by Method Patient 02 Sat by Pulse 2021-02-25 13:23:01 98 /min Oximetry Body Mass Index 2021-02-25 13:23:01 34.3 Height 2021-02-25 13:23:01 185.42\\S\\73 Pulse Rate 2021-02-25 13:23:01 104 /min Respiratory Rate 2021-02-25 13:23:01 18 /min Temperature 2021-02-25 13:23:01 36.6\\S\\97.9 Weight 2021-02-25 13:23:01 946622.016\\S\\4160 Weight Measurement 2021-02-25 13:23:01 Estimated by Method Patient WEIGHT 2021-02-25 13:17:00 117.286338 kg HEIGHT 2021-02-25 13:17:00 185.42 cm Procedures Procedure Date / Time Performing Clinician Source Performed TDAP VACCINE, >11 YRS, IM 2023-04-23 14:46:22 [facility] POCT HEMOGLOBIN A1C TEST 2023-04-04 18:23:00 Neri Willis [facility] PATIENT FINANCIAL 2023-04-04 17:50:00 Doctor Unassigned, [facility] POLICY [facility] COLONOSCOPY 2023-03-12 16:21:00 Mora Lomas [facility] COLONOSCOPY (ENDO) 2023-03-12 16:14:54 Rola Berg [facility] COLONOSCOPY (ENDO) 2023-03-12 16:14:54 Rola Berg [facility] POCT GLUCOSE (AUTOMATED) 2023-03-12 15:08:00 Mor[facility] Lomas [facility] POCT GLUCOSE (AUTOMATED) 2023-03-12 15:08:00 Mora Lomas [facility] DAY SURGERY - ADC 2023-03-12 05:01:00 Doctor Unassdelma, [facility] Most recent HbA1c is less 2023-02-19 19:38:22 Cari Mehta [facility] than 7.0% Health Vision 2022-12-11 00:41:45 Cari Mehta [facility] Internal 2022-12-11 00:41:29 Cari Mehta [facility] HISTORICAL RECORD - VOL #1 2022-11-12 06:01:00 Doctor Unassigned , [facility] FLU VACC ([id number]), 6 2022-09-26 15:50:49 OtisRola danielle [facility] [place] MO-64 YRS, .5ML, IM, [facility] l [facility] (FLUCELVAX) POC GLUCOSE 2022-06-19 09:32:00 [facility] ECG 12-LEAD 2022-06-19 08:48:34 [facility] RESPIRATORY PATHOGEN PANEL 2022-06-19 08:23:00 Nina Soriano [facility] WITH COVID-19 RT-PCR Virant CBC WITH PLATELET AND 2022-06-19 08:23:[address] [facility] DIFFERENTIAL [facility] COMPREHENSIVE METABOLIC 2022-06-19 08:23:00 [facility] PANEL [facility] TROPONIN T 2022-06-19 08:23:00 [facility] B NATRIURETIC PEPTIDE 2022-06-19 08:23:00 [facility] PARTIAL THROMBOPLASTIN 2022-06-19 08:23:00 [facility] TIME (PTT) [facility] PROTHROMBIN TIME WITH INR 2022-06-19 08:23:00 [facility] ESTIMATED GFR 2022-06-19 08:23:00 [facility] XR CHEST 1 VW 2022-06-19 07:20:44 [facility] POC GLUCOSE 2022-06-18 20:36:00 Clifton Sorto spital VENOUS BLOOD GAS 2022-06-18 18:44:00 Collin Morillo [facility] Estepa CBC WITH PLATELET AND 2022-06-18 18:05:00 Clifton Sorto [facility] DIFFERENTIAL COMPREHENSIVE METABOLIC 2022-06-18 18:05:00 [facility]o [facility] PANEL BETA HYDROXYBUTYRATE 2022-06-18 18:05:[address] [facility] CREATINE KINASE, TOTAL 2022-06-18 18:05:[address] [facility] (CPK) ESTIMATED GFR 2022-06-18 18:05:00 Clifton Sorto Ho spital POC GLUCOSE 2022-06-18 17:40:00 Clifton Sorto Ho spital REFERRAL- REQUEST/RESPONSE 2022-06-13 05:01:00 Doctor Unassigned , [facility] INSURANCE CORRESPONDENCE 2022-06-06 05:01:00 Doctor Unassigned, [facility] Name [facility] Most recent HbA1c is less 2022-05-31 23:03:45 Cari Mehta [facility] than 7.0% Health AUTHORIZATION FOR RELEASE 2022-05-22 05:01:00 Doctor Unassigned, [facility] Dispensing Visit 2022-05-01 08:12:27 Kusum Spears [facility] (UNLIVSTED Health OPHTHALMOLOGICAL SERVICE/PROCEDURE) Est Patient Comprehensive 2022-04-17 11:33:46 Larry Herrera gorge [facility] [address] [facility] Spherocyl, bif, +/- 4.25 2022-04-17 11:19:34 Benita Bullock [facility] to +/- 7.00d sphere, 0.12 Health to 2.00d cyl, per lens Frames, purchases 2022-04-17 11:19:03 [facility] Workboard DETERMINATION REFRACTIVE 2022-04-17 10:57:41 Jonathan Nieves erendira [facility] Contact Lens Fitting 2022-04-17 10:57:38 Jonathan Nieves [facility] (RX&FITG C-LENS SUPVJ CRNL Healt h LENS OU XCPT APHK) Est Patient Comprehensive 2022-04-17 10:56:53 Jonathan Nieves [facility] [address] Health Primary Care Service 2022-03-14 12:16:26 Orellana, [facility] Meeting W 2021-11-30 15:27:01 Karson Orellana gorge [facility] Health Primary Care - 2021-11-02 10:54:03 [facility] Assesment-Brief - [facility] Primary Care Service 2021-11-02 10:54:03 Karson Orellana [facility] Health Most recent diastolic 2021-10-29 16:30:38 [facility] blood pressure greater Health than or equal to 90 mm Hg Most recent systolic blood 2021-10-29 16:30:38 [facility] pressure greater than or Health equal to 140 mm Hg Vision 2021-10-29 16:29:37 [facility] 2021-10-29 16:29:37 [facility] Health Venipuncture 2021-07-23 08:51:20 [facility] Contact Lens Fitting 2019-09-14 10:34:37 Lonnie Chatman [facility] (RX&FITG C-LENS SUPVJ CRNL Healt h LENS OU XCPT APHK) Dispensing Visit 2019-09-14 10:18:14 Benita Bullock [facility] (UNLIVSTED Health OPHTHALMOLOGICAL SERVICE/PROCEDURE) Est Patient Comprehensive 2019-08-30 11:40:40 Larry Herrera [facility] [address] Health Spherocyl, SV, +/- 4.25 to 2019-08-30 11:18:55 [facility] +/- 7.00 sphere, 0.12 to Health 2.00d cyl, per lens Spherocyl, SV, plano to 2019-08-30 11:18:40 Benita Bullock Critical access hospital +/- 4.00d sphere, 0.12 to Health 2.00d cyl, per lens Frames, purchases 2019-08-30 11:18:24 Benita Bullock [facility] New Patient Intermediate 2019-08-30 11:09:03 Lonnie Chatman [facility] - [address] Health Plan of Care Planned Activity Planned Date Details Comments Source Future Scheduled 2023-08-03 Screening for Nondenominational Test 07:54:23 malignant neoplasm Hospital of colon (procedure) [code = 124680541] Future Scheduled 2023-08-03 Screening for Nondenominational Test 07:54:23 malignant neoplasm Hospital [facility] colon (procedure) [code = 232403420] Future Scheduled 2023-08-03 Screening for Nondenominational Test 07:54:23 malignant neoplasm Hospital of colon (procedure) [code = 060745596] Future Scheduled 2023-08-03 Screening for Nondenominational Test 07:54:23 malignant neoplasm Hospital of colon (procedure) [code = 296368594] Future Scheduled 2023-08-03 Screening for Nondenominational Test 07:54:23 malignant neoplasm Hospital of colon (procedure) [code = 488650956] Future Scheduled 2023-08-03 DIABETIC FOOT EXAM Metho dist Test 07:54:23 [code = DIABETIC Hospital FOOT EXAM] Future Scheduled 2023-08-03 COVID-19 VACCINE (6 Meth odist Test 07:54:23 - season) Hospital [code = COVID-19 VACCINE (6 - season)] Future Scheduled 2023-08-03 INFLUENZA VACCINE Method ist Test 07:54:23 (#1) [code = Hospital INFLUENZA VACCINE (#1)] Future Scheduled 2023-08-03 DIABETES: RETINAL Method ist Test 07:54:23 EYE EXAM [code = Hospital DIABETES: RETINAL EYE EXAM] Future Scheduled 2023-08-03 Pneumococcal Nondenominational Test 07:54:23 Vaccine: Pediatrics Hospital (0 to 5 Years) and At-Risk Patients (6 to 64 Years) (4 - PPSV23 or PCV20) [code = Pneumococcal Vaccine: Pediatrics (0 to 5 Years) and At-Risk Patients (6 to 64 Years) (4 - PPSV23 or PCV20)] Future Scheduled 2023-08-03 HEPATITIS B VACCINES Postponed from M ethodist Test 07:54:23 (1 of 3 - 3-dose 1975 (Not Hospital series) [code = Indicated) HEPATITIS B VACCINES (1 of 3 - 3-dose series)] Future Scheduled 2023-05-12 Screening for Nondenominational Test 10:26:05 malignant neoplasm Hospital of colon (procedure) [code = 709154724] Future Scheduled 2023-05-12 Screening for Nondenominational Test 10:26:05 malignant neoplasm Hospital of colon (procedure) [code = 537300019] Future Scheduled 2023-05-12 Screening for Nondenominational Test 10:26:05 malignant neoplasm Hospital of colon (procedure) [code = 688334971] Future Scheduled 2023-05-12 COVID-19 VACCINE (6 Meth odist Test 10:26:05 - Booster for Hospital Moderna series) [code = COVID-19 VACCINE (6 - Booster for Moderna series)] Future Scheduled 2023-05-12 Screening for Nondenominational Test 10:26:05 malignant neoplasm [facility] of colon (procedure) [code = 575178024] Future Scheduled 2023-05-12 Screening for Nondenominational Test 10:26:05 malignant neoplasm [facility] of colon (procedure) [code = 422318136] Future Scheduled 2023-05-12 DIABETIC FOOT EXAM Metho dist Test 10:26:05 [code = DIABETIC Hospital FOOT EXAM] Future Scheduled 2023-05-12 INFLUENZA VACCINE Method ist Test 10:26:05 [code = INFLUENZA Hospital VACCINE] Future Scheduled 2023-05-12 DIABETES: RETINAL Method ist Test 10:26:05 EYE EXAM [code = Hospital DIABETES: RETINAL EYE EXAM] Future Scheduled 2023-05-12 Pneumococcal Nondenominational Test 10:26:05 Vaccine: Pediatric[facility] Hospital (0 to 5 Years) and At-Risk Patients (6 to 64 Years) (4 - PPSV23 if available, else PCV20) [code = Pneumococcal Vaccine: Pediatrics (0 to 5 Years) and At-Risk Patients (6 to 64 Years) (4 - PPSV23 if available, else PCV20)] Future Scheduled 2023-05-12 HEPATITIS B VACCINES Postponed from M ethodist Test 10:26:05 (1 of 3 - 3-dose 1975 (Not Hospital series) [code = Indicated) HEPATITIS B VACCINES (1 of 3 - 3-dose series)] Future Scheduled 2023-03-24 Screening for Nondenominational Test 16:48:05 malignant neoplasm Hospital of colon (procedure) [code = 158544839] Future Scheduled 2023-03-24 Screening for Nondenominational Test 16:48:05 malignant neoplasm [facility] of colon (procedure) [code = 419024138] Future Scheduled 2023-03-24 Screening for Nondenominational Test 16:48:05 malignant neoplasm Hospital of colon (procedure) [code = 805208138] Future Scheduled 2023-03-24 COVID-19 VACCINE (6 Meth odist Test 16:48:05 - Booster for Hospital Moderna series) [code = COVID-19 VACCINE (6 - Booster for Moderna series)] Future Scheduled 2023-03-24 Screening for Nondenominational Test 16:48:05 malignant neoplasm Hospital of colon (procedure) [code = 779082684] Future Scheduled 2023-03-24 Screening for Nondenominational Test 16:48:05 malignant neoplasm Hospital of colon (procedure) [code = 799985210] Future Scheduled 2023-03-24 DIABETIC FOOT EXAM Metho dist Test 16:48:05 [code = DIABETIC Hospital FOOT EXAM] Future Scheduled 2023-03-24 INFLUENZA VACCINE Method ist Test 16:48:05 [code = INFLUENZA Hospital VACCINE] Future Scheduled 2023-03-24 DIABETES: RETINAL Method ist Test 16:48:05 EYE EXAM [code = Hospital DIABETES: RETINAL EYE EXAM] Future Scheduled 2023-03-24 Pneumococcal Nondenominational Test 16:48:05 Vaccine: Pediatrics Hospital (0 to 5 Years) and At-Risk Patients (6 to 64 Years) (4 - PPSV23 if available, else PCV20) [code = Pneumococcal Vaccine: Pediatrics (0 to 5 Years) and At-Risk Patients (6 to 64 Years) (4 - PPSV23 if available, else PCV20)] Future Scheduled 2023-03-24 HEPATITIS B VACCINES Postponed from M ethodist Test 16:48:05 (1 of 3 - 3-dose 1977 (Not Hospital series) [code = Indicated) HEPATITIS B VACCINES (1 of 3 - 3-dose series)] Encounters Start End Encounter Admission Attending Care Care Encounter Source Date/Time Date/Time Type Type Clinicians Facility Department ID 2023-07-07 Outpatient nohemy [facility] [id number] Legacy 16:21:02 Comm [facility] 2023-06-18 Outpatient nohemy [facility] [id number] Legacy 11:14:03 Comm [facility] 2023-06-03 Outpatient nohemy [facility] [id number] Legacy 09:07:03 th [id number] Comm uni 29 ty Health 2023-05-22 Outpatient lc.micky [facility] [id number] Legacy 12:17:04 th [id number] Comm uni 17 ty Health 2023-05-13 Inpatient [facility]A [facility] [id number] [place] 10:20:00 [facility] -[id number] [facility] 2023-05-01 [facility] [id number] Univers 10:45:[address] [facility] 2023-02-17 Outpatient lc.micky [facility] [id number] Legacy 10:45:51 th [id number] Comm uni ty Health 2023-02-11 Outpatient lc.micky [facility] [id number] Legacy 12:17:02 th [id number] Comm uni ty Health 2023-01-21 Outpatient lc.micky [facility] [id number] Legacy 12:51:02 th [id number] Comm uni 18 ty Health 2023-01-16 [facility] [id number] Univers 15:07:[address] [facility] 2022-12-23 Outpatient lc.micky [facility] [id number] Legacy 14:51:10 th [id number] Comm uni 20 ty Health 2022-12-03 Outpatient lc.micky [facility] [id number] Legacy 15:35:02 th [id number] Comm uni 28 ty Health 2022-11-30 Outpatient lc.micky [facility] [id number] Legacy 13:01:24 th [id number] Comm uni 25 ty Health 2022-11-27 Outpatient lc.micky [facility] [id number] Legacy 11:51:00 th [id number] Comm uni ty Health 2022-11-26 Outpatient lc.micky [facility] [id number] Legacy 17:37:00 th [id number] Comm uni 21 ty Health 2022-11-13 Outpatient lc.micky [facility] [id number] Legacy 14:39:06 th [id number] Comm uni 08 ty Health 2022-10-03 Outpatient lc.ricardaaj [facility] [id number] Legacy 08:37:03 th 238 Comm uni 29 ty Health 2022-09-24 Outpatient lc.ricardaaj [facility] [id number] Legacy 10:43:01 th Comm uni 20 ty Health 2022-09-23 Outpatient lc.jyoticheyaj [facility] [id number] Legacy 11:23:04 th 238 Comm uni 19 ty Health 2022-09-20 Outpatient lc.ricardaaj [facility] [id number] Legacy 10:27:02 th Comm uni 16 ty Health 2022-09-16 Outpatient lc.jyoticheyaj [facility] [id number] Legacy 15:24:59 th Comm uni 12 ty Health 2022-08-22 Outpatient lc.jyoticheyaj [facility] [id number] Legacy 12:27:01 th Comm uni 17 ty [facility] 2022-08-09 Outpatient lc.ricardaaj [facility] [id number] Legacy 08:21:01 th Comm uni 04 [facility] 2021-11-28 Out[facility] [id number] Univers 11:26:09 [facility] 2021-11-16 Outpatient Ab[facility] [id number] Univers 13:37:03 [facility] 2021-08-04 Emergency [facility] [id number] Univers 04:02:06 [facility] 2021-02-25 Inpatient [facility] [id number] [facility] 13:15:00 48 2023-10-24 2023-10-24 Outpatient Abdi BERG [facility] [id number] Univers 08:30:00 08:30:00 ROLA [facility] 2023-08-05 2023-08-05 Outpatient R NATHALIA [facility] [id number] Univers 10:00:00 10:00:00 MADELYN [facility] 2023-07-28 2023-07-28 [facility] [id number] Univers 00:00:00 00:00:00 Rola A HEALTH 350.1.13.10 i ty of [place] 4.2.7.2.686 Zachary as MIKHAIL?BLEA [id number] [address] OFFICE [facility] 2023-07-09 2023-07-09 Telephone [facility] [id number] Univers 00:00:00 00:00:00 Rola A HEALTH 350.1.13.10 i ty of [place] 4.2.7.2.686 Zachary as MIHKAIL?BLEA [id number] [address] 2023-05-27 2023-05-27 Outpatient NICOLASA CAMARA [facility] [id number] [place] 09:45:00 09:45:00 STEWART -[id number] [facility] 2023-05-27 2023-05-27 [facility]phone [facility] [id number] Univers 00:00:00 00:00:00 Rola A HEALTH 350.1.13.10 i ty of [place] 4.2.7.2.686 Zachary as MIKHAIL?BLEA [id number] [address] 2023-04-29 2023-04-29 Outpatient NICOLASA CAMARA [facility] [id number] [place] 11:26:00 11:26:00 STEWART -[id number] [facility] 2023-04-23 2023-04-23 [facility] [id number] Univers 09:30:00 10:07:32 ROLA ity of [facility] 2023-04-23 2023-04-23 [facility] [id number] Univers 09:30:00 10:07:32 Visit Rola A HEALTH 350.1.13.10 i ty of [place] 4.2.7.2.686 Zachary as MIKHAIL?BLEA [id number] [address] OFFICE [facility] 2023-04-15 2023-04-15 Outpatient R [facility] [id number] Univers 09:00:00 09:00:00 ity of [facility] 2023-04-14 2023-04-14 Outpatient R [facility] [id number] Univers 10:00:00 10:00:00 ity of [facility] 2023-04-04 2023-04-04 Outpatient [facility] [id number] Univers 13:00:00 14:23:50 NERI ity of [facility] 2023-04-04 2023-04-04 Office [facility] [id number] Univers 13:00:00 14:23:50 Visit Neri H HEALTH 350.1.13.10 it y of [place] 4.2.7.2.686 Zachary as MIKHAIL?BLEA [id number] [facility] [address] [facility] OFFICE [facility] 2023-04-04 2023-04-04 Orders Doctor ROBBIE [id number] Univers 00:00:00 00:00:00 Only Unassigned, EMMA 350.1.13.10 ity of [place] [facility] 4.2.7.2.686 Zachary as [id number] [address] 2023-04-04 2023-04-04 Patient [facility] [id number] Univers 00:00:00 00:00:00 Secure Msg Rola A HEALTH 350.1.13.10 ity of [place] 4.2.7.2.686 Zachary as MIKHAIL?BLEA [id number] [facility] 044 [address] MEDICAL OFFICE [facility] 2023-04-02 2023-04-02 Refill [facility] 1.2.840.114 [id number] Univers 00:00:00 00:00:00 Rola A HEALTH 350.1.13.10 i ty of [place] 4.2.7.2.686 Zachary as MIKHAIL?BLEA [id number] [address] MEDICAL OFFICE [facility] 2023-03-14 2023-03-14 Patient Doctor [facility] [id number] Univers 00:00:00 00:00:00 Secure Msg Unassigned, [place] 350.1.13.10 ity of [place]2.7.2.[place] PROF[place] [id number] [place]ical [facility] 059 [facility] 2023-03-12 2023-03-12 Outpatient R [facility] [id number] Univers 09:59:00 12:40:00 MORA ity [facility] 2023-03-12 2023-03-12 [facility] [place] 1.2.840.114 [id number] Univers 09:59:00 12:40:00 Encounter Mora KATHERYN 350.1.13.10 ity of [place]2.7.2.686 [place] SURGICAL [id number] [facility] 071 Nazlini 2023-03-12 2023-03-12 Surgery [facility] 1.2.840.114 [id number] Univers 11:00:00 12:01:00 Mora KATHERYN 350.1.13.10 i ty of [place] 4[place]2.7.2.686 [place] SURGICAL [id number] [facility] 020 Branch 2023-03-12 2023-03-12 Orders Doctor ROBBIE 1.2.840.114 [id number] Univers 00:00:00 00:00:00 Only Unassigned, EMMA 350.1.13.10 ity of [place] [facility] 4.2.7.2.686 Zachary as [id number] [place] [address] Branch 2023-02-27 2023-02-27 Outpatient R [facility] [id number] Univers 08:40:00 08:40:00 ity of [facility] 2023-02-21 2023-02-21 Outpatient R UNKNOWN, [facility] [id number] Univers 09:00:00 09:00:00 ATTENDING ity [facility] 2023-02-19 2023-02-19 In-person Cari Mehta [facility] A dult Encounter/ Legacy 00:00:00 00:00:00 encounter [facility] 1 [id number] [facility] [id number] [facility] 2023-02-19 2023-02-19 In-person Cari Mehta [facility] A [facility] [id number] Legacy 00:00:00 00:00:00 encounter Linda Holbrook Medicine 2 [id number] Communi 17 [facility] 2023-02-03 2023-02-03 Patient Temple [facility] 1.2.840.114 [id number] Univers 00:00:00 00:00:00 Secure Msnemesio Cheung HEALTH 350.1.13.10 ity of [place] 4.2.7.2.686 Zachary as MIKHAIL?BLEA [id number] [address] 2023-01-22 2023-01-22 [facility] 1.2.840.114 [id number] Univers 00:00:00 00:00:00 Rola A HEALTH 350.1.13.10 i ty of [place] 4.2.7.2.686 Zachary as MIKHAIL?BLEA [id number] [address] 2023-01-02 2023-01-02 [facility] [id number] Univers 15:30:00 15:30:00 ROLA ity [facility] 2022-12-25 2022-12-25 Case [facility] [id number] Univers 00:00:00 00:00:00 Management Luis Angel Cheung HEALTH 350.1.13.10 ity of [place] 4.2.7.2.686 [place] [facility] - [id number] [address] 2022-12-25 2022-12-25 [facility]phone [facility] [id number] Univers 00:00:00 00:00:00 Rola A HEALTH [id number] i ty of [place] [id number] Zachary as MIKHAIL?BLEA [phone] [address] 2022-12-25 2022-12-25 [facility]phone [facility] [id number] Univers 00:00:00 00:00:00 Rola A HEALTH [id number] i ty of [place] [id number] Zachary as MIKHAIL?BLEA [phone] [address] OFFICE [facility] 2022-12-23 2022-12-23 [facility]phone [facility] [id number] Univers 00:00:00 00:00:00 Rola A HEALTH [id number] i ty of [place] 4.2.7.2.686 Zachary as MIKHAIL?BLEA [id number] [address] OFFICE [facility] 2022-12-18 2022-12-18 Prep For Cesilia [facility] 1.2.840.114 [id number] Univers 00:00:00 00:00:00 Surgery Mora CAMPA 350.1.13.10 i ty of [place].2.[place] [id number] [address] 2022-12-18 2022-12-18 Patient Doctor [facility] DAVID 1.2.827.395 [id number] [id number] Univers 00:00:00 00:00:00 Secure Msg Unassigned, DOM 350.1.13.10 ity of [place] [facility] [place] HE[place] [id number] [facility] [address] 2022-12-15 2022-12-15 Patient Doctor ROBBIE 1.2.840.114 [id number] Univers 00:00:00 00:00:00 Secure Msg Unassigned, EMMA 350.1.13.10 ity of [place] [facility] 4.2.7.2.686 Zachary as [id number] [facility] 0[address] 2022-12-13 2022-12-13 Out[facility] [id number] Univers 07:30:00 07:30:00 ROLA ity [facility] 2022-12-12 2022-12-12 Outpatient R [facility] [id number] Univers 11:00:00 11:00:00 ity [facility] 2022-12-10 2022-12-10 [facility]phone [facility] 1.2.661.741 [id number] Univers 00:00:00 00:00:00 Rola A HEALTH 350.1.13.10 i ty of [place] 4.2.7.2.686 Zachary as MIKHAIL?BLEA [id number] [address] OFFICE [facility] 2022-11-29 2022-11-29 Apollo [facility] 1.2.840.114 [id number] Univers 00:00:00 00:00:00 Wondiful A HEALTH 350.1.13.10 ity of [place] 4.2.7.2.686 Zachary as MIKHAIL?BLEA [id number] [address] OFFICE [facility] 2022-11-28 2022-11-28 Apollo [facility] 1.2.840.114 [id number] Univers 00:00:00 00:00:00 Wondiful A HEALTH 350.1.13.10 ity of [place] 4.2.7.2.686 Zachary as MIKHAIL?BLEA [id number] [address] OFFICE [facility] 2022-11-28 2022-11-28 Telephone [facility] 1.2.066.038 [id number] [id number] Univers 00:00:00 00:00:00 Rola A HEALTH 350.1.13.10 i ty of [place] 4.2.7.2.686 Zachary as MIKHAIL?BLEA [id number] [address] 2022-11-12 2022-11-12 Orders Doctor ROBBIE 1.2.840.114 [id number] Univers 00:00:00 00:00:00 Only Unassigned, EMMA 350.1.13.10 ity of [place] [facility] 4.2.7.2.686 Zachary as [id number] [address] 2022-11-07 2022-11-07 Outpatient R MINGO [facility] [id number] Univers 13:30:00 13:30:00 SENDIL ity of [facility] 2022-11-06 2022-11-06 Telephone [facility] 1.2.516.431 [id number] [id number] Univers 00:00:00 00:00:00 Rola A HEALTH 350.1.13.10 i ty of [place] 4.2.7.2.686 Zachary as MIKHAIL?BLEA [id number] W[place] miguelito COBB [address] MEDICAL OFFICE [facility] 2022-10-31 2022-10-31 Outpatient R OTIS [facility] [id number] Univers 09:30:00 09:30:00 ROLA greenwood [facility] 2022-10-31 2022-10-31 Telephone [facility] 1..656.677 [id number] Univers 00:00:00 00:00:00 Rola A HEALTH 350.1.13.10 i ty of [place] 4.2.7.2.686 Zachary as MIKAHIL?BLEA [phone] [facility] [address] OFFICE [facility] 2022-10-31 2022-10-31 Telephone [facility] .2.521.579 [id number] Univers 00:00:00 00:00:00 Rola Hightower HEALTH 350.1.13.10 i ty of [place] 4.2.7.2.686 Zachary as MIKHAIL?BLEA [id number] [address] OFFICE [facility] 2022-10-30 2022-10-30 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, Ang - Db [facility] 1.2.840.1 14 [id number] Univers 10:30:00 10:45:00 Visit Rola Berg HEALTH 350.1.13.10 ity of [place] 4.2.7.2.686 Zachary as MIKHAIL?BLEA [id number] [facility] COBB [address] [facility] OFFICE [facility] 2022-10-30 2022-10-30 Outpatient R OTIS [facility] [id number] Univers 10:30:00 10:30:00 ROLA ity [facility] 2022-10-29 2022-10-29 Outpatient R OTIS [facility] [id number] Univers 16:30:00 16:30:00 ROLA greenwood [facility] 2022-10-05 2022-10-05 In-person Cari Mehta [facility] A dult Encounter/ Legacy 00:00:00 00:00:00 encounter [facility] [id number] 128 Tamia Hayes 043749 ty [facility] 2022-09-26 2022-09-26 Outpatient [facility] [id number] Univers 09:30:00 09:58:34 ROLA [facility] 2022-09-26 2022-09-26 Office [facility] 1.2.840.114 [id number] Univers 09:30:00 09:58:34 Visit Rola Hightower HEALTH 350.1.13.10 i ty of [place] 4.2.7.2.686 Zachary as MIKHAIL?BLEA [id number] [address] OFFICE [facility] 2022-09-24 2022-09-24 Outpatient R [facility] [id number] Univers 08:00:00 08:00:00 [facility] 2022-09-13 2022-09-13 Outpatient [facility] [id number] Univers 09:15:00 09:15:00 [facility] 2022-09-12 2022-09-12 Outpatient R [facility] [id number] Univers 08:30:00 08:30:00 ZA [facility] 2022-07-24 2022-07-24 Outpatient [facility] [id number] Univers 10:30:00 10:30:00 ROLA [facility] 2022-07-19 2022-07-19 Telephone [facility] 1.2.419.494 [id number] Univers 00:00:00 00:00:00 Rola Hightower HEALTH 350.1.13.10 i ty of [place] 4.2.7.2.686 Zachary as MIKHAIL?BLEA [id number] [address] OFFICE [facility] 2022-07-17 2022-07-17 Outpatient R [facility] [id number] Univers 15:30:00 15:30:00 [facility] 2022-06-20 2022-06-20 Outpatient R [facility] [id number] Univers 09:15:00 09:15:00 CHEYENNE greenwood of [facility] 2022-06-20 2022-06-20 Telephone Edinson [facility] 1.2.249.384 [id number] Univers 00:00:00 00:00:00 Gavi FLETCHER 350.1.13.10 it y of [place] 4.2.7.2.686 Zachary as MIKHAIL?BLEA [phone] [address] MEDICAL OFFICE BUILDING 2022-06-19 2022-06-19 Emergency Kaden, 1.2.840.1 [id number] Methodi 03:02:00 04:43:[address] [facility] 3.430.2.7 Hospit a .3.260287 l .8 2022-06-19 2022-06-19 Travel 1.2.840.1 1.2.157.771 3251 [id number] Methodi 00:00:00 00:00:[address] 3.430.2.7 0.2.7.3.698 Ho spita .3.446955 084.8 l .8 2022-06-18 2022-06-18 Emergency Sorto, 1.2.840.1 [id number] 2100 150374 Methodi 12:08:00 18:40:[address] Clif[address] Pressley [address]953.[address] 3.430.2.7 Hospit a .3.133924 l .8 2022-06-13 2022-06-13 Orders Doctor ROBBIE 1.2.840.114 [id number] Univers 00:00:00 00:00:00 Only Unassigned, EMMA 350.1.13.10 ity of [place] [facility] 4.2.7.2.686 Zachary as [id number] [address] 2022-06-12 2022-06-12 Outpatient R DENNIS [facility] [id number] Univers 09:15:00 09:15:00 THEODORE greenwood o f [facility] 2022-06-12 2022-06-12 Telephone Otis [facility] 1.2.704.100 [id number] Univers 00:00:00 00:00:00 Rola Hightower HEALTH 350.1.13.10 i ty of [place] 4.2.7.2.686 Zachary as MIKHAIL?BLEA [id number] [address] MEDICAL OFFICE BUILDING 2022-06-06 2022-06-06 Office Otis [facility] 1.2.840.114 [id number] Univers 07:30:00 08:00:00 Visit Rola Hightower HEALTH 350.1.13.10 i ty of [place] 4.2.7.2.686 Zachary as MIKHAIL?BLEA [id number] [address] MEDICAL OFFICE BUILDING 2022-06-06 2022-06-06 Outpatient R OTIS [facility] [id number] Univers 07:30:00 07:30:00 ROLA ity [facility] 2022-06-06 2022-06-06 Orders Doctor ROBBIE 1.2.840.114 [id number] Univers 00:00:00 00:00:00 Only Unassigned, EMMA 350.1.13.10 ity of [place] [facility] 4.2.7.2.686 Zachary as [id number] [address] 2022-06-04 2022-06-04 Telephone Syeda, 1.2.840.1 [id number] [id number] Methodi 00:00:00 00:00:[address] 3.430.2.7 Hospit a .3.289404 l .8 2022-05-31 2022-05-31 Telemedici Syeda 1.2.840.1 [id number] 21 [id number] Methodi 10:45:00 11:08:25 [address] Wondiful [address]15.1.[address] 3.430.2.7 Hospit a .3.037193 l .8 2022-05-31 2022-05-31 Telephone Syeda 1.2.840.1 [id number] 972 [id number] Methodi 00:00:00 00:00:[address] 3.430.2.7 Hospit a .3.408729 l .8 2022-05-29 2022-05-31 Office Cari Mehta [facility] Encounter/ Legacy 00:00:00 00:00:00 Visit Linda Holbrook [id number] Deirdre Oglesby 2573 90 [facility] 2022-05-29 2022-05-31 In-person Satnamvioletgarth Cari [facility] A dult [id number] Legacy 00:00:00 00:00:00 encounter Linda Holbrook Medicine 2 38- Deirdre Oglesby 24 [facility] 2022-05-22 2022-05-22 Orders Doctor ROBBIE 1.2.840.114 [id number] Univers 00:00:00 00:00:00 Only Unassigned, EMMA 350.1.13.10 ity of [place] [facility] 4.2.7.2.686 Zachary as [id number] [address] 2022-05-09 2022-05-09 Telephone Syeda 1.2.840.1 [id number] Method 00:00:00 00:00:[address] 3.430.2.7 Hospit a .3.552819 l .8 2022-05-09 2022-05-09 Telephone Guillermo MIFAUZIA 1.2.395.609 [id number] Univers 00:00:00 00:00:00 [facility] 350.1.13.10 it y of [place] 4.2.7.2.686 Zachary as MIKHAIL?BLEA [id number] [address] MEDICAL OFFICE BUILDING 2022-05-01 2022-05-01 Outpatient Abdi HAZEL [facility] [id number] Univers 10:00:00 10:00:00 GOGO greenwood [facility] 2022-04-25 2022-04-25 Outpatient Abdi BELCHER [facility] [id number] Univers 13:30:00 13:30:00 ROB greenwood [facility] 2022-04-19 2022-04-19 Outpatient Abdi BELCHER [facility] [id number] Univers 14:30:00 14:30:00 ROB greenwood [facility] 2022-04-18 2022-04-18 [facility] 1.2.840.114 [id number] Univers 00:00:00 00:00:00 Wondiful A HEALTH 350.1.13.10 ity of [facility] 4.2.7.2.686 Zachary as MIKHAIL?BLEA [phone] [address] MEDICAL OFFICE [facility] 2022-04-17 2022-04-17 Office Jonathan Nieves [facility] Enc ounter/ Legacy 00:00:00 00:00:00 Visit Benita Bullock [id number] 1703 Communi 819337 [facility] 2022-04-17 2022-04-17 Office Larry Herrera [facility] E ncounter/ Legacy 00:00:00 00:00:00 Visit Kusum Spears 164345 2444 Communi 205477 [facility] 2022-04-17 2022-04-17 In-person Jonathan Nieves [facility] Visio n [id number] Legacy 00:00:00 00:00:00 encounter Kobe Benita 238- [phone] Communi 13 [facility] 2022-04-12 2022-04-12 Outpatient Abdi AGUILA [facility] [id number] Univers 09:00:00 09:00[facility] 2022-[facility]-12 2022-04-12 Outpatient Abdi AGUILA [facility] [id number] Univers 09:00:00 09:00:00 [facility] 2022-03-19 2022-03-19 Outpatient [facility] [id number] [place] 00:00:00 00:00:00 ROBY [facility] 2022-03-15 2022-03-15 [facility] 1.2.840.114 [id number] Univers 00:00:00 00:00:00 Wondiful A HEALTH 350.1.13.10 ity of [place] 4.2.7.2.686 Zachary as MIKHAIL?BLEA [id number] [address] MEDICAL OFFICE [facility] 2022-03-142022-03-14 Refill Syeda, [facility] 1.2.840.114 [id number] Univers 00:00:00 00:00:00 Wondiful A HEALTH 350.1.13.10 ity [facility] 4.2.7.2.686 Zachary as MIKHAIL?BLEA [id number] [address] 2022-02-14 2022-02-14 Outpatient [facility] [id number] [place] 11:29:56 11:59:56 A, [facility] 2022-02-14 2022-02-14 Outpatient [facility] 180 [id number] [place] 10:28:13 10:30:14 A, [facility] 2022-02-14 2022-02-14 Outpatient [facility] 180 [id number] [place] 00:00:00 00:00:00 A, [facility] 2022-02-05 2022-02-05 Outpatient [facility] 178 [id number] [place] 10:05:28 11:44:39 A, [facility] 2022-02-05 2022-02-05 Refill Kings, [facility] 1.2.840.114 [id number] Univers 00:00:00 00:00:00 [facility] 350.1.13.10 ity [facility] 4.2.7.2.686 Zachary as MIKHAIL?BLEA [id number] [address] 2022-02-04 2022-02-04 Outpatient [facility] [id number] 674 [place] 00:00:00 00:00:00 [facility] 2022-01-28 2022-01-28 Office Cari Mehta [facility] Encounter/ Legacy 00:00:00 00:00:00 Visit Linda Holbrook [facility] [id number] [facility] 893207 [facility] 2022-01-28 2022-01-28 In-person Cari Mehta [facility] A dult [id number] Legacy 00:00:00 00:00:00 encounter Linda Holbrook [facility] 2 [phone] Communi 25 [facility] 2022-01-27 2022-01-27 Refill Syeda [facility] 1.2.840.114 [id number] Univers 00:00:00 00:00:00 Wondiful A HEALTH 350.1.13.10 ity of [place] 4.2.7.2.686 Zachary as PROFESSIO [phone] [place] miguelito ESTRADA 044 [facility] ONE 2022-01-08 2022-01-08 Outpatient [facility] [id number] [place] 00:00:00 00:00:00 KYLE Hightower Healann [facility] 2022-01-03 2022-01-03 Out[facility] [id number] Univers 14:30:00 15:09:56 SENDCOREY greenwood [facility] 2022-01-03 2022-01-03 Office [facility] 1.2.840.114 [id number] Univers 14:30:00 15:09:56 Visit Nitin CAMPA 350.1.13.10 ity nehemiah [place].2.7.2.686 [place] [phone] [place] mig[place] ESTRADA 059 [facility] 2021-12-26 2021-12-26 In-person Pepe Moore [facility] D ental Encounter/ Legacy 00:00:00 00:00:00 encounter Anup Kenia 503 [id number] Communi 599229 [facility] 2021-12-24 2021-12-24 Outpatient R NATHANAEL [facility] [id number] Univers 14:45:00 15:27:18 JOSIAH greenwood [facility] 2021-12-24 2021-12-24 Office [facility] 1.2.840.114 [id number] Univers 14:45:00 15:27:18 Visit [facility] 350.1.13.10 it y of [place] 4.2.7.2.686 Zachary as MIKHAIL?BLEA [phone] [place] miguelito SCOTT 198 [facility] 2021-12-24 2021-12-24 Outpatient R SYEDA [facility] [id number] Univers 14:00:00 14:54:06 WONDIFUL ity o f [facility] 2021-12-24 2021-12-24 Office [facility] 1.2.840.114 [id number] Univers 14:00:00 14:54:06 Visit Naeemmaria lnaresh Hightower HEALTH 350.1.13.10 ity of [place] 4.2.7.2.686 Zachary as MIKHAIL?BLEA [phone] [place] miguelito SCOTT [address] MEDICAL OFFICE BUILDING 2021-12-19 2021-12-19 Telephone [facility] 1.2.840.114 [id number] Univers 00:00:00 00:00:00 Cheyenne Grant HEALTH 350.1.13.10 it y of [facility] [place] 4.2.7.2.686 Zachary as MIKHAIL?BLEA [phone] [place] miguelito SCOTT 198 [facility] OFFICE [facility] 2021-12-17 2021-12-17 Outpatient DAVION, [facility] [id number] 848 [place] 14:42:18 15:15:47 [facility] 2021-12-14 2021-12-14 Outpatient R [facility] [id number] Univers 10:30:00 10:30:00 WONDIFUL ity o f [facility] 2021-12-12 2021-12-13 Emergency X [facility] ERT [id number] Univers 21:12:00 01:12:00 BRANDY krystyna [facility] 2021-12-12 2021-12-13 Emergency [facility] 1.2.826.920 [id number] Univers 21:12:00 01:12:00 Brandy CAMPA 350.1.13.10 i ty of [place].2.7.2.686 [place] [id number] [facility] [address] [place] [address] 2021-12-03 2021-12-03 Outpatient R [facility] SOR [id number] Univers 06:40:00 10:31:00 CHEYENNE iterendira [facility] 2021-12-03 2021-12-03 [facility] 1.2.840.114 [id number] Univers 06:40:00 10:31:00 Encounter Cheyenne CAMPA 350.1.13.10 ity of [facility] 4.2.7.2.686 [place] SURGICAL [id number] [address] 2021-12-03 2021-12-03 Surgery [facility] 1.2.250.400 [id number] Univers 07:30:00 08:51:00 Cheyenne CAMPA 350.1.13.10 i ty of [place] 4.2.7.2.686 [place]ICAL [id number] [facility] [address] 2021-12-03 2021-12-03 Telephone [facility] 1.2.840.114 [id number] Univers 00:00:00 00:00:00 Cheyenne Grant HEALTH 350.1.13.10 it y of [facility] [place] 4.2.7.2.686 Zachary as MIKHAIL?BLEA [id number] [place] miguelito COBB [address] MEDICAL OFFICE BUILDING 2021-11-30 2021-11-30 Laboratory Only, Adc Test [facility] 1.2.840. 114 [id number] Univers 10:15:00 10:30:00 Only GuthrieCheyenne KATHERYN 350.1.13.10 ity of [facility] 4.2.7.2.686 [place] [id number] [facility] [address] 2021-11-30 2021-11-30 Outpatient [facility] [id number] Univers 10:15:00 10:15:00 CHEYENNE greenwood [facility] 2021-11-30 2021-11-30 Outpatient R GUTHRIE [facility] [id number] Univers 10:15:00 10:15:00 CHEYENNE greenwood [facility] 2021-11-28 2021-11-28 Telephone [facility] 1.2.840.114 [id number] Univers 00:00:00 00:00:00 Cheyenne VINCENTSKYLER 350.1.13.10 i ty of [facility] 4.2.7.2.686 [place] PROFESSIO [phone] [place] miguelito [facility] [address] BUILDING 2021-11-23 2021-11-23 [facility] 1.2.840.114 [id number] Univers 10:59:28 23:59:00 Encounter Cheyenne Juanita CAMPA 350.1.13.10 ity of [facility] 4.2.7.2.686 [facility] [phone] [facility] [address] 2021-11-23 2021-11-23 Solar Thermal Installer Luís, Roger Lab Main [facility] 1.2.8 40.114 [id number] Univers 11:00:00 11:15:00 Visit Cheyenne Guthrie 350.1.13.10 ity of [facility] 4.2.7.2.686 [place] PROFESSIO [phone] W[place] dical NAL [address] BUILDING 2021-11-23 2021-11-23 Laboratory Only, Adc Test [facility] 1.2.840. 114 [id number] Univers 10:45:00 11:00:00 Only Cheyenne Guthrie 350.1.13.10 ity of [facility] 4.2.7.2.686 [facility] [phone] [facility] [address] 2021-11-23 2021-11-23 Hospital [place] [facility] 1.2.840.114 [id number] Univers 10:57:32 10:58:00 Encounter Cheyenne CAMPA 350.1.13.10 ity of [facility] 4.2.7.2.686 [facility] [id number] [facility] [address] 2021-11-23 2021-11-23 Outpatient R GUTHRIE [facility] [id number] Univers 10:45:00 10:45:00 CHEYENNE ity of [facility] 2021-11-16 2021-11-16 Prep For Guthrie [facility] 1.2.840.114 [id number] Univers 00:00:00 00:00:00 Surgery Cheyenne Grant [facility] 350.1.13.10 it y of [facility] 4.2.7.2.686 Zachary as MIKHAIL?BLEA [phone] Wv dical KNEY [address] MEDICAL OFFICE BUILDING 2021 2021 Orders Doctor ROBBIE 1.2.840.114 [id number] Univers 00:00:00 00:00:00 Only Unassigned, EMMA 350.1.13.10 ity of [facility] 4.2.7.2.686 Zachary as [id number] [facility] [address] 2021-11-08 2021-11-08 Telephone [place] [facility] 1.2.840.114 [id number] Univers 00:00:00 00:00:00 Cheyenne FLETCHER 350.1.13.10 it y of [place] 4.2.7.2.686 Zachary as MIKHAIL?BLEA [id number] W[place] miguelito [address] OFFICE [facility] 2021-11-07 2021-11-07 Office Clevealnd [facility] 1.2.627.316 [id number] Univers 13:30:00 13:34:51 Visit Cheyenne FLETCHER 350.1.13.10 it y of [place] 4.2.7.2.686 Zachary as MIKHAIL?BLEA [phone] [place] miguelito [address] 2021-11-07 2021-11-07 Outpatient Abdi GUTHRIE [facility] [id number] Univers 13:30:00 13:34:51 [facility] 2021-11-07 2021-11-07 Outpatient Abdi [facility] [id number] Univers 13:30:00 13:30:00 [facility] 2021-11-07 2021-11-07 Outpatient Abdi AGUILA [facility] [id number] Univers 11:30:00 11:30:00 [facility] 2021-11-07 2021-11-07 Outpatient Abdi AGUILA [facility] [id number] Univers 11:30:00 11:30:00 [facility] 2021-10-29 2021-11-01 In-person Cari Mehta [facility] A dult [id number] Legacy 00:00:00 00:00:00 encounter [facility] 2 Samiri Kash-Rupa Montaño 24 ty [place] [facility] 2021-10-25 2021-10-25 Outpatient Abdi [facility] [id number] Univers 08:45:00 08:45:00 [place] erendira [facility] 2021-10-25 2021-10-25 Outpatient Abdi [facility] [id number] Univers 08:45:00 08:45:00 [place] ity [facility] 2021-10-24 2021-10-24 Outpatient R [facility] [id number] Univers 09:30:00 09:30:00 SENDIL ity [facility] 2021-10-24 2021-10-24 Outpatient R [facility] [id number] Univers 09:30:00 09:30:00 SENDIL ity [facility] 2021-10-24 2021-10-24 Outpatient R [facility] [id number] Univers 09:30:00 09:30:00 [facility] 2021[facility]10[facility]23 [facility] [id number] Univers 00:00:00 00:00:00 Secure Msg Wondiful A HEALTH [id number] ity of [place] [id number] Zachary as MIKHAIL?BLEA [phone] [address] OFFICE [facility] 2021-10-19 2021-10-19 [facility]phone [facility] [id number] Univers 00:00:00 00:00:00 Wondiful A HEALTH [id number] ity of [place] [id number] Zachary as MIKHAIL?BLEA [phone] [address] OFFICE [facility] 2021-10-17 2021-10-17 [facility]phone [facility] [id number] Univers 00:00:00 00:00:00 Wondiful A HEALTH [id number] ity of [place] [id number] Zachary as MIKHAIL?BLEA [phone] [address] OFFICE [facility] 2021-10-11 2021-10-11 Outpatient R [facility] [id number] Univers 13:34:18 23:59:00 [place] greenwood [facility] 2021-10-11 2021-10-11 [facility] [place] [facility] [id number] Univers 13:34:18 23:59:00 Encounter [place] [id number] ity [place] [id number] [phone] [facility] [address] 2021-10-11 2021-10-11 Outpatient R [facility] [id number] Univers 13:34:18 23:59:00 [place] greenwood [facility] 2021-10-11 2021-10-11 [facility] [id number] Univers 13:34:18 23:59:00 [place] greenwood [facility] 2021-09-27 2021-09-27 [facility] [id number] Univers 09:15:00 09:32:17 [place] greenwood [facility] 2021-09-27 2021-09-27 [facility] [id number] Univers 09:15:00 09:32:17 Visit [place]enne rGant HEALTH [id number] it y of [facility] [id number] Zachary as MIKHAIL?BLEA [phone] [place] morrisisa SCOTT [address] MEDICAL OFFICE [facility] 2021-09-26 2021-09-26 Case Syeda [facility] [facility] 1.2.840.114 [id number] Univers 00:00:00 00:00:00 Management Wondiful A HEALTH 350.1.13.10 ity of [place] 4.2.7.2.686 Zachary as MIKHAIL?BLEA [phone] [place] miguelito SCOTT 044 Nazlini MEDICAL OFFICE [facility] 2021-09-21 2021-09-21 Patient Doctor ROBBIE 1.2.840.114 [id number] Univers 00:00:00 00:00:00 Secure Msg Unassigned, EMMA 350.1.13.10 ity of [place] [facility] 4.2.7.2.686 Zachary as [phone] [facility] 019 Nazlini 2021-09-17 2021-09-17 Outpatient R [facility] [id number] Univers 08:45:00 12:01:49 WONDIFUL ity o f [facility] 2021-09-17 2021-09-17 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, Ang - Db [facility] 1.2.840.1 14 [id number] Univers 08:37:54 08:52:54 Visit KingsNaeem sampsonmoshe Campbell HEALTH 350.1.13.1 0 ity of [place] 4.2.7.2.686 Zachary as MIKHAIL?BLEA [phone] [facility] SC[facility] 353 Nazlini MEDICAL OFFICE BUILDING 2021-09-17 2021-09-17 Office Syeda [facility] 1.2.840.114 [id number] Univers 07:57:38 08:38:20 Visit Leidy Hightower HEALTH 350.1.13.10 ity of [place] 4.2.7.2.686 Zachary as MIKHAIL?BLEA [phone] [address] OFFICE [facility] 2021-09-17 2021-09-17 Outpatient R [facility] [id number] Univers 08:15:00 08:15:00 WONDIFUL ity o f [facility] 2021-09-15 2021-09-15 [facility] 1.2.840.114 [id number] Univers 00:00:00 00:00:00 Wondiful A HEALTH 350.1.13.10 ity of [place] 4.2.7.2.686 Zachary as PROFESSIO [phone] [address] ONE 2021-09-05 2021-09-05 Refill Mingo [facility] 1.2.840.114 [id number] Univers 00:00:00 00:00:00 Nitin Durant [place] 350.1.13.10 ity of [place].2.7.2.[place] [phone] [facility] NAL 059 [facility] 2021-09-05 2021-09-05 Patient Doctor [facility] 1.2.840.114 [id number] Univers 00:00:00 00:00:00 Secure Msg Unassigned, HEALTH 350.1.13.10 ity of [place] 4.2.7.2.686 Zachary as MIKHAIL?BLEA [phone] [address] OFFICE BUILDING 2021-09-01 2021-09-01 Refmargarita [facility] 1.2.840.114 [id number] Univers 00:00:00 00:00:00 Wondiful A HEALTH 350.1.13.10 [facility] [place] 4.2.7.2.686 Zachary as MIKHIAL?BLEA [phone] [place] miguelito SCOTT 044 [facility] OFFICE [facility] 2021-08-31 2021-08-31 [facility] 1.2.840.114 [id number] Univers 00:00:00 00:00:00 Wondiful A HEALTH 350.1.13.10 it[facility] [place] 4.2.7.2.686 Zachary as PROFESSIO [phone] [facility] [address] [facility] 2021-08-22 2021-08-22 Hospital [facility] 1.2.840.114 [id number] Univers 08:54:19 23:59:00 Encounter Sendcorey CAM[place] 350.1.13.10 ity [facility] 4.2.7.2.[place] [phone] [facility] 843 [facility] 2021-08-22 2021-08-22 Out[facility] [id number] Univers 10:00:00 10:09:48 SENDIL ity of [facility] 2021-08-22 2021-08-22 Office [facility] 1.2.840.114 [id number] Univers 09:35:29 10:09:48 Visit Sendcorey CAMPA 350.1.13.10 ity [facility] 4.2.7.2.686 [place] [phone] [place] dicia NAL 059 [facility] 2021-08-17 2021-08-17 [facility] 1.2.840.114 [id number] Univers 00:00:00 00:00:00 Wondiful A HEALTH 350.1.13.10 ity of [facility] [place] 4.2.7.2.686 Zachary as PROFESSIO [phone] [facility] 044 [facility] ONE 2021-08-12 2021-08-12 Emergency X NEL [facility] ERT [id number] Univers 10:00:00 13:30:00 MEEK ity of [facility] 2021-08-12 2021-08-12 Emergency [facility] 1.2.810.198 [id number] Univers 10:00:00 13:30:00 Meek S [place] 350.1.13.10 i ty of [place] 4.2.7.2.686 [place] [phone] [facility] 084 Branch 2021-08-12 2021-08-12 Orders Doctor ROBBIE 1.2.840.114 [id number] Univers 00:00:00 00:00:00 Only Unassigned, EMMA 350.1.13.10 ity of [place] [facility] 4.2.7.2.686 Zachary as [phone] [facility] 009 Branch 2021-07-13 2021-07-13 Hospital [facility] 1.2.423.750 [id number] Univers 07:45:40 23:59:00 Encounter Wonmaria lful A Katheryn 350.1.13.10 ity of [place] 4.2.7.2.686 [facility] [phone] [facility] 804 Nazlini 2021-07-13 2021-07-13 Outpatient [facility] [id number] Univers 00:00:00 00:00:00 WONDIFUL ity o f [facility] 2021-07-11 2021-07-11 Office [facility] 1.2.840.114 [id number] Univers 08:51:55 09:46:21 Visit Nitin Campa 350.1.13.10 ity of [place].2.7.2.[place] Profess[place] [phone] [place] dical nal 059 Branch [facility] 2021-07-11 2021-07-11 Outpatient R [facility] [id number] Univers 09:00:00 09:00:00 SENDIL krystyna [facility] 2021-07-06 2021-07-06 Refill [facility] 1.2.840.114 [id number] Univers 00:00:00 00:00:00 Wondiful A Health 350.1.13.10 ity of [place] 4.2.7.2.686 Zachary as Mikhail?Blea [phone] [place] miguelito scott 044 Nazlini Medical Office Building 2021-06-25 2021-06-25 Outpatient R [facility] [id number] Univers 08:30:00 08:30:00 WONDIFUL ity o f [facility] 2021-06-25 2021-06-25 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, Ang - [facility] 1.2.840.1 14 [id number] Univers 08:14:41 08:29:41 Visit Leidy Landa Health 350.1.13.1 0 ity of [place] 4.2.7.2.686 Zachary as Mikhail?Blea [phone] [place] miguelito [facility] 353 Nazlin[address] Medical Office [facility] 2021-06-21 2021-06-21 Outpatient R [facility] [id number] Univers 13:30:00 13:30:00 SENDIL ity of [facility] 2021-06-18 2021-06-18 Office [facility] 1.2.840.114 [id number] Univers 08:11:33 09:03:55 Visit Wonmoshe A Health 350.1.13.10 ity of [place] 4.2.7.2.686 Zachary as Mikhail?Blea [phone] [facility] 044 Nazlini Medical Office [facility] 2021-06-18 2021-06-18 Outpatient R [facility] [id number] Univers 08:15:00 08:15:00 WONDIFUL ity o f [facility]ly [facility] 2021-06-18 2021-06-18 Orders Doctor ROBBIE Worthington.2.840.114 [id number] Univers 00:00:00 00:00:00 Only Unassigned, EMMA 350.1.13.10 ity of [place] [facility] 4.2.7.2.686 Zachary as [phone] [address] 2021-06-18 2021-06-18 Patient Doctor ROBBIE Chang2.840.114 [id number] Univers 00:00:00 00:00:00 Secure Msg Unassigned, EMMA 350.1.13.10 ity of [place] [facility] 4.2.7.2.686 Zachary as [phone] [facility] 019 Nazlini 2021-06-18 2021-06-18 Orders Doctor ROBBIE 1.2.840.114 [id number] Univers 00:00:00 00:00:00 Only Unassigned, EMMA 350.1.13.10 ity of [place] [facility] 4.2.7.2.686 Zachary as [phone] [facility] 009 Branch 2021-05-20 2021-05-20 Outpatient R DARLINE [facility] [id number] Univers 18:00:00 18:00:00 PK ity o f [facility] 2021-05-07 2021-05-07 Out[facility] [id number] Univers 15:00:00 15:00:00 WONDIFUL ity o f [facility] 2021-04-16 2021-04-16 Outpatient R JOSE [facility] [id number] Univers 10:30:00 10:30:00 JASON iterendira [facility] 2021-03-23 2021-03-23 Apollo [facility] 1.2.840.114 [id number] Univers 00:00:00 00:00:00 Wondiful A Health 350.1.13.10 ity of [place] 4.2.7.2.686 Zachary as Professio [phone] [address] One 2021-02-25 2021-02-25 Emergency [facility] [id number] [facility] 13:15:00 13:15:00 48 2021-02-18 2021-02-18 Apollo [facility] 1.2.840.114 [id number] Univers 00:00:00 00:00:00 Wondiful A Health 350.1.13.10 ity of [place] 4.2.7.2.686 Zachary as Professio [phone] [address] One 2021-02-05 2021-02-05 Outpatient [facility] [id number] Univers 08:30:00 08:30:00 WONDIFUL ity o f [facility] 2021-01-15 2021-01-15 Refmargarita [facility] 1.2.840.114 [id number] Univers 00:00:00 00:00:00 Wondiful A Health 350.1.13.10 ity of [place] 4.2.7.2.686 Zachary as Professio [phone] [address] Office [facility] One 2020-12-21 2020-12-21 Patient [facility] 1.2.840.114 [id number] Univers 00:00:00 00:00:00 Outreach Randall PRIMARY 350.1.13.10 i ty of [facility] [place].2.7.2.[place] [phone] [address] 2020-12-01 2020-12-01 Outpatient R [facility] [id number] Univers 14:30:00 14:30:00 JASON greenwood [facility] 2020-11-15 2020-11-15 Case [facility] 1.2.840.114 [id number] Univers 00:00:00 00:00:00 Management Wondiful A Health 350.1.13.10 ity of [place] 4.2.7.2.686 Zachary as Professio [phone] [address] Office [facility] One 2020-11-15 2020-11-15 Refmargarita [facility] 1.2.840.114 [id number] Univers 00:00:00 00:00:00 Wondiful A Health 350.1.13.10 ity of [place] 4.2.7.2.686 Zachary as Professio [phone] [address] Office [facility] One 2020-11-06 2020-11-06 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, Adc Fam Pob I [facility] 1.2. 840.114 [id number] Univers 08:52:39 09:12:39 Visit Naeem Landamoshe A Health 350.1.13.1 0 ity of [place] 4.2.7.2.686 Zachary as Professio [phone] [address] Office [facility] One 2020-11-062020-11-06 Office [facility] 1.2.840.114 [id number] Univers 07:57:37 08:59:11 Visit Wondiful A Health 350.1.13.10 ity of [place] 4.2.7.2.686 Zachary as [facility] Hospital[facility] [phone] [place] [address] Office Building One 2020-11-06 2020-11-06 Outpatient [facility] [id number] Univers 08:15:00 08:15:00 WONDIFUL ity o f [facility] 2020-08-14 2020-08-14 Emergency [facility] 1.2.176.259 [id number] Univers 09:55:00 12:14:00 Soni Campa 350.1.13.10 i ty of [place] 4.2.7.2.686 [place] [phone] [facility] 084 Nazlini 2020-08-14 2020-08-14 Orders Doctor ROBBIE 1.2.840.114 [id number] Univers 00:00:00 00:00:00 Only Unassigned, EMMA 350.1.13.10 ity of [place] [facility] 4.2.7.2.686 Zachary as [phone] [facility] 009 Branch 2020-08-03 2020-08-03 Outpatient DONTA MOORE [facility] [id number] [place] 00:00:00 00:00:00 Health 2020-06-19 2020-06-19 Outpatient [facility] [id number] Univers 14:15:00 14:15:00 WONDIFUL ity o f [facility] 2020-06-02 2020-06-02 Outpatient Abdi GARCIA [facility] [id number] Univers 13:30:00 13:30:00 JASON [place] of [facility] 2020-05-18 2020-05-18 Outpatient R [facility] [id number] Univers 11:30:00 11:30:00 WONDIFUL ity o f [facility] 2020-05-11 2020-05-11 Refill [facility] 1.2.840.114 [id number] Univers 00:00:00 00:00:00 Wondiful A Health 350.1.13.10 ity of [place] 4.2.7.2.686 Zachary as Professio [phone] [facility] 044 Nazlin[address] Office [facility] 2020-05-11 2020-05-11 Refill Doctor UNIVERSIT 1.2.353.542 [id number] Univers 00:00:00 00:00:00 Unassigned, Y HEALTH 350.1.13.10 ity of [place] [facility] [place].2.[place] [phone] [address] 2020-04-14 2020-04-14 [facility]ill [facility] 1.2.840.114 [id number] Univers 00:00:00 00:00:00 Wondiful A Health 350.1.13.10 ity of [place] 4.2.7.2.686 Zachary as Professio [phone] [address] 2020-04-14 2020-04-14 Telephone [place], UNIVERSIT 1.2.840.114 [id number] Univers 00:00:00 00:00:00 Jason Y HEALTH 350.1.13.10 i ty of [place].2.[place] [id number] [address] 2020-03-23 2020-03-23 Outpatient [facility] [id number] Univers 13:15:00 13:15:00 WONDIFUL ity o f [facility] 2020-03-14 2020-03-14 Office Cordelia Nance [facility] Vision Enc ounter/ Legacy 00:00:00 00:00:00 Visit [id number] [facility] elyse [id number] Health 2020-01-11 2020-01-11 Telephone Vibha, UNIVERSIT 1.2.840.114 [id number] Univers 00:00:00 00:00:00 Ba L Y HEALTH 350.1.13.10 ity of [place].2.[place] [phone] [address] 2020-01-07 2020-01-07 Telephone East, UNIVERSIT 1.2.840.114 [id number] Univers 00:00:00 00:00:00 Jason Y HEALTH 350.1.13.10 i ty of [place] 4[place]2.7.2.[place] [phone] [facility] 089 Nazlini 2020-01-05 2020-01-05 Telephone [facility] 1.2.840.114 [id number] Univers 00:00:00 00:00:00 Wondiful A Health 350.1.13.10 ity of [place] 4.2.7.2.686 Zachary as Professio [phone] W[place] dical nal 044 [address] Office Building One 2020-01-04 2020-01-04 Solar Thermal Installer Luís, Adc Lab Main [facility] 1.2.8 40.114 [id number] Univers 10:22:10 10:37:10 Visit Jason Garcia 350.1.13.10 ity of [place] 4.2.7.2.686 [place] Profess[place] [phone] [place] dical nal 353 [facility] 2020-01-04 2020-01-04 Outpatient [facility] [id number] Univers 10:30:00 10:30:00 [facility] 2020-01-04 2020-01-04 Orders Doctor ROBBIE 1.2.840.114 [id number] Univers 00:00:00 00:00:00 Only Unassigned, EMMA 350.1.13.10 ity of [place] [facility] 4.2.7.2.686 Zachary as [phone] [facility] 009 Nazlini 2019-12-30 2019-12-30 Telemedici Jose [facility] 1.2.840.114 [id number] Univers 07:26:24 08:26:24 ne Visit Jason Mao HEALTH 350.1.13.10 ity of [place] 4[place]2.[place].2.[place] [phone] [facility] 089 Nazlini 2019-12-30 2019-12-30 Outpatient R [facility] [id number] Univers 08:00:00 08:00:00 JASON [facility] 2019-12-24 2019-12-30 Office [facility] 1.2.840.114 [id number] Univers 08:31:19 02:18:59 Visit Wondiful A Health 350.1.13.10 ity of [place] 4.2.7.2.686 Zachary as Professio [phone] [address] Office Building One 2019-12-30 2019-12-30 Telephone Syeda [facility] 1.2.840.114 [id number] Univers 00:00:00 00:00:00 Wondiful A Health 350.1.13.10 ity of [place] 4.2.7.2.686 Zachary as Professio [phone] [address] Office Building One 2019-12-30 2019-12-30 Telephone XaviNIKOLASANSON 1.2.840.114 [id number] Univers 00:00:00 00:00:00 Ba L Y HEALTH 350.1.13.10 ity of [place] 4[place].2.[place] [phone] [facility] 089 [address]lin[address] 2019-12-24 2019-12-24 Outpatient [facility] [id number] Univers 09:00:00 09:00:00 WONDIFUL ity o f [facility] 2019-12-24 2019-12-24 Orders Doctor ROBBIE 1.2.840.114 [id number] Univers 00:00:00 00:00:00 Only Unassigned, EMMA 350.1.13.10 ity of [place] [facility] 4.2.7.2.686 Zachary as [phone] [facility] 009 Nazlini 2019-12-24 2019-12-24 Telephone Syeda [facility] 1.2.840.114 [id number] Univers 00:00:00 00:00:00 Wondiful A Health 350.1.13.10 ity of [place] 4.2.7.2.686 Zachary as Professio [phone] [address] Office Building One 2019-12-10 2019-12-10 Outpatient Abdi LANDA [facility] [id number] Univers 13:30:00 13:30:00 WONDIFUL ity o f [facility] 2019-09-24 2019-09-24 Office Bullock, [facility] Vision Encoun ter/ Legacy 00:00:00 00:00:00 Visit Benita [id number] Com elyse [id number] [facility] 2019-09-14 2019-09-14 Office Lonnie Chatman [facility] Vision Enc ounter/ Legacy 00:00:00 00:00:00 Visit [id number] Com elyse [id number] [facility] 2019-09-14 2019-09-14 Office Lonnie Chatman [facility] Vision Enc ounter/ Legacy 00:00:00 00:00:00 Visit [id number] Com elyse [id number] [facility] 2019-09-14 2019-09-14 Office Bullock, [facility] Vision Encoun ter/ Legacy 00:00:00 00:00:00 Visit Benita [id number] Com elyse [id number] [facility] 2019-09-14 2019-09-14 Office Kobe [facility] Vision Encoun ter/ Legacy 00:00:00 00:00:00 Visit Benita [id number] Com elyse [id number] [facility] 2019-09-14 2019-09-14 Office Lonnie Chatman [facility] Vision Enc ounter/ Legacy 00:00:00 00:00:00 Visit Benita Bullock [id number] Communi [id number] [facility] 2019-09-14 2019-09-14 In-person Lonnie Chatman [facility] Vision 2 [id number] Legacy 00:00:00 00:00:00 encounter Benita Bullock [phone] Communi 10 [facility] 2019-09-09 2019-09-09 Office Kash-Babita [facility] Public Enc ounter/ Legacy 00:00:00 00:00:00 Visit campbell [facility] [id number] Co mmuni Services [id number] [facility] 2019-08-31 2019-08-31 Office Javier [facility] Vision Encount er/ Legacy 00:00:00 00:00:00 Visit Larry Wei [id number] Co mmuni [id number] [facility] 2019-08-30 2019-08-30 Office Javier [facility] Vision Encount er/ Legacy 00:00:00 00:00:00 Visit Larry Wei [id number] Co mmuni [id number] [facility] 2019-08-30 2019-08-30 Office Javier [facility] Vision Encount er/ Legacy 00:00:00 00:00:00 Visit Larry Wei [id number] Co mmuni [id number] [facility] 2019-08-30 2019-08-30 Office Javier [facility] Vision Encount er/ Legacy 00:00:00 00:00:00 Visit Larry Wei [id number] Co mmuni [id number] [facility] 2019-08-30 2019-08-30 Office Larry Herrera [facility] Visio n Encounter/ Legacy 00:00:00 00:00:00 Visit Cordelia Nance [id number] [facility] [id number] [facility] 2019-08-30 2019-08-30 Office Kobe [facility] Vision Encoun ter/ Legacy 00:00:00 00:00:00 Visit Benita [id number] Com elyse [id number] [facility] 2019-08-30 2019-08-30 Office Lonnie Chatman [facility] Vision Enc ounter/ Legacy 00:00:00 00:00:00 Visit [id number] Com elyse 082579 [facility] 2019-08-30 2019-08-30 Office Lonnie Chatman [facility] Vision Enc ounter/ Legacy 00:00:00 00:00:00 Visit [id number] Com elyse [id number] [facility] 2019-08-30 2019-08-30 Office Lonnie Chatman [facility] Vision Enc ounter/ Legacy 00:00:00 00:00:00 Visit [id number] Com elyse [id number] [facility] 2019-08-30 2019-08-30 Office Lonnie Chatman [facility] Vision Enc ounter/ Legacy 00:00:00 00:00:00 Visit Benita Bullock [id number] [facility] 587383 [facility] 2019-08-30 2019-08-30 In-person Lonnie Chatman [facility] Vision 2 [id number] Legacy 00:00:00 00:00:00 encounter BullockBenita hernández [phone] Communi 25 [facility] 2019-07-01 2019-07-01 Office Guillermo [facility] Leggorge Encounte r/ Legacy 00:00:00 00:00:00 [facility] [id number] [facility] [id number] [facility] 2019-06-24 2019-06-24 Case Corwin, UNIVERSIT 1.2.840.114 [id number] Univers 00:00:00 00:00:00 Management Tawana M Y HEALTH 350.1.13.10 ity [place] [id number] [address] 2019-06-03 2019-06-03 [facility] 1.2.840.114 [id number] Univers 00:00:00 00:00:00 Management Natalee L Y HEALTH 350.1.13.10 ity of [place] [phone] [address] 2019-06-03 2019-06-03 Telephone [facility] 1.2.840.114 [id number] Univers 00:00:00 00:00:00 Natalee L Y HEALTH 350.1.13.10 ity of [place] [id number] [address] 2019-05-21 2019-05-[address] [facility] 1.2.840.114 [id number] Univers 00:00:00 00:00:00 Anjelica R Y HEALTH 350.1.13.10 ity of [place] [phone] [address] 2019-05-20 2019-05-[address] [facility] 1.2.840.114 [id number] Univers 00:00:00 00:00:00 Anjelica R Y HEALTH 350.1.13.10 ity of [place].2.[place] [phone] [address] 2019-05-10 2019-05-10 Bert [facility] 1.2.840.114 [id number] Univers 00:00:00 00:00:00 Management Natalee L Y HEALTH 350.1.13.10 ity of [place] [phone] [address] 2018-07-21 2018-07-[address] [facility] [id number] [address] [place] [address] 00:00:00 00:00:00 [facility] 2018-07-16 2018-07-16 Outpatient [facility] [id number] [place] 00:00:00 00:00:00 [facility] 2018-07-15 2018-07-15 Outpatient [facility] [id number] [place] 00:00:00 00:00:00 [facility] 2018-07-15 2018-07-15 Outpatient [facility] [id number] [place] 00:00:00 00:00:00 [facility] 2018-05-07 2018-05-07 Outpatient [facility] [id number] [place] 00:00:00 00:00:00 [facility] 2018-05-07 2018-05-07 Outpatient [facility] [id number] [place] 00:00:00 00:00:00 [facility] 2018-05-07 2018-05-07 Outpatient [facility] [id number] [place] 00:00:00 00:00:00 [facility] 2018-05-07 2018-05-07 Outpatient [facility] [id number] [place] 00:00:00 00:00:00 [facility] 2018-05-06 2018-05-06 Outpatient [facility] [id number] [place] 00:00:00 00:00:00 [facility] 2018-04-27 2018-04-27 Outpatient [facility] [id number] [place] 11:19:00 11:19:00 [facility] 2018-04-27 2018-04-27 Outpatient [facility] [id number] [place] 00:00:00 00:00:00 [facility] 2018-03-12 2018-03-12 Outpatient [facility] [id number] [place] 00:00:00 00:00:00 [facility] 2018-02-26 2018-02-26 Outpatient [facility] [id number] [place] 00:00:00 00:00:00 [facility] 2018-01-22 2018-01-22 Outpatient [facility] [id number] [place] 09:14:46 09:14:46 [facility] 2017-11-21 2017-11-21 Outpatient [facility] [id number] [place] 00:00:00 00:00:00 [facility] 2017-11-21 2017-11-21 Outpatient [facility] [id number] [place] 00:00:00 00:00:00 [facility] 2017 2017 Outpatient [facility] [id number] [place] 00:00:00 00:00:00 [facility] 2017-11-07 2017-11-07 Outpatient [facility] [id number] [place] 00:00:00 00:00:00 [facility] 2017-10-31 2017-10-31 Outpatient [facility] [id number] [place] 00:00:00 00:00:00 [facility] 2017-10-31 2017-10-31 Outpatient [facility] [id number] [place] 00:00:00 00:00:00 [facility] 2017-10-13 2017-10-13 Outpatient [facility] [id number] [place] 00:00:00 00:00:00 [facility] 2017-10-03 2017-10-03 Outpatient [facility] [id number] [place] 00:00:00 00:00:00 [facility] 2017-09-18 2017-09-18 Outpatient [facility] [id number] [place] 00:00:00 00:00:00 [facility] 2017-08-25 2017-08-25 Outpatient [facility] [id number] [place] 00:00:00 00:00:00 [facility] 2017-08-21 2017-08-21 Outpatient [facility] [id number] [place] 00:00:00 00:00:00 [facility] 2017-08-01 2017-08-01 Outpatient [facility] [id number] [place] 08:30:06 08:30:06 [facility] 2017-07-03 2017-07-03 Outpatient [facility] [id number] [place] 00:00:00 00:00:00 [facility] 2017-07-03 2017-07-03 Outpatient [facility] [id number] [place] 00:00:00 00:00:00 [facility] 2017-06-26 2017-06-26 Outpatient [facility] [id number] [place] 00:00:00 00:00:00 [facility] 2017-06-20 2017-06-20 Outpatient [facility] [id number] [place] 00:00:00 00:00:00 [facility] 2017-06-20 2017-06-20 Outpatient [facility] [id number] [place] 00:00:00 00:00:00 [facility] 2017-06-20 2017-06-20 Outpatient [facility] [id number] [place] 00:00:00 00:00:00 [facility] 2017-06-06 2017-06-06 Outpatient [facility] [id number] [place] 00:00:00 00:00:00 [facility] 2017-06-04 2017-06-04 Outpatient [facility] [id number] [place] 00:00:00 00:00:00 [facility] 2017-05-30 2017-05-30 Outpatient [facility] [id number] [place] 00:00:00 00:00:00 [facility] 2017-04-25 2017-04-25 Outpatient [facility] [id number] [place] 00:00:00 00:00:00 Health 2017-04-17 2017-04-17 Outpatient [facility] [id number] [place] 00:00:00 00:00:00 Health 2017-04-07 2017-04-07 Outpatient [facility] [id number] [place] 00:00:00 00:00:00 [facility] 2017-04-02 2017-04-02 Outpatient [facility] [id number] [place] 00:00:00 00:00:00 [facility] 2017-03-27 2017-03-27 Outpatient [facility] [id number] [place] 08:59:17 08:59:17 Health 2017-03-27 2017-03-27 Outpatient [facility] [id number] [place] 08:55:37 08:55:37 Health 2017-03-27 2017-03-27 Outpatient [facility] [id number] [place] 08:52:52 08:52:52 [facility] 2017-03-21 2017-03-21 Outpatient [facility] [id number] [place] 07:57:06 07:57:06 [facility] 2017-03-21 2017-03-21 Outpatient [facility] [id number] [place] 00:00:00 00:00:00 [facility] 2017-03-07 2017-03-07 Outpatient [facility] [id number] [place] 00:00:00 00:00:00 [facility] 2017-03-06 2017-03-06 Outpatient [facility] [id number] [place] 00:00:00 00:00:00 [facility] 2017-03-06 2017-03-06 Outpatient [facility] [id number] [place] 00:00:00 00:00:00 Health Results Test Description Test Time Test Comments Results Result Comments Source POCT HEMOGLOBIN A1C TEST 2023-04-04 18:23:00 Test Item Value Reference Range Interpretation Comme nts POCT HBA1C (test code = 4548-4) 9.9 % 4-6 A Lab Interpretation (test code = 08362-4) Abnormal [facility] HEMOGLOBIN A1C [id number] 18:23:00 Test Item Value Reference Range Interpretation Comments POCT HBA1C (test code = 4548-4) 9.9 % 4-6 A Lab Interpretation (test code = Abnormal 33108-0) [facility] GLUCOSE (AUTOMATED)2023-03-12 15:10:08 Test Item Value Reference Range Interpretation Comments POCT GLU (test code = 7314016973) 347 mg/dL 70-110 H Lab Interpretation (test code = Abnormal 92233-0) [facility]12 15:10:08 Test Item Value Reference Range Interpretation Comments POCT GLU (test code = 5190082105) 347 mg/dL 70-110 H Lab Interpretation (test code = Abnormal 78000-5) [facility], serum, by PCR, quantitative 2022-09-20 09:41:00 Test Item Value Reference Range Interpretation Comments HIV-1RNA, serum, by PCR, quantitative 50 /mL NOT DETECTED H (test code = 15893-2) [facility] Healthbasophils as percent of blood lgfkxtmyop9286-17-88 09:41:00 Test Item Value Reference Range Interpretation Comments basophils as percent of blood 0.7 % N leukocytes (test code = 707-0) [facility] of blood wxwccokdui1907-20-11 09:41:00 Test Item Value Reference Range Interpretation Comments eosinophils as percent of blood 5.1 % N leukocytes (test code = 714-6) [facility] Healthmonocytes as percent of blood afjeobgxue9497-88-02 09:41:00 Test Item Value Reference Range Interpretation Comments monocytes as percent of blood 8.5 % N leukocytes (test code = 5905-5) [facility] as percent of blood iltnccrfmm4765-05-48 09:41:00 Test Item Value Reference Range Interpretation Comments lymphocytes as percent of blood 18.7 % N leukocytes (test code = 736-9) [facility]rophils as percent of blood vmxpsyaeqq2821-11-32 09:41:00 Test Item Value Reference Range Interpretation Comments neutrophils as percent of blood 67 % N leukocytes (test code = 770-8) [facility] Hospitalbasophil count, zjtcimju5921-04-57 09:41:00 Test Item Value Reference Range Interpretation Comments basophil count, absolute (test 52 cells/uL 0-200 N code = 72110-8) [facility] Eosinophil [id number] 09:41:00 Test Item Value Reference Range Interpretation Comments Absolute Eosinophil count (test 377 cells/mcL 15-500 N code = 70750-7) [facility] Monocyte [id number] 09:41:00 Test Item Value Reference Range Interpretation Comments Absolute Monocyte count (test 629 cells/mcL 200-950 N code = 66610-0) [facility] Neutrophil [id number] 09:41:00 Test Item Value Reference Range Interpretation Comments Absolute Neutrophil count 4958 cells/mcL 9743-4110 N (test code = 89812-6) [facility] yyeerd2229-09-06 09:41:00 Test Item Value Reference Range Interpretation Comments mean platelet volume (test code = 10.7 fL 7.5-12.5 N 776-5) [facility] Hospitalplatelet [id number] 09:41:00 Test Item Value Reference Range Interpretation Comments platelet count (test code = 297 THOUSAND/UL 140-400 N 777-3) [facility] Hospitalred blood cell distribution [id number] 09:41:00 Test Item Value Reference Range Interpretation Comments red blood cell distribution width 11.7 % 11.0-15.0 N (test code = 788-0) [facility] corpuscular hemoglobin concentration, [id number] 09:41:00 Test Item Value Reference Range Interpretation Comments mean corpuscular hemoglobin 33.1 G/DL 32.0-36.0 N concentration, RBC (test code = 786-4) [facility] corpuscular hemoglobin, [id number] 09:41:00 Test Item Value Reference Range Interpretation Comments mean corpuscular hemoglobin, RBC 31.4 pg 27.0-33.0 N (test code = 785-6) [facility] corpuscular volume, [id number] 09:41:00 Test Item Value Reference Range Interpretation Comments mean corpuscular volume, RBC (test 94.7 fL 80.0-100.0 N code = 787-2) [facility] Hospitalhematocrit, daynv8936-66-65 09:41:00 Test Item Value Reference Range Interpretation Comments hematocrit, blood (test code = 4544-3) 48.6 % 38.5-50.0 N Count [facility] Hospitalhemoglobin, [id number] 09:41:00 Test Item Value Reference Range Interpretation Comments hemoglobin, blood (test code = 16.1 g/dL 13.2-17.1 N 718-7) Count [facility] Hospitalerythrocyte (RBC) [id number] 09:41:00 Test Item Value Reference Range Interpretation Comments erythrocyte (RBC) count (test 5.13 MILLION/UL 4.20-5.80 N code = 789-8) [facility] Hospitalleukocyte count, [id number] 09:41:00 Test Item Value Reference Range Interpretation Comments leukocyte count, blood (test 7.4 THOUSAND/UL 3.8-10.8 N code = 6690-2) [facility] Hospitallymphocytes, lwwkmkxo2833-19-70 09:41:00 Test Item Value Reference Range Interpretation Comments lymphocytes, absolute (test 1384 CELLS/UL 850-3900 N code = 20297-6) Count [facility] HospitalCD4/CD8 bouwi2405-20-75 09:41:00 Test Item Value Reference Range Interpretation Comments CD4/CD8 ratio (test code 0.26 (unknown unit) 0.86-5.00 L = 92628) [facility] Hospitalabsolute [id number] 09:41:00 Test Item Value Reference Range Interpretation Comments absolute CD8 (test code = 749 (unknown unit) 180-1170 N 53550) Count [facility] HospitalT-suppressor cells (CD8) as percent of blood lymphocytes 2022-09-20 09:41:00 Test Item Value Reference Range Interpretation Comments T-suppressor cells (CD8) as percent of 48 % 12-42 H blood lymphocytes (test code = 3517) Count [facility] HospitalT-helper cells (CD4) [id number] 09:41:00 Test Item Value Reference Range Interpretation Comments T-helper cells (CD4) count (test 197 CELLS/UL 490-1740 L code = 87889-5) Count [facility] HospitalT-helper cells (CD4) as percent of blood lymphocytes 2022-09-20 09:41:00 Test Item Value Reference Range Interpretation Comments T-helper cells (CD4) as percent of 13 % 30-61 L blood lymphocytes (test code = 8123-2) Count [facility] Hospitalalanine aminotransferase (SGPT), qfyks4837-60-69 09:41:00 Test Item Value Reference Range Interpretation Comments alanine aminotransferase (SGPT), serum 10 1/L 9-46 N (test code = 1742-6) Count [facility]cludes [facility] Hospitalaspartate aminotransferase (SGOT), dmpid0993-50-81 09:41:00 Test Item Value Reference Range Interpretation Comments aspartate aminotransferase (SGOT), 12 1/L 10-40 N serum (test code = 1920-8) Count [facility] Hospitalalkaline phosphatase, srslk8704-53-17 09:41:00 Test Item Value Reference Range Interpretation Comments alkaline phosphatase, serum (test 109 1/L 36-130 N code = 1783-0) [facility] Hospitalbilirubin, serum, [id number] 09:41:00 Test Item Value Reference Range Interpretation Comments bilirubin, serum, total (test code 0.3 mg/dL 0.2-1.2 N = 1975-2) Count [facility] Hospitalalbumin/globulin ratio, givnk9745-28-42 09:41:00 Test Item Value Reference Range Interpretation Comments albumin/globulin ratio, serum 1.0 (calc) 1.0-2.5 N (test code = 1759-0) Count [facility] Hospitalglobulins, serum, [id number] 09:41:00 Test Item Value Reference Range Interpretation Comments globulins, serum, total (test 3.3 G/DL (CALC) 1.9-3.7 N code = 2336-6) [facility] Hospitalalbumin, [id number] 09:41:00 Test Item Value Reference Range Interpretation Comments albumin, serum (test code = 1751-7) 3.4 g/dL 3.6-5.1 L Count [facility] Hospitalprotein, total, [id number] 09:41:00 Test Item Value Reference Range Interpretation Comments protein, total, serum (test code = 6.7 g/dL 6.1-8.1 N 2885-2) Count [facility] Hospitalcalcium, wejfh3663-66-96 09:41:00 Test Item Value Reference Range Interpretation Comments calcium, serum (test code = 2000-8) 9.1 mg/dL 8.6-10.3 N Count Includes [facility] Hospitalcarbon dioxide, venous jgydr8570-36-39 09:41:00 Test Item Value Reference Range Interpretation Comments carbon dioxide, venous blood (test 27 mmol/L 20-32 N code = 2027-1) Count [facility] Hospitalchloride, [id number] 09:41:00 Test Item Value Reference Range Interpretation Comments chloride, serum (test code = 92 mmol/L 98-110 L 2074-0) Count [facility] Hospitalpotassium, [id number] 09:41:00 Test Item Value Reference Range Interpretation Comments potassium, serum (test code = 4.4 mmol/L 3.5-5.3 N 2823-3) Count [facility] Hospitalsodium, xkaim9219-24-19 09:41:00 Test Item Value Reference Range Interpretation Comments sodium, serum (test code = 2951-2) 129 mmol/L 135-146 L Count Includes [facility] Hospitalurea nitrogen/creatinine ratio, [id number] 09:41:00 Test Item Value Reference Range Interpretation Comments urea NOT APPLICABLE (calc) 6-22 nitrogen/creatinine ratio, serum (test code = 3097-3) Count Includes [facility] HospitalEstimated Glomerular Filtration Rate (calc)2022-09-20 09:41:00 Test Item Value Reference Range Interpretation Comments Estimated Glomerular 82 See_Comment N [Autom ated message] Filtration Rate mL/min/{1.73 The system w [facility] (calc) (test code = m2} generate d this 40999-2) result transmit luis reference range : > OR = 60. The reference range was not used to interpret this result as normal/abnormal . Count Includes [facility] Hospitalcreatinine, [id number] 09:41:00 Test Item Value Reference Range Interpretation Comments creatinine, serum (test code = 1.13 mg/dL 0.60-1.29 N 2160-0) Count Includes [facility] Hospitalurea nitrogen, [id number] 09:41:00 Test Item Value Reference Range Interpretation Comments urea nitrogen, blood (test code = 8 mg/dL 7-25 N 3094-0) Count [facility] Hospitalblood glucose, [id number] 09:41:00 Test Item Value Reference Range Interpretation Comments blood glucose, random (test code = 604 mg/dL 65-139 HH 2339-0) Count [facility]cludes [facility] Hospitalcholesterol, non-HDL, [id number] 09:41:00 Test Item Value Reference Range Interpretation Comments cholesterol, non-HDL, total 237 MG/DL (CALC) <130 H (test code = 99198) Count Includes [facility] Hospitalcholesterol/HDL ratio, serum, [id number] 09:41:00 Test Item Value Reference Range Interpretation Comments cholesterol/HDL ratio, serum, 7.1 (calc) <5.0 H percent (test code = 2404) Count Includes [facility] HospitalLDL cholesterol, [id number] 09:41:00 Test Item Value Reference Range Interpretation Comments LDL cholesterol, LDL cholesterol not serum (test code = calculated. Triglyceride 2088-10) le... mg/dL (calc) Count Includes [facility] Hospitaltriglyceride, serum, [id number] 09:41:00 Test Item Value Reference Range Interpretation Comments triglyceride, serum, fasting (test 563 mg/dL <150 H code = 2571-8) Count Includes [facility] HospitalHDL cholesterol, [id number] 09:41:00 Test Item Value Reference Range Interpretation Comments HDL cholesterol, 39 mg/dL See_Comment L [Automated message] The serum (test code = system wh ich generated 2085-06) this result tra nsmitted reference range : > OR = 40. The referen ce range was not used to interpret this result as normal/abnormal . Count Includes [facility] Hospitalcholesterol, [id number] 09:41:00 Test Item Value Reference Range Interpretation Comments cholesterol, serum (test code = 276 mg/dL <200 H 2092-3) [facility] 12 [id number] 14:28:21 Test Item Value Reference Range Interpretation Comments Ventricular rate (test 93 code = 253) Atrial rate (test code = 93 255) MO interval (test code = 138 266) QRSD interval (test code 78 = 260) QT interval (test code = 350 264) QTC interval (test code 435 = 265) P axis 1 (test code = 47 267) QRS axis 1 (test code = 51 268) T wave axis (test code = -17 270) EKG impression (test Normal sinus rhythm-T code = 273) wave abnormality, consider inferior ischemia-No previous ECGs available-Electronica lly Signed By Kenrick Pardo MD (2024) on 06/19/2022 9:28:16 AM [place] [address] [id number] 14:28:21 Test Item Value Reference Range Interpretation Comments Ventricular rate (test 93 code = 253) Atrial rate (test code = 93 255) MO interval (test code = 138 266) QRSD interval (test code 78 = 260) QT interval (test code = 350 264) QTC interval (test code 435 = 265) P axis 1 (test code = 47 267) QRS axis 1 (test code = 51 268) T wave axis (test code = -17 270) EKG impression (test Normal sinus rhythm-T code = 273) wave abnormality, consider inferior ischemia-No previous ECGs available-Electronica lly Signed By Kenrick Pardo MD (2024) on 06/19/2022 9:28:16 AM [facility] [id number] 09:35:00 Test Item Value Reference Range Interpretation Comments POC glucose (test code 308 mg/dL 65-99 H Opera tor Name: Albo = 96642-2) Froilan[employer] I D: [id number] Lab Interpretation Abnormal (test code = 50986-3) [facility] ifhrxkr4940-73-31 09:35:00 Test Item Value Reference Range Interpretation Comments POC glucose (test code 308 mg/dL 65-99 H Opera tor Name: Albo = 67452-7) [employer] I D: [id number] Lab Interpretation Abnormal (test code = 67675-6) [facility], as % of total izvcmmhxws8872-78-49 11:06:00 Test Item Value Reference Range Interpretation Comments hemoglobin A1C, blood, as 10.1 % OF TOTAL HGB <5.7 H % of total hemoglobin (test code = 4548-4) [facility] Healthbasophils as percent of blood uajqcshruj4890-09-33 11:06:00 Test Item Value Reference Range Interpretation Comments basophils as percent of blood 0.6 % N leukocytes (test code = 707-0) [facility] Healtheosinophils as percent of blood ieldpzvkux2294-02-43 11:06:00 Test Item Value Reference Range Interpretation Comments eosinophils as percent of blood 4.1 % N leukocytes (test code = 714-6) [facility] Healthmonocytes as percent of blood sconyjdfoc0380-18-86 11:06:00 Test Item Value Reference Range Interpretation Comments monocytes as percent of blood 7.5 % N leukocytes (test code = 5905-5) Count [facility]cludes [facility] Hospitallymphocytes as percent of blood wxoshkvmde8415-22-22 11:06:00 Test Item Value Reference Range Interpretation Comments lymphocytes as percent of blood 14.3 % N leukocytes (test code = 736-9) Count [facility]cludes [facility] Hospitalneutrophils as percent of blood edyhmibwiu6420-27-68 11:06:00 Test Item Value Reference Range Interpretation Comments neutrophils as percent of blood 73.5 % N leukocytes (test code = 770-8) Count [facility]cludes [facility] Hospitalbasophil count, jkttyfmn5229-01-81 11:06:00 Test Item Value Reference Range Interpretation Comments basophil count, absolute (test 54 cells/uL 0-200 N code = 60493-0) Count [facility]cludes [facility] HospitalAbsolute Eosinophil [id number] 11:06:00 Test Item Value Reference Range Interpretation Comments Absolute Eosinophil count (test 369 cells/mcL 15-500 N code = 92453-8) Count [facility] HospitalAbsolute Monocyte ncupq1950-93-13 11:06:00 Test Item Value Reference Range Interpretation Comments Absolute Monocyte count (test 675 cells/mcL 200-950 N code = 01487-2) [facility] HospitalAbsolute Neutrophil ydznw4401-58-06 11:06:00 Test Item Value Reference Range Interpretation Comments Absolute Neutrophil count 6615 cells/mcL 8803-7795 N (test code = 88667-3) [facility] xquebg7582-28-20 11:06:00 Test Item Value Reference Range Interpretation Comments mean platelet volume (test code = 10.7 fL 7.5-12.5 N 776-5) Count [facility] Hospitalplatelet [id number] 11:06:00 Test Item Value Reference Range Interpretation Comments platelet count (test code = 301 THOUSAND/UL 140-400 N 777-3) Count [facility] Hospitalred blood cell distribution [id number] 11:06:00 Test Item Value Reference Range Interpretation Comments red blood cell distribution width 11.4 % 11.0-15.0 N (test code = 788-0) [facility] hemoglobin concentration, [id number] 11:06:00 Test Item Value Reference Range Interpretation Comments mean corpuscular hemoglobin 33.6 G/DL 32.0-36.0 N concentration, RBC (test code = 786-4) Count [facility] Hospitalmean corpuscular hemoglobin, [id number] 11:06:00 Test Item Value Reference Range Interpretation Comments mean corpuscular hemoglobin, RBC 30.8 pg 27.0-33.0 N (test code = 785-6) Count [facility] Hospitalmean corpuscular volume, [id number] 11:06:00 Test Item Value Reference Range Interpretation Comments mean corpuscular volume, RBC (test 91.4 fL 80.0-100.0 N code = 787-2) [facility] Hospitalhematocrit, [id number] 11:06:00 Test Item Value Reference Range Interpretation Comments hematocrit, blood (test code = 4544-3) 43.7 % 38.5-50.0 N Count [facility] Hospitalhemoglobin, [id number] 11:06:00 Test Item Value Reference Range Interpretation Comments hemoglobin, blood (test code = 14.7 g/dL 13.2-17.1 N 718-7) Count [facility] Hospitalerythrocyte (RBC) [id number] 11:06:00 Test Item Value Reference Range Interpretation Comments erythrocyte (RBC) count (test 4.78 MILLION/UL 4.20-5.80 N code = 789-8) Count [facility] Hospitalleukocyte count, [id number] 11:06:00 Test Item Value Reference Range Interpretation Comments leukocyte count, blood (test 9.0 THOUSAND/UL 3.8-10.8 N code = 6690-2) Count [facility] Hospitallymphocytes, ziawrzpm3430-20-73 11:06:00 Test Item Value Reference Range Interpretation Comments lymphocytes, absolute (test 1287 CELLS/UL 850-3900 N code = 35882-7) Count [facility] HospitalCD4/CD8 rmdah9516-34-39 11:06:00 Test Item Value Reference Range Interpretation Comments CD4/CD8 ratio (test code 0.29 (unknown unit) 0.86-5.00 L = 48201) Count [facility] Hospitalabsolute [id number] 11:06:00 Test Item Value Reference Range Interpretation Comments absolute CD8 (test code = 687 (unknown unit) 180-1170 N 78259) Count [facility] HospitalT-suppressor cells (CD8) as percent of blood lymphocytes 2022-05-15 11:06:00 Test Item Value Reference Range Interpretation Comments T-suppressor cells (CD8) as percent of 50 % 12-42 H blood lymphocytes (test code = 3517) Count [facility] HospitalT-helper cells (CD4) vwwzf4736-87-51 11:06:00 Test Item Value Reference Range Interpretation Comments T-helper cells (CD4) count (test 199 CELLS/UL 490-1740 L code = 05955-3) Count [facility] HospitalT-helper cells (CD4) as percent of blood lymphocytes 2022-05-15 11:06:00 Test Item Value Reference Range Interpretation Comments T-helper cells (CD4) as percent of 14 % 30-61 L blood lymphocytes (test code = 8123-2) Count [facility]cludes [facility] Hospitalalanine aminotransferase (SGPT), [id number] 11:06:00 Test Item Value Reference Range Interpretation Comments alanine aminotransferase (SGPT), serum 9 1/L 9-46 N (test code = 1742-6) Count Includes [facility] Hospitalaspartate aminotransferase (SGOT), auozk3899-65-13 11:06:00 Test Item Value Reference Range Interpretation Comments aspartate aminotransferase (SGOT), 15 1/L 10-40 N serum (test code = 1920-8) Count [facility] Hospitalalkaline phosphatase, [id number] 11:06:00 Test Item Value Reference Range Interpretation Comments alkaline phosphatase, serum (test code 92 1/L 36-130 N = 1783-0) Count [facility] Hospitalbilirubin, serum, [id number] 11:06:00 Test Item Value Reference Range Interpretation Comments bilirubin, serum, total (test code 0.5 mg/dL 0.2-1.2 N = 1975-2) [facility], [id number] 11:06:00 Test Item Value Reference Range Interpretation Comments albumin/globulin ratio, serum 1.2 (calc) 1.0-2.5 N (test code = 1759-0) [facility] Hospitalglobulins, serum, [id number] 11:06:00 Test Item Value Reference Range Interpretation Comments globulins, serum, total (test 3.1 G/DL (CALC) 1.9-3.7 N code = 2336-6) [facility] Healthalbumin, [id number] 11:06:00 Test Item Value Reference Range Interpretation Comments albumin, serum (test code = 1751-7) 3.7 g/dL 3.6-5.1 N [facility] Hospitalprotein, total, [id number] 11:06:00 Test Item Value Reference Range Interpretation Comments protein, total, serum (test code = 6.8 g/dL 6.1-8.1 N 2885-2) [facility] Hospitalcalcium, [id number] 11:06:00 Test Item Value Reference Range Interpretation Comments calcium, serum (test code = 1999-8) 9.3 mg/dL 8.6-10.3 N Count [facility] Hospitalcarbon dioxide, venous [id number] 11:06:00 Test Item Value Reference Range Interpretation Comments carbon dioxide, venous blood (test 27 mmol/L 20-32 N code = 7-1) [facility] Healthchloride, [id number] 11:06:00 Test Item Value Reference Range Interpretation Comments chloride, serum (test code = 98 mmol/L 98-110 N 2075-0) [facility] Hospitalpotassium, [id number] 11:06:00 Test Item Value Reference Range Interpretation Comments potassium, serum (test code = 4.4 mmol/L 3.5-5.3 N 2823-3) [facility]alsodium, [id number] 11:06:00 Test Item Value Reference Range Interpretation Comments sodium, serum (test code = 2951-2) 135 mmol/L 135-146 N Count [facility] Hospitalurea nitrogen/creatinine ratio, [id number] 11:06:00 Test Item Value Reference Range Interpretation Comments urea NOT APPLICABLE (calc) 6-22 nitrogen/creatinine ratio, serum (test code = 3097-3) [facility] Hospitalcreatinine, [id number] 11:06:00 Test Item Value Reference Range Interpretation Comments creatinine, serum (test code = 0.99 mg/dL 0.60-1.29 N 2160-0) Count [facility] Hospitalurea nitrogen, [id number] 11:06:00 Test Item Value Reference Range Interpretation Comments urea nitrogen, blood (test code = 11 mg/dL 7-25 N 3094-0) [facility] Hospitalblood glucose, [id number] 11:06:00 Test Item Value Reference Range Interpretation Comments blood glucose, random (test code = 460 mg/dL 65-139 H 2339-0) Count [facility] HospitalCD4/CD8 [id number] 11:06:00 Test Item Value Reference Range Interpretation Comments CD4/CD8 ratio (test code 0.29 (unknown unit) 0.86-5.00 L = 05319) Count [facility] Hospitalabsolute [id number] 11:06:00 Test Item Value Reference Range Interpretation Comments absolute CD8 (test code = 687 (unknown unit) 180-1170 N 80166) Count [facility] HospitalT-suppressor cells (CD8) as percent of blood lymphocytes 2022-05-15 11:06:00 Test Item Value Reference Range Interpretation Comments T-suppressor cells (CD8) as percent of 50 % 12-42 H blood lymphocytes (test code = 3517) Count [facility]cludes [facility] HospitalQuantiferon Gold TB blood test for tuberculosis screening 2022-01-14 08:34:00 Test Item Value Reference Range Interpretation Comments Quantiferon Gold TB blood test for Negative Negative tuberculosis screening (test code = 65122-6) Count [facility] Hospitalalanine aminotransferase (SGPT), [id number] 08:29:00 Test Item Value Reference Range Interpretation Comments alanine aminotransferase (SGPT), serum 18 1/L 0-44 (test code = 1742-6) Count [facility]cludes [facility] Hospitalaspartate aminotransferase (SGOT), [id number] 08:29:00 Test Item Value Reference Range Interpretation Comments aspartate aminotransferase (SGOT), 17 1/L 0-40 serum (test code = 1920-8) Count [facility] Hospitalalkaline phosphatase, kscvo2666-13-02 08:29:00 Test Item Value Reference Range Interpretation Comments alkaline phosphatase, serum (test 133 1/L 44-121 H code = 1783-0) Count [facility] Hospitalbilirubin, serum, [id number] 08:29:00 Test Item Value Reference Range Interpretation Comments bilirubin, serum, total (test code 0.2 mg/dL 0.0-1.2 = 1974-) [facility]album[facility], [id number] 08:29:00 Test Item Value Reference Range Interpretation Comments albumin/globulin ratio, 1.3 (unknown unit) 1.2-2.2 serum (test code = 1759-0) [facility] Healthglobulin, [id number] 08:29:00 Test Item Value Reference Range Interpretation Comments globulin, serum (test code 2.9 (unknown unit) 1.5-4.5 = 2336-6) [facility] Healthalbumin, fnuzr7746-03-25 08:29:00 Test Item Value Reference Range Interpretation Comments albumin, serum (test code = 1751-7) 3.9 g/dL 4.0-5.0 L [facility] Healthprotein, total, [id number] 08:29:00 Test Item Value Reference Range Interpretation Comments protein, total, serum (test code = 6.8 g/dL 6.0-8.5 2885-2) Count [facility] Hospitalcalcium, [id number] 08:29:00 Test Item Value Reference Range Interpretation Comments calcium, serum (test code = 1999-8) 9.2 mg/dL 8.7-10.2 Count [facility]cludes [facility] Hospitalcarbon dioxide, venous [id number] 08:29:00 Test Item Value Reference Range Interpretation Comments carbon dioxide, venous blood (test 21 mmol/L code = 2026-1) Count [facility] Hospitalchloride, [id number] 08:29:00 Test Item Value Reference Range Interpretation Comments chloride, serum (test code = 96 mmol/L 96-106 5-0) Count [facility] Hospitalpotassium, [id number] 08:29:00 Test Item Value Reference Range Interpretation Comments potassium, serum (test code = 4.3 mmol/L 3.5-5.2 2823-3) Count [facility] Hospitalsodium, [id number] 08:29:00 Test Item Value Reference Range Interpretation Comments sodium, serum (test code = 2951-2) 133 mmol/L 134-144 L Count Includes [facility] Hospitalurea nitrogen/creatinine ratio, [id number] 08:29:00 Test Item Value Reference Range Interpretation Comments urea nitrogen/creatinine 11 (unknown unit) 9-20 ratio, serum (test code = 3097-3) Count [facility]cludes [facility] HospitalEstimated Glomerular Filtration Rate (calc)2022-01-14 08:29:00 Test Item Value Reference Range Interpretation Comments Estimated Glomerular 100 mL/min/{1.73 m2} >59 Filtration Rate (calc) (test code = 31373-2) Count [facility] Hospitalcreatinine, [id number] 08:29:00 Test Item Value Reference Range Interpretation Comments creatinine, serum (test code = 0.96 mg/dL 0.76-1.27 2160-0) Count [facility]cludes [facility] Hospitalurea nitrogen, [id number] 08:29:00 Test Item Value Reference Range Interpretation Comments urea nitrogen, blood (test code = 11 mg/dL 6-24 3094-0) Count [facility] Hospitalblood glucose, [id number] 08:29:00 Test Item Value Reference Range Interpretation Comments blood glucose, random (test code = 373 mg/dL 65-99 H 2339-0) Count Includes [facility] Hospitalimmature granulocytes, percentage of total cells, blood 2022-01-14 08:29:00 Test Item Value Reference Range Interpretation Comments immature granulocytes, percentage of 1 % total cells, blood (test code = 26162-6) Count [facility] Hospitalbasophil count, doucxubt4766-02-59 08:29:00 Test Item Value Reference Range Interpretation Comments basophil count, absolute (test 0.1 x10E3/uL 0.0-0.2 code = 26559-8) Count [facility]cludes [facility] HospitalEosinophil Absolute Zaqmx6503-08-59 08:29:00 Test Item Value Reference Range Interpretation Comments Eosinophil Absolute Count (test 0.4 X10E3/UL 0.0-0.4 code = 80192-9) Count [facility]cludes [facility] Hospitalmonocyte count, blood, drxvsaelu0252-43-00 08:29:00 Test Item Value Reference Range Interpretation Comments monocyte count, blood, automated 0.8 X10E3/UL 0.1-0.9 (test code = 742-7) Count Includes [facility] Hospitallymphocyte count, blood, jjpghakmo9891-10-61 08:29:00 Test Item Value Reference Range Interpretation Comments lymphocyte count, blood, 1.6 X10E3/UL 0.7-3.1 automated (test code = 731-0) [facility] HealthAbsolute Ovuneqevmtl0597-78-32 08:29:00 Test Item Value Reference Range Interpretation Comments Absolute Neutrophils (test code 6.3 X10E3/UL 1.4-7.0 = 86746-1) Count Includes [facility] Hospitalbasophils as percent of blood bbwzywqwtu5695-71-35 08:29:00 Test Item Value Reference Range Interpretation Comments basophils as percent of blood 1 % leukocytes (test code = 707-0) Count [facility]cludes [facility] Hospitaleosinophils as percent of blood eovuhqxqcx5934-45-42 08:29:00 Test Item Value Reference Range Interpretation Comments eosinophils as percent of blood 5 % leukocytes (test code = 713-8) [facility] Healthmonocytes as percent of blood etoqknshhg1804-70-99 08:29:00 Test Item Value Reference Range Interpretation Comments monocytes as percent of blood 9 % leukocytes (test code = 5905-5) Count Includes [facility] Hospitallymphocytes as percent of blood nbdffdmlaa4890-90-01 08:29:00 Test Item Value Reference Range Interpretation Comments lymphocytes as percent of blood 17 % leukocytes (test code = 736-9) Count [facility]cludes [facility] Hospitalneutrophils as percent of blood ehxshkkbyp3986-56-26 08:29:00 Test Item Value Reference Range Interpretation Comments neutrophils as percent of blood 67 % leukocytes (test code = 770-8) Count Includes [facility] Hospitalplatelet nrhkh6465-12-05 08:29:00 Test Item Value Reference Range Interpretation Comments platelet count (test code = 302 X10E3/UL 150-450 777-3) Count Includes [facility] Hospitalred blood cell distribution dnvhw7799-52-24 08:29:00 Test Item Value Reference Range Interpretation Comments red blood cell distribution width 12.5 % 11.6-15.4 (test code = 788-0) [facility] corpuscular hemoglobin concentration, [id number] 08:29:00 Test Item Value Reference Range Interpretation Comments mean corpuscular hemoglobin 32.2 G/DL 31.5-35.7 concentration, RBC (test code = 786-4) [facility] corpuscular hemoglobin, [id number] 08:29:00 Test Item Value Reference Range Interpretation Comments mean corpuscular hemoglobin, RBC 29.5 pg 26.6-33.0 (test code = 785-6) [facility] Healthmean corpuscular volume, [id number] 08:29:00 Test Item Value Reference Range Interpretation Comments mean corpuscular volume, RBC (test code 92 fL 79-97 = 787-2) Count [facility] Hospitalhematocrit, [id number] 08:29:00 Test Item Value Reference Range Interpretation Comments hematocrit, blood (test code = 4544-3) 46.0 % 37.5-51.0 Count Includes [facility] Hospitalhemoglobin, [id number] 08:29:00 Test Item Value Reference Range Interpretation Comments hemoglobin, blood (test code = 14.8 g/dL 13.0-17.7 718-7) Count [facility]cludes [facility] Hospitalerythrocyte (RBC) [id number] 08:29:00 Test Item Value Reference Range Interpretation Comments erythrocyte (RBC) count (test 5.02 X10E6/UL 4.14-5.80 code = 789-8) Count [facility] Hospitalleukocyte count, [id number] 08:29:00 Test Item Value Reference Range Interpretation Comments leukocyte count, blood (test 9.2 X10E3/UL 3.4-10.8 code = 6690-2) Count Includes [facility] HospitalCD4/CD8 otdsu5436-22-59 08:29:00 Test Item Value Reference Range Interpretation Comments CD4/CD8 ratio (test code 0.33 (unknown unit) 0.92-3.72 L = 62077) Count Includes [facility] HospitalT-suppressor cells (CD8) as percent of blood lymphocytes 2022-01-14 08:29:00 Test Item Value Reference Range Interpretation Comments T-suppressor cells (CD8) as percent of 47.8 % 12.0-35.5 H blood lymphocytes (test code = 3517) Count [facility]cludes [facility] Hospitalabsolute [id number] 08:29:00 Test Item Value Reference Range Interpretation Comments absolute CD8 (test code = 765 (unknown unit) 178-917 69423) Count Includes [facility] HospitalT-helper cells (CD4) as percent of blood lymphocytes 2022-01-14 08:29:00 Test Item Value Reference Range Interpretation Comments T-helper cells (CD4) as percent of 16.0 % 30.8-58.5 L blood lymphocytes (test code = 8123-2) Count [facility] HospitalT-helper cells (CD4) [id number] 08:29:00 Test Item Value Reference Range Interpretation Comments T-helper cells (CD4) count (test code 256 /UL 359-1519 L = 62340-5) Count [facility]cludes [facility] HospitalHIV-1RNA, serum, by PCR, fzvsqcnrpvpa5471-60-27 08:29:00 Test Item Value Reference Range Interpretation Comments HIV-1RNA, serum, by PCR, <20 copies/mL quantitative (test code = 91722-0) Count Includes [facility] HospitalCD4/CD8 oupvy2587-04-18 08:29:00 Test Item Value Reference Range Interpretation Comments CD4/CD8 ratio (test code 0.33 (unknown unit) 0.92-3.72 L = 81361) Count In[facility] HospitalT-suppressor cells (CD8) as percent of blood lymphocytes 2022-01-14 08:29:00 Test Item Value Reference Range Interpretation Comments T-suppressor cells (CD8) as percent of 47.8 % 12.0-35.5 H blood lymphocytes (test code = 3517) Count Includes [facility] Hospitalabsolute [id number] 08:29:00 Test Item Value Reference Range Interpretation Comments absolute CD8 (test code = 765 (unknown unit) 109-902 84075) Count Includes [facility] Hospitalrapid plasma reagin antibody, ppmco8110-03-03 14:19:00 Test Item Value Reference Range Interpretation Comments rapid plasma reagin antibody, Non Reactive Non Reactive serum (test code = 5291-0) Count Includes [facility] HospitalLDL cholesterol, [id number] 14:19:00 Test Item Value Reference Range Interpretation Comments LDL cholesterol, serum (test code = 128 mg/dL 0-99 H 2088-10) Count Includes [facility] Hospitalvery low density vlsoovzkfnqo5963-12-28 14:19:00 Test Item Value Reference Range Interpretation Comments very low density lipoproteins (test 33 mg/dL 5-40 code = 2091-7) Count [facility] HospitalHDL cholesterol, [id number] 14:19:00 Test Item Value Reference Range Interpretation Comments HDL cholesterol, serum (test code = 43 mg/dL >39 2084-9) [facility] Hospitaltriglyceride, serum, [id number] 14:19:00 Test Item Value Reference Range Interpretation Comments triglyceride, serum, fasting (test 184 mg/dL 0-149 H code = 2571-8) Count [facility] Hospitalcholesterol, wfype8813-09-30 14:19:00 Test Item Value Reference Range Interpretation Comments cholesterol, serum (test code = 204 mg/dL 100-199 H 2093-3) Count [facility]cludes [facility] Hospitalalanine aminotransferase (SGPT), [id number] 14:19:00 Test Item Value Reference Range Interpretation Comments alanine aminotransferase (SGPT), serum 17 1/L 0-44 (test code = 1742-6) Count Includes [facility] Hospitalaspartate aminotransferase (SGOT), [id number] 14:19:00 Test Item Value Reference Range Interpretation Comments aspartate aminotransferase (SGOT), 20 1/L 0-40 serum (test code = 1920-8) Count [facility] Hospitalalkaline phosphatase, [id number] 14:19:00 Test Item Value Reference Range Interpretation Comments alkaline phosphatase, serum (test code 91 1/L 44-121 = 1783-0) Count [facility] Hospitalbilirubin, serum, [id number] 14:19:00 Test Item Value Reference Range Interpretation Comments bilirubin, serum, total (test code 0.7 mg/dL 0.0-1.2 = 1975-2) Count [facility] Hospitalalbumin/globulin ratio, [id number] 14:19:00 Test Item Value Reference Range Interpretation Comments albumin/globulin ratio, 1.5 (unknown unit) 1.2-2.2 serum (test code = 1759-0) [facility] Healthglobulin, riujc4958-28-30 14:19:00 Test Item Value Reference Range Interpretation Comments globulin, serum (test code 2.8 (unknown unit) 1.5-4.5 = 2336-6) [facility] Healthalbumin, [id number] 14:19:00 Test Item Value Reference Range Interpretation Comments albumin, serum (test code = 1751-7) 4.2 g/dL 4.0-5.0 Count Includes [facility] Hospitalprotein, total, [id number] 14:19:00 Test Item Value Reference Range Interpretation Comments protein, total, serum (test code = 7.0 g/dL 6.0-8.5 2885-2) Count [facility] Hospitalcalcium, [id number] 14:19:00 Test Item Value Reference Range Interpretation Comments calcium, serum (test code = 1999-8) 9.5 mg/dL 8.7-10.2 Count Includes [facility] Hospitalcarbon dioxide, venous hejxf9396-67-72 14:19:00 Test Item Value Reference Range Interpretation Comments carbon dioxide, venous blood (test 22 mmol/L 20-29 code = 2027-1) Count [facility] Hospitalchloride, kqqly2415-27-04 14:19:00 Test Item Value Reference Range Interpretation Comments chloride, serum (test code = 102 mmol/L 96-106 2075-0) Count [facility] Hospitalpotassium, [id number] 14:19:00 Test Item Value Reference Range Interpretation Comments potassium, serum (test code = 4.5 mmol/L 3.5-5.2 2823-3) [facility] Hospitalsodium, dccyl9366-96-37 14:19:00 Test Item Value Reference Range Interpretation Comments sodium, serum (test code = 2951-2) 140 mmol/L 134-144 Count Includes [facility] Hospitalurea nitrogen/creatinine ratio, gxpwj9504-96-70 14:19:00 Test Item Value Reference Range Interpretation Comments urea nitrogen/creatinine 10 (unknown unit) 9-20 ratio, serum (test code = 3097-3) [facility] HealtheGFR if Waumcybd4461-88-69 14:19:00 Test Item Value Reference Range Interpretation Comments eGFR if 90 mL/min/{1.73 m2} >59 (test code = 42337-3) Count Includes [facility] HospitalEstimated Glomerular Filtration Rate (calc)2021-10-15 14:19:00 Test Item Value Reference Range Interpretation Comments Estimated Glomerular 78 mL/min/{1.73 m2} >59 Filtration Rate (calc) (test code = 14745-4) Count [facility] Hospitalcreatinine, [id number] 14:19:00 Test Item Value Reference Range Interpretation Comments creatinine, serum (test code = 1.15 mg/dL 0.76-1.27 0-0) Count Includes [facility] Hospitalurea nitrogen, [id number] 14:19:00 Test Item Value Reference Range Interpretation Comments urea nitrogen, blood (test code = 12 mg/dL 6-24 3094-0) [facility] Hospitalblood glucose, suajob9615-09-98 14:19:00 Test Item Value Reference Range Interpretation Comments blood glucose, random (test code = 210 mg/dL 65-99 H 2339-0) Count [facility]cludes [facility] Hospitalimmature granulocytes, percentage of total cells, blood 2021-10-15 14:19:00 Test Item Value Reference Range Interpretation Comments immature granulocytes, percentage of 1 % total cells, blood (test code = 24612-3) [facility] Healthbasophil count, rzlsowdq5383-72-48 14:19:00 Test Item Value Reference Range Interpretation Comments basophil count, absolute (test 0.1 x10E3/uL 0.0-0.2 code = 95852-7) [facility] HealthEosinophil Absolute Ipzdk4580-54-22 14:19:00 Test Item Value Reference Range Interpretation Comments Eosinophil Absolute Count (test 0.4 X10E3/UL 0.0-0.4 code = 29036-1) Count [facility] Hospitalmonocyte count, blood, clhwthfsa8682-10-38 14:19:00 Test Item Value Reference Range Interpretation Comments monocyte count, blood, automated 1.0 X10E3/UL 0.1-0.9 H (test code = 742-7) Count [facility]cludes [facility] Hospitallymphocyte count, blood, ufhmzpzdb8739-84-35 14:19:00 Test Item Value Reference Range Interpretation Comments lymphocyte count, blood, 1.7 X10E3/UL 0.7-3.1 automated (test code = 731-0) Count [facility] HospitalAbsolute Naorcjfkzvk1537-95-58 14:19:00 Test Item Value Reference Range Interpretation Comments Absolute Neutrophils (test code 8.0 X10E3/UL 1.4-7.0 H = 17044-9) Count [facility] Hospitalbasophils as percent of blood ombhgmcxwu3796-78-76 14:19:00 Test Item Value Reference Range Interpretation Comments basophils as percent of blood 1 % leukocytes (test code = 707-0) [facility] Healtheosinophils as percent of blood gbuxtsxkwc2341-42-68 14:19:00 Test Item Value Reference Range Interpretation Comments eosinophils as percent of blood 4 % leukocytes (test code = 713-8) [facility] Healthmonocytes as percent of blood umsxpopowf0702-15-66 14:19:00 Test Item Value Reference Range Interpretation Comments monocytes as percent of blood 9 % leukocytes (test code = 5905-5) Count [facility]cludes [facility] Hospitallymphocytes as percent of blood ogcusxojwd9039-22-78 14:19:00 Test Item Value Reference Range Interpretation Comments lymphocytes as percent of blood 15 % leukocytes (test code = 736-9) Count [facility] Hospitalneutrophils as percent of blood dytnkasaur6450-00-67 14:19:00 Test Item Value Reference Range Interpretation Comments neutrophils as percent of blood 70 % leukocytes (test code = 770-8) Count [facility] Hospitalplatelet truhf4590-99-11 14:19:00 Test Item Value Reference Range Interpretation Comments platelet count (test code = 336 X10E3/UL 150-450 777-3) Count [facility] Hospitalred blood cell distribution firfh8896-46-59 14:19:00 Test Item Value Reference Range Interpretation Comments red blood cell distribution width 11.9 % 11.6-15.4 (test code = 788-0) [facility], [id number] 14:19:00 Test Item Value Reference Range Interpretation Comments mean corpuscular hemoglobin 33.3 G/DL 31.5-35.7 concentration, RBC (test code = 786-4) [facility] corpuscular hemoglobin, [id number] 14:19:00 Test Item Value Reference Range Interpretation Comments mean corpuscular hemoglobin, RBC 29.0 pg 26.6-33.0 (test code = 785-6) [facility] corpuscular volume, [id number] 14:19:00 Test Item Value Reference Range Interpretation Comments mean corpuscular volume, RBC (test code 87 fL 79-97 = 787-2) [facility] Hospitalhematocrit, hzjxd9222-28-54 14:19:00 Test Item Value Reference Range Interpretation Comments hematocrit, blood (test code = 4544-3) 46.0 % 37.5-51.0 Count [facility] Hospitalhemoglobin, ozmwz7317-52-40 14:19:00 Test Item Value Reference Range Interpretation Comments hemoglobin, blood (test code = 15.3 g/dL 13.0-17.7 718-7) Count [facility] Hospitalerythrocyte (RBC) oenph9171-15-30 14:19:00 Test Item Value Reference Range Interpretation Comments erythrocyte (RBC) count (test 5.28 X10E6/UL 4.14-5.80 code = 789-8) Count [facility] Hospitalleukocyte count, mnqxf6519-74-99 14:19:00 Test Item Value Reference Range Interpretation Comments leukocyte count, blood (test 11.2 X10E3/UL 3.4-10.8 H code = 6690-2) Count [facility]cludes [facility] HospitalCD4/CD8 sqsuw6400-25-31 14:19:00 Test Item Value Reference Range Interpretation Comments CD4/CD8 ratio (test code 0.29 (unknown unit) 0.92-3.72 L = 36455) [facility] HospitalT-suppressor cells (CD8) as percent of blood lymphocytes 2021-10-15 14:19:00 Test Item Value Reference Range Interpretation Comments T-suppressor cells (CD8) as percent of 49.8 % 12.0-35.5 H blood lymphocytes (test code = 3517) [facility] [id number] 14:19:00 Test Item Value Reference Range Interpretation Comments absolute CD8 (test code = 847 (unknown unit) [phone]) Count [facility] HospitalT-helper cells (CD4) as percent of blood lymphocytes 2021-10-15 14:19:00 Test Item Value Reference Range Interpretation Comments T-helper cells (CD4) as percent of 14.3 % 30.8-58.5 L blood lymphocytes (test code = 8123-2) Count [facility] HospitalT-helper cells (CD4) [id number] 14:19:00 Test Item Value Reference Range Interpretation Comments T-helper cells (CD4) count (test code 243 /UL 359-1519 L = 81663-9) Count [facility] HospitalHIV-1RNA, serum, by PCR, lgobqgzectel8163-84-59 14:19:00 Test Item Value Reference Range Interpretation Comments HIV-1RNA, serum, by PCR, 6470 /mL quantitative (test code = 84363-8) Count [facility]cludes [facility] HospitalCD4/CD8 [id number] 14:19:00 Test Item Value Reference Range Interpretation Comments CD4/CD8 ratio (test code 0.29 (unknown unit) 0.92-3.72 L = 13098) Count [facility] HospitalT-suppressor cells (CD8) as percent of blood lymphocytes 2021-10-15 14:19:00 Test Item Value Reference Range Interpretation Comments T-suppressor cells (CD8) as percent of 49.8 % 12.0-35.5 H blood lymphocytes (test code = 3517) Count [facility]cludes [facility] Hospitalabsolute [id number] 14:19:00 Test Item Value Reference Range Interpretation Comments absolute CD8 (test code = 847 (unknown unit) [phone]) Count Includes [facility] HospitalQuantiferon Gold TB blood test for tuberculosis screening 2021-07-23 10:01:00 Test Item Value Reference Range Interpretation Comments Quantiferon Gold TB blood test Indeterminate Negative A for tuberculosis screening (test code = 09921-5) [facility], [id number] 09:59:00 Test Item Value Reference Range Interpretation Comments mean corpuscular hemoglobin, RBC 30.5 pg 26.6-33.0 (test code = 785-6) [facility], [id number] 09:59:00 Test Item Value Reference Range Interpretation Comments mean corpuscular volume, RBC (test code 93 fL 79-97 = 787-2) Count [facility] Hospitalhematocrit, [id number] 09:59:00 Test Item Value Reference Range Interpretation Comments hematocrit, blood (test code = 4544-3) 46.8 % 37.5-51.0 Count Includes [facility] Hospitalhemoglobin, [id number] 09:59:00 Test Item Value Reference Range Interpretation Comments hemoglobin, blood (test code = 15.3 g/dL 13.0-17.7 718-7) Count Includes [facility] Hospitalerythrocyte (RBC) [id number] 09:59:00 Test Item Value Reference Range Interpretation Comments erythrocyte (RBC) count (test 5.01 X10E6/UL 4.14-5.80 code = 789-8) Count [facility]cludes [facility] Hospitalleukocyte count, [id number] 09:59:00 Test Item Value Reference Range Interpretation Comments leukocyte count, blood (test 8.6 X10E3/UL 3.4-10.8 code = 6690-2) Count [facility]cludes [facility] HospitalCD4/CD8 [id number] 09:59:00 Test Item Value Reference Range Interpretation Comments CD4/CD8 ratio (test code 0.34 (unknown unit) 0.92-3.72 L = 47349) Count Includes [facility] HospitalT-suppressor cells (CD8) as percent of blood lymphocytes 2021-07-23 09:59:00 Test Item Value Reference Range Interpretation Comments T-suppressor cells (CD8) as percent of 48.7 % 12.0-35.5 H blood lymphocytes (test code = 3517) Count [facility]cludes [facility] Hospitalabsolute [id number] 09:59:00 Test Item Value Reference Range Interpretation Comments absolute CD8 (test code = 779 (unknown unit) [phone]) Count Includes [facility] HospitalT-helper cells (CD4) as percent of blood lymphocytes 2021-07-23 09:59:00 Test Item Value Reference Range Interpretation Comments T-helper cells (CD4) as percent of 16.8 % 30.8-58.5 L blood lymphocytes (test code = 8123-2) Count [facility] HospitalT-helper cells (CD4) [id number] 09:59:00 Test Item Value Reference Range Interpretation Comments T-helper cells (CD4) count (test code 269 /UL 359-1519 L = 61159-5) Count [facility] Hospitalbilirubin, serum, [id number] 09:59:00 Test Item Value Reference Range Interpretation Comments bilirubin, serum, direct (test 0.20 mg/dL 0.00-0.40 code = 1968-7) Count Includes [facility] Hospitalrad plasma reagin antibody, [id number] 09:59:00 Test Item Value Reference Range Interpretation Comments rapid plasma reagin antibody, Non Reactive Non Reactive serum (test code = 5291-0) Count Includes [facility] Hospitalhuman leukocyte antigen [id number] 09:59:00 Test Item Value Reference Range Interpretation Comments human leukocyte antigen B57 (test Negative code = 513548) Count Includes [facility] Hospitalhepatitis A antibody, [id number] 09:59:00 Test Item Value Reference Range Interpretation Comments hepatitis A antibody, total (test Positive Negative A code = 32077-2) [facility] antibody, [id number] 09:59:00 Test Item Value Reference Range Interpretation Comments hepatitis B core antibody, total Negative Negative (test code = 04385-0) Count Includes [facility] Hospitalhepatitis B surface [id number] 09:59:00 Test Item Value Reference Range Interpretation Comments hepatitis B surface antigen (test Negative Negative code = 13059-6) Count [facility]cludes [facility] HospitalHIV-2 antibodies, western [id number] 09:59:00 Test Item Value Reference Range Interpretation Comments HIV-2 antibodies, western blot (test Negative Negative code = 01971-4) Count [facility]cludes [facility] HospitalHIV-1/HIV-2 Ab, [id number] 09:59:00 Test Item Value Reference Range Interpretation Comments HIV-1/HIV-2 Ab, serum (test code = Positive Negative A 75242-6) Count Includes [facility] HospitalHIV-CMIA (Chemiluminescent Microparticle Immuno Assay) 2021-07-23 09:59:00 Test Item Value Reference Range Interpretation Comments HIV-CMIA (Chemiluminescent Reactive Non Reactive A Microparticle Immuno Assay) (test code = 27763-7) Count Includes [facility] Hospitaltoxoplasma gondii antibody, [id number] 09:59:00 Test Item Value Reference Range Interpretation Comments toxoplasma gondii 62.1 (unknown unit) 0.0-7.1 H antibody, IgG (test code = 5389-2) Count Includes [facility] Hospitalhepatitis B surface oimswkur8124-43-70 09:59:00 Test Item Value Reference Range Interpretation Comments hepatitis B surface antibody Non Reactive (test code = 45687-3) Count Includes [facility] HospitalHIV genotype [id number] 09:59:00 Test Item Value Reference Range Interpretation Comments HIV genotype result (test code = GENRTI 95216-0) Count Includes [facility] HospitalHIV-1RNA, serum, by PCR, sxoskhowtosq3454-68-67 09:59:00 Test Item Value Reference Range Interpretation Comments HIV-1RNA, serum, by PCR, 2970 /mL quantitative (test code = 24470-7) Count Includes [facility] Hospitalhepatitis C antibody, [id number] 09:59:00 Test Item Value Reference Range Interpretation Comments hepatitis C antibody, serum (test code <0.1 0.0-0.9 = 35483-4) Count Includes [facility] HospitalNeisseria gonorrhoeae DNA [id number] 09:59:00 Test Item Value Reference Range Interpretation Comments Neisseria gonorrhoeae DNA probe Negative Negative (test code = 60448-1) Count Includes [facility] Hospitalcreatinine, random, [id number] 09:59:00 Test Item Value Reference Range Interpretation Comments creatinine, random, urine (test 44.5 mg/dL code = 2161-8) [facility] [id number] 09:59:00 Test Item Value Reference Range Interpretation Comments human leukocyte antigen B57 (test Negative code = 891765) Count Includes [facility] Hospitalcasts, [id number] 09:59:00 Test Item Value Reference Range Interpretation Comments casts, urine (test code = 5626) None seen None seen [facility] urine on iazqdgcymu3075-93-83 09:59:00 Test Item Value Reference Range Interpretation Comments WBC urine on microscopy (test None seen /hpf 0-5 code = 1016) Count Includes [facility] Hospitalchlamydia DNA [id number] 09:59:00 Test Item Value Reference Range Interpretation Comments chlamydia DNA probe (test code = Negative Negative 51603-2) Count Includes [facility] HospitalOccult Blood, [id number] 09:59:00 Test Item Value Reference Range Interpretation Comments Occult Blood, urine (test code = Negative Negative ) Count Includes [facility] HospitalCD4/CD8 [id number] 09:59:00 Test Item Value Reference Range Interpretation Comments CD4/CD8 ratio (test code 0.34 (unknown unit) 0.92-3.72 L = 30755) Count Includes [facility] HospitalT-suppressor cells (CD8) as percent of blood lymphocytes 2021-07-23 09:59:00 Test Item Value Reference Range Interpretation Comments T-suppressor cells (CD8) as percent of 48.7 % 12.0-35.5 H blood lymphocytes (test code = 3517) Count Includes [facility] Hospitalabsolute [id number] 09:59:00 Test Item Value Reference Range Interpretation Comments absolute CD8 (test code = 779 (unknown unit) [phone]) Count Includes [facility] HospitalLDL cholesterol, uyyea1494-23-30 09:59:00 Test Item Value Reference Range Interpretation Comments LDL cholesterol, serum (test code = 158 mg/dL 0-99 H 2088-10) Count Includes [facility] Hospitalvery low density dtlycswwvpmn1018-57-17 09:59:00 Test Item Value Reference Range Interpretation Comments very low density lipoproteins (test 39 mg/dL 5-40 code = 2091-7) Count Includes [facility] Hospitalhepatitis C antibody, [id number] 09:59:00 Test Item Value Reference Range Interpretation Comments hepatitis C antibody, serum (test code <0.1 0.0-0.9 = 5199-5) Count Includes [facility] HospitalNeisseria gonorrhoeae DNA [id number] 09:59:00 Test Item Value Reference Range Interpretation Comments Neisseria gonorrhoeae DNA probe Negative Negative (test code = 71442-4) Count Includes [facility] HospitalHDL cholesterol, unrfv3379-28-10 09:59:00 Test Item Value Reference Range Interpretation Comments HDL cholesterol, serum (test code = 54 mg/dL >39 2085-06) Count Includes [facility] Hospitaltriglyceride, serum, [id number] 09:59:00 Test Item Value Reference Range Interpretation Comments triglyceride, serum, fasting (test 214 mg/dL 0-149 H code = 2571-8) Count Includes [facility] Hospitalcholesterol, [id number] 09:59:00 Test Item Value Reference Range Interpretation Comments cholesterol, serum (test code = 251 mg/dL 100-199 H 2092-12) Count Includes [facility] Hospitalbacteria, urine aqbxdwolab8529-45-84 09:59:00 Test Item Value Reference Range Interpretation Comments bacteria, urine microscopy (test None seen None seen/Few code = 5769-5) Count Includes [facility] Hospitalcasts, [id number] 09:59:00 Test Item Value Reference Range Interpretation Comments casts, urine (test code = 5626) None seen None seen Count Includes [facility] Hospitalepithelial cells, [id number] 09:59:00 Test Item Value Reference Range Interpretation Comments epithelial cells, urine (test code None seen 0-10 = 5787-7) Count Includes [facility] HospitalRBC, [id number] 09:59:00 Test Item Value Reference Range Interpretation Comments RBC, Urine (test code = None seen /hpf 0-2 10405-0) Count Includes [facility] HospitalWBC urine on ygeyeqpgxt4268-14-85 09:59:00 Test Item Value Reference Range Interpretation Comments WBC urine on microscopy (test None seen /hpf 0-5 code = 1016) Count Includes [facility] Hospitalurinalysis, microscopic lorfgyachct5179-99-28 09:59:00 Test Item Value Reference Range Interpretation Comments urinalysis, microscopic See below: examination (test code = 73842-7) Count Includes [facility] Hospitalnitrate, [id number] 09:59:00 Test Item Value Reference Range Interpretation Comments nitrate, urine (test code = 91649-2) Negative Negative Count Includes [facility] Hospitalurobilinogen, urine, semiquantitative (dipstick) 2021-07-23 09:59:00 Test Item Value Reference Range Interpretation Comments urobilinogen, urine, 0.2 (unknown 0.2-1.0 semiquantitative (dipstick) unit) (test code = 5818-0) Count Includes [facility] Hospitalbilirubin, qgsiz8912-04-38 09:59:00 Test Item Value Reference Range Interpretation Comments bilirubin, urine (test code = Negative Negative 5770-3) Count Includes [facility] Hospitalketones, urine, by test qkrhm6032-04-68 09:59:00 Test Item Value Reference Range Interpretation Comments ketones, urine, by test strip (test Negative Negative code = 5797-6) Count Includes [facility] Hospitalglucose, urine, dlmywpymqoswgwfq1759-81-23 09:59:00 Test Item Value Reference Range Interpretation Comments glucose, urine, semiquantitative (test 3+ Negative A code = 5792-7) Count Includes [facility] Hospitalprotein, urine, semiquantitative (dipstick)2021-07-23 09:59:00 Test Item Value Reference Range Interpretation Comments protein, urine, 37.6 (unknown semiquantitative (dipstick) unit) (test code = 1753-3) Count Includes [facility] Hospitalleukocyte esterase, urine, by cbyvogjo1999-40-84 09:59:00 Test Item Value Reference Range Interpretation Comments leukocyte esterase, urine, by Negative Negative dipstick (test code = 5799-2) Count Includes [facility] Hospitalappearance, [id number] 09:59:00 Test Item Value Reference Range Interpretation Comments appearance, urine (test code = 5767-9) Clear Clear Count Includes [facility] Hospitalurine [id number] 09:59:00 Test Item Value Reference Range Interpretation Comments urine color (test code = 5778-6) Yellow Yellow Count Includes [facility] HospitalpH, urine, ehddskidaprdtsws1132-44-05 09:59:00 Test Item Value Reference Range Interpretation Comments pH, urine, semiquantitative 6.0 (unknown 5.0-7.5 (test code = 5803-2) unit) Count Includes [facility] Hospitalspecific gravity, body [id number] 09:59:00 Test Item Value Reference Range Interpretation Comments specific gravity, body fluid (test >=1.030 1.005-1.030 A code = 2964-5) Count Includes [facility] Hospitalalanine aminotransferase (SGPT), tegwh0885-20-77 09:59:00 Test Item Value Reference Range Interpretation Comments alanine aminotransferase (SGPT), serum 16 1/L 0-44 (test code = 1742-6) Count Includes [facility] Hospitalaspartate aminotransferase (SGOT), nyuyp2674-62-69 09:59:00 Test Item Value Reference Range Interpretation Comments aspartate aminotransferase (SGOT), 21 1/L 0-40 serum (test code = 1920-8) Count Includes [facility] Hospitalalkaline phosphatase, emwmu2397-49-68 09:59:00 Test Item Value Reference Range Interpretation Comments alkaline phosphatase, serum (test code 93 1/L 44-121 = 1783-0) Count Includes [facility] Hospitalbilirubin, serum, [id number] 09:59:00 Test Item Value Reference Range Interpretation Comments bilirubin, serum, total (test code 1.0 mg/dL 0.0-1.2 = 1975-2) Count Includes [facility] Hospitalalbumin/globulin ratio, [id number] 09:59:00 Test Item Value Reference Range Interpretation Comments albumin/globulin ratio, 1.6 (unknown unit) 1.2-2.2 serum (test code = 1759-0) [facility] Healthglobulin, [id number] 09:59:00 Test Item Value Reference Range Interpretation Comments globulin, serum (test code 2.7 (unknown unit) 1.5-4.5 = 2336-6) Count Includes [facility] Hospitalalbumin, [id number] 09:59:00 Test Item Value Reference Range Interpretation Comments albumin, serum (test code = 1751-7) 4.3 g/dL 4.0-5.0 Count Includes [facility] Hospitalprotein, total, [id number] 09:59:00 Test Item Value Reference Range Interpretation Comments protein, total, serum (test code = 7.0 g/dL 6.0-8.5 2885-2) Count Includes [facility] Hospitalcalcium, [id number] 09:59:00 Test Item Value Reference Range Interpretation Comments calcium, serum (test code = 1999-8) 9.7 mg/dL 8.7-10.2 Count Includes [facility] Hospitalcarbon dioxide, venous qtopt1807-32-13 09:59:00 Test Item Value Reference Range Interpretation Comments carbon dioxide, venous blood (test 23 mmol/L 20-29 code = 2027-1) Count Includes [facility] Hospitalchloride, ulfyk9226-66-75 09:59:00 Test Item Value Reference Range Interpretation Comments chloride, serum (test code = 97 mmol/L 96-106 5-0) Count Includes [facility] Hospitalpotassium, [id number] 09:59:00 Test Item Value Reference Range Interpretation Comments potassium, serum (test code = 4.4 mmol/L 3.5-5.2 2823-3) Count Includes [facility] Hospitalsodium, ieacn8115-80-50 09:59:00 Test Item Value Reference Range Interpretation Comments sodium, serum (test code = 2951-2) 136 mmol/L 134-144 Count Includes [facility] Hospitalurea nitrogen/creatinine ratio, wzvfr0492-50-75 09:59:00 Test Item Value Reference Range Interpretation Comments urea nitrogen/creatinine 19 (unknown unit) 9-20 ratio, serum (test code = 3097-3) [facility] HealtheGFR if Fzjwsgdj2270-99-83 09:59:00 Test Item Value Reference Range Interpretation Comments eGFR if 111 mL/min/{1.73 m2} >59 (test code = 73916-5) Count Includes [facility] HospitalEstimated Glomerular Filtration Rate (calc)2021-07-23 09:59:00 Test Item Value Reference Range Interpretation Comments Estimated Glomerular 96 mL/min/{1.73 m2} >59 Filtration Rate (calc) (test code = 66392-7) Count Includes [facility] Hospitalcreatinine, vwsly1647-08-94 09:59:00 Test Item Value Reference Range Interpretation Comments creatinine, serum (test code = 0.96 mg/dL 0.76-1.27 0-0) Count Includes [facility] Hospitalurea nitrogen, pwyue0054-65-76 09:59:00 Test Item Value Reference Range Interpretation Comments urea nitrogen, blood (test code = 18 mg/dL 6-24 3094-0) Count Includes [facility] Hospitalblood glucose, [id number] 09:59:00 Test Item Value Reference Range Interpretation Comments blood glucose, random (test code = 302 mg/dL 65-99 H 2339-0) Count Includes [facility] Hospitalimmature granulocytes, percentage of total cells, blood 2021-07-23 09:59:00 Test Item Value Reference Range Interpretation Comments immature granulocytes, percentage of 1 % total cells, blood (test code = 56786-5) Count Includes [facility] Hospitalbasophil count, vtqzyazc9746-33-99 09:59:00 Test Item Value Reference Range Interpretation Comments basophil count, absolute (test 0.1 x10E3/uL 0.0-0.2 code = 92976-4) Count Includes [facility] HospitalEosinophil Absolute Ndomk2440-97-51 09:59:00 Test Item Value Reference Range Interpretation Comments Eosinophil Absolute Count (test 0.3 X10E3/UL 0.0-0.4 code = 12537-9) Count Includes [facility] Hospitalmonocyte count, blood, bcziaoafz7328-05-96 09:59:00 Test Item Value Reference Range Interpretation Comments monocyte count, blood, automated 0.6 X10E3/UL 0.1-0.9 (test code = 742-7) Count Includes [facility] Hospitallymphocyte count, blood, gubeuuaxh2885-85-01 09:59:00 Test Item Value Reference Range Interpretation Comments lymphocyte count, blood, 1.6 X10E3/UL 0.7-3.1 automated (test code = 731-0) Count Includes [facility] HospitalAbsolute Vgfqvzhcpkv0717-02-15 09:59:00 Test Item Value Reference Range Interpretation Comments Absolute Neutrophils (test code 6.0 X10E3/UL 1.4-7.0 = 00553-8) Count Includes [facility] Hospitalbasophils as percent of blood gajfijzdrp5794-43-78 09:59:00 Test Item Value Reference Range Interpretation Comments basophils as percent of blood 1 % leukocytes (test code = 707-0) Count Includes [facility] Hospitaleosinophils as percent of blood uhalqggvjr3742-72-83 09:59:00 Test Item Value Reference Range Interpretation Comments eosinophils as percent of blood 3 % leukocytes (test code = 713-8) Count Includes [facility] Hospitalmonocytes as percent of blood icpqedsaxh9472-22-86 09:59:00 Test Item Value Reference Range Interpretation Comments monocytes as percent of blood 7 % leukocytes (test code = 5905-5) Count Includes [facility] Hospitallymphocytes as percent of blood hxyuojyhfv3852-67-02 09:59:00 Test Item Value Reference Range Interpretation Comments lymphocytes as percent of blood 18 % leukocytes (test code = 736-9) Count Includes [facility] Hospitalneutrophils as percent of blood lwevgbjndt1466-21-15 09:59:00 Test Item Value Reference Range Interpretation Comments neutrophils as percent of blood 70 % leukocytes (test code = 770-8) Count Includes [facility] Hospitalplatelet phqlr3452-43-15 09:59:00 Test Item Value Reference Range Interpretation Comments platelet count (test code = 302 X10E3/UL 150-450 777-3) Count In[facility] Hospitalred blood cell distribution [id number] 09:59:00 Test Item Value Reference Range Interpretation Comments red blood cell distribution width 11.5 % 11.6-15.4 L (test code = 788-0) Count Includes [facility] Hospitalmean corpuscular hemoglobin concentration, [id number] 09:59:00 Test Item Value Reference Range Interpretation Comments mean corpuscular hemoglobin 32.7 G/DL 31.5-35.7 concentration, RBC (test code = 786-4) Count Includes [facility] HospitalComplete Blood Count w/o Pntj0901-82-85 18:08:00 Test Item Value Reference Range Interpretation Comments White Blood Count (test code = 16.5 x10 3/uL 4.4-10.5 H WBCT) Red Blood Count (test code = 5.11 x10 6/uL 4.10-5.70 N RBC) Hemoglobin (test code = HGBT) 16.0 g/dL 13.4-17.4 N Hematocrit (test code = HCTT) 49.1 % 38.7-52.0 N Mean Corpuscular Volume (test 96.10 fL 80.00-100.00 N code = MCV) Mean Corpuscular Hemoglobin 31.3 pg 27.0-32.5 N (test code = MCH) Mean Corpuscular HGB Conc 32.60 g/dL 32.00-37.50 N (test code = MCHC) RDW Coefficient of Variation 11.5 % 11.5-14.5 N (test code = RDWCV) Platelet Count (test code = 306.0 x10 3/uL 140.0-440.0 N PLTT) Mean Platelet Volume (test 11.2 fL code = MPV) nRBC Abs (test code = NRBCA) 0 nRBC Pct (test code = NRBCP) 0 % Glucose Uwcjkzvywvo9327-99-76 17:55:00 Test Item Value Reference Range Interpretation Comments Glucose Fingerstick 331 mg/dL 70-115 [employer] MIX[employer] PAT (test code = WGLUC) Julio C martinez RN or Glucose Bwxkadsepcx4406-08-37 16:21:00 Test Item Value Reference Range Interpretation Comments Glucose Fingerstick 311 mg/dL 70-115 [employer] JURADO (test code = WGLUC) CHANDA Mitchell RN or Glucose Vumltkmpuvw0325-87-82 14:56:00 Test Item Value Reference Range Interpretation Comments Glucose Fingerstick 388 mg/dL 70-115 [employer] Di Mina (test code = WGLUC) Glucose Rdsabzbwhfw3491-28-04 14:51:00 Test Item Value Reference Range Interpretation Comments Glucose Fingerstick 400 mg/dL 70-115 [employer] Maria L (test code = WGLUC) Rose Maryo Repeat Test Complete Blood Count Auto Cegc5937-47-05 13:57:00 Test Item Value Reference Range Interpretation Comments White Blood Count (test code = 19.6 x10 3/uL 4.4-10.5 H WBCT) Red Blood Count (test code = 4.95 x10 6/uL 4.10-5.70 N RBC) Hemoglobin (test code = HGBT) 15.5 g/dL 13.4-17.4 N Hematocrit (test code = HCTT) 47.7 % 38.7-52.0 N Mean Corpuscular Volume (test 96.40 fL 80.00-100.00 N code = MCV) Mean Corpuscular Hemoglobin 31.3 pg 27.0-32.5 N (test code = MCH) Mean Corpuscular HGB Conc 32.50 g/dL 32.00-37.50 N (test code = MCHC) RDW Coefficient of Variation 11.6 % 11.5-14.5 N (test code = RDWCV) Platelet Count (test code = 324.0 x10 3/uL 140.0-440.0 N PLTT) Mean Platelet Volume (test 11.0 fL code = MPV) Immature Granulocytes % (Auto) 1.0 % 0.0-5.0 N (test code = IMMGRAN%) Neutrophils % (Auto) (test 78.5 % 36.0-70.0 H code = NE%) Lymphocytes % (Auto) (test 12.1 % 12.0-44.0 N code = LY%) Monocytes % (Auto) (test code 5.9 % 0.0-11.0 N = MO%) Eosinophils % (Auto) (test 2.1 % 0.0-7.0 N code = EO%) Basophils % (Auto) (test code 0.4 % 0.0-2.0 N = BA%) Immature Granulocytes # (Auto) 0.20 x10 3/uL (test code = IMMGRAN#) Neutrophils # (Auto) (test 15.4 x10 3/uL 1.6-7.4 H code = NE#) Lymphocytes # (Auto) (test 2.38 x10 3/uL 0.50-4.60 N code = LY#) Monocytes # (Auto) (test code 1.15 x10 3/uL 0.00-1.20 N = MO#) Eosinophils # (Auto) (test 0.42 x10 3/uL 0.00-0.74 N code = EO#) Basophils # (Auto) (test code 0.08 x10 3/uL 0.00-0.21 N = BA#) nRBC Abs (test code = NRBCA) 0 nRBC Pct (test code = NRBCP) 0 % Comprehensive Metabolic [id number] 13:57:00 Test Item Value Reference Range Interpretation Comments SODIUM (test code = NA) 137.0 mmol/L 136.0-145.0 N Potassium,K (test code = 4.1 mmol/L 3.0-5.1 N K) Chloride (test code = CL) 103 mmol/L 98-107 N Carbon Dioxide (test code 26 mmol/L 20-31 N = CO2) Anion Gap (test code = 8 mmol/L 5-15 N GAP) Blood Urea Nitrogen (test 20 mg/dL 9-23 N code = BUN) Creatinine (test code = 1.34 mg/dL 0.55-1.02 H CREATT) Creatinine Clr Calc 95.63 mL/min Pharmacy (test code = CRCLPHA) Estimated GFR ( > 60 mL/min/1.73m2 [facility] (test code = EGFRAA) Estimated GFR (Non Afr > 60 mL/min/1.73m2 [facility] (test code = EGFRNAA) BUN/Creatinine Ratio 15 ratio 10-20 N (test code = BCRATIO) Glucose (test code = GLU) 491 mg/dL 74-106 HH Cr itical value called to milagros darlin by JOSE LUIS REYES on: 02/25/21 at 1432by [id number]. Osmolality,Calculated 308.1 (test code = OSMOC) Calcium (test code = CA) 9.5 mg/dL 8.3-10.6 N Bilirubin,Total (test 0.4 mg/dL 0.2-1.1 N code = BILIT) Aspartate Amino 67 U/L 0-34 H Transferase (test code = AST) Alanine Aminotransferase 35 U/L 10-49 N (test code = ALT) Total Protein (test code 6.9 g/dL 5.7-8.2 N = TP) Albumin Level (test code 4.3 g/dL 3.2-4.8 N = ALB) Globulin (test code = 2.6 mg/dL 2.3-3.5 N GLOB) Albumin/Globulin Ratio 1.7 ratio 0.8-2.0 N (test code = AGRATIO) Alkaline Phosphatase 104 U/L 46-116 N (test code = ALP) Ethanol [id number] 13:57:00 Test Item Value Reference Range Interpretation Comments Ethanol (test code = ETOH) 12 mg/dL HIV-1RNA, serum, by PCR, [id number] 10:48:51 Test Item Value Reference Range Interpretation Comments HIV-1RNA, serum, by PCR, quantitative 61 /mL (test code = 87594-4) [facility] [id number] 10:48:41 Test Item Value Reference Range Interpretation Comments T-helper cells (CD4) count (test code 259 uL = 31379-2) Count Includes [facility]
[2023-08-07 10:25] LABS: Hematocrit 42.3 % (39.6-49.0); Lymphocytes % 17.3 % (15.3-44.8); MCV 92.7 fL (80-100); MPV 9.4 fL (7.6-11.3); Platelets 194 thou/uL (152-406); RBC Red Blood Cell Count 4.57 M/uL (4.33-5.43)
[2023-08-07] MEDS ORDERED: NA CHLORIDE 0.9% 1,000 ML ONE (10:31)
[2023-08-07] MEDS ORDERED: ONDANSETRON 4 MG/2 ML VIAL ONE (10:31)
[2023-08-07] MEDS ORDERED: KETOROLAC 30 MG/ML INJ ONE (10:31)
[2023-08-07 10:41] LABS: SARS-CoV-2 Antigen Rapid Res Negative (Negative)
[2023-08-07 10:43] LABS: Albumin 2.3 g/dL (3.4-5.0); Potassium 3.9 mEq/L (3.5-5.1); Protein, Total 6.6 g/dL (6.4-8.2)
--- NOTE | 2023-08-07 11:05 | RAD REPORT ---
EXAM DESCRIPTION: RAD - Chest Single View - 08/07/2023 10:52 am CLINICAL HISTORY: Cough;Dyspnea Chest pain. COMPARISON: <Comparisons> FINDINGS: Portable technique limits examination quality. The lungs are grossly clear. The heart is normal in size. No displaced fractures. IMPRESSION: No acute intrathoracic process suspected.
--- NOTE | 2023-08-07 11:10 | EDPHYS ---
Physician Documentation [facility] Name: Ahmet Cordoba Jr Age: 47 yrs Sex: Male : 1975 Arrival Date: 08/07/2023 Time: 09:43 Bed 15 Private MD: ED Physician Collin Alcaraz HPI: 08/07 10:25 This 47 yrs old Black Male presents to ER via Ambulatory with complaints of Flu jh7 Symptoms. 10:25 Onset: The symptoms/episode began/occurred 5 day(s) ago. Associated signs and symptoms: jh7 Pertinent positives: abdominal pain, congestion, cough, diarrhea, fever, sore throat, vomiting, Pertinent negatives: chest pain, wheezing. Modifying factors: the patient symptoms are aggravated by activity, coughing, movement. Historical: - Allergies: 10:25 Sulfa (Sulfonamide Antibiotics); kc6 10:25 Aspirin; kc6 - Immunization history:: Adult Immunizations unknown. - Social history:: Smoking status: unknown. ROS: 10:25 Eyes: Negative for injury, pain, redness, and discharge, Cardiovascular: Negative for jh7 chest pain, palpitations, and edema, 10:25 Back: Negative for injury and pain, MS/Extremity: Negative for injury and deformity, Skin: Negative for injury, rash, and discoloration, Neuro: Negative for headache, weakness, numbness, tingling, and seizure, 10:25 Constitutional: Positive for body aches, chills, fatigue, fever, 10:25 ENT: Positive for sinus congestion, sore throat, 10:25 Respiratory: Positive for cough, Negative for shortness of breath, 10:25 Abdomen/GI: Positive for nausea and vomiting, abdominal cramps, 10:25 All other systems are negative, Exam: 10:25 Head/Face: Normocephalic, atraumatic. Eyes: Pupils equal round and reactive to light, jh7 extra-ocular motions intact. Lids and lashes normal. Conjunctiva and sclera are non-icteric and not injected. Cornea within normal limits. Periorbital areas with no swelling, redness, or edema. Neck: Trachea midline, no thyromegaly or masses palpated, and no cervical lymphadenopathy. Supple, full range of motion without nuchal rigidity, or vertebral point tenderness. No Meningismus. Cardiovascular: Regular rate and rhythm with a normal S1 and S2. No gallops, murmurs, or rubs. Normal PMI, no JVD. No pulse deficits. Respiratory: Lungs have equal breath sounds bilaterally, clear to auscultation and percussion. No rales, rhonchi or wheezes noted. No increased work of breathing, no retractions or nasal flaring. Abdomen/GI: Soft, non-tender, with normal bowel sounds. No distension or tympany. No guarding or rebound. No evidence of tenderness throughout. Back: No spinal tenderness. No costovertebral tenderness. Full range of motion. Skin: Warm, dry with normal turgor. Normal color with no rashes, no lesions, and no evidence of cellulitis. MS/ Extremity: Pulses equal, no cyanosis. Neurovascular intact. Full, normal range of motion. Neuro: Awake and alert, GCS 15, oriented to person, place, time, and situation. Motor strength 5/5 in all extremities. Sensory grossly intact. Normal gait. 10:25 Constitutional: The patient appears alert, awake, obviously ill, 10:25 ENT: Posterior pharynx: erythema, that is mild, Vital Signs: 09:54 BP 98 / 70; Pulse 101; Resp 18; Temp 98.2; Pulse Ox 94% ; Weight 72.57 kg; Height 6 ft. ll1 1 in. ; Pain 8/10; 10:41 BP 131 / 89; Pulse 96; Resp 18 S; Pulse Ox 94% on R/A; kc6 09:54 Body Mass Index 21.11 (72.57 kg, 185.42 cm) ll1 09:54 Pain Scale: Adult ll1 MDM: 09:50 Patient medically screened. [facility] 11:15 Differential diagnosis: viral Infection, bacterial infection, URI, pneumonia. Data [facility] reviewed: vital signs, nurses notes, radiologic studies, plain films. I considered the following discharge prescriptions or medication management in the emergency department Medications were administered in the Emergency Department. See MAR. Counseling: I had a detailed discussion with the patient and/or guardian regarding the historical points, exam findings, and any diagnostic results supporting the discharge/admit diagnosis, to return to the emergency department if symptoms worsen or persist or if there are any questions or concerns that arise at home. Response to treatment: the patient's symptoms have markedly improved after treatment. 08/07 09:56 Order name: CBC with Diff; Complete Time: 10:41 [facility] 08/07 09:56 Order name: CMP; Complete Time: 10:47 [facility] 08/07 09:56 Order name: Lipase; Complete Time: 10:47 [facility] 08/07 09:56 Order name: SARS RAPID; Complete Time: 10:47 [facility] 08/07 09:56 Order name: Flu; Complete Time: 10:41 [facility] 08/07 09:56 Order name: Strep; Complete Time: 10:41 [facility] 08/07 09:56 Order name: XRAY Chest (1 view); Complete Time: 11:09 [facility] 08/07 09:56 Order name: IV Saline Lock; Complete Time: 10:14 [facility] 08/07 09:56 Order name: Labs collected and sent; Complete Time: 10:14 [facility] Administered Medications: 10:25 Drug: NS 0.9% IV 1000 ml IV at 1 bolus Per protocol; 1000 mL bolus Route: IV; Rate: 1 kc6 bolus; Site: right antecubital; 11:17 Follow up: Response: No adverse reaction; IV Status: Completed infusion; IV Intake: kc6 1000ml 10:25 Drug: TORadol - Ketorolac IVP 15 mg IVP once Route: IVP; Site: right antecubital; kc6 11:17 Follow up: Response: No adverse reaction; Pain is decreased kc6 10:25 Drug: Ondansetron IVP 4 mg IVP once; over 2 minutes Route: IVP; Site: right antecubital;kc6 11:17 Follow up: Response: No adverse reaction; Nausea is decreased kc6 Disposition: 14:36 Co-signature as Attending Physician, Collin Alcaraz MD I reviewed the patient's care rt provided by the Advanced Practice Provider and agree with the diagnosis and treatment plan. Disposition Summary: 08/07/23 11:09 Discharge Ordered Notes: Location: Home [facility] Problem: new [facility] Symptoms: have improved [facility] Condition: Stable [facility] Diagnosis - Streptococcal pharyngitis [facility] - Influenza due to other identified influenza virus with gastrointestinal [facility] manifestations Followup: [facility] - With: Private Physician - When: 2 - 3 days - Reason: Recheck today's complaints Discharge Instructions: - Discharge Summary Sheet [facility] - Influenza, Adult [facility] - Strep Throat, Adult [facility] Forms: - Medication Reconciliation Form [facility] - Thank You Letter [facility] - Antibiotic Education [facility] - Patient Portal Instructions [facility] - Leadership Thank You Letter [facility] Prescriptions: - ondansetron 4 mg Oral Tablet,disintegrating - take 1 tablet ORAL route every 4 to 6 hours As needed; 20 tablet; Refills: 0, [facility] Product Selection Permitted - Amoxicillin 875 mg Oral Tablet - take 1 tablet ORAL route every 12 hours for 10 days; 20 tablet; Refills: 0, [facility] Product Selection Permitted Signatures: Dispatcher [employer] Maty Nuñez FNP [employer] [facility] Nicol Fermin RN RN kc6 Collin Alcaraz MD MD rt
--- NOTE | 2023-08-07 11:10 | ER ---
Nurse's Notes [facility] Name: Ahmet Cordoba Jr Age: 47 yrs Sex: Male : 1975 Arrival Date: 08/07/2023 Time: 09:43 Bed 15 Private MD: Diagnosis: Streptococcal pharyngitis;Influenza due to other identified influenza virus with gastrointestinal manifestations Presentation: 08/07 09:54 Chief complaint: Patient states: Cough, congestion, WOODRUFF, sore throat, N/V since Friday. ll1 Coronavirus screen: Client denies travel out of the [place] in the last 14 days. congestion, cough unrelated to allergies, fatigue, headache, nausea, vomiting. Client presents with at least one sign or symptom that may indicate coronavirus-19. Standard/surgical mask placed on the client. Ebola Screen: Patient denies travel to an Ebola-affected area in the 21 days before illness onset. Initial Sepsis Screen: Does the patient meet any 2 criteria? No. Patient's initial sepsis screen is negative. Does the patient have a suspected source of infection? Yes: Productive cough/pneumonia. Risk Assessment: Do you want to hurt yourself or someone else? Patient reports no desire to harm self or others. Onset of symptoms was August 03, 2023. 09:54 Method Of Arrival: Ambulatory ll1 09:54 Acuity: ALESSANDRA 3 ll1 Historical: - Allergies: 10:25 Sulfa (Sulfonamide Antibiotics); kc6 10:25 Aspirin; kc6 - Immunization history:: Adult Immunizations unknown. - Social history:: Smoking status: unknown. Screenin:26 [facility] ED Fall Risk Assessment (Adult) History of falling in the last 3 months, kc6 including since admission No falls in past 3 months (0 pts) Confusion or Disorientation No (0 pts) Intoxicated or Sedated No (0 pts) Impaired Gait No (0 pts) Mobility Assist Device Used No (0 pt) Altered Elimination No (0 pt) Score/Fall Risk Level 0 - 2 = Low Risk. Abuse screen: Denies threats or abuse. Denies injuries from another. Nutritional screening: No deficits noted. Tuberculosis screening: No symptoms or risk factors identified. Assessment: 10:26 General: Appears in no apparent distress. uncomfortable, ill, Behavior is calm, kc6 cooperative, appropriate for age, Reports feeling ill for. Pain: Complains of pain in abdomen. Neuro: Level of Consciousness is awake, alert, obeys commands, Oriented to person, place, time, situation, Appropriate for age. Cardiovascular: Denies chest pain, Heart tones S1 S2 present Capillary refill < 3 seconds. Respiratory: Reports cough that is productive, Airway is patent Trachea midline Respiratory effort is even, unlabored, Respiratory pattern is regular, symmetrical. GI: Abdomen is round non-distended, Bowel sounds present X 4 quads. Abd is soft X 4 quads Abdomen is tender to palpation in epigastric area Reports nausea, Patient currently denies diarrhea, vomiting. : No signs and/or symptoms were reported regarding the genitourinary system. EENT: No signs and/or symptoms were reported regarding the EENT system. Derm: No signs and/or symptoms reported regarding the dermatologic system. Skin is intact, is healthy with good turgor, Skin is pink, warm \T\ dry. Musculoskeletal: No signs and/or symptoms reported regarding the musculoskeletal system. Circulation, motion, and sensation intact. Capillary refill < 3 seconds, Range of motion: intact in all extremities. Vital Signs: 09:54 BP 98 / 70; Pulse 101; Resp 18; Temp 98.2; Pulse Ox 94% ; Weight 72.57 kg; Height 6 ft. ll1 1 in. ; Pain 8/10; 10:41 BP 131 / 89; Pulse 96; Resp 18 S; Pulse Ox 94% on R/A; kc6 09:54 Body Mass Index 21.11 (72.57 kg, 185.42 cm) ll1 09:54 Pain Scale: Adult ll1 ED Course: 09:45 Patient arrived in ED. im 09:50 Maty Guardado FNP is PHCP. jh7 09:50 Collin Alcaraz MD is Attending Physician. jh7 09:56 Triage completed. ll1 09:57 Nicol Fermin, FIDELIA is Primary Nurse. kc6 10:14 Inserted saline lock: 20 gauge in right antecubital area, using aseptic technique. kc6 Blood collected. 10:26 Patient maintains SpO2 saturation greater than 95% on room air. kc6 10:26 Patient has correct armband on for positive identification. Bed in low position. Call kc6 light in reach. Side rails up X2. Client placed on continuous cardiac and pulse oximetry monitoring. NIBP monitoring applied. 10:26 Arm band placed on. kc6 10:54 XRAY Chest (1 view) In Process Unspecified. EDMS 11:18 No provider procedures requiring assistance completed. IV discontinued, intact, kc6 bleeding controlled, No redness/swelling at site. Pressure dressing applied. Administered Medications: 10:25 Drug: NS 0.9% IV 1000 ml IV at 1 bolus Per protocol; 1000 mL bolus Route: IV; Rate: 1 kc6 bolus; Site: right antecubital; 11:17 Follow up: Response: No adverse reaction; IV Status: Completed infusion; IV Intake: kc6 1000ml 10:25 Drug: TORadol - Ketorolac IVP 15 mg IVP once Route: IVP; Site: right antecubital; kc6 11:17 Follow up: Response: No adverse reaction; Pain is decreased kc6 10:25 Drug: Ondansetron IVP 4 mg IVP once; over 2 minutes Route: IVP; Site: right antecubital;kc6 11:17 Follow up: Response: No adverse reaction; Nausea is decreased kc6 Medication: 11:18 VIS not applicable for this client. kc6 Intake: 11:17 IV: 1000ml; Total: 1000ml. kc6 Outcome: 11:09 Discharge ordered by . kimi 11:18 Discharged to home ambulatory, kc6 11:18 Condition: stable 11:18 Discharge instructions given to patient, Instructed on discharge instructions, follow up and referral plans. medication usage, Demonstrated understanding of instructions, follow-up care, medications, Prescriptions given X 2, 11:18 Patient left the ED. kc6 Signatures: Dispatcher [employer] EDMS Sharon Ge, RN RN ll1 Maty Guardado, W[employer] DES[employer]ER [employer] DES[employer] Nicol Rice RN RN kc6 Ammy Guerrero
[2023-08-07 11:41] VITALS: TEMP 98.2; O2SAT 94
[2023-08-07 11:42] VITALS: BP 131/89
== END 2023-08-07 11:18 | disposition home or self-care (01) ==
LOC: ER 09:43
DX: J10.2 Influenza due to other identified influenza virus with gastrointestinal manifestations (principal); J02.0 Streptococcal pharyngitis; Z11.52 Encounter for screening for COVID-19; Z88.2 Allergy status to sulfonamides; Z88.6 Allergy status to analgesic agent
CPT/HCPCS: 96361; 85025; 36415; 87081; 83690; 80053; 87804 ×2; 71045; 96375; 96374; 99285; 87811; J2405; J7030